=== PATIENT | male | born 1970 | race Caucasian/White ===

== ENCOUNTER 2023-12-01 11:20 | Inpatient (IN) | payer SELFPAY ==
[2023-12-01] VITALS (9 sets, daily range): BP systolic 118–154; BP diastolic 76–106; PULSE 64–104; RESP 12–19; TEMP 36.3–37.3; O2SAT 94–100; BMI 34.6; BMI 34.0
[2023-12-01] MEDS: 0.9% Normal Saline (1000mL) 1,000 ML 999 ML IV (12:00)
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
[2023-12-01 13:12] LABS: Bacteria 0 SEEN /hpf (None Seen); Mucous, Urine 0 SEEN /hpf (<or=2+); Red Blood Cells-Urine 0 SEEN /hpf (0-5); Squamous Epithelial Cells - UA 0 SEEN /hpf (0-5)
[2023-12-01 13:13] LABS: Absolute Lymphocyte Count 0.46 X10^3/uL (0.83-4.51); Absolute Neutrophil Count 5.7 X10^3/uL (2.0-7.7); Basophil# 0.04 X10^3/uL; Basophil% 0.6 % (0-1); Eosinophil# 0.02 X10^3/uL; Eosinophils% 0.3 % (0-5); Hemoglobin 13.4 g/dL (13.0-16.5); Lymphocyte # 0.46 X10^3/ul (0.83-4.51); Lymphocyte % 6.7 % (19-41); Mean Corp Hgb Conc 37.2 g/dL (32-36); Mean Corpuscular Hgb 33.4 pg (27.0-32.0); Mean Corpuscular Volume 89.8 fL (80-94); Mean Platelet Vol. 9.1 fl (6.2-12.0); Monocyte# 0.62 X10^3/uL; NRBC Flagged by Analyzer 0 % (0-5); Neutrophil # 5.68 X10^3/uL (2.7-7.7); Neutrophil % 82.5 % (47-70); POSITIVE DIFFERENTIAL YES; Platelet Count 225 K/mm3 (150-450); RBC Distribution Width CV 11.6 % (11.6-14.6); RBC Distribution Width SD 37.4 fl (35.1-43.9); Red Blood Count 4.01 M/mm3 (4.6-6.2); White Blood Count 6.9 K/mm3 (4.4-11.0)
[2023-12-01 13:21] LABS: Color, Urine Yellow (Yellow); Glucose, Dipstick Normal (Normal); Ketone-Dipstick Negative (Negative); Leukocyte Esterase-Dipstick 25 /ul (Negative); Nitrite-Dipstick Negative (Negative); Occult Blood-Urine Negative /ul (Negative); Protein-Dipstick 30 mg/dl (Negative); Specific Gravity, Urine 1.005 (1.002-1.030); Urine Bilirubin Dipstick Negative (Negative); Urine Clarity Clear (Clear); Urine Urobilinogen Normal (Normal); Urine pH 6.5 (5.0 - 8.0)
[2023-12-01 13:28] LABS: White Blood Cells 0-5 SEEN /hpf (0-5)
[2023-12-01 13:37] LABS: Amphetamine Urine VISTA NEGATIVE (<1000 ng/mL); Barbiturate Urine VISTA NEGATIVE (< 200 ng/mL); Benzodiazepine Urine VISTA NEGATIVE (< 200 ng/mL); Cocaine Urine VISTA NEGATIVE (< 300 ng/mL); Ecstacy Urine VISTA NEGATIVE (< 500 ng/mL); Methadone Urine VISTA NEGATIVE (< 300 ng/mL); PCP Urine VISTA NEGATIVE (< 25 ng/mL); THC Urine VISTA NEGATIVE (< 50 ng/mL); Vista UDS pH Range 6
[2023-12-01 14:00] LABS: Alcohol, Blood (Medical)-Serum < 3.0 mg/dL
[2023-12-01 14:11] LABS: Ammonia < 10.0 umol/L (11-32)
[2023-12-01 14:21] LABS: ALB/GLOB Ratio 0.8 RATIO (0.9-2.4); AST(SGOT) 67 U/L (15-37); Alanine Aminotransfer ALT/SGPT 43 U/L (16-61); Albumin, Serum 3.6 g/dL (3.2-5.0); Alkaline Phosphatase 71 U/L (45-117); Anion Gap 13 (5-15); BUN 18 mg/dL (7-18); BUN/Creat Ratio 15.3 RATIO (10-20); Calcium,Total 9.8 mg/dL (8.5-10.1); Chloride 71 mmol/L (98-107); Creatinine, Serum 1.18 mg/dL (0.70-1.30); EST Glomerular Filtration Rate 68 mL/min (>60); Est Glom Filt Rate - Afr Amer 82 mL/min (>60); Estimated Creatinine Clearance 92.92 ml/min; Globulin 4.5 g/dL (2.2-4.2); Glucose 142 mg/dL (74-106); Potassium 2.9 mmol/L (3.5-5.1); Protein, Total 8.1 g/dL (6.4-8.2); Sodium Level 116 mmol/L (136-145)
[2023-12-01] MEDS: Potassium Chloride Oral Tablet 20 MEQ 40 MEQ PO (14:35)
[2023-12-01] MEDS: 0.9% Normal Saline (1000mL) 1,000 ML 250 ML IV ×3 (14:36→21:09)
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
[2023-12-01] MEDS: Thiamine Hydrochloride 200 MG in 0.9% Normal Saline (50mL Bag) 50 ML IV (17:14)
[2023-12-01 17:34] LABS: Bedside Glucose 141 mg/dL (74-106)
[2023-12-01 17:35] LABS: Prothrombin Time (Protime)PT. 13.5 SECONDS (11.7-14.9)
[2023-12-01 17:40] LABS: Phosphorus 2.9 mg/dL (2.5-4.9)
[2023-12-01] MEDS: Nystatin Ointment 1 APPLIC TOPICAL ×2 (17:40→21:09)
[2023-12-01] MEDS: Glucerna Shake 120 ML LIQUID PO (17:42)
[2023-12-01 17:48] LABS: Sodium Level 118 mmol/L (136-145)
[2023-12-02 01:29] LABS: Bedside Glucose 151 mg/dL (74-106)
[2023-12-02 02:36] VITALS: BP 128/76; PULSE 86; RESP 16; TEMP 37; O2SAT 92
[2023-12-02] MEDS: 0.9% Normal Saline (1000mL) 1,000 ML 250 ML IV ×2 (02:36→05:41)
[2023-12-02 05:28] LABS: Prothrombin Time (Protime)PT. 13.5 SECONDS (11.7-14.9)
[2023-12-02 05:34] LABS: Absolute Lymphocyte Count 0.94 X10^3/uL (0.83-4.51); Basophil# 0.04 X10^3/uL; Basophil% 0.7 % (0-1); Eosinophil# 0.09 X10^3/uL; Eosinophils% 1.5 % (0-5); Hematocrit 29.6 % (40-54); Hemoglobin 10.9 g/dL (13.0-16.5); Lymphocyte # 0.94 X10^3/ul (0.83-4.51); Lymphocyte % 16.2 % (19-41); Mean Corp Hgb Conc 36.8 g/dL (32-36); Mean Corpuscular Hgb 33.7 pg (27.0-32.0); Mean Corpuscular Volume 91.6 fL (80-94); Mean Platelet Vol. 8.7 fl (6.2-12.0); Monocyte# 0.72 X10^3/uL; Monocyte% 12.4 % (0-10); NRBC Flagged by Analyzer 0 % (0-5); Neutrophil # 3.97 X10^3/uL (2.7-7.7); Neutrophil % 68.3 % (47-70); Platelet Count 160 K/mm3 (150-450); RBC Distribution Width CV 11.6 % (11.6-14.6); RBC Distribution Width SD 39.4 fl (35.1-43.9); Red Blood Count 3.23 M/mm3 (4.6-6.2); White Blood Count 5.8 K/mm3 (4.4-11.0)
[2023-12-02] MEDS: Nystatin Ointment 1 APPLIC TOPICAL ×3 (05:40→21:33)
[2023-12-02 05:54] LABS: ALB/GLOB Ratio 0.9 RATIO (0.9-2.4); AST(SGOT) 49 U/L (15-37); Alanine Aminotransfer ALT/SGPT 32 U/L (16-61); Albumin, Serum 2.9 g/dL (3.2-5.0); Alkaline Phosphatase 54 U/L (45-117); Anion Gap 7 (5-15); BUN 13 mg/dL (7-18); Bilirubin, Direct 0.44 mg/dL (0.00-0.30); Calcium,Total 8.3 mg/dL (8.5-10.1); Chloride 91 mmol/L (98-107); Creatinine, Serum 0.81 mg/dL (0.70-1.30); EST Glomerular Filtration Rate 105 mL/min (>60); Est Glom Filt Rate - Afr Amer 127 mL/min (>60); Globulin 3.4 g/dL (2.2-4.2); Glucose 127 mg/dL (74-106); Magnesium 2.2 mg/dL (1.6-2.6); Phosphorus 2.6 mg/dL (2.5-4.9); Potassium 2.9 mmol/L (3.5-5.1); Protein, Total 6.3 g/dL (6.4-8.2); Sodium Level 125 mmol/L (136-145)
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
[2023-12-02 07:51] VITALS: BP 149/96; PULSE 91; RESP 18; TEMP 37.1; O2SAT 95
[2023-12-02] MEDS: KCL 20MEQ in 0.45%NS 20 MEQ/1,000 ML IV.SOLN. 100 MEQ IV ×2 (07:55→18:09)
[2023-12-02] MEDS: Enoxaparin 40 MG/0.4 ML Syringe SC (07:57)
[2023-12-02 09:17] LABS: Anion Gap 9 (5-15); BUN 12 mg/dL (7-18); BUN/Creat Ratio 13.6 RATIO (10-20); Calcium,Total 8.4 mg/dL (8.5-10.1); Chloride 91 mmol/L (98-107); Creatinine, Serum 0.88 mg/dL (0.70-1.30); EST Glomerular Filtration Rate 95 mL/min (>60); Est Glom Filt Rate - Afr Amer 115 mL/min (>60); Estimated Creatinine Clearance 123.53 ml/min; Glucose 194 mg/dL (74-106); Magnesium 2.1 mg/dL (1.6-2.6); Phosphorus 1.8 mg/dL (2.5-4.9); Potassium 3.2 mmol/L (3.5-5.1); Sodium Level 125 mmol/L (136-145)
[2023-12-02 12:16] LABS: Bedside Glucose 189 mg/dL (74-106)
[2023-12-02 13:12] LABS: Anion Gap 8 (5-15); BUN 14 mg/dL (7-18); BUN/Creat Ratio 14.6 RATIO (10-20); Calcium,Total 8.4 mg/dL (8.5-10.1); Chloride 92 mmol/L (98-107); Creatinine, Serum 0.96 mg/dL (0.70-1.30); EST Glomerular Filtration Rate 87 mL/min (>60); Est Glom Filt Rate - Afr Amer 105 mL/min (>60); Estimated Creatinine Clearance 113.23 ml/min; Glucose 212 mg/dL (74-106); Potassium 3.4 mmol/L (3.5-5.1); Sodium Level 127 mmol/L (136-145)
[2023-12-02 14:06] VITALS: BP 121/83; PULSE 89; RESP 18; TEMP 36.7; O2SAT 98
[2023-12-02 16:39] LABS: Bedside Glucose 138 mg/dL (74-106)
[2023-12-02 18:03] LABS: Anion Gap 9 (5-15); BUN 12 mg/dL (7-18); Calcium,Total 8.1 mg/dL (8.5-10.1); Chloride 92 mmol/L (98-107); Creatinine, Serum 0.86 mg/dL (0.70-1.30); EST Glomerular Filtration Rate 98 mL/min (>60); Est Glom Filt Rate - Afr Amer 119 mL/min (>60); Glucose 174 mg/dL (74-106); Potassium 3.3 mmol/L (3.5-5.1); Sodium Level 128 mmol/L (136-145)
[2023-12-02 21:28] VITALS: BP 129/89; PULSE 85; RESP 17; TEMP 37.3; O2SAT 97
[2023-12-02 21:52] LABS: Bedside Glucose 195 mg/dL (74-106)
[2023-12-02 22:04] LABS: Anion Gap 6 (5-15); BUN 11 mg/dL (7-18); BUN/Creat Ratio 12.3 RATIO (10-20); Calcium,Total 8.1 mg/dL (8.5-10.1); Chloride 93 mmol/L (98-107); EST Glomerular Filtration Rate 94 mL/min (>60); Est Glom Filt Rate - Afr Amer 113 mL/min (>60); Estimated Creatinine Clearance 120.78 ml/min; Glucose 192 mg/dL (74-106); Potassium 3.3 mmol/L (3.5-5.1); Sodium Level 126 mmol/L (136-145)
[2023-12-02 23:27] LABS: Anion Gap 5 (5-15); BUN 11 mg/dL (7-18); BUN/Creat Ratio 12.2 RATIO (10-20); Calcium,Total 8.1 mg/dL (8.5-10.1); Chloride 94 mmol/L (98-107); EST Glomerular Filtration Rate 93 mL/min (>60); Est Glom Filt Rate - Afr Amer 113 mL/min (>60); Estimated Creatinine Clearance 120.78 ml/min; Glucose 183 mg/dL (74-106); Potassium 3.3 mmol/L (3.5-5.1); Sodium Level 128 mmol/L (136-145)
[2023-12-03] MEDS: KCL 20MEQ in 0.45%NS 20 MEQ/1,000 ML IV.SOLN. 100 MEQ IV ×3 (02:46→19:00)
[2023-12-03 02:47] VITALS: BP 141/92; PULSE 82; RESP 16; TEMP 36.7; O2SAT 100
[2023-12-03 04:54] LABS: Absolute Lymphocyte Count 0.91 X10^3/uL (0.83-4.51); Absolute Neutrophil Count 3.3 X10^3/uL (2.0-7.7); Basophil# 0.04 X10^3/uL; Basophil% 0.8 % (0-1); Lymphocyte # 0.91 X10^3/ul (0.83-4.51); Lymphocyte % 18.1 % (19-41); Mean Corp Hgb Conc 35.5 g/dL (32-36); Mean Corpuscular Hgb 33.6 pg (27.0-32.0); Mean Corpuscular Volume 94.8 fL (80-94); Mean Platelet Vol. 9.1 fl (6.2-12.0); Monocyte# 0.59 X10^3/uL; Monocyte% 11.8 % (0-10); NRBC Flagged by Analyzer 0 % (0-5); Neutrophil # 3.34 X10^3/uL (2.7-7.7); Neutrophil % 66.5 % (47-70); Platelet Count 144 K/mm3 (150-450); RBC Distribution Width SD 42.5 fl (35.1-43.9); Red Blood Count 3.27 M/mm3 (4.6-6.2)
[2023-12-03 05:31] LABS: Anion Gap 6 (5-15); BUN 9 mg/dL (7-18); BUN/Creat Ratio 11.4 RATIO (10-20); Calcium,Total 8.4 mg/dL (8.5-10.1); Chloride 95 mmol/L (98-107); Creatinine, Serum 0.79 mg/dL (0.70-1.30); EST Glomerular Filtration Rate 108 mL/min (>60); Est Glom Filt Rate - Afr Amer 131 mL/min (>60); Glucose 146 mg/dL (74-106); Potassium 3.2 mmol/L (3.5-5.1); Sodium Level 128 mmol/L (136-145)
[2023-12-03] MEDS: Nystatin Ointment 1 APPLIC TOPICAL ×3 (05:49→20:24)
[2023-12-03 06:56] LABS: Bedside Glucose 124 mg/dL (74-106)
[2023-12-03] MEDS: Potassium Chloride Oral Tablet 20 MEQ 40 MEQ PO (08:22)
[2023-12-03] MEDS: Enoxaparin 40 MG/0.4 ML Syringe SC (08:23)
[2023-12-03 08:47] VITALS: BP 184/124; PULSE 84; RESP 18; TEMP 36.9; O2SAT 100
[2023-12-03 10:16] VITALS: PULSE 84
[2023-12-03] MEDS: hydrALAZINE 20 MG/ML Vial 10 MG IV (10:16)
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
--- NOTE | 2023-12-03 10:51 | PN_ITS ---
Subjective Subjective Patient seen and examined. He had no complaints. He was eating breakfast. Review of systems otherwise negative. Blood pressure noted to be elevated today. He is not on any blood pressure medications. Objective Data Objective Data Vital Signs: Vital Signs Temp Pulse Resp BP Pulse Ox O2 Del Method 98.5 F 84 18 184/124 H 100 Room Air 12/03/23 08:47 12/03/23 10:16 12/03/23 08:47 12/03/23 08:47 12/03/23 08:47 12/03/23 08:47 Oxygen Delivery Method Room Air Weight: 250 lb 14.177 oz Body Mass Index (BMI) 34.0 Intake & Output: Intake and Output for Last 24 Hours 12/01/23 12/02/23 12/03/23 23:59 23:59 23:59 Intake Total 2610.33 / 2610.33 4887.50 / 4887.50 1261.67 / 1261.67 Output Total 600 / 600 1400 / 1400 475 / 475 Balance / 3487.50 / 3487.50 786.67 / 786.67 Lab / Micro Data 12/03/23 04:10 12/03/23 04:10 Labs: Laboratory Results - last 24 hr 12/02/23 11:59: POC Glucose 189 H 12/02/23 12:40: Sodium 127 L, Potassium 3.4 L, Chloride 92 L, Carbon Dioxide 27.0, Anion Gap 8, BUN 14, Creatinine 0.96, Estim Creat Clear Calc 113.23, Est GFR (MDRD) Af Amer 105, Est GFR (MDRD) Non-Af 87, BUN/Creatinine Ratio 14.6, G lucose 212 H, Calcium 8.4 L 12/02/23 16:21: POC Glucose 138 H 12/02/23 17:35: Sodium 128 L, Potassium 3.3 L, Chloride 92 L, Carbon Dioxide 27.0, Anion Gap 9, BUN 12, Creatinine 0.86, Estim Creat Clear Calc 126.40, Est GFR (MDRD) Af Amer 119, Est GFR (MDRD) Non-Af 98, BUN/Creatinine Ratio 14.0, G lucose 174 H, Calcium 8.1 L 12/02/23 21:05: Sodium 126 L, Potassium 3.3 L, Chloride 93 L, Carbon Dioxide 27.0, Anion Gap 6, BUN 11, Creatinine 0.90, Estim Creat Clear Calc 120.78, Est GFR (MDRD) Af Amer 113, Est GFR (MDRD) Non-Af 94, BUN/Creatinine Ratio 12.3, G lucose 192 H, Calcium 8.1 L 12/02/23 21:30: POC Glucose 195 H 12/02/23 23:01: Sodium 128 L, Potassium 3.3 L, Chloride 94 L, Carbon Dioxide 29.0, Anion Gap 5, BUN 11, Creatinine 0.90, Estim Creat Clear Calc 120.78, Est GFR (MDRD) Af Amer 113, Est GFR (MDRD) Non-Af 93, BUN/Creatinine Ratio 12.2, G lucose 183 H, Calcium 8.1 L 12/03/23 04:10: WBC 5.0, RBC 3.27 L, Hgb 11.0 L, Hct 31.0 L, MCV 94.8 H, MCH 33.6 H, MCHC 35.5, RDW Std Deviation 42.5, RDW Coeff of Julien 12.0, Plt Count 144 L, MPV 9.1, Immature Gran % (Auto) 0.800, Neut % (Auto) 66.5, Lymph % (Auto) 18.1 L, [place] % (Auto) 11.8 H, Eos % (Auto) 2.0, Baso % (Auto) 0.8, Absolute Neuts (auto) 3.3, Absolute Lymphs (auto) 0.91, Nucleated RBC % 0, Sodium 128 L, Potassium 3.2 L, Chloride 95 L, Carbon Dioxide 27.0, Anion Gap 6, BUN 9, Creatinine 0.79, Estim Creat Clear Calc 137.60, Est GFR (MDRD) Af Amer 131, Est GFR (MDRD) Non-Af 108, BUN/Creatinine Ratio 11.4, Glucose 146 H, Calcium 8.4 L 12/03/23 06:38: POC Glucose 124 H Physical Exam Const alert, oriented x3 and no apparent distress General Appearance: cooperative HEENT normocephalic, head/scalp atraumatic, moist oral mucous membranes and oropharynx normal Eyes PERRL and EOMs intact bilaterally Neck no lymphadenopathy, supple and no JVD Lymph Lymphatic: no lymphadenopathy noted and no lymphedema noted Resp normal respiratory effort, normal air movement and clear to auscultation bilaterally Cardio regular rate, regular rhythm, S1 normal heart sound, S2 normal heart sound and no murmurs GI normal to inspection, nondistended, normoactive bowel sounds, soft to palpation, non-tender and non-distended Extremity normal capillary refill, no clubbing, cyanosis or edema and no calf tenderness Skin General Skin Exam: no breakdown Neuro CN's II-XII intact bilaterally, no focal motor deficits and no sensory deficits noted Motor Exam: strength 5/5 throughout Psych thought process normal Mood & Affect: flat affect Assessment & Plan Assessment/Plan (1) Acute hyponatremia: (2) Acute hypokalemia: (3) HTN (hypertension): PLAN: Plan #Severe hyponatremia * resolving. Sodium is now 128. Likely due to beer potomania from chronic alcohol abuse * will monitor * #Hypokalemia: Patient is 3.2. Will replace and trend. #Hypertension; blood pressure was up to 184/124 today. Blood pressure has been running in the 120s to 140s systolic. Will start on low-dose p.o. amlodipine 10 mg daily. IV hydralazine prn DVT prophylaxis: lovenox Charges/Coding Visit Charges Inpatient E&M: 83291 Subs Hosp L2
[2023-12-03 12:03] LABS: Bedside Glucose 209 mg/dL (74-106)
[2023-12-03] MEDS: amLODIPine 5 MG Tablet PO (14:17)
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
[2023-12-03 14:24] VITALS: BP 123/80; PULSE 70; RESP 18; TEMP 36.6; O2SAT 100
[2023-12-03 17:36] LABS: Bedside Glucose 224 mg/dL (74-106)
[2023-12-03 20:21] VITALS: BP 144/94; PULSE 84; RESP 16; TEMP 37; O2SAT 98
[2023-12-03 22:20] LABS: Bedside Glucose 189 mg/dL (74-106)
[2023-12-04 03:08] VITALS: BP 158/98; PULSE 92; RESP 18; TEMP 36.8; O2SAT 98
[2023-12-04] MEDS: KCL 20MEQ in 0.45%NS 20 MEQ/1,000 ML IV.SOLN. 100 MEQ IV ×2 (05:07→20:52)
[2023-12-04] MEDS: Nystatin Ointment 1 APPLIC TOPICAL ×3 (05:07→20:54)
[2023-12-04 05:30] LABS: Bedside Glucose 147 mg/dL (74-106)
[2023-12-04 06:34] LABS: Anion Gap 5 (5-15); BUN 5 mg/dL (7-18); BUN/Creat Ratio 7.4 RATIO (10-20); Calcium,Total 8.1 mg/dL (8.5-10.1); Chloride 96 mmol/L (98-107); Creatinine, Serum 0.67 mg/dL (0.70-1.30); EST Glomerular Filtration Rate 130 mL/min (>60); Est Glom Filt Rate - Afr Amer 158 mL/min (>60); Estimated Creatinine Clearance 162.25 ml/min; Glucose 150 mg/dL (74-106); Potassium 3.8 mmol/L (3.5-5.1); Sodium Level 128 mmol/L (136-145)
[2023-12-04] MEDS: Enoxaparin 40 MG/0.4 ML Syringe SC (08:30)
[2023-12-04] MEDS: amLODIPine 5 MG Tablet PO (08:30)
[2023-12-04 08:55] VITALS: BP 160/105; PULSE 88; RESP 18; TEMP 36.9; O2SAT 98
--- NOTE | 2023-12-04 10:41 | PN_ITS ---
Subjective Subjective Patient Objective Data Objective Data Vital Signs: Vital Signs Temp Pulse Resp BP Pulse Ox O2 Del Method 98.5 F 88 18 160/105 H 98 Room Air 12/04/23 08:55 12/04/23 08:55 12/04/23 08:55 12/04/23 08:55 12/04/23 08:55 12/04/23 08:56 Oxygen Delivery Method Room Air Weight: 250 lb 14.177 oz Body Mass Index (BMI) 34.0 Intake & Output: Intake and Output for Last 24 Hours 12/02/23 12/03/23 12/04/23 23:59 23:59 23:59 Intake Total 4887.50 / 4887.50 4420.00 / 4820.00 1700 / 1700 Output Total 1400 / 1400 875 / 875 Balance 3487.50 / 3487.50 3545.00 / 3945.00 1700 / 1700 Lab / Micro Data 12/03/23 04:10 12/04/23 05:06 Labs: Laboratory Results - last 24 hr 12/03/23 11:46: POC Glucose 209 H 12/03/23 17:19: POC Glucose 224 H 12/03/23 20:19: POC Glucose 189 H 12/04/23 05:06: Sodium 128 L, Potassium 3.8, Chloride 96 L, Carbon Dioxide 27.0, Anion Gap 5, BUN 5 L, Creatinine 0.67 L, Estim Creat Clear Calc 162.25, Est GFR (MDRD) Af Amer 158, Est GFR (MDRD) Non-Af 130, BUN/Creatinine Ratio 7.4 L, G lucose 150 H, Calcium 8.1 L 12/04/23 05:10: POC Glucose 147 H
--- NOTE | 2023-12-04 10:44 | PN_ITS ---
Subjective Subjective Patient seen and examined. He had no complaints. He had an uneventful night. Review of systems otherwise negative. He has been hemodynamically stable. Objective Data Objective Data Vital Signs: Vital Signs Temp Pulse Resp BP Pulse Ox O2 Del Method 98.5 F 88 18 160/105 H 98 Room Air 12/04/23 08:55 12/04/23 08:55 12/04/23 08:55 12/04/23 08:55 12/04/23 08:55 12/04/23 08:56 Oxygen Delivery Method Room Air Weight: 250 lb 14.177 oz Body Mass Index (BMI) 34.0 Intake & Output: Intake and Output for Last 24 Hours 12/02/23 12/03/23 12/04/23 23:59 23:59 23:59 Intake Total 4887.50 / 4887.50 4420.00 / 4820.00 1700 / 1700 Output Total 1400 / 1400 875 / 875 Balance 3487.50 / 3487.50 3545.00 / 3945.00 1700 / 1700 Lab / Micro Data 12/03/23 04:10 12/04/23 05:06 Labs: Laboratory Results - last 24 hr 12/03/23 11:46: POC Glucose 209 H 12/03/23 17:19: POC Glucose 224 H 12/03/23 20:19: POC Glucose 189 H 12/04/23 05:06: Sodium 128 L, Potassium 3.8, Chloride 96 L, Carbon Dioxide 27.0, Anion Gap 5, BUN 5 L, Creatinine 0.67 L, Estim Creat Clear Calc 162.25, Est GFR (MDRD) Af Amer 158, Est GFR (MDRD) Non-Af 130, BUN/Creatinine Ratio 7.4 L, G lucose 150 H, Calcium 8.1 L 12/04/23 05:10: POC Glucose 147 H Physical Exam Const alert, oriented x3 and no apparent distress Constitutional Narrative: Alert oriented x 2, unsure about the time General Appearance: cooperative Orientation / Consciousness: confused HEENT normocephalic, head/scalp atraumatic, moist oral mucous membranes and oropharynx normal Eyes PERRL and EOMs intact bilaterally Neck no lymphadenopathy, supple and no JVD Lymph Lymphatic: no lymphadenopathy noted and no lymphedema noted Resp normal respiratory effort, normal air movement and clear to auscultation bilaterally Cardio regular rate, regular rhythm, S1 normal heart sound, S2 normal heart sound and no murmurs GI normal to inspection, nondistended, normoactive bowel sounds, soft to palpation, non-tender and non-distended Extremity normal capillary refill, no clubbing, cyanosis or edema and no calf tenderness General Extremity: no tenderness to palpation of joints or extremities Skin General Skin Exam: no breakdown Neuro CN's II-XII intact bilaterally, moves all extremities, no focal motor deficits and no sensory deficits noted Neuro Narrative: episodic confusion Sensorium / Orientation: awake and alert Speech: speech normal Motor Exam: strength 5/5 throughout Psych thought process normal Mood & Affect: flat affect Assessment & Plan Assessment/Plan (1) Acute hyponatremia: (2) Acute hypokalemia: (3) HTN (hypertension): PLAN: Plan #Severe hyponatremia * resolving. Sodium remains 128. * Likely due to beer potomania from chronic alcohol abuse * will monitor * #Hypokalemia: resolved. K is 3.8 #Hypertension: * BP remains elevated. * on amlodipine. will increase dose to 10mg daily. IV hydralazine prn DVT prophylaxis: lovenox Disposition: Patient has a tenuous social situation. He is apparently a hoarder and is unable to care for himself very well. Case management on board to help facilitate discharge planning. Charges/Coding Visit Charges Inpatient E&M: 10285 Subs Hosp L2
[2023-12-04 11:42] LABS: Bedside Glucose 206 mg/dL (74-106)
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
--- NOTE | 2023-12-04 15:02 | CASEMGMT ---
Social Work Tamela from Crisis came to see pt, she states pt does need placement. SW let discharge rn know, let physician know. Labs also faxed over to [facility]. FABRIZIO will continue to follow. Laura with [facility] will defer doing an application at this time. BERNARDA Gomez
--- NOTE | 2023-12-04 15:04 | CHAPLAIN ---
Type of Pastoral Visit _x__ Initial Visit ___ Follow-up Visit ___ On-call Visit ___ General Patient Visit ___ Spiritual Assessment ___ Family Conference ___ Bereavement ___ Rapid Response ___ Code Blue ___ Other (describe below) Pastoral Care Referral From _x__ Patient ___ Family ___ Nurse ___ Physician ___ Patrol Police Sergeant ___ Case Coordinator _x__ Other (describe below) Sacrament/Intervention _x__ Active listening ___ Anointing ___ Yazidi ___ Bereavement ___ Communion ___ Neisha exploration ___ ___ Life review _x__ Prayer ___ Reconciliation ___ Sacrament of Sick _x__ Supportive presence ___ Wedding ___ Other (describe below) Pastoral Comments patient's first statement is you are the first man I have seen since I've been here; pt is sitting up and staring at his lunch tray without action; offered for pt to eat now and he said he is not sure about eating; pt answers questions but is slow to respond, his hands are shaking a bit, and he looks but blankly; probing for his emotions, the patient describes his feelings as 'anxious'; pt has limited family support and they are not in the area; pt does not engage in a conversation other than answering questions; pt does agree to a prayer being spoken
[2023-12-04 17:00] VITALS: BP 159/106; PULSE 86; RESP 18; TEMP 36.8; O2SAT 98
[2023-12-04 17:26] LABS: Bedside Glucose 152 mg/dL (74-106)
[2023-12-04 20:50] VITALS: BP 156/109; PULSE 81; RESP 20; TEMP 36.8; O2SAT 99
[2023-12-04] MEDS: Menthol/Lanolin/Calamine/Znox 113 GM Tube 1 APPLIC TOPICAL (20:53)
[2023-12-04 22:30] VITALS: BP 156/109; PULSE 81
[2023-12-04] MEDS: 0.9% Saline Lock 10 ML Syringe IV (22:30)
[2023-12-04] MEDS: hydrALAZINE 20 MG/ML Vial 10 MG IV (22:30)
[2023-12-04 23:21] LABS: Bedside Glucose 132 mg/dL (74-106)
--- NOTE | 2023-12-05 02:23 | NURSING ---
[facility] called to confirm pt payor source as they are reviewing his referral. primary rn notified. encouraged to call during dayshift if further questions as facesheet states self pay
[2023-12-05 02:28] VITALS: BP 157/92; PULSE 87; RESP 18; TEMP 37.1; O2SAT 96
--- NOTE | 2023-12-05 02:32 | NURSING ---
[facility] ([facility] called to say that [facility] cannot offer immediate acceptance until pt sodium is higher. If improved on am labs fax results to the counseling center to send to them and they do have bed availability to possibly accept later today. primary rn notified
[2023-12-05] MEDS: KCL 20MEQ in 0.45%NS 20 MEQ/1,000 ML IV.SOLN. 100 MEQ IV (06:20)
[2023-12-05] MEDS: Nystatin Ointment 1 APPLIC TOPICAL (06:22)
[2023-12-05 07:42] LABS: Anion Gap 7 (5-15); BUN 5 mg/dL (7-18); BUN/Creat Ratio 8.2 RATIO (10-20); Calcium,Total 8.3 mg/dL (8.5-10.1); Chloride 97 mmol/L (98-107); Creatinine, Serum 0.61 mg/dL (0.70-1.30); EST Glomerular Filtration Rate 146 mL/min (>60); Est Glom Filt Rate - Afr Amer 177 mL/min (>60); Estimated Creatinine Clearance 178.21 ml/min; Glucose 146 mg/dL (74-106); Potassium 4.3 mmol/L (3.5-5.1); Sodium Level 129 mmol/L (136-145)
[2023-12-05 08:28] VITALS: BP 138/89; PULSE 82; RESP 16; TEMP 36.9; O2SAT 96
[2023-12-05] MEDS: amLODIPine 10 MG Tablet PO (08:41)
[2023-12-05] MEDS: Enoxaparin 40 MG/0.4 ML Syringe SC (08:41)
--- NOTE | 2023-12-05 09:02 | CASEMGMT ---
Social Work- SW called [facility] and spoke with Agustina, field crop farm worker. Agustina states that pt has acceptance at [facility] and can be transferred today. Bedside nurse and physician aware of pending transfer. ALIREZA Peterson
--- NOTE | 2023-12-05 09:58 | DCINST_ITS ---
Discharge Instructions Diet Discharge Diet: Low fat / Low cholesterol Activity Discharge Activity: Return to Normal Activity Weight Bearing Status: Weight bearing as tolerated Dressing / Incision Call your doctor if you observe: Fever of 101 or Higher, Shortness of breath, Dizziness, Swelling in the ankles, Chest pain and Increased palpitations (irregular heartbeat) Follow Up Care Test Results: Test results from this visit will be discussed in further detail at your follow- up appointment, if applicable. Discharge Plan Admission Admit Date/Time: 12/01/23 15:23 Primary Reason for Your Visit: hyponatremia, suicidal ideation Attending Provider: Sandi Stewart Primary Care Provider: Care Physician,No Primary Consulting Providers: Annette Birmingham; Magdaleno Anne Instructions Patient Instructions: Hyponatremia Ch Dc, ED Hyponatremia Discharge Orders/Prescriptions Prescriptions: New amlodipine 10 mg Tablet 10 mg PO DAILY Qty: 30 2RF Referrals / Follow Up: Care Physician,No Primary [Primary Care Provider] - [facility] Doctor,Out of [Non-Staff] - Disposition Disposition (needs filled in before D/C Order can be placed): Psychiatric Hospital or Unit
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
--- NOTE | 2023-12-05 10:07 | PHA.DC.MR.R ---
Pharmacy [place] Med Reconciliation Pharmacy Service has performed discharge medication reconciliation for this patient. Transfer to [facility]. Medications reviewed. The patient's discharge medication list was reviewed for discrepancies and discrepancies were resolved. Medications at Discharge Home Medications amlodipine 10 mg tablet 10 mg PO DAILY #30 tabs 12/05/23
--- NOTE | 2023-12-05 10:56 | CASEMGMT ---
Social Work- SW spoke with pt sister, Allison, who states that she is taking care of pt home. Pt sister states that she is having mail held at post office, has bills that she will pay, and purchased an automatic cat feeder and waterer for pt outdoor cat. Pt sister states that she is going to call staff at [facility] after he arrives to make sure there are no self-care items that pt needs. ALIREZA Peterson
== END 2023-12-05 11:08 | DRG 640 ==
LOC: ED 14:56 → MS3 15:11
PROVIDERS: Internal Medicine; Physician Assistant; Admitting Provider Internal Medicine; Emergency Provider Emergency Medicine; Visit Provider Student in an Organized Health Care Education/Training Program
DX: E87.1 Hypo-osmolality and hyponatremia (principal); G93.41 Metabolic encephalopathy; R45.851 Suicidal ideations; E11.9 Type 2 diabetes mellitus without complications; I10 Essential (primary) hypertension; F10.11 Alcohol abuse, in remission; E87.6 Hypokalemia; S80.211A Abrasion, right knee, initial encounter; S80.212A Abrasion, left knee, initial encounter; S10.91XA Abrasion of unspecified part of neck, initial encounter; E78.5 Hyperlipidemia, unspecified; F17.210 Nicotine dependence, cigarettes, uncomplicated; V89.2XXA Person injured in unspecified motor-vehicle accident, traffic, initial encounter; Y92.410 Unspecified street and highway as the place of occurrence of the external cause; F42.3 Hoarding disorder
CPT/HCPCS: 36415; 70450; 71260; 72125; 74177; 80048; 80053; 80307; 80320; 81001; 82140; 82248; 82962; 83735; 84100; 84295; 84443; 85025; 85610; 97162; 97166; 97530; 97535; 97802; 99284; J7030; A4216; G0480; J3490

== ENCOUNTER 2025-06-24 11:50 | Emergency (ER) | payer MEDICAID, SELFPAY ==
[2025-06-24 11:51] VITALS: BP 188/108; PULSE 104; RESP 16; TEMP 37.2; O2SAT 97; BMI 32.7
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
[2025-06-24 12:50] LABS: Hematocrit 48.8 % (40-54); Hemoglobin 17.2 g/dL (13.0-16.5); Immature Granulocytes Count 0.030 X10^3/uL (0.0-0.0); Mean Corp Hgb Conc 35.2 g/dL (32-36); Mean Corpuscular Volume 95.5 fL (80-94); Mean Platelet Vol. 9.6 fl (6.2-12.0); NRBC Flagged by Analyzer 0 % (0-5); Platelet Count 185 K/mm3 (150-450); RBC Distribution Width CV 11.7 % (11.6-14.6); RBC Distribution Width SD 40.9 fl (35.1-43.9); Red Blood Count 5.11 M/mm3 (4.6-6.2); White Blood Count 10.4 K/mm3 (4.4-11.0)
--- OUTSIDE RECORDS SUMMARY | 2025-06-24 12:56 | XMS RPT_ITS | CCD ---
Author Organization [facility] Care Team Providers Care Family Psychologist Name Role Phone Cruzito Kirk MD Primary Care Provider [phone] Self, Self Primary Care Provider Unavailabl CHAYITO Patel Attending Unavailable JOSE RIVERS Admitting Unavailable CONSULT, PSYCHIATRY Consulting Unavailable Care Physician, No Primary Primary Care Unava ilable Vinnie, Achintya Consulting Unavailable Vinnie Achintya Admitting Unavailable Sandi Stewart Attending Unavailable Magdaleno Anne Consulting Unavailable Care Physician, No Primary Primary Care Unava ilable Vinnie Achintya Consulting Unavailable Nghia Birminghamya Attending Unavailable Vinnie, Achintya Admitting Unavailable Pat, Sandi Theresa Attending Unavailable Magdaleno Anne Consulting Unavailable Sandi Stewart Consulting Unavailable Magdaleno Anne Attending Unavailable Cruzito Kirk MD Primary Care Provider Kush LOPEZ Referring Unavailable Kush LOPEZ Attending Unavailable CRUZITO KIRK Primary Care Unavailable CRUZITO KIRK Primary Care Unavailable Kush LOPEZ Referring Unavailable CANDIDO SHARMA Attending Unavailable CRUZITO KIRK Primary Care Unavailable Allergies Allergy Classification Reported Allergen(s) Allergy Type Date of Onset Reaction(s) Facility (5 sources) Codeine; Translations: [CODEINE] Drug Allergy 0 Rash [facility] Work Phone: (2 sources) Non-steroidal anti-inflammato ry agent; Translations: [NSAIDS (NON-STEROIDAL ANTI-INFLAMMATO RY DRUG)] Propensity to adverse reactions to drug 4 Other: See Comments [facility] Work Phone: (5 sources) Shellfish; Translations: [SHELLFISH] Food Allergy 09-21-201 0 Rash [facility] Work Phone: (5 sources) Bee Sting; Translations: [BEE STING] Allergy to substance 4 Swelling [facility] Work Phone: (1 source) Shellfish Drug allergy (disorder) 4 [facility] Repository (3 sources) Non-steroidal anti-inflammato ry agent Propensity to adverse reactions to drug 4 Other: See Comments [facility] Medications Current Medications Medication Drug Class(es) Dates Sig (Normalized) Sig (Original) amLODIPine 5 mg oral tablet (10 sources) Dihydropyridine Calcium Channel Dusty Start: 12-19-2023 End: 06-16-2024 take 1 tablet by mouth once daily amLODIPine (NORVASC) 5 mg tablet Take 5 mg by mouth once daily. 0 12/19/2023 06/16/2024 Active Start: 12-17-2023 End: 12-18-2023 take 10 mg by mouth once daily 10 mg, Oral, DAILY, Fir st dose on Sun12/17/23 at 1230, Until Discontinued folic acid 1 mg oral tablet (8 sources) Start: 12-20-2023 End: 06-17-2024 take 1 tablet by mouth once daily folic acid 1 mg tablet Take 1 mg by mouth once daily. 0 12/20/2023 06/17/2024 Active Start: 12-07-2023 End: 12-19-2023 Folic acid (FOLVITE) tablet 1 mg Start: 12-07-2023 Folic acid (FO LVITE) tablet 1 mg lisinopril 10 mg oral tablet (4 sources) Angiotensin Converting Enzyme Inhibitor Start: 05-02-2019 take 1 tablet by mouth once daily lisinopril (ZESTRIL, PRINIVIL) 10 mg tablet Take 1 tablet by mouth once daily. 30 tablet 5 05/02/2019 Active Comment on above: Take 1 tablet by sonya once daily. LORazepam 0.5 mg oral tablet (9 sources) Benzodiazepine Start: 12-18-2023 End: 12-24-2023 take 1 tablet by mouth once daily LORazepam 0.5 MG tablet Indications: Psychosis, unspecified psychosis type Take 1 tablet by mouth daily for 5 days. 5 tablet 12/19/2023 12/24/2023 Active Start: 12-14-2023 End: 12-17-2023 take 1 mg by mouth twice daily 1 mg, Oral, 2 TIMES KENDALL LY, First dose (after last modification) on Sun12/14/23 at 1700, Until Discontinued Start: 12-08-2023 End: 12-14-2023 take 1 mg by mouth three times daily 1 mg, Oral, 3 times daily, First dose on Sun12/08/23 at 1515, Until Discontinued 24 hr metFORMIN hydrochloride 500 mg extended release oral tablet (1 source) Biguanide Start: 01-04-2024 take 1 tablet by mouth once daily metFORMIN ER (GLUCOPHAGE XR) 500 mg 24 hr tablet Indications: Controlled type 2 diabetes mellitus without complication, without long-term current use of insulin (HCC) Take 1 tablet by mouth once daily. 180 tablet 3 01/04/2024 Active Multiple Vitamin (Multi-Vitamins) tablet (3 sources) Start: 12-20-2023 End: 06-17-2024 take 1 tablet by mouth once daily Multiple Vitamin (Multi-Vitamins) tablet Take 1 tablet by mouth daily. 30 tablet 5 12/20/2023 06/17/2024 Active Start: 12-20-2023 End: 06-17-2024 take 1 tablet by mouth once daily Multiple Vitamin (Multi-Vitamins) tablet Take 1 tablet by mouth daily. 30 tablet 5 12/20/2023 06/17/2024 OLANZapine 5 mg oral tablet (10 sources) Atypical Antipsychotic Start: 12-19-2023 End: 01-18-2024 take 1 tablet by mouth once daily at bedtime OLANZapine (ZYPREXA) 5 mg tablet Take 5 mg by mouth daily at bedtime. 0 12/19/2023 01/18/2024 Active Start: 12-14-2023 End: 12-19-2023 take 5 mg by mouth once daily at bedtime 5 mg, Oral, DAILY AT BEDTIME, First dose (after last modification) on Sun12/14/23 at 2100, Until Discontinued Start: 12-10-2023 End: 12-14-2023 take 2.5 mg by mouth once daily at bedtime 2.5 mg, Oral, DAILY AT BEDTIME, First dose on Sun12/10/23 at 2100, Until Discontinued sertraline 50 mg oral tablet (12 sources) Serotonin Reuptake Inhibitor Start: 12-13-2023 End: 06-17-2024 take 1 tablet by mouth once daily sertraline (ZOLOFT) 50 mg tablet Take 50 mg by mouth once daily. 0 12/20/2023 06/17/2024 Active Start: 12-11-2023 End: 12-12-2023 take 1 dose by mouth once daily 25 mg, Oral, DAILY, 1 dose, First dose (after last modification) on Sun12/12/23 at 0900 tamsulosin hydrochloride 0.4 mg oral capsule (8 sources) alpha-Adrenergic Dusty Start: 12-09-2023 End: 06-17-2024 take 0.4 mg by mouth once daily tamsulosin (FLOMAX) 0.4 mg Take 0.4 mg by mouth once daily. 0 12/20/2023 06/17/2024 Active thiamine 100 mg oral tablet (8 sources) Start: 12-11-2023 End: 06-17-2024 take 1 tablet by mouth once daily thiamine (VITAMIN B1) 100 mg tablet Take 1 tablet by mouth once daily. 0 12/20/2023 06/17/2024 Active Completed/Discontinued Medications Medication Drug Class(es) Dates Sig (Normalized) Sig (Original) acetaminophen 325 mg oral tablet (2 sources) Start: 12-07-2023 End: 12-19-2023 take 1 tablet by mouth every six hours as needed 650 mg, Oral, EVERY 6 HOURS NEEDED, Starting on Sun12/07/23 at 0412, Until Sun12/19/23 at 1543, Mild Pain, Oral temp > 100.4 F, Maximum dose of acetaminophen is 4000 mg from all sources in 24 hours. aluminum hydroxide 40 mg/ml / magnesium hydroxide 40 mg/ml / simethicone 4 mg/ml oral suspension (2 sources) Start: 12-07-2023 End: 12-19-2023 take 30 mL by mouth every six hours as needed 30 mL, Oral, EVERY 6 HOURS NEEDED, Starting on Sun12/07/23 at 0412, Until Sun12/19/23 at 1543, Indigestion, Per 5 mL is equivalent to: (Alum-Mag Hydroxide 200-225 mg and Simethicone 20 mg) and (Alum-Mag Hydroxide 200-200 mg and Simethicone 20 mg) calcium chloride 0.0014 meq/ml / potassium chloride 0.004 meq/ml / sodium chloride 0.103 meq/ml / sodium lactate 0.028 meq/ml injectable solution (4 sources) Start: 12-06-2023 End: 12-07-2023 Intravenous, at 100 mL/hr, CONTINUOUS, Starting on Sun12/06/23 at 2315, Until Sun12/07/23 at 1359 Start: 12-06-2023 End: 12-06-2023 1,000 mL, Intravenous, ONCE, 1 dose, On Sun12/06/23 at 1930, Fluid Bolus carvedilol 12.5 mg oral tablet (6 sources) alpha-Adrenergic Dusty, beta-Adrenergic Dusty Start: 12-17-2023 End: 06-16-2024 take 1 tablet by mouth every twelve hours carvedilol (COREG) 12.5 mg tablet Take 12.5 mg by mouth every 12 hours. 0 12/19/2023 12/31/2023 Discontinued (Course of therapy completed) 0.4 ml enoxaparin sodium 100 mg/ml prefilled syringe (2 sources) Low Molecular Weight Heparin Start: 12-07-2023 End: 12-19-2023 inject 40 mg by subcutaneous injection every twenty-four hours 40 mg, Subcutaneous, EVERY 24 HOURS, First dose on Sun12/07/23 at 0800, Until Discontinued, For SUBCUTANEOUS route ONLY: alternate injection sites between left and right abdominal wall, pinching location and avoiding area around navel. If unable to use abdominal sites, may use the front or side of thighs., Indications: DVT/PE prophylaxis Gadopiclenol SOLN 1-25 mL (2 sources) Start: 12-09-2023 End: 12-09-2023 1-25 mL, Intravenous, ONCE, 1 dose, On Sun12/09/23 at 1300 guaiFENesin 20 mg/ml oral solution (2 sources) Start: 12-07-2023 End: 12-19-2023 take 400 mg by mouth every six hours as needed 400 mg, Oral, EVERY 6 HOURS NEEDED, Starting on Sun12/07/23 at 0412, Until Sun12/19/23 at 1543, Cough, Congestion hydroCHLOROthiazide 12.5 mg oral capsule (2 sources) Thiazide Diuretic Start: 12-17-2023 End: 06-25-2024 take 12.5 mg by mouth once daily 12.5 mg, Oral, DAILY, First dose on 12/17/23 at 1515, Until Discontinued ibuprofen 600 mg oral tablet (2 sources) Nonsteroidal Anti-inflammatory Drug Start: 12-06-2023 End: 12-19-2023 take 1 tablet by mouth every six hours as needed 600 mg, Oral, EVERY 6 HOURS NEEDED, Starting on Marlena 12/06/23 at 1539, Until 12/19/23 at 1543, Moderate Pain, Give with food iv contrast (will be provided with radiology test) (2 sources) Start: 12-31-2023 End: 01-01-2024 iv contrast (will be provided with radiology test) CT Chest PE -Inject, intravenously, once for 1 dose.No IV access, insert saline lock prior to the beginning of sedation, infusion, injection of imaging exam. Discontinue saline lock post exam. If Pt. has a central line or IVAD, may access for administration according to line specific nursing protocol. Once exam is complete flush line and de-access according to line specific nursing protocol in the CT contrast administration guidelines link. 1 Each 0 12/31/2023 01/01/2024 Start: 12-31-2023 End: 01-01-2024 iv contrast (will be provide d with radiology test) CT Chest PE -Inject, intravenously, once for 1 dose.No IV access, insert saline lock prior to the beginning of sedation, infusion, injection of imaging exam. Discontinue saline lock post exam. If Pt. has a central line or IVAD, may access for administration according to line specific nursing protocol. Once exam is complete flush line and de-access according to line specific nursing protocol in the CT contrast administration guidelines link. 1 Each 0 12/31/2023 01/01/2024 Active labetalol hydrochloride 5 mg/ml injectable solution (4 sources) beta-Adrenergic Dusty Start: 12-17-2023 End: 12-17-2023 20 mg, Intravenous, ONCE, 1 dose, On Sun12/17/23 at 1645, Administration duration: up to 20 mg over 2 minutes. Telemetry required except for FUNDRA[employer] MANAGER patients on [address] 6 and 7. For vials: labetalol should be treated as a SINGLE USE VIAL. Discard remaining contents after one use. Start: 12-17-2023 End: 12-17-2023 10 mg, Intravenous, ONCE, 1 dose, On Sun12/17/23 at 1545, Administration duration: up to 20 mg over 2 minutes. Telemetry required except for FUNDRAISING MANAGER patients on [address] 6 and 7. For vials: labetalol should be treated as a SINGLE USE VIAL. Discard remaining contents after one use. magnesium oxide 400 mg oral tablet (4 sources) Start: 12-10-2023 End: 12-10-2023 take 1 dose by mouth once 800 mg, Oral, ONCE, 1 dose, On Sun12/10/23 at 1500 Start: 12-09-2023 End: 12-09-2023 take 1 dose by mouth once 400 mg, Oral, ONCE, 1 dose, On Sun12/09/23 at 0730 melatonin 3 mg oral tablet (2 sources) Start: 12-07-2023 End: 12-19-2023 take 6 mg by mouth once daily at bedtime as needed 6 mg, Oral, DAILY AT BEDTIME NEEDED, Starting on Sun12/07/23 at 0412, Until Sun12/19/23 at 1543, Insomnia Multi-Vitamins tablet 1 tablet (2 sources) Start: 12-07-2023 End: 12-19-2023 Multi-Vitamins tablet 1 tablet Start: 12-07-2023 Multi-Vitamins tablet 1 tablet nicotine 4 mg chewing gum (2 sources) Cholinergic Nicotinic Agonist Start: 12-06-2023 End: 12-19-2023 4 mg, Oral, ADMINISTER DIRECTED, Starting on Sun12/06/23 at 1539, Until Sun12/19/23 at 1543, Smoking cessation, May have 1 piece of gum every 1-2 hours with maximum of 24 pieces in 24 hours. Patient may self-administer. polyethylene glycol 3350 72053 mg powder for oral solution (2 sources) Osmotic Laxative Start: 12-07-2023 End: 12-19-2023 17 g, Oral, DAILY NEEDED, Starting on Sun12/07/23 at 0412, Until Sun12/19/23 at 1543, Constipation 1st Line 20 ml sodium chloride 9 mg/ml injection (4 sources) Start: 12-09-2023 End: 12-09-2023 1-100 mL, Intravenous, ONCE NEEDED, 1 dose, Starting on Sun12/09/23 at 1249, Until 12/09/23 at 1335, Flush, MR Procedure Start: 12-07-2023 End: 12-19-2023 Intravenous, at 20 mL/hr, NEEDED, Starting on Sun12/07/23 at 0412, Until Sun12/19/23 at 1543, Carrier Fluid - See Admin. Inst, 250mL 0.9NS to be used as carrier fluid for intermittent small volume or piggyback medication administration as needed. Infusion rate of the carrier fluid should be set at 20 mL/hr unless the rate as the intermittent medication is less than 20 mL/hr. For intermittent medications with a rate less than 20 mL/hr set the carrier fluid at that rate of the intermittent or piggy back medication. thiamine (B-1) 500 mg in Sodium chloride 0.9%, with overfill 65 mL (total volume) IVPB (2 sources) Start: 12-08-2023 End: 12-10-2023 500 mg, Intravenous, Adminis ter over 30 Minutes, DAILY, 3 doses, First dose on 12/08/23 at 0900, Last dose on 12/10/23 at 0900 Problems Active Problems Problem Classification Problem Date Documented Da te Episodic/Chronic Alcohol-related disorders (4 sources) Alcohol abuse; Translations: [Alcohol abuse, uncomplicated] Onset: 03-18-2014 03-24-2014 Chronic Conditions associated with dizziness or vertigo (1 source) Dizziness; Translations: [Dizziness and giddiness] 12-31-2023 Episodic Diabetes mellitus without complication (10 sources) Type 2 diabetes mellitus without complication; Translations: [Type 2 diabetes mellitus without complications] Onset: 04-13-2010 Resolved: 04-13-2016 04-26-2018 Chronic Disorders of lipid metabolism (4 sources) Hyperlipidemia; Translations: [Hyperlipidemia, unspecified] Onset: 03-25-2014 07-10-2014 Chronic Diverticulosis and diverticulitis (4 sources) Diverticular disease; Translations: [Diverticulosis of intestine, part unspecified, without perforation or abscess without bleeding] Onset: 03-18-2014 03-18-2014 Chronic Essential hypertension (6 sources) Hypertensive disorder; Translations: [Essential (primary) hypertension] Onset: 03-18-2014 03-24-2014 Chronic Fluid and electrolyte disorders (7 sources) Disorder of electrolytes; Translations: [Other disorders of electrolyte and fluid balance, not elsewhere classified] Onset: 12-05-2023 12-12-2023 Episodic Malaise and fatigue (1 source) Physical deconditioning; Translations: [Other malaise] 01-04-2024 Episodic Nutritional deficiencies (4 sources) Vitamin D deficiency; Translations: [Vitamin D deficiency, unspecified] Onset: 03-18-2014 03-24-2014 Chronic Osteoarthritis (4 sources) Osteoarthritis; Translations: [Unspecified osteoarthritis, unspecified site] Onset: 04-13-2010 10-29-2018 Chronic Other gastrointestinal disorders (1 source) Dysphagia; Translations: [Dysphagia, unspecified] 12-31-2023 Episodic Other lower respiratory disease (3 sources) Dyspnea; Translations: [Shortness of breath] 12-31-2023 Episodic Other lower respiratory disease (1 source) Shortness of breath; Translations: [SOB (shortness of breath)] Onset: 12-31-2023 Episodic Schizophrenia and other psychotic disorders (8 sources) Psychotic disorder; Translations: [Unspecified psychosis not due to a substance or known physiological condition] Onset: 12-06-2023 12-17-2023 Chronic Substance-related disorders (4 sources) Smoker; Translations: [Nicotine dependence, unspecified, uncomplicated] Onset: 04-26-2018 04-26-2018 Chronic Past or Other Problems Problem Classification Problem Date Documented Da te Episodic/Chronic Acquired foot deformities (4 sources) Talipes cavus; Translations: [Congenital pes cavus, unspecified foot] Onset: 04-13-2010 10-29-2018 Episodic Other and unspecified benign neoplasm (4 sources) Benign neoplasm of colon; Translations: [Benign neoplasm of colon, unspecified] Onset: 03-24-2010 03-18-2014 Episodic Other diseases of veins and lymphatics (4 sources) Venous stasis; Translations: [Other specified disorders of veins] Onset: 03-18-2014 03-18-2014 Episodic Other screening for suspected conditions (not mental disorders or infectious disease) (8 sources) Patient encounter status; Translations: [Encounter for screening for malignant neoplasm of prostate] Onset: 10-30-2018 10-30-2018 Episodic Unclassified (2 sources) Onset: 12-19-2023 12-19-2023 Unclassified (3 sources) Type 2 diabetes mellitus; Translations: [Type 2 diabetes mellitus with proteinuria or albuminuria] Onset: 03-24-2014 Resolved: 04-13-2016 04-13-2016 Results Test Name Value Interpretation Reference Range Facility CT CHEST W IVCON PEon 2023 CT CHEST W IVCON PE * * *Final Report* * * DATE OF EXAM: Jan 01 2024 1:45PM [facility] [place] [id number] - CT CHEST W IVCON PE / PROCEDURE REASON: SOB (shortness of breath) * * * * Physician Interpretation * * * * EXAMINATION: CHEST CT WITH CONTRAST (PULMONARY EMBOLISM PROTOCOL) CLINICAL HISTORY: Technique: Spiral CT acquisition of the chest from the thoracic inlet to the upper abdomen following IV contrast. Axial 1 and 3 mm thick slices plus coronal and sagittal reformatted images. MQ: CTCP_5 Contrast: 90 mL Omnipaque [address] Radiation dose: Integrated Dose-length product (DLP) for this visit = 372 mGy*cm CT Dose Reduction Employed: Automated exposure control(AEC) and iterative recon Comparison: No relevant prior studies available. RESULT: Limitations: None. Evaluation for thromboembolic disease: - Right heart chambers: No thromboembolic disease. - Main pulmonary arteries: No thromboembolic disease. - Lobar pulmonary arteries: No thromboembolic disease. - Segmental pulmonary arteries: No thromboembolic disease. - Subsegmental pulmonary arteries: No thromboembolic disease. - Additional pulmonary artery findings: The main pulmonary artery is normal in caliber. Lines, tubes, and devices: None. Lung parenchyma and airways: A tiny cluster of nodules is noted in the left upper lobe, most likely inflammatory, image 62. Patchy subsegmental atelectasis is noted in the lingula and both lower lobes. No consolidation is noted. Central airways are patent. Pleural space: No pleural effusion. No pleural thickening. Lower neck, lymph nodes, and mediastinum: The imaged thyroid gland is normal. No lymphadenopathy in the supraclavicular, axillary, mediastinal, or hilar regions. Heart, pericardium, and thoracic vessels: The thoracic aorta is normal in caliber. The cardiac chambers are normal in size. No coronary artery atherosclerotic calcifications are noted, although the study is not optimized for coronary assessment. No pericardial effusion or thickening. Bones and soft tissues: Few venous collaterals are noted in the left chest wall. Mild degenerative changes are noted in the thoracic spine. A sclerotic focus along the inferior endplate of T7 vertebral body is likely related to degenerative changes, sagittal image 74. Upper abdomen: No abnormality in the imaged upper abdomen. Localizer images: No additional findings. - IMPRESSION: No CT evidence of pulmonary embolism. No acute findings of the chest. Sheet Mill Supervisor: VIOLETA Transcribe Date/Time: Jan 01 2024 1:52P Dictated by : DARRIN OLIVERA MD This examination was interpreted and the report reviewed and electronically signed by: DARRIN OLIVERA MD on Jan 01 2024 2:12PM EST [id number] N Normal [facility] CTA Pulmonary arteries for p ulmonary embolus W contrast Brijesh 01-01-2024 IMPRESSION: No CT evidence of pulmonary embolism. No acute findings of the chest. Sheet Mill Supervisor: [facility] Transcribe Date/Time: Jan 01 2024 1:52P Dictated by : DARRIN OLIVERA MD This examination was interpreted and the report reviewed and electronically signed by: DARRIN OLIVERA MD on Jan 01 2024 2:12PM EST DIVISION OF RADIOLOGY * * *Final Report* * * DATE OF EXAM: Jan 01 2024 1:45PM [facility] [place] [id number] - CT CHEST W IVCON PE / PROCEDURE REASON: SOB (shortness of breath) * * * * Physician Interpretation * * * * EXAMINATION: CHEST CT WITH CONTRAST (PULMONARY EMBOLISM PROTOCOL) CLINICAL HISTORY: Technique: Spiral CT acquisition of the chest from the thoracic inlet to the upper abdomen following IV contrast. Axial 1 and 3 mm thick slices plus coronal and sagittal reformatted images. MQ: CTCP_5 Contrast: 90 mL Omnipaque [address] Radiation dose: Integrated Dose-length product (DLP) for this visit = 372 mGy*cm CT Dose Reduction Employed: Automated exposure control(AEC) and iterative recon Comparison: No relevant prior studies available. RESULT: Limitations: None. Evaluation for thromboembolic disease: - Right heart chambers: No thromboembolic disease. - Main pulmonary arteries: No thromboembolic disease. - Lobar pulmonary arteries: No thromboembolic disease. - Segmental pulmonary arteries: No thromboembolic disease. - Subsegmental pulmonary arteries: No thromboembolic disease. - Additional pulmonary artery findings: The main pulmonary artery is normal in caliber. Lines, tubes, and devices: None. Lung parenchyma and airways: A tiny cluster of nodules is noted in the left upper lobe, most likely inflammatory, image 62. Patchy subsegmental atelectasis is noted in the lingula and both lower lobes. No consolidation is noted. Central airways are patent. Pleural space: No pleural effusion. No pleural thickening. Lower neck, lymph nodes, and mediastinum: The imaged thyroid gland is normal. No lymphadenopathy in the supraclavicular, axillary, mediastinal, or hilar regions. Heart, pericardium, and thoracic vessels: The thoracic aorta is normal in caliber. The cardiac chambers are normal in size. No coronary artery atherosclerotic calcifications are noted, although the study is not optimized for coronary assessment. No pericardial effusion or thickening. Bones and soft tissues: Few venous collaterals are noted in the left chest wall. Mild degenerative changes are noted in the thoracic spine. A sclerotic focus along the inferior endplate of T7 vertebral body is likely related to degenerative changes, sagittal image 74. Upper abdomen: No abnormality in the imaged upper abdomen. Localizer images: No additional findings. - DIVISION OF RADIOLOGY Provider, [facility] - 01/01/2024 * * *Final Report* * * DATE OF EXAM: Jan 01 2024 1:45PM [facility] [place] [id number] - CT CHEST W IVCON PE / PROCEDURE REASON: SOB (shortness of breath) * * * * Physician Interpretation * * * * EXAMINATION: CHEST CT WITH CONTRAST (PULMONARY EMBOLISM PROTOCOL) CLINICAL HISTORY: Technique: Spiral CT acquisition of the chest from the thoracic inlet to the upper abdomen following IV contrast. Axial 1 and 3 mm thick slices plus coronal and sagittal reformatted images. MQ: CTCP_5 Contrast: 90 mL Omnipaque [address] Radiation dose: Integrated Dose-length product (DLP) for this visit = 372 mGy*cm CT Dose Reduction Employed: Automated exposure control(AEC) and iterative recon Comparison: No relevant prior studies available. RESULT: Limitations: None. Evaluation for thromboembolic disease: - Right heart chambers: No thromboembolic disease. - Main pulmonary arteries: No thromboembolic disease. - Lobar pulmonary arteries: No thromboembolic disease. - Segmental pulmonary arteries: No thromboembolic disease. - Subsegmental pulmonary arteries: No thromboembolic disease. - Additional pulmonary artery findings: The main pulmonary artery is normal in caliber. Lines, tubes, and devices: None. Lung parenchyma and airways: A tiny cluster of nodules is noted in the left upper lobe, most likely inflammatory, image 62. Patchy subsegmental atelectasis is noted in the lingula and both lower lobes. No consolidation is noted. Central airways are patent. Pleural space: No pleural effusion. No pleural thickening. Lower neck, lymph nodes, and mediastinum: The imaged thyroid gland is normal. No lymphadenopathy in the supraclavicular, axillary, mediastinal, or hilar regions. Heart, pericardium, and thoracic vessels: The thoracic aorta is normal in caliber. The cardiac chambers are normal in size. No coronary artery atherosclerotic calcifications are noted, although the study is not optimized for coronary assessment. No pericardial effusion or thickening. Bones and soft tissues: Few venous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 performed by Triple Quadrupole Inductively Coupled Plasma-Mass Spectrometry (ICP-MS/MS). This test was developed and its performance characteristics determined by [facility] in a manner consistent with CLIA requirements. This test has not been cleared or approved by the U.S. Food and Drug Administration. Mercury (Bld) [Mass/Vol] <1 NINF - 10 ng/mL [facility] Comment on above: ADDITIONAL INFORMATION This test was developed and its performance characteristics determined by [facility] in a manner consistent with CLIA requirements. This test has not been cleared or approved by the U.S. Food and Drug Administration. Laboratory - Specimen inform ationon 12-12-2023 Specimen source Nom (Unsp spec) Venous [facility] No Panel Informationon 12-11 Address [address] [facility] Attending physician name JAIDEN CAMILO Esteban [facility] County of residence [Location] [facility] Employer name [Identifier] NONE [facility] Ethnicity OMB.[id number] SEE COMMENTS [facility] Comment on above: RESULT: NOT OR Patient phone number [phone] [facility] Phone number Facility [phone] [facility] Comment on above: Test Performed by: [place] [address] Clerk General: Berta Matos Ph.D.; CLIA# [id number] Postal code [Location] [address] [facility] Provider [facility] Provider Postal code [address] [facility] Provider [facility] Race WHITE [facility] Referring physician address SEE COMMENTS [facility] Comment on above: RESULT: [address], [address] [facility] Survey instrumentson 024 Attending physician phone number Provider [phone] [facility] Basic Metabolic Profile (BMP )on 12-11-2023 BUN Normal 7-18 [facility] Comment on above: Result Comment: Canc elled via OM: Order cancelled - Patient discharged Performed By: #### L 501.9520, L501.5200, L500.4050, L300.3900, L501.2300, L100.0100, L501.4700 #### [facility] [address] [place], [address] BUN/CRE Normal 10-20 [facility] Comment on above: Result Comment: Canc elled via OM: Order cancelled - Patient discharged Performed By: #### L 501.9520, L501.5200, L500.4050, L300.3900, L501.2300, L100.0100, L501.4700 #### [facility] [address] [place], [address] CA,Total Normal 8.5-10.1 [facility] Comment on above: Result Comment: Canc elled via OM: Order cancelled - Patient discharged Performed By: #### L 501.9520, L501.5200, L500.4050, L300.3900, L501.2300, L100.0100, L501.4700 #### [facility] [address] [place], [address] CL Normal 98-107 [facility] Comment on above: Result Comment: Canc elled via OM: Order cancelled - Patient discharged Performed By: #### L 501.9520, L501.5200, L500.4050, L300.3900, L501.2300, L100.0100, L501.4700 #### [facility] [address] [place], [address] CO2 Normal 21.0-32.0 [facility] Comment on above: Result Comment: Canc elled via OM: Order cancelled - Patient discharged Performed By: #### L 501.9520, L501.5200, L500.4050, L300.3900, L501.2300, L100.0100, L501.4700 #### [facility] [address] [place], [address] CREAT,SERUM Normal 0.70-1.30 [facility] Comment on above: Result Comment: Canc elled via OM: Order cancelled - Patient discharged Performed By: #### L 501.9520, L501.5200, L500.4050, L300.3900, L501.2300, L100.0100, L501.4700 #### [facility] [address] [place], [address] EST GFR Normal >60 [facility] Comment on above: Result Comment: Canc elled via OM: Order cancelled - Patient discharged Performed By: #### L 501.9520, L501.5200, L500.4050, L300.3900, L501.2300, L100.0100, L501.4700 #### [facility] [address] [place], [address] EST GFR - AA Normal >60 [facility] Comment on above: Result Comment: Canc elled via OM: Order cancelled - Patient discharged Performed By: #### L 501.9520, L501.5200, L500.4050, L300.3900, L501.2300, L100.0100, L501.4700 #### [facility] [address] [place], [address] GAP Normal 5-15 [facility] Comment on above: Result Comment: Canc elled via OM: Order cancelled - Patient discharged Performed By: #### L 501.9520, L501.5200, L500.4050, L300.3900, L501.2300, L100.0100, L501.4700 #### [facility] [address] [place], [address] GLU Normal 74-106 [facility] Comment on above: Result Comment: Canc elled via OM: Order cancelled - Patient discharged Performed By: #### L 501.9520, L501.5200, L500.4050, L300.3900, L501.2300, L100.0100, L501.4700 #### [facility] [address] [place], [address] Potassium Normal 3.5-5.1 [facility] Comment on above: Result Comment: Canc elled via OM: Order cancelled - Patient discharged Performed By: #### L 501.9520, L501.5200, L500.4050, L300.3900, L501.2300, L100.0100, L501.4700 #### [facility] [address] [place], [address] Basic Metabolic Profile (BMP) Normal 136-145 [facility] Comment on above: Result Comment: Canc elled via OM: Order cancelled - Patient discharged Performed By: #### L 501.9520, L501.5200, L500.4050, L300.3900, L501.2300, L100.0100, L501.4700 #### [facility] [address] [place], [address] COMPREHENSIVE METABOLIC PANE [facility] 12-11-2023 Albumin [Mass/Vol] 3.8 g/dL Normal 3.5-5.0 [facility] Comment on above: Performed By: #### C HM7, HFP, B12B #### [facility] (DEFAULT) [address] [place] [address] ALP [Catalytic activity/Vol] 38 U/L Normal 32-126 [facility] Comment on above: Performed By: #### C HM7, HFP, B12B #### [facility] (DEFAULT) [address] [place] [address] ALT [Catalytic activity/Vol] 32 U/L Normal 10-52 [facility] Comment on above: Performed By: #### C HM7, HFP, B12B #### [facility] (DEFAULT) [address] [place] [address] Anion gap [Moles/Vol] 16 mmol/L Normal 7-17 [facility] Comment on above: Performed By: #### C HM7, HFP, B12B #### [facility] (DEFAULT) [address] [place] [address] AST [Catalytic activity/Vol] 43 U/L High 10-39 [facility] Comment on above: Performed By: #### C HM7, HFP, B12B #### [facility] (DEFAULT) [address] [place] [address]851 Bilirubin [Mass/Vol] 0.7 mg/dL Normal <1.5 [facility] Comment on above: Performed By: #### C HM7, HFP, B12B #### [facility] (DEFAULT) [address] [place] [address] Calcium [Mass/Vol] 9.5 mg/dL Normal 8.6-10.5 [facility] Comment on above: Performed By: #### C HM7, HFP, B12B #### [facility] (DEFAULT) [address] [place] [address] Chloride [Moles/Vol] 99 mmol/L Normal 98-108 [facility] Comment on above: Performed By: #### C HM7, HFP, B12B #### [facility] (DEFAULT) [address] [place] [address] CO2 [Moles/Vol] 25 mmol/L Normal 21-31 [facility] Comment on above: Performed By: #### C HM7, HFP, B12B #### [facility] (DEFAULT) [address] [place] [address]178 Creatinine [Mass/Vol] 0.64 mg/dL Low 0.70-1.30 [facility] Comment on above: Performed By: #### C HM7, HFP, B12B #### [facility] (DEFAULT) [address] [place] [address] eGFR, CKD-EPI, Male > Normal >=60 [facility] Comment on above: Result Comment: Repo rted eGFR is based on the CKD-EPI 2021 equation using creatinine, age, and sex. Performed By: #### C HM7, HFP, B12B #### [facility] (DEFAULT) [address] [place] [address] Glucose [Mass/Vol] 124 mg/dL High 70-99 [facility] Comment on above: Performed By: #### C HM7, HFP, B12B #### [facility] (DEFAULT) [address] [place] [address]69 Osmolality [Osmolality] 288 mosm/kg Normal 278-305 [facility] Comment on above: Performed By: #### C HM7, HFP, B12B #### [facility] (DEFAULT) [address] [place] [address] Potassium [Moles/Vol] 4.4 mmol/L Normal 3.5-5.0 [facility] Comment on above: Performed By: #### Audelia HM7, HFP, B12B #### [facility] (DEFAULT) [address] [place] [address]73 Protein [Mass/Vol] 7.0 g/dL Normal 6.4-8.3 [facility] Comment on above: Performed By: #### Audelia HM7, HFP, B12B #### [facility] (DEFAULT) [address] [place] [address] Sodium [Moles/Vol] 136 mmol/L Normal 135-145 [facility] Comment on above: Performed By: #### C HM7, HFP, B12B #### [facility] (DEFAULT) [address] [place] [address]79 Urea nitrogen [Mass/Vol] 13 mg/dL Normal 7-25 [facility] Comment on above: Performed By: #### C HM7, HFP, B12B #### [facility] (DEFAULT) [address] [place] [address]13 Urea nitrogen/Creatinine [Mass ratio] 20 mg/mg Normal [facility] Comment on above: Performed By: #### C HM7, HFP, B12B #### [facility] (DEFAULT) [address] [place] [address] HEAVY METALS SCREENon 2023 Arsenic Blood <1 Normal <13 [facility] Comment on above: Result Comment: ADDITIONAL INFORMATION This test was developed and its performance characteristics determined by [facility] in a manner consistent with CLIA requirements. This test has not been cleared or approved by the U.S. Food and Drug Administration. Performed By: #### C HM7, HFP, B12B #### [facility] (DEFAULT) [address] [place] [address] Cadmium, Blood 0.8 ng/mL Normal <5.0 [facility] Comment on above: Result Comment: ADDITIONAL INFORMATION This test was developed and its performance characteristics determined by [facility] in a manner consistent with CLIA requirements. This test has not been cleared or approved by the U.S. Food and Drug Administration. Performed By: #### C HM7, HFP, B12B #### [facility] (DEFAULT) [address] Normal [facility] Comment on above: Performed By: #### C HM7, HFP, B12B #### [facility] (DEFAULT) [address] [place] [address] Normal [facility] Comment on above: Performed By: #### Audelia HM7, HFP, B12B #### [facility] (DEFAULT) [address] [place] [address] EMPLOYER [employer] [facility] Normal [facility] Comment on above: Performed By: #### Audelia HM7, HFP, B12B #### [facility] (DEFAULT) [address] [place] [address] Ethnicity SEE COMMENTS [facility] Comment on above: Result Comment: RESU LT: NOT OR Performed By: #### C HM7, HFP, B12B #### [facility] (DEFAULT) [address] [place] [address] GUARDIAN FIRST NAME SELF [facility] Comment on above: Performed By: #### C HM7, HFP, B12B #### [facility] (DEFAULT) [address] [place] [address] GUARDIAN LAST NAME SELF [facility] Comment on above: Performed By: #### C HM7, HFP, B12B #### [facility] (DEFAULT) [address] [address] HEALTH CARE PROVIDER [facility] Comment on above: Performed By: #### C HM7, HFP, B12B #### [facility] (DEFAULT) [address] [place] [address] HEALTH CARE PROVIDER NAME JAIDEN CAMILO [facility] Comment on above: Performed By: #### C HM7, HFP, B12B #### [facility] (DEFAULT) [address] [address] HEALTH CARE PROVIDER PHONE [phone] [facility] Comment on above: Performed By: #### C HM7, HFP, B12B #### [facility] (DEFAULT) [address] [address] HEALTH CARE PROVIDER [facility] Comment on above: Performed By: #### C HM7, HFP, B12B #### [facility] (DEFAULT) [address] ADDRESS SEE COMMENTS [facility] Comment on above: Result Comment: RESU LT: [address] [facility] Performed By: #### C HM7, HFP, B12B #### [facility] (DEFAULT) [address] [place] [address] HEALTH CARE PROVIDER ZIP CODE [address] Normal [facility] Comment on above: Performed By: #### Audelia HM7, HFP, B12B #### [facility] (DEFAULT) [address] [address] Lead, Blood (Venous) <1.0 Normal <3.5 [facility] Comment on above: Result Comment: ADDITIONAL INFORMATION Testing performed by Triple Quadrupole Inductively Coupled Plasma-Mass Spectrometry (ICP-MS/MS). This test was developed and its performance characteristics determined by [facility] in a manner consistent with CLIA requirements. This test has not been cleared or approved by the U.S. Food and Drug Administration. Performed By: #### Audelia HM7, HFP, B12B #### [facility] (DEFAULT) [address] [address] Mercury, Blood <1 Normal <10 [facility] Comment on above: Result Comment: ADDITIONAL INFORMATION This test was developed and its performance characteristics determined by [facility] in a manner consistent with CLIA requirements. This test has not been cleared or approved by the U.S. Food and Drug Administration. Performed By: #### Audelia HM7, HFP, B12B #### [facility] (DEFAULT) [address] [place] [address] OCCUPATION NOT EMPLOYED Normal [facility] Comment on above: Performed By: #### Audelia HM7, HFP, B12B #### [facility] (DEFAULT) [address] [address] [facility] Comment on above: Performed By: #### Audelia HM7, HFP, B12B #### [facility] (DEFAULT) [address] [address] RACE WHITE [facility] Comment on above: Performed By: #### C HM7, HFP, B12B #### [facility] (DEFAULT) [address] [place] [address] SOURCE Venous [facility] Comment on above: Performed By: #### C HM7, HFP, B12B #### [facility] (DEFAULT) [address] [place] [address] Comment on above: Performed By: #### C HM7, HFP, B12B #### [facility] (DEFAULT) [address] [place] [address] [address] [address] [facility] Comment on above: Performed By: #### C HM7, HFP, B12B #### [facility] (DEFAULT) [address] [place] [address] SUBMITTING LAB PHONE [phone] [facility] Comment on above: Result Comment: Test Performed by: [facility] [address] [place] [address] Clerk General: Berta Matos Ph.D.; CLIA# [id number] Performed By: #### C HM7, HFP, B12B #### [facility] (DEFAULT) [address] [place] [address] ZIP CODE [address] [facility] Comment on above: Performed By: #### C HM7, HFP, B12B #### [facility] (DEFAULT) [address] [place] [address] Laboratory - Chemistry and C hemistry - challengeon 12-11-2023 Magnesium [Mass/Vol] 1.7 mg/dL 1.6 - 2 .6 mg/dL [facility] Albumin [Mass/Vol] 3.8 g/dL 3.5 - 5.0 g/dL [facility] ALP [Catalytic activity/Vol] 38 U/L 32 - 126 U/L [facility] ALT [Catalytic activity/Vol] 32 U/L 10 - 52 U/L [facility] Anion gap [Moles/Vol] 16 mmol/L 7 - 17 mmol/L [facility] AST [Catalytic activity/Vol] 43 U/L High 10 - 39 U/L [facility] Bilirubin [Mass/Vol] 0.7 mg/dL NINF - 1.5 mg/dL [facility] Calcium [Mass/Vol] 9.5 mg/dL 8.6 - 10. 5 mg/dL [facility] Chloride [Moles/Vol] 99 mmol/L 98 - 10 8 mmol/L [facility] CO2 [Moles/Vol] 25 mmol/L 21 - 31 mmol/L [facility] Creatinine [Mass/Vol] 0.64 mg/dL Low 0.70 - 1.30 mg/dL [facility] Glucose [Mass/Vol] 124 mg/dL High 70 - 99 mg/dL [facility] Osmolality Calc [Osmolality] 288 [facility] Potassium [Moles/Vol] 4.4 mmol/L 3.5 - 5.0 mmol/L [facility] Protein [Mass/Vol] 7.0 g/dL 6.4 - 8.3 g/dL [facility] Sodium [Moles/Vol] 136 mmol/L 135 - 145 mmol/L [facility] Urea nitrogen [Mass/Vol] 13 mg/dL 7 - 25 mg/dL [facility] Urea nitrogen/Creatinine [Mass ratio] 20 mg/mg [facility] MAGNESIUMon 12-11-2023 Magnesium [Mass/Vol] 1.7 mg/dL Normal 1.6-2.6 [facility] Comment on above: Performed By: #### C HM7, HFP, B12B #### [facility] (DEFAULT) [address] [place] [address] No Panel Informationon 12-10 Interpretation and review of laboratory results Normal [facility] eGFR, CKD-EPI, Male - PINF [facility] Comment on above: Reported eGFR is bas ed on the CKD-EPI 2020 equation using creatinine, age, and sex. Interpretation and review of laboratory results Abnormal [facility] Basic Metabolic Profile (BMP )on 12-10-2023 BUN Normal 7-18 [facility] Comment on above: Result Comment: Canc elled via OM: Order cancelled - Patient discharged Performed By: #### L 503.5510 #### [facility] [address] [place], [address] BUN/CRE Normal 10-20 [facility] Comment on above: Result Comment: Canc elled via OM: Order cancelled - Patient discharged Performed By: #### L 503.5510 #### [facility] [address] [place], [address] CA,Total Normal 8.5-10.1 [facility] Comment on above: Result Comment: Canc elled via OM: Order cancelled - Patient discharged Performed By: #### L 503.5510 #### [facility] [address] [place], [address] CL Normal 98-107 [facility] Comment on above: Result Comment: Canc elled via OM: Order cancelled - Patient discharged Performed By: #### L 503.5510 #### [facility] [address] [place], [address] CO2 Normal 21.0-32.0 [facility] Comment on above: Result Comment: Canc elled via OM: Order cancelled - Patient discharged Performed By: #### L 503.5510 #### [facility] [address] [place], [address] CREAT,SERUM Normal 0.70-1.30 [facility] Comment on above: Result Comment: Canc elled via OM: Order cancelled - Patient discharged Performed By: #### L 503.5510 #### [facility] [address] [place], [address] EST GFR Normal >60 [facility] Comment on above: Result Comment: Canc elled via OM: Order cancelled - Patient discharged Performed By: #### L 503.5510 #### [facility] [address] [place], [address] EST GFR - AA Normal >60 [facility] Comment on above: Result Comment: Canc elled via OM: Order cancelled - Patient discharged Performed By: #### L 503.5510 #### [facility] [address] [place], [address] GAP Normal 5-15 [facility] Comment on above: Result Comment: Canc elled via OM: Order cancelled - Patient discharged Performed By: #### L 503.5510 #### [facility] [address] [place], [address] GLU Normal 74-106 [facility] Comment on above: Result Comment: Canc elled via OM: Order cancelled - Patient discharged Performed By: #### L 503.5510 #### [facility] [address] [place], [address] Potassium Normal 3.5-5.1 [facility] Comment on above: Result Comment: Canc elled via OM: Order cancelled - Patient discharged Performed By: #### L 503.5510 #### [facility] [address] [place], [address] Basic Metabolic Profile (BMP) Normal 136-145 [facility] Comment on above: Result Comment: Canc elled via OM: Order cancelled - Patient discharged Performed By: #### L 503.5510 #### [facility] [address] [place], [address] IRON/IRON BINDING/TRANSFERRI Non 12-10-2023 Iron [Mass/Vol] 62 ug/dL Normal 40-174 [facility] Comment on above: Performed By: #### O SMO #### [facility] (DEFAULT) [address] [place] [address] Iron Saturation 21 % Normal 20-55 [facility] Comment on above: Performed By: #### O SMO #### [facility] (DEFAULT) [address] [place] [address] Total Iron Binding Capacity 300 mcg/dL Normal 250-425 [facility] Comment on above: Performed By: #### O SMO #### [facility] (DEFAULT) [address] [place] [address] Transferrin [Mass/Vol] 240 mg/dL Normal 200-400 [facility] Comment on above: Performed By: #### O SMO #### [facility] (DEFAULT) [address] [place] [address] Laboratory - Chemistry and C hemistry - challengeon 12-10-2023 Iron [Mass/Vol] 62 ug/dL [facility] Iron binding capacity [Mass/Vol] 300 [facility] Iron saturation [Mass fraction] 21 % 20 - 55 % [facility] Transferrin [Mass/Vol] 240 mg/dL 200 - 400 mg/dL [facility] Laboratory - Hematology and Cell countson 12-10-2023 Platelet mean volume (Bld) [Entitic vol] 9.5 fL 8.7 - 12.3 fL [facility] Platelets (Bld) [#/Vol] 197 10*3/uL 146 - 337 K/uL [facility] No Panel Informationon 12-09 Interpretation and review of laboratory results Normal [facility] Interpretation and review of laboratory results Normal [facility] PLATELET COUNTon 12-10-2023 Platelet mean volume (Bld) [Entitic vol] 9.5 fL Normal 8.7-12.3 [facility] Comment on above: Performed By: #### O SMO #### [facility] (DEFAULT) [address] [place] [address] Platelets (Bld) [#/Vol] 197 10*3/uL Normal 146-337 [facility] Comment on above: Performed By: #### O SMO #### [facility] (DEFAULT) [address] [address] Basic Metabolic Profile (BMP )on 12-09-2023 BUN Normal 7-18 [facility] Comment on above: Result Comment: Canc elled via OM: Order cancelled - Patient discharged Performed By: #### L 501.9520, L501.5200, L500.4050, L300.3900, L501.2300, L100.0100, L501.4700 #### [facility] [address] [place], [address] BUN/CRE Normal 10-20 [facility] Comment on above: Result Comment: Canc elled via OM: Order cancelled - Patient discharged Performed By: #### L 501.9520, L501.5200, L500.4050, L300.3900, L501.2300, L100.0100, L501.4700 #### [facility] [address] [place], [address] CA,Total Normal 8.5-10.1 [facility] Comment on above: Result Comment: Canc elled via OM: Order cancelled - Patient discharged Performed By: #### L 501.9520, L501.5200, L500.4050, L300.3900, L501.2300, L100.0100, L501.4700 #### [facility] [address] [place], [address] CL Normal 98-107 [facility] Comment on above: Result Comment: Canc elled via OM: Order cancelled - Patient discharged Performed By: #### L 501.9520, L501.5200, L500.4050, L300.3900, L501.2300, L100.0100, L501.4700 #### [facility] [address] [place], [address] CO2 Normal 21.0-32.0 [facility] Comment on above: Result Comment: Canc elled via OM: Order cancelled - Patient discharged Performed By: #### L 501.9520, L501.5200, L500.4050, L300.3900, L501.2300, L100.0100, L501.4700 #### [facility] [address] [place], [address] CREAT,SERUM Normal 0.70-1.30 [facility] Comment on above: Result Comment: Canc elled via OM: Order cancelled - Patient discharged Performed By: #### L 501.9520, L501.5200, L500.4050, L300.3900, L501.2300, L100.0100, L501.4700 #### [facility] [address] [place], [address] EST GFR Normal >60 [facility] Comment on above: Result Comment: Canc elled via OM: Order cancelled - Patient discharged Performed By: #### L 501.9520, L501.5200, L500.4050, L300.3900, L501.2300, L100.0100, L501.4700 #### [facility] [address] [place], [address] EST GFR - AA Normal >60 [facility] Comment on above: Result Comment: Canc elled via OM: Order cancelled - Patient discharged Performed By: #### L 501.9520, L501.5200, L500.4050, L300.3900, L501.2300, L100.0100, L501.4700 #### [facility] [address] [place], [address] GAP Normal 5-15 [facility] Comment on above: Result Comment: Canc elled via OM: Order cancelled - Patient discharged Performed By: #### L 501.9520, L501.5200, L500.4050, L300.3900, L501.2300, L100.0100, L501.4700 #### [facility] [address] [place], [address] GLU Normal 74-106 [facility] Comment on above: Result Comment: Canc elled via OM: Order cancelled - Patient discharged Performed By: #### L 501.9520, L501.5200, L500.4050, L300.3900, L501.2300, L100.0100, L501.4700 #### [facility] [address] [place], [address] Potassium Normal 3.5-5.1 [facility] Comment on above: Result Comment: Canc elled via OM: Order cancelled - Patient discharged Performed By: #### L 501.9520, L501.5200, L500.4050, L300.3900, L501.2300, L100.0100, L501.4700 #### [facility] [address] [place], [address] Basic Metabolic Profile (BMP) Normal 136-145 [facility] Comment on above: Result Comment: Canc elled via OM: Order cancelled - Patient discharged Performed By: #### L 501.9520, L501.5200, L500.4050, L300.3900, L501.2300, L100.0100, L501.4700 #### [facility] [address] [place], [address] CHEM 7 (LYTES,BUN,CREA,GLUC) on 12-09-2023 Anion gap [Moles/Vol] 13 mmol/L Normal 7-17 [facility] Comment on above: Performed By: #### C HM7, HFP, B12B #### [facility] (DEFAULT) [address] [place] [address] Chloride [Moles/Vol] 97 mmol/L Low 98-108 [facility] Comment on above: Performed By: #### C HM7, HFP, B12B #### [facility] (DEFAULT) [address] [place] [address] CO2 [Moles/Vol] 29 mmol/L Normal 21-31 [facility] Comment on above: Performed By: #### C HM7, HFP, B12B #### [facility] (DEFAULT) [address] [place] [address] Creatinine [Mass/Vol] 0.66 mg/dL Low 0.70-1.30 [facility] Comment on above: Performed By: #### Audelia HM7, HFP, B12B #### [facility] (DEFAULT) [address] [place] [address] eGFR, CKD-EPI, Male > Normal >=60 [facility] Comment on above: Result Comment: Repo rted eGFR is based on the CKD-EPI 2020 equation using creatinine, age, and sex. Performed By: #### C HM7, HFP, B12B #### [facility] (DEFAULT) [address] [place] [address] Glucose [Mass/Vol] 124 mg/dL High 70-99 [facility] Comment on above: Performed By: #### Audelia HM7, HFP, B12B #### [facility] (DEFAULT) [address] [place] [address] Osmolality [Osmolality] 285 mosm/kg Normal 278-305 [facility] Comment on above: Performed By: #### C HM7, HFP, B12B #### [facility] (DEFAULT) [address] [place] [address] Potassium [Moles/Vol] 4.4 mmol/L Normal 3.5-5.0 [facility] Comment on above: Performed By: #### C HM7, HFP, B12B #### [facility] (DEFAULT) [address] [place] [address] Sodium [Moles/Vol] 135 mmol/L Normal 135-145 [facility] Comment on above: Performed By: #### C HMEliseo, HFP, B12B #### [facility] (DEFAULT) [address] [place] [address] Urea nitrogen [Mass/Vol] 10 mg/dL Normal 7-25 [facility] Comment on above: Performed By: #### C HMEliseo, HFP, B12B #### [facility] (DEFAULT) [address] [place] [address] Urea nitrogen/Creatinine [Mass ratio] 15 mg/mg Normal [facility] Comment on above: Performed By: #### C HMEliseo, LISHA, B12B #### [facility] (DEFAULT) [address] [place] [address] Laboratory - Chemistry and C hemistry - challengeon 12-09-2023 Anion gap [Moles/Vol] 13 mmol/L 7 - 17 mmol/L [facility] Chloride [Moles/Vol] 97 mmol/L Low 98 - 10 8 mmol/L [facility] CO2 [Moles/Vol] 29 mmol/L 21 - 31 mmol/L [facility] Creatinine [Mass/Vol] 0.66 mg/dL Low 0.70 - 1.30 mg/dL [facility] Glucose [Mass/Vol] 124 mg/dL High 70 - 99 mg/dL [facility] Magnesium [Mass/Vol] 1.5 mg/dL Low 1.6 - 2 .6 mg/dL [facility] Osmolality Calc [Osmolality] 285 [facility] Potassium [Moles/Vol] 4.4 mmol/L 3.5 - 5.0 mmol/L [facility] Sodium [Moles/Vol] 135 mmol/L 135 - 145 mmol/L [facility] Urea nitrogen [Mass/Vol] 10 mg/dL 7 - 25 mg/dL [facility] Urea nitrogen/Creatinine [Mass ratio] 15 mg/mg [facility] MAGNESIUMon 12-09-2023 Magnesium [Mass/Vol] 1.5 mg/dL Low 1.6-2.6 [facility] Comment on above: Performed By: #### C HM7, HFP, B12B #### [facility] (DEFAULT) [address] [place], [place] [id number] MR Brain WO and W contrast I Von 12-09-2023 IMPRESSION: 1. No evidence of acute ischemic or hemorrhagic insult within the brain. 2. Chronic small vessel ischemic changes in the white matter, particularly pronounced in the center of the yuri. 3. Extensive severe volume loss throughout the brain, with NeuroQuant analysis as above. OLOGY EXAM: MRI BRAIN WITH AND WITHOUT CONTRAST, 12/09/2023 13:50 PM COMPARISON: No priors available for comparison. CLINICAL INDICATIONS: 53 years Male confusion do neuroquant per psych recs; RELEVANT CLINICAL HISTORY: TECHNIQUE: A series of multisequence, multiplanar images of the brain are obtained both before and after intravenous administration of gadolinium-based contrast using standard protocol. CONTRAST: Gadopiclenol SOLN 1-25 mL; Route of Administration: Intravenous; Dose: 12 mL. FINDINGS: There is no diffusion abnormality to suggest acute ischemic insult within the brain. There is a rounded focus of increased T2 signal with corresponding T2 shine through on the diffusion sequences in the center of the yuri. This appears to be from chronic small vessel ischemic change. There is no hemorrhage on the susceptibility weighted imaging. There is no mass lesion or abnormal intracranial enhancement. No mass effect or midline shift. No extracerebral collection. Sellar and parasellar structures are unremarkable. Aside from the chronic small vessel ischemic changes in the center of the yuri and the volume loss in the cerebellar hemispheres, no other abnormality in the posterior fossa. Extensive enlargement of ventricles and sulci with accounting for age. Automated volumetric analysis of the brain was performed using NeuroQuant software, with reports archived in PACS. This shows the patient to be below the 5th percentile for volume in the supratentorial brain, with notable volume loss also seen within the brainstem less pronounced changes in the cerebellar hemispheres. The calvarium is intact. Orbits are unremarkable. Mucosal thickening in the paranasal sinuses without superimposed fluid levels. RADIOLOGY Martín Lopez MD - 12/09/2023 EXAM: MRI BRAIN WITH AND WITHOUT CONTRAST, 12/09/2023 13:50 PM COMPARISON: No priors available for comparison. CLINICAL INDICATIONS: 53 years Male confusion do neuroquant per psych recs; RELEVANT CLINICAL HISTORY: TECHNIQUE: A series of multisequence, multiplanar images of the brain are obtained both before and after intravenous administration of gadolinium-based contrast using standard protocol. CONTRAST: Gadopiclenol SOLN 1-25 mL; Route of Administration: Intravenous; Dose: 12 mL. FINDINGS: There is no diffusion abnormality to suggest acute ischemic insult within the brain. There is a rounded focus of increased T2 signal with corresponding T2 shine through on the diffusion sequences in the center of the yuri. This appears to be from chronic small vessel ischemic change. There is no hemorrhage on the susceptibility weighted imaging. There is no mass lesion or abnormal intracranial enhancement. No mass effect or midline shift. No extracerebral collection. Sellar and parasellar structures are unremarkable. Aside from the chronic small vessel ischemic changes in the center of the uyri and the volume loss in the cerebellar hemispheres, no other abnormality in the posterior fossa. Extensive enlargement of ventricles and sulci with accounting for age. Automated volumetric analysis of the brain was performed using NeuroQuant software, with reports archived in PACS. This shows the patient to be below the 5th percentile for volume in the supratentorial brain, with notable volume loss also seen within the brainstem less pronounced changes in the cerebellar hemispheres. The calvarium is intact. Orbits are unremarkable. Mucosal thickening in the paranasal sinuses without superimposed fluid levels. IMPRESSION IMPRESSION: 1. No evidence of acute ischemic or hemorrhagic insult within the brain. 2. Chronic small vessel ischemic changes in the white matter, particularly pronounced in the center of the yuri. 3. Extensive severe volume loss throughout the brain, with NeuroQuant analysis as above. [facility] Radiology Study observation (narrative) [facility] MR Brain WO and W contrast I VOrdered By: Martín Lopez on 12-09-2023 [facility] Work Phone: [facility]IN [facility]-09-2023 MRI BRAIN WITH AND WITHOUT CONTRAST EXAM: MRI BRAIN WITH AND WITHOUT CONTRAST, 12/09/2023 13:50 PM COMPARISON: No priors available for comparison. CLINICAL INDICATIONS: 53 years Male confusion do neuroquant per psych recs; RELEVANT CLINICAL HISTORY: TECHNIQUE: A series of multisequence, multiplanar images of the brain are obtained both before and after intravenous administration of gadolinium-based contrast using standard protocol. CONTRAST: Gadopiclenol SOLN 1-25 mL; Route of Administration: Intravenous; Dose: 12 mL. FINDINGS: There is no diffusion abnormality to suggest acute ischemic insult within the brain. There is a rounded focus of increased T2 signal with corresponding T2 shine through on the diffusion sequences in the center of the yuri. This appears to be from chronic small vessel ischemic change. There is no hemorrhage on the susceptibility weighted imaging. There is no mass lesion or abnormal intracranial enhancement. No mass effect or midline shift. No extracerebral collection. Sellar and parasellar structures are unremarkable. Aside from the chronic small vessel ischemic changes in the center of the yuri and the volume loss in the cerebellar hemispheres, no other abnormality in the posterior fossa. Extensive enlargement of ventricles and sulci with accounting for age. Automated volumetric analysis of the brain was performed using NeuroQuant software, with reports archived in PACS. This shows the patient to be below the 5th percentile for volume in the supratentorial brain, with notable volume loss also seen within the brainstem less pronounced changes in the cerebellar hemispheres. The calvarium is intact. Orbits are unremarkable. Mucosal thickening in the paranasal sinuses without superimposed fluid levels. IMPRESSION: 1. No evidence of acute ischemic or hemorrhagic insult within the brain. 2. Chronic small vessel ischemic changes in the white matter, particularly pronounced in the center of the yuri. 3. Extensive severe volume loss throughout the brain, with NeuroQuant analysis as above. Normal [facility] No Panel Informationon 12-08 eGFR, CKD-EPI, Male - PINF [facility] Comment on above: Reported eGFR is bas ed on the CKD-EPI 2020 equation using creatinine, age, and sex. Interpretation and review of laboratory results Abnormal [facility] Basic Metabolic Profile (BMP )on 12-08-2023 BUN Normal 7-18 [facility] Comment on above: Result Comment: Canc elled via OM: Order cancelled - Patient discharged Performed By: #### L 500.2500 ####[facility] [address] [place], [address] BUN/CRE Normal 10-20 [facility] Comment on above: Result Comment: Canc elled via OM: Order cancelled - Patient discharged Performed By: #### L 500.2500 ####[facility] [address] [place], [address] CA,Total Normal 8.5-10.1 [facility] Comment on above: Result Comment: Canc elled via OM: Order cancelled - Patient discharged Performed By: #### L 500.2500 ####[facility] [address] [facility] [address] CL Normal 98-107 [facility] Comment on above: Result Comment: Canc elled via OM: Order cancelled - Patient discharged Performed By: #### L 500.2500 ####[facility] [address] [facility] [address] CO2 Normal 21.0-32.0 [facility] Comment on above: Result Comment: Canc elled via OM: Order cancelled - Patient discharged Performed By: #### L 500.2500 ####[facility] [address] [facility] [address] CREAT,SERUM Normal 0.70-1.30 [facility] Comment on above: Result Comment: Canc elled via OM: Order cancelled - Patient discharged Performed By: #### L 500.2500 ####[facility] [address] [place], [address] EST GFR Normal >60 [facility] Comment on above: Result Comment: Canc elled via OM: Order cancelled - Patient discharged Performed By: #### L 500.2500 ####[facility] [address] [place], [address] EST GFR - AA Normal >60 [facility] Comment on above: Result Comment: Canc elled via OM: Order cancelled - Patient discharged Performed By: #### L 500.2500 ####[facility] [address] [place], [address] GAP Normal 5-15 [facility] Comment on above: Result Comment: Canc elled via OM: Order cancelled - Patient discharged Performed By: #### L 500.2500 ####[facility] [address] [place], [address] GLU Normal 74-106 [facility] Comment on above: Result Comment: Canc elled via OM: Order cancelled - Patient discharged Performed By: #### L 500.2500 ####[facility] [address] [place], [address] Potassium Normal 3.5-5.1 [facility] Comment on above: Result Comment: Canc elled via OM: Order cancelled - Patient discharged Performed By: #### L 500.2500 ####[facility] [address] [place], [address] Basic Metabolic Profile (BMP) Normal 136-145 [facility] Comment on above: Result Comment: Canc elled via OM: Order cancelled - Patient discharged Performed By: #### L 500.2500 ####[facility] [address] [place], [address] CHEM 7 (LYTES,BUN,CREA,GLUC) on 12-08-2023 Anion gap [Moles/Vol] 16 mmol/L Normal 7-17 [facility] Comment on above: Performed By: #### C HM7, HFP, B12B #### [facility] (DEFAULT) [address] [address] Chloride [Moles/Vol] 96 mmol/L Low 98-108 [facility] Comment on above: Performed By: #### C HM7, HFP, B12B #### [facility] (DEFAULT) [address] [place] [address] CO2 [Moles/Vol] 25 mmol/L Normal 21-31 [facility] Comment on above: Performed By: #### C HM7, HFP, B12B #### [facility] (DEFAULT) [address] [place] [address] Creatinine [Mass/Vol] 0.76 mg/dL Normal 0.70-1.30 [facility] Comment on above: Performed By: #### C HM7, HFP, B12B #### [facility] (DEFAULT) [address] [place] [address] eGFR, CKD-EPI, Male > Normal >=60 [facility] Comment on above: Result Comment: Repo rted eGFR is based on the CKD-EPI 2020 equation using creatinine, age, and sex. Performed By: #### C HMEliseo, HFP, B12B #### [facility] (DEFAULT) [address] [place] [address] Glucose [Mass/Vol] 169 mg/dL High 70-99 [facility] Comment on above: Performed By: #### Audelia HMEliseo, HFP, B12B #### [facility] (DEFAULT) [address] [place] [address] Osmolality [Osmolality] 284 mosm/kg Normal 278-305 [facility] Comment on above: Performed By: #### C HMEliseo, HFP, B12B #### [facility] (DEFAULT) [address] [place] [address] Potassium [Moles/Vol] 4.4 mmol/L Normal 3.5-5.0 [facility] Comment on above: Performed By: #### Audelia HMEliseo, HFP, B12B #### [facility] (DEFAULT) [address] [place] [address] Sodium [Moles/Vol] 133 mmol/L Low 135-145 [facility] Comment on above: Performed By: #### Audelia HM7, HFP, B12B #### [facility] (DEFAULT) [address] [place] [address] Urea nitrogen [Mass/Vol] 11 mg/dL Normal 7-25 [facility] Comment on above: Performed By: #### C HM7, HFP, B12B #### [facility] (DEFAULT) [address] [place] [address] Urea nitrogen/Creatinine [Mass ratio] 14 mg/mg Normal [facility] Comment on above: Performed By: #### C HM7, HFP, B12B #### [facility] (DEFAULT) [address] [place] [address] Laboratory - Chemistry and C hemistry - challengeon 12-08-2023 Anion gap [Moles/Vol] 16 mmol/L 7 - 17 [facility]L [facility] Chloride [Moles/Vol] 96 mmol/L Low 98 - 10 8 mmol/L [facility] CO2 [Moles/Vol] 25 mmol/L 21 - 31 mmol/L [facility] Creatinine [Mass/Vol] 0.76 mg/dL 0.70 - 1.30 mg/dL [facility] Glucose [Mass/Vol] 169 mg/dL High 70 - 99 mg/dL [facility] Magnesium [Mass/Vol] 1.4 mg/dL Low 1.6 - 2 .6 mg/dL [facility] Osmolality Calc [Osmolality] 284 [facility] Phosphate [Mass/Vol] 3.6 mg/dL 2.2 - 4 .6 mg/dL [facility] Potassium [Moles/Vol] 4.4 mmol/L 3.5 - 5.0 mmol/L [facility] Sodium [Moles/Vol] 133 mmol/L Low 135 - 145 mmol/L [facility] Urea nitrogen [Mass/Vol] 11 mg/dL 7 - 25 mg/dL [facility] Urea nitrogen/Creatinine [Mass ratio] 14 mg/mg [facility] Laboratory - Coagulationon 0 12-08-2023 aPTT Coag (PPP) [Time] 26.9 s [facility] INR Coag (Bld) [Relative time] 1.0 {INR} 0.9 - 1.1 [facility] PT Coag (PPP) [Time] 13.1 s [facility] MAGNESIUMon 12-08-2023 Magnesium [Mass/Vol] 1.4 mg/dL Low 1.6-2.6 [facility] Comment on above: Performed By: #### C HM7, HFP, B12B #### [facility] (DEFAULT) [address] [place] [phone] No Panel Informationon 12-07 eGFR, CKD-EPI, Male - PINF [facility] Comment on above: Reported eGFR is bas ed on the CKD-EPI 2020 equation using creatinine, age, and sex. Interpretation and review of laboratory results Normal [facility] Interpretation and review of laboratory results Abnormal [facility] Interpretation and review of laboratory results Normal [facility] No Panel InformationOrdered By: Unassigned Pacs on 12-08-2023 [facility] Work Phone: PHOSPHATE, INORGANICon 12-07 Phosphorous 3.6 mg/dL Normal 2.2-4.6 [facility] Comment on above: Performed By: #### C HM7, HFP, B12B #### [facility] (DEFAULT) [address] [place] [address] PT,INR,PTTon 12-08-2023 aPTT Coag (Bld) [Time] 26.9 s Normal 24.0-34.3 [facility] Comment on above: Performed By: #### O SMO #### [facility] (DEFAULT) [address] [place] [id number] INR Coag (PPP) [Relative time] 1.0 {INR} Normal 0.9-1.1 [facility] Comment on above: Performed By: #### O SMO #### [facility] (DEFAULT) [address] [place] [address] PT Coag (PPP) [Time] 13.1 s Normal 11.9-14.2 [facility] Comment on above: Performed By: #### O SMO #### [facility] (DEFAULT) [address] [place] [address] Basic Metabolic Profile (BMP )on 12-07-2023 BUN Normal 7-18 [facility] Comment on above: Result Comment: Canc elled via OM: Order cancelled - Patient discharged Performed By: #### L 501.9520, L501.5200, L500.4050, L300.3900, L501.2300, L100.0100, L501.4700 #### [facility] [address] [place], [address] BUN/CRE Normal 10-20 [facility] Comment on above: Result Comment: Canc elled via OM: Order cancelled - Patient discharged Performed By: #### L 501.9520, L501.5200, L500.4050, L300.3900, L501.2300, L100.0100, L501.4700 #### [facility] [address] [place], [address] CA,Total Normal 8.5-10.1 [facility] Comment on above: Result Comment: Canc elled via OM: Order cancelled - Patient discharged Performed By: #### L 501.9520, L501.5200, L500.4050, L300.3900, L501.2300, L100.0100, L501.4700 #### [facility] [address] [place], [address] CL Normal 98-107 [facility] Comment on above: Result Comment: Canc elled via OM: Order cancelled - Patient discharged Performed By: #### L 501.9520, L501.5200, L500.4050, L300.3900, L501.2300, L100.0100, L501.4700 #### [facility] [address] [place], [address] CO2 Normal 21.0-32.0 [facility] Comment on above: Result Comment: Canc elled via OM: Order cancelled - Patient discharged Performed By: #### L 501.9520, L501.5200, L500.4050, L300.3900, L501.2300, L100.0100, L501.4700 #### [facility] [address] [place], [address] CREAT,SERUM Normal 0.70-1.30 [facility] Comment on above: Result Comment: Canc elled via OM: Order cancelled - Patient discharged Performed By: #### L 501.9520, L501.5200, L500.4050, L300.3900, L501.2300, L100.0100, L501.4700 #### [facility] [address] [place], [address] EST GFR Normal >60 [facility] Comment on above: Result Comment: Canc elled via OM: Order cancelled - Patient discharged Performed By: #### L 501.9520, L501.5200, L500.4050, L300.3900, L501.2300, L100.0100, L501.4700 #### [facility] [address] [place], [address] EST GFR - AA Normal >60 [facility] Comment on above: Result Comment: Canc elled via OM: Order cancelled - Patient discharged Performed By: #### L 501.9520, L501.5200, L500.4050, L300.3900, L501.2300, L100.0100, L501.4700 #### [facility] [address] [place], [address] GAP Normal 5-15 [facility] Comment on above: Result Comment: Canc elled via OM: Order cancelled - Patient discharged Performed By: #### L 501.9520, L501.5200, L500.4050, L300.3900, L501.2300, L100.0100, L501.4700 #### [facility] [address] [place], [address] GLU Normal 74-106 [facility] Comment on above: Result Comment: Canc elled via OM: Order cancelled - Patient discharged Performed By: #### L 501.9520, L501.5200, L500.4050, L300.3900, L501.2300, L100.0100, L501.4700 #### [facility] [address] [place], [address] Potassium Normal 3.5-5.1 [facility] Comment on above: Result Comment: Canc elled via OM: Order cancelled - Patient discharged Performed By: #### L 501.9520, L501.5200, L500.4050, L300.3900, L501.2300, L100.0100, L501.4700 #### [facility] [address] [place], [address] Basic Metabolic Profile (BMP) Normal 136-145 [facility] Comment on above: Result Comment: Canc elled via OM: Order cancelled - Patient discharged Performed By: #### L 501.9520, L501.5200, L500.4050, L300.3900, L501.2300, L100.0100, L501.4700 #### [facility] [address] [place], [address] CBC,PLATELETSon 12-07-2023 Hematocrit (Bld) [Volume fraction] 30.5 % Low 39.6-48.8 [facility] Comment on above: Performed By: #### C HM7, HFP, B12B #### [facility] (DEFAULT) [address] [address] Hemoglobin (Bld) [Mass/Vol] 10.7 g/dL Low 13.4-16.8 [facility] Comment on above: Performed By: #### C HM7, HFP, B12B #### [facility] (DEFAULT) [address] [place] [address] MCV (RBC) [Entitic vol] 97.4 fL High 79.0-94.5 [facility] Comment on above: Performed By: #### C HM7, HFP, B12B #### [facility] (DEFAULT) [address] [place] [address] Mean Cell Hgb 34.2 pg High 26.1-33.3 [facility] Comment on above: Performed By: #### C HM7, HFP, B12B #### [facility] (DEFAULT) [address] [place] [address] 97447 Mean Cell Hgb Conc 35.1 g/dL Normal 31.9-36.5 [facility] Comment on above: Performed By: #### C HM7, HFP, B12B #### [facility] (DEFAULT) [address] [place] [address]72 Platelet mean volume (Bld) [Entitic vol] 9.9 fL Normal 8.7-12.3 [facility] Comment on above: Performed By: #### C HM7, HFP, B12B #### [facility] (DEFAULT) [address] [place] [address]26 Platelets (Bld) [#/Vol] 160 10*3/uL Normal 146-337 [facility] Comment on above: Performed By: #### C HM7, HFP, B12B #### [facility] (DEFAULT) [address] [place] [address] 31397 RBC (Bld) [#/Vol] 3.13 10*6/uL Low 4.38-5.83 [facility] Comment on above: Performed By: #### C HM7, HFP, B12B #### [facility] (DEFAULT) [address] [place] [address]3904 RBC Distribution 13.2 % Normal 10.9-14.3 [facility] Comment on above: Performed By: #### Audelia HM7, HFP, B12B #### [facility] (DEFAULT) [address] [place] [address]95 WBC (Bld) [#/Vol] 3.92 10*3/uL Normal 3.73-10.10 [facility] Comment on above: Performed By: #### Audelia HM7, HFP, B12B #### [facility] (DEFAULT) [address] [place] [address]67 CHEM 7 (LYTES,BUN,CREA,GLUC) on 12-07-2023 Anion gap [Moles/Vol] 11 mmol/L Normal 7-17 [facility] Comment on above: Performed By: #### Audelia HM7, HFP, B12B #### [facility] (DEFAULT) [address] [place] [address] 11873 Chloride [Moles/Vol] 99 mmol/L Normal 98-108 [facility] Comment on above: Performed By: #### Audelia HM7, HFP, B12B #### [facility] (DEFAULT) [address] [place] [address]67 CO2 [Moles/Vol] 28 mmol/L Normal 21-31 [facility] Comment on above: Performed By: #### Audelia HM7, HFP, B12B #### [facility] (DEFAULT) [address] [place] [address]187 Creatinine [Mass/Vol] 0.74 mg/dL Normal 0.70-1.30 [facility] Comment on above: Performed By: #### Audelia HM7, HFP, B12B #### [facility] (DEFAULT) [address] [place] [address] 99076 eGFR, CKD-EPI, Male > Normal >=60 [facility] Comment on above: Result Comment: Repo rted eGFR is based on the CKD-EPI 2020 equation using creatinine, age, and sex. Performed By: #### Audelia HM7, HFP, B12B #### [facility] (DEFAULT) [address] [place] [address]44 Glucose [Mass/Vol] 124 mg/dL High 70-99 [facility] Comment on above: Performed By: #### Audelia HM7, HFP, B12B #### [facility] (DEFAULT) [address] [place] [address] 52595 Osmolality [Osmolality] 283 mosm/kg Normal 278-305 [facility] Comment on above: Performed By: #### Audelia HM7, HFP, B12B #### [facility] (DEFAULT) [address] [place] [address]71 Potassium [Moles/Vol] 4.4 mmol/L Normal 3.5-5.0 [facility] Comment on above: Performed By: #### Audelia HM7, HFP, B12B #### [facility] (DEFAULT) [address] [place] [address] 51114 Sodium [Moles/Vol] 134 mmol/L Low 135-145 [facility] Comment on above: Performed By: #### Audelia HM7, HFP, B12B #### [facility] (DEFAULT) [address] [place] [address] 38209 Urea nitrogen [Mass/Vol] 11 mg/dL Normal 7-25 [facility] Comment on above: Performed By: #### Audelia HM7, HFP, B12B #### [facility] (DEFAULT) [address] [place] [address] 69665 Urea nitrogen/Creatinine [Mass ratio] 15 mg/mg Normal [facility] Comment on above: Performed By: #### Audelia HM7, HFP, B12B #### [facility] (DEFAULT) [address] [place] [address] 66317 CREATININE,RANDOM URINEon Creatinine (U) [Mass/Vol] 224.68 mg/dL Normal [facility] Comment on above: Order Comment: The r eference range has not been established for random urine specimens. The test result should be integrated into the clinical context for interpretation. Performed By: #### C HM7, HFP, B12B #### [facility] (DEFAULT) [address] [place] [address] 07673 HEPATIC FUNCTION PANELon Albumin [Mass/Vol] 3.8 g/dL Normal 3.5-5.0 [facility] Comment on above: Performed By: #### C HM7, HFP, B12B #### [facility] (DEFAULT) [address] [place] [address] 47833 ALP [Catalytic activity/Vol] 43 U/L Normal 32-126 [facility] Comment on above: Performed By: #### C HM7, HFP, B12B #### [facility] (DEFAULT) [address] [place] [address] 25676 ALT [Catalytic activity/Vol] 36 U/L Normal 10-52 [facility] Comment on above: Performed By: #### C HM7, HFP, B12B #### [facility] (DEFAULT) [address] [place] [address] 81068 AST [Catalytic activity/Vol] 58 U/L High 10-39 [facility] Comment on above: Performed By: #### C HM7, HFP, B12B #### [facility] (DEFAULT) [address] [place] [address] 54645 Bilirubin [Mass/Vol] 0.8 mg/dL Normal <1.5 [facility] Comment on above: Performed By: #### C HM7, HFP, B12B #### [facility] (DEFAULT) [address] [place] [address] 37197 Bilirubin.indirect [Mass/Vol] 0.1 mg/dL Normal <0.3 [facility] Comment on above: Performed By: #### C HM7, HFP, B12B #### [facility] (DEFAULT) [address] [place] [address] 60559 Protein [Mass/Vol] 6.6 g/dL Normal 6.4-8.3 [facility] Comment on above: Performed By: #### C HM7, HFP, B12B #### [facility] (DEFAULT) [address] [address] LYTES (NA, K, CL) - URINE - RANDOMon 12-07-2023 Sodium (U) [Moles/Vol] 90 mmol/L Normal [facility] Comment on above: Order Comment: The r eference range has not been established for random urine specimens. The test result should be integrated into the clinical context for interpretation. Performed By: #### C HM7, HFP, B12B #### [facility] (DEFAULT) [address] [address] Urine Chloride 113 mmol/L Normal [facility] Comment on above: Order Comment: The r eference range has not been established for random urine specimens. The test result should be integrated into the clinical context for interpretation. Performed By: #### C HM7, HFP, B12B #### [facility] (DEFAULT) [address] [address] Urine Potassium 43.4 mmol/L Normal [facility] Comment on above: Order Comment: The r eference range has not been established for random urine specimens. The test result should be integrated into the clinical context for interpretation. Performed By: #### C HM7, HFP, B12B #### [facility] (DEFAULT) [address] [address] Laboratory - Chemistry and C hemistry - challengeon 12-07-2023 Folate [Mass/Vol] 8.02 ng/mL 5.38 - PIN F ng/mL [facility] Cobalamin (Vitamin B12) [Mass/Vol] 1080 pg/mL High 211 - 911 pg/mL [facility] Comment on above: Testing of Methylmal onic Acid and Intrinsic Factor Blocking Antibody are recommended if clinical suspicion for pernicious anemia due to B12 deficiency is high for patients with intermediate B12 levels (211 to 400 pg/mL) to rule out spurious heterophile antibodies. Albumin [Mass/Vol] 3.8 g/dL 3.5 - 5.0 g/dL [facility] ALP [Catalytic activity/Vol] 43 U/L 32 - 126 U/L [facility] ALT [Catalytic activity/Vol] 36 U/L 10 - 52 U/L [facility] Anion gap [Moles/Vol] 11 mmol/L 7 - 17 mmol/L [facility] AST [Catalytic activity/Vol] 58 U/L High 10 - 39 U/L [facility] Bilirubin [Mass/Vol] 0.8 mg/dL [facility]/dL [facility] Bilirubin.direct [Mass/Vol] 0.1 mg/dL NINF - 0.3 mg/dL [facility] Chloride [Moles/Vol] 99 mmol/L 98 - 10 8 mmol/L [facility] CO2 [Moles/Vol] 28 mmol/L 21 - 31 mmol/L [facility] Creatinine [Mass/Vol] 0.74 mg/dL 0.70 - 1.30 mg/dL [facility] Glucose [Mass/Vol] 124 mg/dL High 70 - 99 mg/dL [facility] Osmolality Calc [Osmolality] 283 [facility] Potassium [Moles/Vol] 4.4 mmol/L 3.5 - 5.0 mmol/L [facility] Protein [Mass/Vol] 6.6 g/dL 6.4 - 8.3 g/dL [facility] Sodium [Moles/Vol] 134 mmol/L Low 135 - 145 mmol/L [facility] Urea nitrogen [Mass/Vol] 11 mg/dL 7 - 25 mg/dL [facility] Urea nitrogen/Creatinine [Mass ratio] 15 mg/mg [facility] Chloride (24H U) [Moles/Vol] 113 mmol/L [facility] Potassium (24H U) [Moles/Vol] 43.4 mmol/L [facility] Sodium (24H U) [Moles/Vol] 90 mmol/L [facility] Troponin I.cardiac High sensitivity method [Mass/Vol] 9 ng/L NINF - 53 ng/L [facility] Creatinine (24H U) [Mass/Vol] 224.68 mg/dL [facility] Osmolality (U) [Osmolality] 541 mosm/kg [facility] Osmolality [Osmolality] 276 mosm/kg Low [facility] Troponin I.cardiac High sensitivity method [Mass/Vol] 11 ng/L NINF - 53 ng/L [facility] Laboratory - Chemistry and C hemistry - challengeOrdered By: Travis Hurst on 12-07-2023 pH (U) 5.5 [pH] 5.0 - 7.0 [facility] Specific gravity (U) [Rel density] 1.019 1.001 - 1.035 [facility] Urobilinogen (U) [Mass/Vol] 1.0 E.U./dL 0.2 E.U/dL, 1.0 E.U/dL [facility] Laboratory - CoagulationOrde red By: Na Guerra on 12-07-2023 aPTT Coag (PPP) [Time] 23.7 s Low OS [facility] Comment on above: Specimen integrity c yunid. INR Coag (Bld) [Relative time] 1.0 {INR} 0.9 - 1.1 [facility] PT Coag (PPP) [Time] 12.9 s [facility] Laboratory - Drug toxicology on 12-07-2023 Amphetamine+Methamphet amine Screen (U) [Mass/Vol] Not detected Cutoff: 500 ng/mL [facility] Barbiturates Ql (U) Not detected Cutoff: 200 ng/mL [facility] Benzodiazepines Ql (U) Not detected Cutof f: 200 ng/mL [facility] Buprenorphine Ql (U) Not detected Cutoff: 5 ng/mL [facility] Cannabinoids Screen Ql (U) Not detected Cutoff: 50 ng/mL [facility] Cocaine Ql (U) Not detected Cutoff: 150 ng/mL [facility] fentaNYL Ql (U) Not detected Cutoff: 1 ng/mL [facility] Methadone Ql (U) Not detected Cutoff: 300 ng/mL [facility] Opiates Ql (U) Not detected Cutoff: 300 ng/mL [facility] oxyCODONE Ql (U) Not detected Cutoff: 100 ng/mL [facility] Laboratory - Hematology and Cell countson 12-07-2023 Erythrocyte distribution width (RBC) [Ratio] 13.2 % 10.9 - 14.3 % [facility] Hematocrit (Bld) [Volume fraction] 30.5 % Low 39.6 - 48.8 % [facility] Hemoglobin (Bld) [Mass/Vol] 10.7 g/dL Low 13.4 - 16.8 g/dL [facility] MCH (RBC) [Entitic mass] 34.2 pg High 26.1 - 33.3 pg [facility] MCHC (RBC) [Mass/Vol] 35.1 g/dL 31.9 - 36.5 g/dL [facility] MCV (RBC) [Entitic vol] 97.4 fL High 79.0 - 94.5 fL [facility] Platelet mean volume (Bld) [Entitic vol] 9.9 fL 8.7 - 12.3 fL [facility] Platelets (Bld) [#/Vol] 160 10*3/uL 146 - 337 K/uL [facility] RBC (Bld) [#/Vol] 3.13 10*6/uL Low [facility] WBC (Bld) [#/Vol] 3.92 10*3/uL 3.73 - 10. 10 K/uL [facility] Laboratory - Specimen inform ationOrdered By: on 12-07-2023 Appearance (U) Clear Clear [facility] Color (U) Yellow Yellow [facility] Laboratory - UrinalysisOrder ed By: on 12-07-2023 Bacteria LM Ql (Urine sed) TRACE Abnormal ABSENT [facility] Epithelial cells.squamous LM Ql (Urine sed) 0-2/hpf 0-2/hpf, 3-5/hpf = 1+ [facility] Glucose Test strip (U) [Mass/Vol] 100 mg/dL Abnormal Negative [facility] Hyaline casts (Urine sed) [#/Area] 3 - 5 Abnormal (none) /LPF [facility] Ketones (U) [Mass/Vol] Trace Abnormal Negative [facility] Leukocyte esterase Test strip Ql (U) Negative Negative [facility] Nitrite Ql (U) Negative Negative [facility] Protein (U) [Mass/Vol] 30 mg/dL Abnormal Negative OS [facility] RBC (U) [#/Vol] Negative Negative [facility] RBC LM.HPF (Urine sed) [#/Area] 0-2 [facility] WBC LM.HPF (Urine sed) [#/Area] 0 - 5 [facility] No Panel Informationon 12-06 Interpretation and review of laboratory results Normal [facility] Interpretation and review of laboratory results Abnormal [facility] Interpretation and review of laboratory results Abnormal [facility] eGFR, CKD-EPI, Male - PINF [facility] Comment on above: Reported eGFR is bas ed on the CKD-EPI 2020 equation using creatinine, age, and sex. Interpretation and review of laboratory results Abnormal [facility] The reference range has not been established for random urine specimens. The test result should be integrated into the clinical context for interpretation. [facility] Delta hs-Troponin I ng/L NINF - 1 5 ng/L [facility] Interpretation and review of laboratory results Normal [facility] Interpretation and review of laboratory results Normal [facility] For medical purposes only. Positive results are unconfirmed unless otherwise noted. [facility] The reference range has not been established for random urine specimens. The test result should be integrated into the clinical context for interpretation. [facility] Interpretation and review of laboratory results Normal [facility] Interpretation and review of laboratory results Abnormal [facility] Interpretation and review of laboratory results Normal [facility] No Panel InformationOrdered By: Travis Hurst on 12-07-2023 Interpretation and review of laboratory results Abnormal [facility] No Panel InformationOrdered By: Na Guerra on 12-07-2023 Interpretation and review of laboratory results Abnormal [facility] OSMOLALITYon 12-07-2023 Osmolality, Serum 276 mOsm/kg Low 278-305 [facility] Comment on above: Performed By: #### O SMO #### [facility] (DEFAULT) [address] [place] [address] OSMOLALITY, URINEon 12-07-19 Osmolality, Urine 541 mOsm/kg Normal 300-900 [facility] Comment on above: Performed By: #### C HM7, HFP, B12B #### [facility] (DEFAULT) [address] [place] [phone] PT,INR,PTTon 12-07-2023 aPTT Coag (Bld) [Time] 23.7 s Low 24.0-34.3 [facility] Comment on above: Result Comment: Spec imen integrity checked. Performed By: #### C HM7, HFP, B12B #### [facility] (DEFAULT) [address] [place] [address] 22423 INR Coag (PPP) [Relative time] 1.0 {INR} Normal 0.9-1.1 [facility] Comment on above: Performed By: #### C HM7, HFP, B12B #### [facility] (DEFAULT) [address] [place] [phone] PT Coag (PPP) [Time] 12.9 s Normal 11.9-14.2 [facility] Comment on above: Performed By: #### C HM7, HFP, B12B #### [facility] (DEFAULT) [address] [address] T. pallidum Ab Ql (S)Ordered By: Leah Nina on 12-07-2023 Interpretation and review of laboratory results Normal [facility] T. pallidum IgG Ql (S) Non-Reactive Non Reactiv e [facility] TROPONIN 1 HOURon 12-07-2023 1 Hour hs-Troponin 9 ng/L Normal <53 [facility] Comment on above: Order Comment: Acute Coronary Syndrome (ACS): Initial Evaluation and Management: [email or web address] [email or web address] Performed By: #### 1 [id number] #### [facility] (DEFAULT) [address] [address] Delta hs-Troponin I < Normal <=15 [facility] Comment on above: Order Comment: Acute Coronary Syndrome (ACS): Initial Evaluation and Management: [email or web address] [email or web address] Performed By: #### 1 [id number] #### [facility] (DEFAULT) [address] [address] TROPONIN I INITIALon 024 hs-Troponin I 11 ng/L Normal <53 [facility] Comment on above: Order Comment: Acute Coronary Syndrome (ACS): Initial Evaluation and Management:[email or web address] [email or web address] Performed By: #### C HM7, HFP, B12B #### [facility] (DEFAULT) [address] [address] URINALYSIS REFLEX TO CULTURE PERFORMABLEon 12-07-2023 Appearance (U) Clear Normal Clear [facility] Comment on above: Order Comment: For i ndwelling catheters, specimen collection is acceptable on catheter day 1 and 2 only. ? Performed By: #### U [id number] #### [facility] (DEFAULT) [address] [place] [address] Bacteria TRACE Abnormal ABSENT [facility] Comment on above: Order Comment: For i ndwelling catheters, specimen collection is acceptable on catheter day 1 and 2 only. ? Performed By: #### U [id number] #### [facility] (DEFAULT) [address] [place] [address]155 Blood Urine Negative Normal Negative [facility] Comment on above: Order Comment: For i ndwelling catheters, specimen collection is acceptable on catheter day 1 and 2 only. ? Performed By: #### U [id number] #### [facility] (DEFAULT) [address] [place] [address]102 Color (U) Yellow Normal Yellow [facility] Comment on above: Order Comment: For i ndwelling catheters, specimen collection is acceptable on catheter day 1 and 2 only. ? Performed By: #### U [id number] #### [facility] (DEFAULT) [address] [place] [address]109 Glucose Ql (U) 100 mg/dL Abnormal Negative [facility] Comment on above: Order Comment: For i ndwelling catheters, specimen collection is acceptable on catheter day 1 and 2 only. ? Performed By: #### U [id number] #### [facility] (DEFAULT) [address] [place] [address] 20053 Hyaline casts LM Ql (Urine sed) 3 - 5 Abnormal (none) [facility] Comment on above: Order Comment: For i ndwelling catheters, specimen collection is acceptable on catheter day 1 and 2 only. ? Performed By: #### U [id number] #### [facility] (DEFAULT) [address] [place] [address] 14995 Ketones Ql (U) Trace Abnormal Negative [facility] Comment on above: Order Comment: For i ndwelling catheters, specimen collection is acceptable on catheter day 1 and 2 only. ? Performed By: #### U [id number] #### [facility] (DEFAULT) [address] [place] [address] Leukocyte esterase Test strip Ql (U) Negative Normal Negative [facility] Comment on above: Order Comment: For i ndwelling catheters, specimen collection is acceptable on catheter day 1 and 2 only. ? Performed By: #### U [id number] #### [facility] (DEFAULT) [address] [place] [address] 65472 Nitrites Urine Negative Normal Negative [facility] Comment on above: Order Comment: For i ndwelling catheters, specimen collection is acceptable on catheter day 1 and 2 only. ? Performed By: #### U [id number] #### [facility] (DEFAULT) [address] [address] pH (U) 5.5 [pH] Normal 5.0-7.0 [facility] Comment on above: Order Comment: For i ndwelling catheters, specimen collection is acceptable on catheter day 1 and 2 only. ? Performed By: #### U [id number] #### [facility] (DEFAULT) [address] [place] [address] 88627 Protein Urine 30 mg/dL Abnormal Negative [facility] Comment on above: Order Comment: For i ndwelling catheters, specimen collection is acceptable on catheter day 1 and 2 only. ? Performed By: #### U [id number] #### [facility] (DEFAULT) [address] [place] [address] 20796 RBC Urine 0-2 Normal 0-2 [facility] Comment on above: Order Comment: For i ndwelling catheters, specimen collection is acceptable on catheter day 1 and 2 only. ? Performed By: #### U [id number] #### [facility] (DEFAULT) [address] [place] [address] Specific Fertile Urine 1.019 Normal 1.001-1.035 O [facility] Comment on above: Order Comment: For i ndwelling catheters, specimen collection is acceptable on catheter day 1 and 2 only. ? Performed By: #### U [id number] #### [facility] (DEFAULT) [address] [address] Squamous/Epithelial Cells 0-2/hpf Normal 0-2/hpf, 3-5/hpf = 1+ [facility] Comment on above: Order Comment: For i ndwelling catheters, specimen collection is acceptable on catheter day 1 and 2 only. ? Performed By: #### U [id number] #### [facility] (DEFAULT) [address] [address] Urobilinogen Urine 1.0 E.U./dL Normal 0.2 E.U/d L, 1.0 E.U/dL [facility] Comment on above: Order Comment: For i ndwelling catheters, specimen collection is acceptable on catheter day 1 and 2 only. ? Performed By: #### U [id number] #### [facility] (DEFAULT) [address] [address] WBC Urine 0 - 5 Normal 0 - 5 [facility] Comment on above: Order Comment: For i ndwelling catheters, specimen collection is acceptable on catheter day 1 and 2 only. ? Performed By: #### U [id number] #### [facility] (DEFAULT) [address] [address] URINE DRUG SCREEN 12-06 Amphetamine/Methamphet amine Not detected Normal Cutoff: 500 ng/mL [facility] Comment on above: Order Comment: For m edical purposes only. Positive results are unconfirmed unless otherwise noted. Performed By: #### C HM7, HFP, B12B #### [facility] (DEFAULT) [address] [address] Barbiturates Not detected Normal Cutoff: 200 ng/mL [facility] Comment on above: Order Comment: For m edical purposes only. Positive results are unconfirmed unless otherwise noted. Performed By: #### C HM7, HFP, B12B #### [facility] (DEFAULT) [address] [address] Benzodiazepines Not detected Normal Cutoff: 200 ng/mL [facility] Comment on above: Order Comment: For m edical purposes only. Positive results are unconfirmed unless otherwise noted. Performed By: #### C HM7, HFP, B12B #### [facility] (DEFAULT) [address] [place] [address] Buprenorphine Not detected Normal Cutoff: 5 ng/mL [facility] Comment on above: Order Comment: For m edical purposes only. Positive results are unconfirmed unless otherwise noted. Performed By: #### C HM7, HFP, B12B #### [facility] (DEFAULT) [address] [place] [address] Cannabinoids Screen Ql (U) Not detected Normal Cutoff: 50 ng/mL [facility] Comment on above: Order Comment: For edical purposes only. Positive results are unconfirmed unless otherwise noted. Performed By: #### C HM7, HFP, B12B #### [facility] (DEFAULT) [address] [address] Cocaine Not detected Normal Cutoff: 150 ng/mL [facility] Comment on above: Order Comment: For edical purposes only. Positive results are unconfirmed unless otherwise noted. Performed By: #### C HM7, HFP, B12B #### [facility] (DEFAULT) [address] [place] [address] Fentanyl Not detected Normal Cutoff: 1 ng/mL [facility] Comment on above: Order Comment: For m edical purposes only. Positive results are unconfirmed unless otherwise noted. Performed By: #### C HM7, HFP, B12B #### [facility] (DEFAULT) [address] [place] [address] Methadone Not detected Normal Cutoff: 300 ng/mL [facility] Comment on above: Order Comment: For edical purposes only. Positive results are unconfirmed unless otherwise noted. Performed By: #### C HM7, HFP, B12B #### [facility] (DEFAULT) [address] [place] [address] Opiates Not detected Normal Cutoff: 300 ng/mL [facility] Comment on above: Order Comment: For m edical purposes only. Positive results are unconfirmed unless otherwise noted. Performed By: #### C HM7, HFP, B12B #### [facility] (DEFAULT) [address] [address] Oxycodone Not detected Normal Cutoff: 100 ng/mL [facility] Comment on above: Order Comment: For m edical purposes only. Positive results are unconfirmed unless otherwise noted. Performed By: #### C HM7, HFP, B12B #### [facility] (DEFAULT) [address] [address] VITAMIN B12on 12-07-2023 Cobalamin (Vitamin B12) [Mass/Vol] 1080 pg/mL High 211-911 [facility] Comment on above: Result Comment: Test ing of Methylmalonic Acid and Intrinsic Factor Blocking Antibody are recommended if clinical suspicion for pernicious anemia due to B12 deficiency is high for patients with intermediate B12 levels (211 to 400 pg/mL) to rule out spurious heterophile antibodies. Performed By: #### C HM7, HFP, B12B #### [facility] (DEFAULT) [address] [address] ALCOHOL (ETHANOL),BLOODon Alcohol, Serum <10 Normal <10 [facility] Comment on above: Performed By: #### O SMO #### [facility] (DEFAULT) [address] [address] Basic Metabolic Profile (BMP )on 12-06-2023 BUN Normal 7-18 [facility] Comment on above: Result Comment: Canc elled via OM: Order cancelled - Patient discharged Performed By: #### L 501.9520, L501.5200, L500.4050, L300.3900, L501.2300, L100.0100, L501.4700 #### [facility] [address] [place], [address] BUN/CRE Normal 10-20 [facility] Comment on above: Result Comment: Canc elled via OM: Order cancelled - Patient discharged Performed By: #### L 501.9520, L501.5200, L500.4050, L300.3900, L501.2300, L100.0100, L501.4700 #### [facility] [address] [place], [address] CA,Total Normal 8.5-10.1 [facility] Comment on above: Result Comment: Canc elled via OM: Order cancelled - Patient discharged Performed By: #### L 501.9520, L501.5200, L500.4050, L300.3900, L501.2300, L100.0100, L501.4700 #### [facility] [address] [place], [address] CL Normal 98-107 [facility] Comment on above: Result Comment: Canc elled via OM: Order cancelled - Patient discharged Performed By: #### L 501.9520, L501.5200, L500.4050, L300.3900, L501.2300, L100.0100, L501.4700 #### [facility] [address] [place], [address] CO2 Normal 21.0-32.0 [facility] Comment on above: Result Comment: Canc elled via OM: Order cancelled - Patient discharged Performed By: #### L 501.9520, L501.5200, L500.4050, L300.3900, L501.2300, L100.0100, L501.4700 #### [facility] [address] [place], [address] CREAT,SERUM Normal 0.70-1.30 [facility] Comment on above: Result Comment: Canc elled via OM: Order cancelled - Patient discharged Performed By: #### L 501.9520, L501.5200, L500.4050, L300.3900, L501.2300, L100.0100, L501.4700 #### [facility] [address] [place], [address] EST GFR Normal >60 [facility] Comment on above: Result Comment: Canc elled via OM: Order cancelled - Patient discharged Performed By: #### L 501.9520, L501.5200, L500.4050, L300.3900, L501.2300, L100.0100, L501.4700 #### [facility] [address] [place], [address] EST GFR - AA Normal >60 [facility] Comment on above: Result Comment: Canc elled via OM: Order cancelled - Patient discharged Performed By: #### L 501.9520, L501.5200, L500.4050, L300.3900, L501.2300, L100.0100, L501.4700 #### [facility] [address] [place], [address] GAP Normal 5-15 [facility] Comment on above: Result Comment: Canc elled via OM: Order cancelled - Patient discharged Performed By: #### L 501.9520, L501.5200, L500.4050, L300.3900, L501.2300, L100.0100, L501.4700 #### [facility] [address] [place], [address] GLU Normal 74-106 [facility] Comment on above: Result Comment: Canc elled via OM: Order cancelled - Patient discharged Performed By: #### L 501.9520, L501.5200, L500.4050, L300.3900, L501.2300, L100.0100, L501.4700 #### [facility] [address] [place], [address] Potassium Normal 3.5-5.1 [facility] Comment on above: Result Comment: Canc elled via OM: Order cancelled - Patient discharged Performed By: #### L 501.9520, L501.5200, L500.4050, L300.3900, L501.2300, L100.0100, L501.4700 #### [facility] [address] [place], [address] Basic Metabolic Profile (BMP) Normal 136-145 [facility] Comment on above: Result Comment: Canc elled via OM: Order cancelled - Patient discharged Performed By: #### L 501.9520, L501.5200, L500.4050, L300.3900, L501.2300, L100.0100, L501.4700 #### [facility] [address] [place], [place], [address] CALCIUMon 12-06-2023 Calcium [Mass/Vol] 9.4 mg/dL Normal 8.6-10.5 [facility] Comment on above: Performed By: #### C HM7, HFP, B12B #### [facility] (DEFAULT) [address] [place] [address] CBC AND ELECTRONIC DIFFon Basophils (Bld) [#/Vol] 0.04 10*3/uL Normal 0.00-0.09 [facility] Comment on above: Performed By: #### C HM7, HFP, B12B #### [facility] (DEFAULT) [address] [place] [address] Basophils/100 WBC (Bld) 0.9 % Normal [facility] Comment on above: Performed By: #### C HM7, HFP, B12B #### [facility] (DEFAULT) [address] [address] DIFF STATUS Electronic Differential Normal [facility] Comment on above: Performed By: #### C HM7, HFP, B12B #### [facility] (DEFAULT) [address] [place] [address] Eosinophils (Bld) [#/Vol] 0.11 10*3/uL Normal 0.00-0.48 [facility] Comment on above: Performed By: #### C HM7, HFP, B12B #### [facility] (DEFAULT) [address] [place] [address] Eosinophils/100 WBC (Bld) 2.5 % Normal [facility] Comment on above: Performed By: #### C HM7, HFP, B12B #### [facility] (DEFAULT) [address] [place] [address] Hematocrit (Bld) [Volume fraction] 33.2 % Low 39.6-48.8 [facility] Comment on above: Performed By: #### C HM7, HFP, B12B #### [facility] (DEFAULT) [address] [place] [address] Hemoglobin (Bld) [Mass/Vol] 11.6 g/dL Low 13.4-16.8 [facility] Comment on above: Performed By: #### C HM7, HFP, B12B #### [facility] (DEFAULT) [address] [place] [address] Immature Grans % 0.5 % Normal [facility] Comment on above: Performed By: #### C HM7, HFP, B12B #### [facility] (DEFAULT) [address] [place] [address] Immature Grans Absolute < Normal <=0.07 [facility] Comment on above: Performed By: #### C HM7, HFP, B12B #### [facility] (DEFAULT) [address] [place] [address] Lymphocytes (Bld) [#/Vol] 0.97 10*3/uL Normal 0.83-3.57 [facility] Comment on above: Performed By: #### C HM7, HFP, B12B #### [facility] (DEFAULT) [address] [place] [address] Lymphocytes/100 WBC (Bld) 22.1 % Normal [facility] Comment on above: Performed By: #### C HM7, HFP, B12B #### [facility] (DEFAULT) [address] [place] [address] MCV (RBC) [Entitic vol] 97.1 fL High 79.0-94.5 [facility] Comment on above: Performed By: #### C HM7, HFP, B12B #### [facility] (DEFAULT) [address] [place] [address]758 Mean Cell Hgb 33.9 pg High 26.1-33.3 [facility] Comment on above: Performed By: #### C HM7, HFP, B12B #### [facility] (DEFAULT) [address] [place] [address]145 Mean Cell Hgb Conc 34.9 g/dL Normal 31.9-36.5 [facility] Comment on above: Performed By: #### C HM7, HFP, B12B #### [facility] (DEFAULT) [address] [place] [address] Monocytes (Bld) [#/Vol] 0.53 10*3/uL Normal 0.24-0.93 [facility] Comment on above: Performed By: #### C HM7, HFP, B12B #### [facility] (DEFAULT) [address] [address] Monocytes/100 WBC (Bld) 12.1 % Normal [facility] Comment on above: Performed By: #### C HM7, HFP, B12B #### [facility] (DEFAULT) [address] [place] [address] Nucleated RBC 0.0 /100 WBC Normal <=0.2 [facility] Comment on above: Performed By: #### C HM7, HFP, B12B #### [facility] (DEFAULT) [address] [place] [address] Platelet mean volume (Bld) [Entitic vol] 9.2 fL Normal 8.7-12.3 [facility] Comment on above: Performed By: #### C HM7, HFP, B12B #### [facility] (DEFAULT) [address] [place] [address] Platelets (Bld) [#/Vol] 153 10*3/uL Normal 146-337 [facility] Comment on above: Performed By: #### C HM7, HFP, B12B #### [facility] (DEFAULT) [address] [place] [address] RBC (Bld) [#/Vol] 3.42 10*6/uL Low 4.38-5.83 [facility] Comment on above: Performed By: #### C HM7, HFP, B12B #### [facility] (DEFAULT) [address] [place] [address] RBC Distribution 13.2 % Normal 10.9-14.3 [facility] Comment on above: Performed By: #### C HM7, HFP, B12B #### [facility] (DEFAULT) [address] [place] [address] Segs + Bands Auto 61.9 % Normal [facility] Comment on above: Performed By: #### C HM7, HFP, B12B #### [facility] (DEFAULT) [address] [place] [address] Segs + Bands,Absolute Auto 2.71 K/uL Normal 1.57-6.19 [facility] Comment on above: Performed By: #### C HM7, HFP, B12B #### [facility] (DEFAULT) [address] [place] [address] WBC (Bld) [#/Vol] 4.38 10*3/uL Normal 3.73-10.10 [facility] Comment on above: Performed By: #### C HM7, HFP, B12B #### [facility] (DEFAULT) [address] [place] [address] [facility] 7 - EDon 06-13-2024 Anion gap [Moles/Vol] 10 mmol/L Normal 7-17 [facility] Comment on above: Performed By: #### C HM7, HFP, B12B #### [facility] (DEFAULT) [address] [place] [address]593 Chloride [Moles/Vol] 97 mmol/L Low 98-108 [facility] Comment on above: Performed By: #### C HM7, HFP, B12B #### [facility] (DEFAULT) [address] [place] [address]59 CO2 [Moles/Vol] 27 mmol/L Normal 21-31 [facility] Comment on above: Performed By: #### C HM7, HFP, B12B #### [facility] (DEFAULT) [address] [place] [address] Creatinine [Mass/Vol] 0.86 mg/dL Normal 0.70-1.30 [facility] Comment on above: Performed By: #### Audelia HM7, HFP, B12B #### [facility] (DEFAULT) [address] [place] [address] eGFR, CKD-EPI, Male > Normal >=60 [facility] Comment on above: Result Comment: Repo rted eGFR is based on the CKD-EPI 1 equation using creatinine, age, and sex. Performed By: #### C HM7, HFP, B12B #### [facility] (DEFAULT) [address] [place] [address] Glucose [Mass/Vol] 124 mg/dL High 70-99 [facility] Comment on above: Performed By: #### C HM7, HFP, B12B #### [facility] (DEFAULT) [address] [place] [address] Osmolality [Osmolality] 275 mosm/kg Low 278-305 [facility] Comment on above: Performed By: #### C HM7, HFP, B12B #### [facility] (DEFAULT) [address] [place] [address] Potassium [Moles/Vol] 4.4 mmol/L Normal 3.5-5.0 [facility] Comment on above: Performed By: #### C HM7, HFP, B12B #### [facility] (DEFAULT) [address] [place] [address]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 L501.2300, L100.0100, L501.4700 #### [facility] [address] [place], [address] GAP 6 Normal 5-15 [facility] Comment on above: Performed By: #### L 501.9520, L501.5200, L500.4050, L300.3900, L501.2300, L100.0100, L501.4700 #### [facility] [address] [place], [address] GFR/1.73 sq M.predicted among non-blacks MDRD (S/P/Bld) [Vol rate/Area] 108 mL/min/{1.73_m2} Normal >60 [facility] Comment on above: Result Comment: Non- GFR Calc Performed By: #### L 501.9520, L501.5200, L500.4050, L300.3900, L501.2300, L100.0100, L501.4700 #### [facility] [address] [place], [address] Glucose [Mass/Vol] 146 mg/dL High 74-106 [facility] Comment on above: Result Comment: Fast ing Glucose result greater than or equal to 126 mg/dL suggests DIABETES MELLITUS per A.D.A. criteria. Performed By: #### L 501.9520, L501.5200, L500.4050, L300.3900, L501.2300, L100.0100, L501.4700 #### [facility] [address] [place], [address] Potassium [Moles/Vol] 3.2 mmol/L Low 3.5-5.1 [facility] Comment on above: Performed By: #### L 501.9520, L501.5200, L500.4050, L300.3900, L501.2300, L100.0100, L501.4700 #### [facility] [address] [place], [address] Sodium [Moles/Vol] 128 mmol/L Low 136-145 [facility] Comment on above: Performed By: #### L 501.9520, L501.5200, L500.4050, L300.3900, L501.2300, L100.0100, L501.4700 #### [facility] [address] [place], [address] Urea nitrogen [Mass/Vol] 9 mg/dL Normal 7-18 [facility] Comment on above: Performed By: #### L 501.9520, L501.5200, L500.4050, L300.3900, L501.2300, L100.0100, L501.4700 #### [facility] [address] [place], [address] Bedside Glucoseon 12-03-2023 FINGERSTICK GLU 189 mg/dL High 74-106 [facility] Comment on above: Result Comment: JASMINE GEMENT OF PATIENT CARE PER NURSING PROTOCOL Performed By: #### L 503.5510 #### [facility] [address] [place], [address] FINGERSTICK GLU 224 mg/dL High 74-106 [facility] Comment on above: Result Comment: JASMINE GEMENT OF PATIENT CARE PER NURSING PROTOCOL Performed By: #### L 503.5510 #### [facility] [address] [place], [address] FINGERSTICK GLU 209 mg/dL High 74-106 [facility] Comment on above: Result Comment: JASMINE GEMENT OF PATIENT CARE PER NURSING PROTOCOL Performed By: #### L 501.9520, L501.5200, L500.4050, L300.3900, L501.2300, L100.0100, L501.4700 #### [facility] [address] [place], [address] FINGERSTICK GLU 124 mg/dL High 74-106 [facility] Comment on above: Result Comment: JASMINE ELAM OF PATIENT CARE PER NURSING PROTOCOL Performed By: #### L 503.5510 #### [facility] [address] [place], [address] CBC W/Diff, Automatedon 06-1 0-4 Absolute Lymph 0.91 X10 3/uL Normal 0.83-4.51 [facility] Comment on above: Performed By: #### L 503.5510 #### [facility] [address] [place], [address] Absolute Neut 3.3 X10 3/uL Normal 2.0-7.7 [facility] Comment on above: Performed By: #### L 503.5510 #### [facility] [address] [place], [address] Basophils/100 WBC (Bld) 0.8 % Normal 0-1 [facility] Comment on above: Performed By: #### L 503.5510 #### [facility] [address] [place], [address] Eosinophils/100 WBC (Bld) 2.0 % Normal 0-5 [facility] Comment on above: Performed By: #### L 503.5510 #### [facility] [address] [place], [address] Erythrocyte distribution width (RBC) [Ratio] 12.0 % Normal 11.6-14.6 [facility] Comment on above: Performed By: #### L 503.5510 #### [facility] [address] [place], [address] Hematocrit (Bld) [Volume fraction] 31.0 % Low 40-54 [facility] Comment on above: Performed By: #### L 503.5510 #### [facility] [address] [place], [address] Hemoglobin (Bld) [Mass/Vol] 11.0 g/dL Low 13.0-16.5 [facility] Comment on above: Performed By: #### L 503.5510 #### [facility] [address] [place], [address] IG% 0.800 Normal 0.0-0.9 [facility] Comment on above: Result Comment: IG% - Immature Granulocytes (promyelocytes, myelocytes and metamyelocytes) > 1% indicates that a LEFT SHIFT is Present. Performed By: #### L 503.5510 #### [facility] [address] [place], [address] Lymphocytes/100 WBC (Bld) 18.1 % Low 19-41 [facility] Comment on above: Performed By: #### L 503.5510 #### [facility] [address] [place], [address] MCH (RBC) [Entitic mass] 33.6 pg High 27.0-32.0 [facility] Comment on above: Performed By: #### L 503.5510 #### [facility] [address] [place], [address] MCHC (RBC) [Mass/Vol] 35.5 g/dL Normal 32-36 [facility] Comment on above: Performed By: #### L 503.5510 #### [facility] [address] [place], [address] MCV (RBC) [Entitic vol] 94.8 fL High 80-94 [facility] Comment on above: Performed By: #### L 503.5510 #### [facility] [address] [place], [address] Monocytes/100 WBC (Bld) 11.8 % High 0-10 [facility] Comment on above: Performed By: #### L 503.5510 #### [facility] [address] [place], [address] Neutrophils/100 WBC (Bld) 66.5 % Normal 47-70 [facility] Comment on above: Performed By: #### L 503.5510 #### [facility] [address] [place], [address] Nucleated RBC (Bld) [#/Vol] 0 10*3/uL Normal 0-5 [facility] Comment on above: Performed By: #### L 503.5510 #### [facility] [address] [place], [address] Platelet mean volume (Bld) [Entitic vol] 9.1 fL Normal 6.2-12.0 [facility] Comment on above: Performed By: #### L 503.5510 #### [facility] [address] [place], [address] Platelets (Bld) [#/Vol] 144 10*3/uL Low 150-450 [facility] Comment on above: Performed By: #### L 503.5510 #### [facility] [address] [place], [address] RBC (Bld) [#/Vol] 3.27 10*6/uL Low 4.6-6.2 [facility] Comment on above: Performed By: #### L 503.5510 #### [facility] [address] [place], [address] RDW SD 42.5 fl Normal 35.1-43.9 [facility] Comment on above: Performed By: #### L 503.5510 #### [facility] [address] [place], [address] WBC (Bld) [#/Vol] 5.0 10*3/uL Normal 4.4-11.0 [facility] Comment on above: Performed By: #### L 503.5510 #### [facility] [address] [place], [address] Basic Metabolic Profile (BMP )on 12-02-2023 BUN/CRE 12.2 RATIO Normal 10-20 [facility] Comment on above: Performed By: #### L 501.9520, L501.5200, L500.4050, L300.3900, L501.2300, L100.0100, L501.4700 #### [facility] [address] [place], [address] CA,Total 8.1 mg/dL Low 8.5-10.1 [facility] Comment on above: Performed By: #### L 501.9520, L501.5200, L500.4050, L300.3900, L501.2300, L100.0100, L501.4700 #### [facility] [address] [place], [address] Chloride [Moles/Vol] 94 mmol/L Low 98-107 [facility] Comment on above: Performed By: #### L 501.9520, L501.5200, L500.4050, L300.3900, L501.2300, L100.0100, L501.4700 #### [facility] [address] [place], [address] CO2 [Moles/Vol] 29.0 mmol/L Normal 21.0-32.0 [facility] Comment on above: Performed By: #### L 501.9520, L501.5200, L500.4050, L300.3900, L501.2300, L100.0100, L501.4700 #### [facility] [address] [place], [address] Creatinine [Mass/Vol] 0.90 mg/dL Normal 0.70-1.30 [facility] Comment on above: Result Comment: The validity of the calculated GFR GFRAA in patients over 70 years has not been determined. Clinical correlation is essential. Performed By: #### L 501.9520, L501.5200, L500.4050, L300.3900, L501.2300, L100.0100, L501.4700 #### [facility] [address] [place], [address] ECRCL 120.78 ml/min Normal [facility] Comment on above: Performed By: #### L 501.9520, L501.5200, L500.4050, L300.3900, L501.2300, L100.0100, L501.4700 #### [facility] [address] [place], [place], [id number] (316) EST GFR - AA 113 mL/min Normal >60 [facility] Comment on above: Result Comment: Afri can [place] GFR Calc Performed By: #### L 501.9520, L501.5200, L500.4050, L300.3900, L501.2300, L100.0100, L501.4700 #### [facility] [address] [place], [place], [address] GAP 5 Normal 5-15 [facility] Comment on above: Performed By: #### L 501.9520, L501.5200, L500.4050, L300.3900, L501.2300, L100.0100, L501.4700 #### [facility] [address] [place], [place], [address] GFR/1.73 sq M.predicted among non-blacks MDRD (S/P/Bld) [Vol rate/Area] 93 mL/min/{1.73_m2} Normal >60 [facility] Comment on above: Result Comment: Non- GFR Calc Performed By: #### L 501.9520, L501.5200, L500.4050, L300.3900, L501.2300, L100.0100, L501.4700 #### [facility] [address] [place], [address] Glucose [Mass/Vol] 183 mg/dL High 74-106 [facility] Comment on above: Result Comment: Fast ing Glucose result greater than or equal to 126 mg/dL suggests DIABETES MELLITUS per A.D.A. criteria. Performed By: #### L 501.9520, L501.5200, L500.4050, L300.3900, L501.2300, L100.0100, L501.4700 #### [facility] [address] [place], [address] Potassium [Moles/Vol] 3.3 mmol/L Low 3.5-5.1 [facility] Comment on above: Performed By: #### L 501.9520, L501.5200, L500.4050, L300.3900, L501.2300, L100.0100, L501.4700 #### [facility] [address] [place], [address] Sodium [Moles/Vol] 128 mmol/L Low 136-145 [facility] Comment on above: Performed By: #### L 501.9520, L501.5200, L500.4050, L300.3900, L501.2300, L100.0100, L501.4700 #### [facility] [address] [place], [address] Urea nitrogen [Mass/Vol] 11 mg/dL Normal 7-18 [facility] Comment on above: Performed By: #### L 501.9520, L501.5200, L500.4050, L300.3900, L501.2300, L100.0100, L501.4700 #### [facility] [address] [place], [address] BUN/CRE 12.3 RATIO Normal 10-20 [facility] Comment on above: Performed By: #### L 500.2500 ####[facility] [address] [place], [address] CA,Total 8.1 mg/dL Low 8.5-10.1 [facility] Comment on above: Performed By: #### L 500.2500 ####[facility] [address] [place], [address] Chloride [Moles/Vol] 93 mmol/L Low 98-107 [facility] Comment on above: Performed By: #### L 500.2500 ####[facility] [address] [place], [address] CO2 [Moles/Vol] 27.0 mmol/L Normal 21.0-32.0 [facility] Comment on above: Performed By: #### L 500.2500 ####[facility] [address] [place], [address] Creatinine [Mass/Vol] 0.90 mg/dL Normal 0.70-1.30 [facility] Comment on above: Result Comment: The validity of the calculated GFR GFRAA in patients over 70 years has not been determined. Clinical correlation is essential. Performed By: #### L 500.2500 ####[facility] [address] [place], [address] ECRCL 120.78 ml/min Normal [facility] Comment on above: Performed By: #### L 500.2500 ####[facility] [address] [place], [address] EST GFR - AA 113 mL/min Normal >60 [facility] Comment on above: Result Comment: Afri can [place] GFR Calc Performed By: #### L 500.2500 ####[facility] [address] [place], [address] GAP 6 Normal 5-15 [facility] Comment on above: Performed By: #### L 500.2500 ####[facility] [address] [place], [address] GFR/1.73 sq M.predicted among non-blacks MDRD (S/P/Bld) [Vol rate/Area] 94 mL/min/{1.73_m2} Normal >60 [facility] Comment on above: Result Comment: Non- GFR Calc Performed By: #### L 500.2500 ####[facility] [address] [place], [address] Glucose [Mass/Vol] 192 mg/dL High 74-106 [facility] Comment on above: Result Comment: Fast ing Glucose result greater than or equal to 126 mg/dL suggests DIABETES MELLITUS per A.D.A. criteria. Performed By: #### L 500.2500 ####[facility] [address] [place], [address] Potassium [Moles/Vol] 3.3 mmol/L Low 3.5-5.1 [facility] Comment on above: Performed By: #### L 500.2500 ####[facility] [address] [place], [address] Sodium [Moles/Vol] 126 mmol/L Low 136-145 [facility] Comment on above: Performed By: #### L 500.2500 ####[facility] [address] [place], [address] Urea nitrogen [Mass/Vol] 11 mg/dL Normal 7-18 [facility] Comment on above: Performed By: #### L 500.2500 ####[facility] [address] [place], [address] BUN/CRE 14.0 RATIO Normal 10-20 [facility] Comment on above: Performed By: #### L 503.5510 #### [facility] [address] [place], [address] CA,Total 8.1 mg/dL Low 8.5-10.1 [facility] Comment on above: Performed By: #### L 503.5510 #### [facility] [address] [place], [address] Chloride [Moles/Vol] 92 mmol/L Low 98-107 [facility] Comment on above: Performed By: #### L 503.5510 #### [facility] [address] [place], [address] CO2 [Moles/Vol] 27.0 mmol/L Normal 21.0-32.0 [facility] Comment on above: Performed By: #### L 503.5510 #### [facility] [address] [place], [address] Creatinine [Mass/Vol] 0.86 mg/dL Normal 0.70-1.30 [facility] Comment on above: Result Comment: The validity of the calculated GFR GFRAA in patients over 70 years has not been determined. Clinical correlation is essential. Performed By: #### L 503.5510 #### [facility] [address] [place], [address] ECRCL 126.40 ml/min Normal [facility] Comment on above: Performed By: #### L 503.5510 #### [facility] [address] [place], [address] EST GFR - AA 119 mL/min Normal >60 [facility] Comment on above: Result Comment: Afri can [place] GFR Calc Performed By: #### L 503.5510 #### [facility] [address] [place], [address] GAP 9 Normal 5-15 [facility] Comment on above: Performed By: #### L 503.5510 #### [facility] [address] [place], [address] GFR/1.73 sq M.predicted among non-blacks MDRD (S/P/Bld) [Vol rate/Area] 98 mL/min/{1.73_m2} Normal >60 [facility] Comment on above: Result Comment: Non- GFR Calc Performed By: #### L 503.5510 #### [facility] [address] [place], [address] Glucose [Mass/Vol] 174 mg/dL High 74-106 [facility] Comment on above: Result Comment: Fast ing Glucose result greater than or equal to 126 mg/dL suggests DIABETES MELLITUS per A.D.A. criteria. Performed By: #### L 503.5510 #### [facility] [address] [place], [address] Potassium [Moles/Vol] 3.3 mmol/L Low 3.5-5.1 [facility] Comment on above: Performed By: #### L 503.5510 #### [facility] [address] [place], [address] Sodium [Moles/Vol] 128 mmol/L Low 136-145 [facility] Comment on above: Performed By: #### L 503.5510 #### [facility] [address] [place], [address] Urea nitrogen [Mass/Vol] 12 mg/dL Normal 7-18 [facility] Comment on above: Performed By: #### L 503.5510 #### [facility] [address] [place], [address] BUN/CRE 14.6 RATIO Normal 10-20 [facility] Comment on above: Order Comment: EVERY 4 HRS PER Performed By: #### L 500.2500 ####[facility] [address] [place], [address] CA,Total 8.4 mg/dL Low 8.5-10.1 [facility] Comment on above: Order Comment: EVERY 4 HRS PER Performed By: #### L 500.2500 ####[facility] [address] [place], [address] Chloride [Moles/Vol] 92 mmol/L Low 98-107 [facility] Comment on above: Order Comment: EVERY 4 HRS PER Performed By: #### L 500.2500 ####[facility] [address] [place], [address] CO2 [Moles/Vol] 27.0 mmol/L Normal 21.0-32.0 [facility] Comment on above: Order Comment: EVERY 4 HRS PER Performed By: #### L 500.2500 ####[facility] [address] [place], [address] Creatinine [Mass/Vol] 0.96 mg/dL Normal 0.70-1.30 [facility] Comment on above: Order Comment: EVERY 4 HRS PER Result Comment: The validity of the calculated GFR GFRAA in patients over 70 years has not been determined. Clinical correlation is essential. Performed By: #### L 500.2500 ####[facility] [address] [place], [address] ECRCL 113.23 ml/min Normal [facility] Comment on above: Order Comment: EVERY 4 HRS PER Performed By: #### L 500.2500 ####[facility] [address] [place], [address] EST GFR - AA 105 mL/min Normal >60 [facility] Comment on above: Order Comment: EVERY 4 HRS PER Result Comment: Afri can [place] GFR Calc Performed By: #### L 500.2500 ####[facility] [address] [place], [address] GAP 8 Normal 5-15 [facility] Comment on above: Order Comment: EVERY 4 HRS PER Performed By: #### L 500.2500 ####[facility] [address] [place], [address] GFR/1.73 sq M.predicted among non-blacks MDRD (S/P/Bld) [Vol rate/Area] 87 mL/min/{1.73_m2} Normal >60 [facility] Comment on above: Order Comment: EVERY 4 HRS PER Result Comment: Non- GFR Calc Performed By: #### L 500.2500 ####[facility] [address] [place], [address] Glucose [Mass/Vol] 212 mg/dL High 74-106 [facility] Comment on above: Order Comment: EVERY 4 HRS PER Result Comment: Gluc ose result greater than or equal to 200 mg/dL suggests DIABETES MELLITUS per A.D.A. criteria. Performed By: #### L 500.2500 ####[facility] [address] [place], [address] Potassium [Moles/Vol] 3.4 mmol/L Low 3.5-5.1 [facility] Comment on above: Order Comment: EVERY 4 HRS PER Performed By: #### L 500.2500 ####[facility] [address] [place], [address] Sodium [Moles/Vol] 127 mmol/L Low 136-145 [facility] Comment on above: Order Comment: EVERY 4 HRS PER Performed By: #### L 500.2500 ####[facility] [address] [place], [address] Urea nitrogen [Mass/Vol] 14 mg/dL Normal 7-18 [facility] Comment on above: Order Comment: EVERY 4 HRS PER Performed By: #### L 500.2500 ####[facility] [address] [place], [address] BUN/CRE 13.6 RATIO Normal 10-20 [facility] Comment on above: Order Comment: EVERY 4HRS PER Performed By: #### L 501.9520, L501.5200, L500.4050, L300.3900, L501.2300, L100.0100, L501.4700 #### [facility] [address] [place], [address] CA,Total 8.4 mg/dL Low 8.5-10.1 [facility] Comment on above: Order Comment: EVERY 4HRS PER Performed By: #### L 501.9520, L501.5200, L500.4050, L300.3900, L501.2300, L100.0100, L501.4700 #### [facility] [address] [place], [address] Chloride [Moles/Vol] 91 mmol/L Low 98-107 [facility] Comment on above: Order Comment: EVERY 4HRS PER Performed By: #### L 501.9520, L501.5200, L500.4050, L300.3900, L501.2300, L100.0100, L501.4700 #### [facility] [address] [place], [address] CO2 [Moles/Vol] 25.0 mmol/L Normal 21.0-32.0 [facility] Comment on above: Order Comment: EVERY 4HRS PER Performed By: #### L 501.9520, L501.5200, L500.4050, L300.3900, L501.2300, L100.0100, L501.4700 #### [facility] [address] [place], [address] Creatinine [Mass/Vol] 0.88 mg/dL Normal 0.70-1.30 [facility] Comment on above: Order Comment: EVERY 4HRS PER Result Comment: The validity of the calculated GFR GFRAA in patients over 70 years has not been determined. Clinical correlation is essential. Performed By: #### L 501.9520, L501.5200, L500.4050, L300.3900, L501.2300, L100.0100, L501.4700 #### [facility] [address] [place], [address] ECRCL 123.53 ml/min Normal [facility] Comment on above: Order Comment: EVERY 4HRS PER Performed By: #### L 501.9520, L501.5200, L500.4050, L300.3900, L501.2300, L100.0100, L501.4700 #### [facility] [address] [place], [address] EST GFR - AA 115 mL/min Normal >60 [facility] Comment on above: Order Comment: EVERY 4HRS PER Result Comment: Afri can [place] GFR Calc Performed By: #### L 501.9520, L501.5200, L500.4050, L300.3900, L501.2300, L100.0100, L501.4700 #### [facility] [address] [place], [address] GAP 9 Normal 5-15 [facility] Comment on above: Order Comment: EVERY 4HRS PER Performed By: #### L 501.9520, L501.5200, L500.4050, L300.3900, L501.2300, L100.0100, L501.4700 #### [facility] [address] [place], [address] GFR/1.73 sq M.predicted among non-blacks MDRD (S/P/Bld) [Vol rate/Area] 95 mL/min/{1.73_m2} Normal >60 [facility] Comment on above: Order Comment: EVERY 4HRS PER Result Comment: Non- GFR Calc Performed By: #### L 501.9520, L501.5200, L500.4050, L300.3900, L501.2300, L100.0100, L501.4700 #### [facility] [address] [place], [address] Glucose [Mass/Vol] 194 mg/dL High 74-106 [facility] Comment on above: Order Comment: EVERY 4HRS PER Result Comment: Fast ing Glucose result greater than or equal to 126 mg/dL suggests DIABETES MELLITUS per A.D.A. criteria. Performed By: #### L 501.9520, L501.5200, L500.4050, L300.3900, L501.2300, L100.0100, L501.4700 #### [facility] [address] [place], [address] Potassium [Moles/Vol] 3.2 mmol/L Low 3.5-5.1 [facility] Comment on above: Order Comment: EVERY 4HRS PER Performed By: #### L 501.9520, L501.5200, L500.4050, L300.3900, L501.2300, L100.0100, L501.4700 #### [facility] [address] [place], [address] Sodium [Moles/Vol] 125 mmol/L Low 136-145 [facility] Comment on above: Order Comment: EVERY 4HRS PER Performed By: #### L 501.9520, L501.5200, L500.4050, L300.3900, L501.2300, L100.0100, L501.4700 #### [facility] [address] [place], [address] Urea nitrogen [Mass/Vol] 12 mg/dL Normal 7-18 [facility] Comment on above: Order Comment: EVERY 4HRS PER Performed By: #### L 501.9520, L501.5200, L500.4050, L300.3900, L501.2300, L100.0100, L501.4700 #### [facility] [address] [place], [address] Bedside Glucoseon 12-02-2023 FINGERSTICK GLU 195 mg/dL High [address] [facility] Comment on above: Result Comment: JASMINE GEMENT OF PATIENT CARE PER NURSING PROTOCOL Performed By: #### L 503.5510 #### [facility] [address] [place], [address] FINGERSTICK GLU 138 mg/dL High [address] [place] [address] Comment on above: Result Comment: JASMINE GEMENT OF PATIENT CARE PER NURSING PROTOCOL Performed By: #### L 501.9520, L501.5200, L500.4050, L300.3900, L501.2300, L100.0100, L501.4700 #### [facility] [address] [place], [address] FINGERSTICK GLU 189 mg/dL High 74-106 [facility] Comment on above: Result Comment: JASMINE GEMENT OF PATIENT CARE PER NURSING PROTOCOL Performed By: #### L 501.9520, L501.5200, L500.4050, L300.3900, L501.2300, L100.0100, L501.4700 #### [facility] [address] [place], [address] FINGERSTICK GLU 151 mg/dL High 74-106 [facility] Comment on above: Result Comment: JASMINE GEMENT OF PATIENT CARE PER NURSING PROTOCOL Performed By: #### L 501.9520, L501.5200, L500.4050, L300.3900, L501.2300, L100.0100, L501.4700 #### [facility] [address] [place], [address] Bilirubin, Directon 12-02-19 24 Bilirubin.direct [Mass/Vol] 0.44 mg/dL High 0.00-0.30 [facility] Comment on above: Performed By: #### L 501.9520, L501.5200, L500.4050, L300.3900, L501.2300, L100.0100, L501.4700 #### [facility] [address] [place], [address] CBC W/Diff, Automatedon 06-0 9-2023 Absolute Lymph 0.94 X10 3/uL Normal 0.83-4.51 [facility] Comment on above: Performed By: #### L 501.9520, L501.5200, L500.4050, L300.3900, L501.2300, L100.0100, L501.4700 #### [facility] [address] [place], [address] Absolute Neut 4.0 X10 3/uL Normal 2.0-7.7 [facility] Comment on above: Performed By: #### L 501.9520, L501.5200, L500.4050, L300.3900, L501.2300, L100.0100, L501.4700 #### [facility] [address] [place], [address] Basophils/100 WBC (Bld) 0.7 % Normal 0-1 [facility] Comment on above: Performed By: #### L 501.9520, L501.5200, L500.4050, L300.3900, L501.2300, L100.0100, L501.4700 #### [facility] [address] [place], [address] Eosinophils/100 WBC (Bld) 1.5 % Normal 0-5 [facility] Comment on above: Performed By: #### L 501.9520, L501.5200, L500.4050, L300.3900, L501.2300, L100.0100, L501.4700 #### [facility] [address] [place], [address] Erythrocyte distribution width (RBC) [Ratio] 11.6 % Normal 11.6-14.6 [facility] Comment on above: Performed By: #### L 501.9520, L501.5200, L500.4050, L300.3900, L501.2300, L100.0100, L501.4700 #### [facility] [address] [place], [address] Hematocrit (Bld) [Volume fraction] 29.6 % Low 40-54 [facility] Comment on above: Performed By: #### L 501.9520, L501.5200, L500.4050, L300.3900, L501.2300, L100.0100, L501.4700 #### [facility] [address] [place], [address] Hemoglobin (Bld) [Mass/Vol] 10.9 g/dL Low 13.0-16.5 [facility] Comment on above: Performed By: #### L 501.9520, L501.5200, L500.4050, L300.3900, L501.2300, L100.0100, L501.4700 #### [facility] [address] [place], [address] IG% 0.900 Normal 0.0-0.9 [facility] Comment on above: Result Comment: IG% - Immature Granulocytes (promyelocytes, myelocytes and metamyelocytes) > 1% indicates that a LEFT SHIFT is Present. Performed By: #### L 501.9520, L501.5200, L500.4050, L300.3900, L501.2300, L100.0100, L501.4700 #### [facility] [address] [place], [address] Lymphocytes/100 WBC (Bld) 16.2 % Low 19-41 [facility] Comment on above: Performed By: #### L 501.9520, L501.5200, L500.4050, L300.3900, L501.2300, L100.0100, L501.4700 #### [facility] [address] [place], [address] MCH (RBC) [Entitic mass] 33.7 pg High 27.0-32.0 [facility] Comment on above: Performed By: #### L 501.9520, L501.5200, L500.4050, L300.3900, L501.2300, L100.0100, L501.4700 #### [facility] [address] [place], [address] MCHC (RBC) [Mass/Vol] 36.8 g/dL High 32-36 [facility] Comment on above: Performed By: #### L 501.9520, L501.5200, L500.4050, L300.3900, L501.2300, L100.0100, L501.4700 #### [facility] [address] [place], [address] MCV (RBC) [Entitic vol] 91.6 fL Normal 80-94 [facility] Comment on above: Performed By: #### L 501.9520, L501.5200, L500.4050, L300.3900, L501.2300, L100.0100, L501.4700 #### [facility] [address] [place], [address] Monocytes/100 WBC (Bld) 12.4 % High 0-10 [facility] Comment on above: Performed By: #### L 501.9520, L501.5200, L500.4050, L300.3900, L501.2300, L100.0100, L501.4700 #### [facility] [address] [place], [address] Neutrophils/100 WBC (Bld) 68.3 % Normal 47-70 [facility] Comment on above: Performed By: #### L 501.9520, L501.5200, L500.4050, L300.3900, L501.2300, L100.0100, L501.4700 #### [facility] [address] [place], [address] Nucleated RBC (Bld) [#/Vol] 0 10*3/uL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 4.Continue MVI with minerals, folic acid, and thiamine per team's discretion. 5.Nutrition to follow. Thanks Sabiha Gallardo, Doctor Of Naprapathy Floorman For up to date coverage please see QGenda schedule for Ancillary/Clinical Dietitian [facility] Pt known to nutrition services- initial nutrition Screen completed: 12/07/23 in ED, last assessment was completed on 12/11/23. HD# 12 Team notes reviewed Met with patient this afternoon while he was eating lunch. He stated his appetite has been great and he has been enjoying the meals. No nausea or vomiting noted. Seems to have made progress with inxreasing PO intake. Current Diet Order: Regular 16 Charted meals between 75-100% over the last week (12/10-12/17) with average intake of 100%. ~11 variety ensure max and ensure high protein Assessments Edema: None noted GI: obese abdomen bowel sounds x4, small amount of soft/brown stool; Last Bowel Movement: 12/18/23 Skin: bruised, ecchymotic; Pilo Score: 18 Wound Skin Tear 12/07/23 2300 Anterior;Right Knee (11) Wound Skin Tear 12/07/23 2300 Anterior;Left Knee (11) Enteral Access: none noted Labs: 12/11/23 Reviewed, including Creatinine 0.64 (L), AST 43 (H), Glucose 124 (H). 12/09/23: Magnesium 1.5 (L), Glucose 124 (H) Meds Reviewed including coreg, Lovenox, folic acid, lorazepam, MVI, Zyprexa, Zoloft, Flomax, thiamine PRNs reviewed including alum/mag hydrox, robitussin, melatonin*, nicotine gum, miralax (*if given on or after 12/14/23) Monitored Food-Drug Interactions: None Continuous Infusions: None Fluid Management (24hrs ending 658):Net -65mL, UOP 1425 mL, emesis 0, stool 3x (Since Adm Net +2708.1 mL) Anthropometrics Height: 182.9 cm (6') IBW: 81 kg, 178 lb %IBW: 150% BMI: 36.24 kg/m2 12/08/23 Weight: 121.2 kg (267 lb 3.2 oz) Estimated Nutrition Needs Weight Used: ideal Energy Requirements (kcal/day): 8532-6593 Kcal/k-30 Protein Requirements (g/day): 80-110 Protein (g/kg): 1-1.4 Fluid Requirements (mL): 2400 mL or as directed by team Fluid mL/k Nutrition Focused Physical Exam Nutrition Focused Physical Exam Completed?: deferred Reason For Deferral: Patient eating Malnutrition Statement: Malnutrition criteria met: Does the patient meet criteria for malnutrition: No (Patient eating 100%, and no recent weight loss. No wasting or fluid accumilation noted on visual exam.) *Based on [employer] and [employer] Indicators to Diagnose Malnutrition (AAIM) criteria (2012) Associated attestation - Ayla Patton RD - 12/18/2023 3:03 PM EDT Addendum: I have independently reviewed and edited this student's documentation. I agree with the assessment and plan. Ayla Patton, MS, RD, LD Pager: [phone] For up to date coverage please see [facility] schedule for Ancillary/Clinical Dietitian [facility] Acute Occupational Therapy Treatment Prior Gross Functional Mobility: independent Current AM-PAC score(s): CURRENT AM-PAC Activity Raw Score: 20 Based on the above AM-PAC score(s), and OT clinical judgment, discharge destination recommendation is: Home with OP OT, 15/01 supervision from [facility] Barriers to discharge home: Cognitive impairments that impact safety (see note below), Lack of supervision necessary to mitigate fall risk, Patient needs assistance with ADLs, Patient needs assistance with IADLs (see note below), Patient needs assistance with medication management, Patient needs assistance with functional mobility Mobility equipment available at home: none used ADL equipment available at home: none Equipment recommendations for discharge: 2 wheeled walker, shower chair Current therapy frequency recommendation(s) in acute: 5 times a week Precautions and Weightbearing Status: OT Existing Precautions/Restrictions: fall No critical lines at this time Patient Safety Communication Prior to Visit: Nursing Subjective: Pt had recently finished working with PT and is sitting up in the recliner chair. Pain: General Pain Documentation (Adult, OB, Peds) Presence of Pain: reports pain/discomfort Pain Location: back Objective/Observation: Vitals/Vitals Responses to Treatment: no adverse reaction towards session O2 Device: room air Cognition Overall Cognitive Status: Impaired Arousal/Alertness: Appropriate responses to stimuli Orientation Level: Oriented X4 Following Commands: Follows one step commands without difficulty Safety Judgment: Decreased awareness of need for safety, Decreased awareness of need for assistance Awareness of Errors: Assistance required to correct errors made Deficits: Decreased awareness of deficits Attention Span: Appears intact Memory: Appears intact Problem Solving: Assistance required to generate solutions ADL Assessment/Intervention: ADLs: ADL Assessment: Bathing Deficit Eating Assistance: Grooming Assistance: Contact guard assist Grooming Location: standing at sink Grooming Deficit: Increased time to complete, Activity tolerance, Generalized weakness, Balance, Brushing hair Grooming Skilled Rationale (Verbal/Tactile/Visual/Demonstrati on): Facilitate postural control, Facilitate positioning, Technique of activity, Cues for increased safety Bathing Assistance: Contact guard assist Bathing Location: standing at sink Bathing Deficit: Activity tolerance, Increased time to complete, Generalized weakness, Balance Bathing Skilled Rationale (Verbal/Tactile/Visual/Demonstrati on): Facilitate positioning, Facilitate postural control, Technique of activity, Cues for increased safety UE Dressing Assistance: LE Dressing Assistance: Toilet Assistance: Extremity Assessments: See OT Evaluation flowsheet for Extremity Measurement updates. Balance: Sitting Balance Static Sitting-Level of Assistance: Independent Dynamic Sitting-Level of Assistance: Independent Standing Balance Static Standing-Level of Assistance: Supervision Dynamic Standing-Level of Assistance: Stand-by assist Standing-Balance Support: Gait belt, 2 wheeled walker Skilled Rationale: Positioning, Hand placement, Verbal cues, Technique of activity, Cues for increased safety Standing Balance Skilled Intervention/Details: Pt stood at the sink for approximately 8 minutes without UE for stabilization. Pt fatigued and required a seated rest break prior to completion of functional mobility back to the chair. Skin and Edema: Mobility Assessment/Intervention: Transfer Assessment/Intervention: Sit to Stand Transfer [place] Level: Sit->Stand: supervision Assistive Device: Sit->Stand: gait belt, 2 wheeled walker Skilled Rationale: Positioning, Hand placement, Verbal cues, Technique of activity, Cues for increased safety Stand to Sit Transfer [place] Level: Stand->Sit: supervision Assistive Device: Stand->Sit: gait belt, 2 wheeled walker Skilled Rationale: Positioning, Hand placement, Verbal cues, Technique of activity, Cues for increased safety Functional Mobility: Functional Mobility [place] Level: Functional Mobility/Gait: stand-by assist Assistive Device: Functional Mobility/Gait: 2 wheeled walker, gait belt Functional Mobility Distance: Distance needed to access restroom Functional Mobility Deficits: Activity tolerance, Balance, Generalized weakness, Slowed gait speed Functional Mobility Skilled Rationale: Breathing strategies, Facilitate positioning, Facilitate postural control Outcome Score(s): CURRENT [facility] Daily Activity Inpatient Short Form Putting on/Taking Off Lower Body Clothin - A Little Assistance Bathin - A Little Assistance Toiletin - A Little Assistance Putting on/Taking Off Upper Body Clothin - No Assistance Groomin - A Little Assistance Eatin - No Assistance CURRENT [facility] Activity Raw Score: 20 CURRENT [facility] Activity Functional Limitation/Modifier: 38.32% Currently Impaired in Daily Activity - CJ Interventions: Assessment & Plan: Pt is progressing towards OT goals evident by ability to complete standing ADL's for 8 minutes with contact guard assist. Pt has barriers to independence including balance, strength , activity tolerance, functional mobility/transfers, and safety awareness. Pt would benefit from occupational therapy to increase safety and independence with ADL's. Patient Instruction/Education this session: Learners: Patient Education provided: Safety, Role of this discipline, Positioning, Plan of care Teaching method: Verbal Education/Instruction Learner response: Applies knowledge Learning considerations: No barriers/ready to learn Plan for next session: standing ADL's, safety awareness Acute OT Goals Plan of Care by Rowan Walker OT at 12/18/2023 11:19 AM Version 1 of 1 Problem: OT - ADLs Goal: Bathing - Patient will perform full body bathing routine with modified independence for improved ability to complete self-care activities Outcome: Progressing Problem: OT - Balance Goal: Balance - Standing - Patient will perform 10 minutes of functional task in standing with modified independence and good balance to promote safety and improved balance required for self-care activities. Outcome: Progressing Problem: OT - Endurance Goal: Endurance Functional Mobility - Patient will complete distance needed for common household mobility with modified independence for improved tolerance to safely complete I/ADL's Outcome: Progressing Problem: OT - Cognition Goal: Safety - Patient will demonstrate good safety awareness during ADL routine with min or less cues for accuracy. Outcome: Progressing Problem: OT - Cognition Goal: Cognition Simple ADL - Patient will demonstrate improved cognition, completing simple ADL task for 10 minutes with no greater than min cues required to maintain attention. Outcome: Met OT treatment consisted of the following to work and progress towards the above goal(s): OT Evaluation and Treatment Time Self Care/Home Management (ADLs) Time Entry: 17 Treating Therapist: Rowan Walker OT Additional Details: OT Co-Eval/Treatment Information Co-evaluation/co-treatment performed?: No simultaneous skilled care performed PPE used during patient interaction: gloves Patient location at end of session: chair Alarms on at end of session: none Needs in reach. Time In: 1102 Time Out: 1119 Total Visit Time: 17 minutes Total Treatment Time (skilled, billable minutes): 17 minutes Upon discontinuation of Acute Care Occupational Therapy Services or patient discharge from the hospital this note represents the current Occupational Therapy Discharge Summary. Acute Physical Therapy Treatment Prior Gross Functional Mobility: independent Current AM-PAC score(s): CURRENT AM-PAC Mobility Raw Score: 19 Based on the above AM-PAC score(s) and PT clinical judgment, patient is a good candidate for discharge to Home with Outpatient Rehab Services (with / assist from sister) Barriers to discharge home: Patient needs assistance with functional mobility Mobility equipment available at home: none used ADL equipment available at home: none Equipment needed for discharge: shower chair, 2 wheeled walker Current therapy frequency recommendation in acute: Therapy Frequency: 5 times a week Activity Recommendations for outside of rehab session: 12/17: x1 assist, hallway ambulator TID with walker Precautions and Weightbearing Status: Existing Precautions/Restrictions: fall Patient Safety Communication Prior to Visit: Nursing Subjective: Pt agreeable to therapy reporting 15 to 20% mobility PLOF and 100% confidence going home with sister despite reported fear on stairs yesterday stating 8/10 difficulty reporting 5/10 difficulty with taught technique today Pain: General Pain Documentation (Adult, OB, Peds) Presence of Pain: reports pain/discomfort Pain Location: back DVPRS (Defense and Veterans Pain Rating Scale) DVPRS: Rest: 0- no pain DVPRS: Activity: 3- mild pain (2nd bout of gait, denies 3rd bout) Objective/Observation: Vitals/Vitals Responses to Treatment: no adverse response appreciated/ reported aside from fatigue and mild pian 1 of 3 gait bouts Cognition Overall Cognitive Status: Impaired Arousal/Alertness: Appropriate responses to stimuli Following Commands: Follows one step commands without difficulty Safety Judgment: Decreased awareness of need for assistance, Decreased awareness of need for safety Extremity Assessments: See PT Evaluation flowsheet for Extremity Measurement updates. Skin and Edema: Balance: Sitting Balance Static Sitting-Level of Assistance: Independent Dynamic Sitting-Level of Assistance: Independent Standing Balance Static Standing-Level of Assistance: Supervision Dynamic Standing-Level of Assistance: Stand-by assist (progressing to supervision with increased cue follow) Standing-Balance Support: Gait belt, 2 wheeled walker Skilled Rationale: Facilitate anterior shift, Full extension to upright positioning/posture Standing Balance Skilled Intervention/Details: education for 2WW height with adjustment for new walker reporting increased comfort with increased proximity with increased cue follow Mobility Assessment/Intervention: Supine to Sit Mobility [place] Level: Supine->Sit: stand-by assist Bed Features/Set-up: Supine->Sit: Flat, Use of bed rail Skilled Intervention/Details: Supine->Sit: rolled R attempting not to use bedrail but with increased difficulty required use but able to perform without physical assist; cues to breathe Transfer Assessment/Intervention: Sit to Stand Transfer [place] Level: Sit->Stand: supervision Assistive Device: Sit->Stand: gait belt, 2 wheeled walker, armed chair Skilled Intervention/Details: Sit->Stand: EOB x2, recliner x2; cues for hand placement/ safety Stand to Sit Transfer [place] Level: Stand->Sit: supervision Assistive Device: Stand->Sit: gait belt, 2 wheeled walker, armed chair Skilled Intervention/Details: Stand->Sit: cues for hand placement/ safety Gait/Functional Mobility Assessment/Intervention: Gait Assessment [place] Level: Gait: stand-by assist (progressed to supevision with maintenance of walker on floor and increased proximity) Assistive Device: Gait: gait belt, 2 wheeled walker Ambulation Distance (Feet): 117 (+112+ 20) Skilled Intervention/Details - Gait: Cues for upright and walker proximity with increased demo and reported absent pain last trial (endorses need to sit prior to return to room with loss of endurance) Stairs Assessment/Intervention: Stairs Assessment [place] Level: Stair Negotiation: contact guard assist Assistive Device: Stair Negotiation: gait belt, left rail (ascending) Number of stairs: 3 Skilled Intervention/Details - Stairs: cues for foot clearance and advised avoiding reciprocal ascent but demo'ing despite cues with no physical assist needs. Reports sister physically able to assist him Outcome Score(s): CURRENT [facility] Basic Mobility Inpatient Short Form Turning over in bed: 4 - No Assistance Moving from lying on back to sittin - A Little Assistance Moving to and from bed to chair: 3 - A Little Assistance Sitting/standing from chair: 3 - A Little Assistance Walk in hospital room: 3 - A Little Assistance Climbing 3-5 steps with a railin - A Little Assistance CURRENT [facility] Mobility Raw Score: 19 CURRENT [facility] Mobility Functional Limitation: 41.77% Impaired in Basic Mobility Interventions: Intervention 1 Intervention Name: Seated BLE TE HEP Sets/Reps/Duration: x10 Details: marches, long arc quads, hip abduction bilat and unilateral, ankle pumps also demos hip arcs, figure 4 and ankle rolls not on worksheet (isometric foot press on worksheet but doesn't follow demo) Assessment & Plan: Pt progressing toward goals with increased independence during bed mobility, transfers and gait but reporting significantly far from mobility baseline with decreased endurance and increased difficulty with mobility. Pt benefiting from education for increased safety during mobility and to progress toward PLOF currently dependent on AD Patient Instruction/Education this session: Learners: Patient Education provided: Activity outside of therapy, Bed mobility, Functional transfers, Gait training safety, Handout provided and reviewed, Home exercise program, Discharge recommendations Teaching method: Verbal Education/Instruction, Teach back, Handout provided/reviewed Learner response: Returns demonstration, Needs review Learning considerations: Cognition Plan for next session: gait endurance, stairs, balance training Acute PT Goals Plan of Care by Pema Whittaker PT at 12/18/2023 9:51 AM Version 1 of 1 Problem: PT - General Goals Goal: Pt will perform bed mobility within precautions at independence in order to improve functional mobility and safety. Outcome: Progressing Goal: Pt will perform transfers within precautions with independence with without an assistive device in order to improve functional mobility and safety. Outcome: Progressing Goal: Pt will ambulate 100 feet within precautions with least restrictive device at independence to improve ability to navigate home environment. Outcome: Progressing PT treatment consisted of the following to progress towards the above goal(s): PT Evaluation and Treatment Time Therapeutic Exercise Time Entry: 10 Therapeutic Activity Time Entry: 10 Gait Training Time Entry: 20 Treating Therapist: Pema Whittaker PT Additional Details: PT Co-Eval/Treatment Information Co-evaluation/co-treatment performed?: No simultaneous skilled care performed PPE used during patient interaction: gloves Patient location at end of session: chair Alarms on at end of session: none, none altered Needs in reach. Time In: 09 Time Out: 1031 Total Visit Time: 40 minutes Total Treatment Time (skilled, billable minutes): 40 minutes Upon discontinuation of Acute Care Physical Therapy Services or patient discharge from the hospital this note represents the current Physical Therapy Discharge Summary. [facility] Medicine Progress Note Patient: Fish Cheung, : 1970, Impression / Plan Fish Cheung is a 53 y.o. male with no known past medical history, who was transferred from [facility], where he was admitted d/t SI from intentional ingestion of rat poison & psychosis, but was transferred to [facility] due to abnormal labs, and failure to thrive. Catatonia: - psychiatry following and has improved with ativan. Will continue Ativan TID for catatonia. S/p thiamine 500mg IV x3 days then oral tid x 5 days - collateral information obtained from sister. Pt has been poorly caring for himself for few months (approx 4 months, though very little contact with anyone in this time). Patient agreeable to have sister, Salud Ma, as his decision maker if necessary. - Syphilis, B12, folate, UA, UDS, normal/negative. - MRI Brain without acute abnormalities. Chronic small vessel disease and severe volume loss. - Neurology consulted per psychiatry recommendations to evaluate for other issues such as Wernicke's encephalopathy or seizures. Low suspicion for seizure and did not recommend EEG, MRI w/ atrophy 2/2 chronic EtoH; signed off SI, Psychosis with auditory hallucinations: initially at [facility] for this. Psychiatry consulted. - await decision on need to return to inpatient psychiatric facility - if attempting to leave, will place on medical hold - medically stable for discharge to inpatient psychiatric facility if this is felt necessary by the psychiatry team. Appreciate their recs, decreased ativan from TID to BID dosing on 12/13, and then to daily dosing on 12/16. S/p Acute hypoxic respiratory insufficiency O2 dropped to 50s while sleeping. Suspect this is d/t sedation from ativan, atelectasis as seen on CXR - Incentive spirometry, as pt able - now on room air. Hyponatremia, resolved Reported Failure to Thrive Pt not eating originally, but unknown for how long, or any other information. Now improved. - Nutrition consulted: ONS TID, regular diet, continue with vitamins Transaminitis: AST 63 initially, likely d/t alcohol use. Improved to 43 HTN: Pt reportedly on norvasc at [facility], Restart amlodipine, add hydrochlorothiazide Elevated Lipase: No current abdominal pain, so low concern for acute pancreatitis. Acute urinary retention, resolved Suspect d/t lack of moving. - passed voiding trial 12/10 - continue flomax Alcohol use disorder with withdrawal Last drink unknown time, but CIWA 14 on 12/05 - ~6 days since last drink, lower concern for EtOH withdrawal at this time and will discontinue CIWA protocol w/ PRNs - MVI, Folate, Thiamine Reported Chest pain Difficult to know accuracy of reported symptoms. No chest pain currently. Troponin negative. EKG without changes. - Consider stress test outpatient if pain recurs Anemia of chronic disease: iron levels wnl. Complexity. Obesity Body mass index is 36.24 kg/m . - Follow with PCP for dietary and lifestyle modifications. Alcohol Use With Withdrawal - Continue CIWA protocol, current CIWA score: 0 Any conditions listed below are present on admission unless otherwise specified. . DVT prophylaxis with lovenox Anticipated Disposition: TBD Code status is Full Code Interval History / Subjective Calm, no new complaints Objective Temp: [97.7 F (36.5 C)-98.3 F (36.8 C)] 98.2 F (36.8 C) Pulse (Heart Rate): [80-98] 81 Resp Rate: [18] 18 BP: (148-190)/(82-109) 190/109 O2 Sat (%): [93 %-96 %] 94 % Physical Exam Gen: A, A, NAD ENT: MMM Resp: CTA bilat, normal effort Cardio: RRR, normal S1, S2, No SANTOS GI: S/NT/ND, NABS Psych: Ox3, appropriate affect and cognition Data Review Acute Occupational Therapy Treatment Prior Gross Functional Mobility: independent Current AM-PAC score(s): CURRENT AM-PAC Activity Raw Score: 19 Based on the above AM-PAC score(s), and OT clinical judgment, discharge destination recommendation is: [facility] (If unable then pt would benefit from 15/01 supervision for assist with showering, functional mobility, and all IADL's) Barriers to discharge home: Cognitive impairments that impact safety (see note below), Lack of supervision necessary to mitigate fall risk, Patient needs assistance with ADLs, Patient needs assistance with IADLs (see note below), Patient needs assistance with medication management, Patient needs assistance with functional mobility Mobility equipment available at home: none used ADL equipment available at home: none Equipment recommendations for discharge: 2 wheeled walker, shower chair Current therapy frequency recommendation(s) in acute: 5 times a week Precautions and Weightbearing Status: OT Existing Precautions/Restrictions: fall No critical lines at this time Patient Safety Communication Prior to Visit: Nursing Subjective: Pt reporting that he was working with PT earlier and unsure how well he will do with OT. Pain: General Pain Documentation (Adult, OB, Peds) Presence of Pain: denies pain/discomfort Presence of Pain Score (Auto-calculated): 0 Objective/Observation: Vitals/Vitals Responses to Treatment: no adverse reaction towards session O2 Device: room air Cognition Overall Cognitive Status: Impaired Arousal/Alertness: Appropriate responses to stimuli Orientation Level: Oriented X4 Following Commands: Follows one step commands with increased time, Follows one step commands with repetition Safety Judgment: Decreased awareness of need for safety, Decreased awareness of need for assistance Awareness of Errors: Assistance required to correct errors made Deficits: Decreased awareness of deficits Attention Span: Attends with cues to redirect Memory: Decreased short term memory, Decreased recall of recent events Problem Solving: Assistance required to generate solutions ADL Assessment/Intervention: ADLs: ADL Assessment: LE Dressing Deficit, Bathing Deficit, UE Dressing Deficit, Grooming Deficit Eating Assistance: Grooming Assistance: Minimal Grooming Location: standing at sink Grooming Deficit: Increased time to complete, Activity tolerance, Generalized weakness, Balance, Shaving Grooming Skilled Rationale (Verbal/Tactile/Visual/Demonstrati on): Facilitate positioning, Facilitate postural control, Technique of activity, Cues for increased safety Bathing Assistance: Minimal Bathing Location: seated in chair, standing at chair Bathing Deficit: Increased time to complete, Activity tolerance, Generalized weakness, Balance, Wash/Dry Buttocks, Wash/Dry Back, Sequencing Bathing Skilled Rationale (Verbal/Tactile/Visual/Demonstrati on): Facilitate positioning, Facilitate postural control, Cues for increased safety, Technique of activity UE Dressing Assistance: Stand by UE Dressing Location: seated in chair UE Dressing Deficit: Increased time to complete, Activity tolerance, Generalized weakness, Balance, Thread RUE, Thread LUE UE Dressing Skilled Rationale (Verbal/Tactile/Visual/Demonstrati on): Facilitate positioning, Facilitate postural control, Technique of activity, Cues for increased safety LE Dressing Assistance: Contact guard assist LE Dressing Location: seated in chair, standing LE Dressing Deficit: Increased time to complete, Activity tolerance, Generalized weakness, Balance, Don/doff R sock, Don/doff L sock, Thread RLE into underwear, Thread LLE into underwear, Pull up over hips LE Dressing Skilled Rationale (Verbal/Tactile/Visual/Demonstrati on): Facilitate positioning, Facilitate postural control, Technique of activity, Cues for increased safety Toilet Assistance: Extremity Assessments: See OT Evaluation flowsheet for Extremity Measurement updates. Balance: Sitting Balance Static Sitting-Level of Assistance: Standby Dynamic Sitting-Level of Assistance: Contact guard Standing Balance Static Standing-Level of Assistance: Contact guard Dynamic Standing-Level of Assistance: Minimum assistance Standing-Balance Support: Gait belt, 2 wheeled walker Skilled Rationale: Positioning, Hand placement, Verbal cues, Technique of activity, Cues for increased safety Standing Balance Skilled Intervention/Details: Pt required min A for standing balance when utilizing bilateral UE for functional tasks while at the sink. Skin and Edema: Mobility Assessment/Intervention: Supine to Sit Mobility [place] Level: Supine->Sit: stand-by assist Bed Features/Set-up: Supine->Sit: Head of bed elevated, Use of bed rail Sit to Supine Mobility [place] Level: Sit->Supine: stand-by assist Bed Features/Set-up: Sit->Supine: Head of bed elevated, Use of bed rail Transfer Assessment/Intervention: Sit to Stand Transfer [place] Level: Sit->Stand: contact guard assist Assistive Device: Sit->Stand: gait belt, 2 wheeled walker Skilled Rationale: Positioning, Hand placement, Verbal cues, Technique of activity, Cues for increased safety Stand to Sit Transfer [place] Level: Stand->Sit: contact guard assist Assistive Device: Stand->Sit: gait belt, 2 wheeled walker Skilled Rationale: Positioning, Hand placement, Verbal cues, Technique of activity, Cues for increased safety Functional Mobility: Functional Mobility [place] Level: Functional Mobility/Gait: minimum assist (75% patient effort) Assistive Device: Functional Mobility/Gait: 2 wheeled walker, gait belt Functional Mobility Distance: Distance needed to access restroom Functional Mobility Deficits: Activity tolerance, Balance, Generalized weakness, Slowed gait speed Functional Mobility Skilled Rationale: Breathing strategies, Facilitate positioning, Facilitate postural control, Technique of activity Skilled Intervention/Details - Functional Mobility/Gait: one big loss of balance that required mod A to correct Outcome Score(s): CURRENT [facility] Daily Activity Inpatient Short Form Putting on/Taking Off Lower Body Clothin - A Little Assistance Bathin - A Little Assistance Toiletin - A Little Assistance Putting on/Taking Off Upper Body Clothin - A Little Assistance Groomin - A Little Assistance Eatin - No Assistance CURRENT [facility] Activity Raw Score: 19 CURRENT [facility] Activity Functional Limitation/Modifier: 42.80% Currently Impaired in Daily Activity - CK Interventions: Assessment & Plan: Pt is progressing towards OT goals evident by ability to complete bathing tasks with min A. Pt has barriers to independence including balance, strength , activity tolerance, functional mobility/transfers, cognition, and safety awareness. Pt would benefit from occupational therapy to increase safety and independence with ADL's. Patient Instruction/Education this session: Learners: Patient Education provided: Role of this discipline, Safety, Positioning, Plan of care Teaching method: Verbal Education/Instruction Learner response: Needs review Learning considerations: Cognition Plan for next session: standing ADL's Acute OT Goals Plan of Care by Rowan Walker OT at 12/17/2023 10:55 AM Version 1 of 1 Problem: OT - ADLs Goal: Toileting - Patient will complete toileting task with modified independence and adaptive equipment as needed for improved ability to safely complete self-care activities. Outcome: Progressing Goal: Bathing - Patient will perform full body bathing routine with modified independence for improved ability to complete self-care activities Outcome: Progressing Problem: OT - Balance Goal: Balance - Standing - Patient will perform 10 minutes of functional task in standing with modified independence and good balance to promote safety and improved balance required for self-care activities. Outcome: Progressing Problem: OT - Endurance Goal: Endurance Functional Mobility - Patient will complete distance needed for common household mobility with modified independence for improved tolerance to safely complete I/ADL's Outcome: Progressing Problem: OT - Cognition Goal: Cognition Simple ADL - Patient will demonstrate improved cognition, completing simple ADL task for 10 minutes with no greater than min cues required to maintain attention. Outcome: Progressing Goal: Safety - Patient will demonstrate good safety awareness during ADL routine with min or less cues for accuracy. Outcome: Progressing OT treatment consisted of the following to work and progress towards the above goal(s): OT Evaluation and Treatment Time Self Care/Home Management (ADLs) Time Entry: 24 Treating Therapist: Rowan Walker OT Additional Details: OT Co-Eval/Treatment Information Co-evaluation/co-treatment performed?: No simultaneous skilled care performed PPE used during patient interaction: gloves Patient location at end of session: bed with head of bed elevated Alarms on at end of session: bed alarm Needs in reach. Time In: 1031 Time Out: 1055 Total Visit Time: 24 minutes Total Treatment Time (skilled, billable minutes): 24 minutes Upon discontinuation of Acute Care Occupational Therapy Services or patient discharge from the hospital this note represents the current Occupational Therapy Discharge Summary. Acute Physical Therapy Treatment Prior Gross Functional Mobility: independent Current AM-PAC score(s): CURRENT AM-PAC Mobility Raw Score: 20 Based on the above AM-PAC score(s) and PT clinical judgment, patient is a good candidate for discharge to [facility] (if pt returns home recommend 15/01 supervision/assist for all mobility and HHPT vs OP PT.) Barriers to discharge home: Patient needs assistance with functional mobility, Cognitive impairments that impact safety (see note below) Mobility equipment available at home: none used ADL equipment available at home: none Equipment needed for discharge: shower chair, 2 wheeled walker Current therapy frequency recommendation in acute: Therapy Frequency: 5 times a week Activity Recommendations for outside of rehab session: hallway ambulation - 1 person assist with WW and gait belt Precautions and Weightbearing Status: Existing Precautions/Restrictions: fall No critical lines at this time Patient Safety Communication Prior to Visit: Nursing Subjective: Pt agreeable to therapy session I need to use the restroom and I want to try some stairs Pain: General Pain Documentation (Adult, OB, Peds) Presence of Pain: denies pain/discomfort Presence of Pain Score (Auto-calculated): 0 DVPRS (Defense and Veterans Pain Rating Scale) DVPRS: Rest: 0- no pain DVPRS: Activity: 0- no pain Objective/Observation: Vitals/Vitals Responses to Treatment: VSS O2 Device: room air Cognition Overall Cognitive Status: Impaired Arousal/Alertness: Appropriate responses to stimuli Orientation Level: Oriented X4 Following Commands: Follows one step commands without difficulty Safety Judgment: Decreased awareness of need for assistance, Decreased awareness of need for safety Deficits: Decreased awareness of deficits Extremity Assessments: See PT Evaluation flowsheet for Extremity Measurement updates. Skin and Edema: Balance: Sitting Balance Static Sitting-Level of Assistance: Standby Dynamic Sitting-Level of Assistance: Contact guard Sitting Balance Skilled Intervention/Details: no LOB at EOB or on toilet Standing Balance Static Standing-Level of Assistance: Contact guard Dynamic Standing-Level of Assistance: Contact guard (CGA-min A) Standing-Balance Support: Gait belt, 2 wheeled walker Skilled Rationale: Positioning, Sequencing, Hand placement, Full extension to upright positioning/posture, Technique of activity, Cues for increased safety Standing Balance Skilled Intervention/Details: CGA for safety with hallway mobility and min A with stair trial Mobility Assessment/Intervention: Rolling/Turning Mobility [place] Level: Rolling/Turning: modified independence Bed Features/Set-up: Rolling/Turning: Head of bed elevated, Use of bed rail Scooting Bridging Mobility [place] Level: Scooting/Bridging: stand-by assist Bed Features/Set-up: Scooting/Bridging: Flat, Use of bed rail Skilled Intervention/Details: Scooting/Bridging: max cues to complete - completed with increased effort Supine to Sit Mobility [place] Level: Supine->Sit: stand-by assist Bed Features/Set-up: Supine->Sit: Head of bed elevated, Use of bed rail Skilled Rationale: Positioning, Sequencing, Hand placement, Technique of activity, Initiation and execution of task, Cues for increased safety Sit to Supine Mobility [place] Level: Sit->Supine: stand-by assist Bed Features/Set-up: Sit->Supine: Head of bed elevated, Use of bed rail Skilled Rationale: Positioning, Sequencing, Hand placement, Verbal cues, Technique of activity, Initiation and execution of task Transfer Assessment/Intervention: Sit to Stand Transfer [place] Level: Sit->Stand: contact guard assist Assistive Device: Sit->Stand: gait belt, 2 wheeled walker Skilled Rationale: Hand placement, Verbal cues, Full extension to upright positioning/posture, Finding/maintaining midline positioning, Cues for increased safety, Initiation and execution of task Skilled Intervention/Details: Sit->Stand: EOB x 1, toilet x 1 Stand to Sit Transfer [place] Level: Stand->Sit: contact guard assist Assistive Device: Stand->Sit: gait belt, 2 wheeled walker Skilled Rationale: Hand placement, Controlled descent for sitting, Cues for increased safety Skilled Intervention/Details: Stand->Sit: toilet x 1, EOB x 1 Bed-Chair Transfer [place] Level: Bed<->Chair: (declined the chair) Gait/Functional Mobility Assessment/Intervention: Gait Assessment [place] Level: Gait: contact guard assist Assistive Device: Gait: gait belt, 2 wheeled walker Ambulation Distance (Feet): 120 (60+60 (stairs and seated rest break )) Gait Deviations Identified: decreased oh, decreased gait speed, decreased heel strike, shuffling, flexed posture Gait Skilled Rationale: verbal, upright posture, proximity of assistive device, safety to avoid obstacles Skilled Intervention/Details - Gait: cues for upright posture and porximity to walker, LE fatigue after 3 stair trial requiring a seated rest break before walking back to his room Wheelchair Assessment Patient currently uses wheelchair?: No Stairs Assessment/Intervention: Stairs Assessment [place] Level: Stair Negotiation: minimum assist (75% patient effort) Assistive Device: Stair Negotiation: gait belt, left rail (ascending) Number of stairs: 3 Stairs Skilled Rationale: verbal, nonreciprocal pattern, general safety Skilled Intervention/Details - Stairs: increased fatigue requiring min A for negotiation. Difficulty with hip flexion to clear toes when ascending, resulting in foot catching on the step with min A to correct Outcome Score(s): CURRENT [facility] Basic Mobility Inpatient Short Form Turning over in bed: 4 - No Assistance Moving from lying on back to sittin - No Assistance Moving to and from bed to chair: 3 - A Little Assistance Sitting/standing from chair: 3 - A Little Assistance Walk in hospital room: 3 - A Little Assistance Climbing 3-5 steps with a railin - A Little Assistance CURRENT [facility] Mobility Raw Score: 20 CURRENT [facility] Mobility Functional Limitation: 35.83% Impaired in Basic Mobility Interventions: Assessment & Plan: Pt progressing towards established goals with increased tolerance to activity. Increased gait distance as well as stair negotiation x 3 steps with min A. Pt cont to function below baseline and will cont to benefit from skilled PT this admission as well as at discharge to maximize functional return Patient Instruction/Education this session: Learners: Patient Education provided: Bed mobility, Activity outside of therapy, Balance training, Fall precautions, Home safety precautions, Plan of care, Safety, Role of this discipline, Stair training safety Teaching method: Verbal Education/Instruction Learner response: Needs review Learning considerations: Cognition Plan for next session: gait, stairs Acute PT Goals Plan of Care by Ana Araujo PT at 12/17/2023 9:20 AM Version 1 of 1 Problem: PT - General Goals Goal: Pt will perform bed mobility within precautions at independence in order to improve functional mobility and safety. Outcome: Ongoing Goal: Pt will perform transfers within precautions with independence with without an assistive device in order to improve functional mobility and safety. Outcome: Ongoing Goal: Pt will ambulate 100 feet within precautions with least restrictive device at independence to improve ability to navigate home environment. Outcome: Ongoing PT treatment consisted of the following to progress towards the above goal(s): PT Evaluation and Treatment Time Therapeutic Activity Time Entry: 10 Gait Training Time Entry: 15 Treating Therapist: Ana Araujo PT I AM A FLOAT. PLEASE PAGE YOUR FLOORS PT REGARDING THIS PATIENT. Additional Details: PT Co-Eval/Treatment Information Co-evaluation/co-treatment performed?: No simultaneous skilled care performed PPE used during patient interaction: gloves Patient location at end of session: bed with head of bed elevated, RN aware Alarms on at end of session: bed alarm, RN aware Needs in reach. Time In: 0855 Time Out: 919 Total Visit Time: 25 minutes Total Treatment Time (skilled, billable minutes): 25 minutes Upon discontinuation of Acute Care Physical Therapy Services or patient discharge from the hospital this note represents the current Physical Therapy Discharge Summary. FABRIZIO contacted pt's sister (Salud) by phone to discuss discharge plan for pt. Salud confirmed she had spoken with pt about him coming to stay with her temporarily after discharge. Salud reported pt was in agreement. She reported she told him one of the stipulation would be pt attending AA meetings. Salud reported she needs at least 1-2 days notice prior to discharge so she can arrange to have off the day pt is discharged in order to come pick him up. SW advised to will contact the MD and call Salud back with any updates on discharge. Addendum @ 11:45am - FABRIZIO met with pt at bedside to discuss plan to go to sister's home at discharge. Pt confirmed agreement with this plan. SW provided pt with additional information on the structure of 12 step programs including AA as well as possible benefits (ie community; support from people with similar lived experiences, etc). Pt agreed that trying AA would be a good idea for him. Addendum @ 12:53pm - FABRIZIO updated MD. MD in agreement with plan; stated she was still waiting on final plan/recs from psych before deciding on when discharge can occur. FABRIZIO reiterated pt's sister needs at least 1-2 days notice. FABRIZIO contacted pt's sister back and provided an update on SW's conversation with pt and MD. FABRIZIO advised pt's sister if she receives any more information on discharge, she would call her back otherwise the floor/cover CM/SW will follow up this week. SW will complete handoff for the floor/cover CM/SW for continuity of care. Yeimi Hilario, INTERNAL REVENUE AGENT, FORMING ROLL OPERATOR-S Medical Social Work Please note that I am a float SW and may not be covering the same unit each day. Please reach out to the floor/unit SW for additional needs/concerns. Contact info for weekend CM and SW staff (8:00am - 4:30pm): [facility]: CCM: [phone] / 3Rd Grade Reading Teacher: [phone] Aguayo: CCM: [phone] / 3Rd Grade Reading Teacher: [phone] Torito: CCM : [phone] / 3Rd Grade Reading Teacher: [phone] Jaren/MICU/PCU Alexis: [facility]: [phone] / 3Rd Grade Reading Teacher: [phone] [facility] Medicine Progress Note Patient: Fish Cheung, : 1970, Impression / Plan Fish Cheung is a 53 y.o. male with no known past medical history, who was [facility], where he was admitted d/t SI from intentional ingestion of rat poison & psychosis, but was transferred to [facility] due to abnormal labs, and failure to thrive. Catatonia: - psychiatry following and has improved with ativan. Will continue Ativan TID for catatonia. S/p thiamine 500mg IV x3 days then oral tid x 5 days - collateral information obtained from sister. Pt has been poorly caring for himself for few months (approx 4 months, though very little contact with anyone in this time). Patient agreeable to have sister, Salud Ma, as his decision maker if necessary. - Syphilis, B12, folate, UA, UDS, normal/negative. - MRI Brain without acute abnormalities. Chronic small vessel disease and severe volume loss. - Neurology consulted per psychiatry recommendations to evaluate for other issues such as Wernicke's encephalopathy or seizures. Low suspicion for seizure and did not recommend EEG, MRI w/ atrophy 2/2 chronic EtoH; signed off SI, Psychosis with auditory hallucinations: initially at [facility] for this. Psychiatry consulted. - await decision on need to return to inpatient psychiatric facility - if attempting to leave, will place on medical hold - medically stable for discharge to inpatient psychiatric facility if this is felt necessary by the psychiatry team. Appreciate their recs, decreased ativan from TID to BID dosing on 12/13, per psych, they are trying to see if we can take him of ativan, the gaol would be to taper off. S/p Acute hypoxic respiratory insufficiency O2 dropped to 50s while sleeping. Suspect this is d/t sedation from ativan, atelectasis as seen on CXR - Incentive spirometry, as pt able - now on room air. Hyponatremia, resolved Reported Failure to Thrive Pt not eating originally, but unknown for how long, or any other information. Now improved. - Nutrition consulted: ONS TID, regular diet, continue with vitamins Transaminitis: AST 63 initially, likely d/t alcohol use. Improved to 43 HTN: Pt reportedly on norvasc at [facility], but current BP often low-normal. - stopped amlodipine. Can reconsider on followup Elevated Lipase: No current abdominal pain, so low concern for acute pancreatitis. Acute urinary retention, resolved Suspect d/t lack of moving. - passed voiding trial 12/10 - continue flomax Alcohol use disorder with withdrawal Last drink unknown time, but CIWA 14 on 12/05 - ~6 days since last drink, lower concern for EtOH withdrawal at this time and will discontinue CIWA protocol w/ PRNs - MVI, Folate, Thiamine Reported Chest pain Difficult to know accuracy of reported symptoms. No chest pain currently. Troponin negative. EKG without changes. - Consider stress test outpatient if pain recurs Anemia of chronic disease: iron levels wnl. Complexity. Obesity Body mass index is 36.24 kg/m . - Follow with PCP for dietary and lifestyle modifications. Alcohol Use With Withdrawal - Continue CIWA protocol, current CIWA score: 0 Any conditions listed below are present on admission unless otherwise specified. . DVT prophylaxis with lovenox Anticipated Disposition: TBD Code status is Full Code Interval History / Subjective No new complaints , agreeable with going to his sister on discharge Objective Temp: [97.9 F (36.6 C)-98.4 F (36.9 C)] 98.3 F (36.8 C) Pulse (Heart Rate): [82-98] 83 Resp Rate: [18-22] 18 BP: (147-194)/(78-98) 158/98 O2 Sat (%): [92 %-98 %] 92 % Physical Exam Gen: A, A, NAD ENT: MMM Resp: CTA bilat, normal effort Cardio: RRR, normal S1, S2, No SANTOS GI: S/NT/ND, NABS Psych: Ox3, appropriate affect and cognition Data Review WBC/Hgb/Hct/Plts: --/--/--/270 (12/15 340) Placement Plan Expected Discharge Date: 12/17/2023 Referred Level of Care: SNF Barriers: moderate suicide risk, accepting facility, payer source ( Medicaid), HENS/LOC, transport Current Referrals and Status 1. [facility] - Viewed 2. [facility] - Sent 3. [facility] - Sent 4. [facility] - Sent 5. [facility] - Sent 6. [facility] - Sent 7. [facility] - Sent 8. [facility] - Sent 9. [facility] - Sent 10. [facility] - Sent 11. [facility] - Sent 12. [facility] - Sent 13. [facility] - Sent 14. [facility] - Unavailable (Behavioral/mental health concerns) 15. [facility] - Unavailable (unable to accommodate requested clinical needs) 16. [facility] - Unavailable (no beds) SW reviewed SNF referrals, no accepting facilities at this time and many that have not responded at all to referral. Re-faxed referral to multiple facilities and also faxed referral to 7 additional facilities. Patient continues to be Moderate Suicide Risk at this time, most recent PT/OT AMPACs 18. SW to continue to monitor for the necessity/appropriateness of SNF placement. Per RN note, patient's sister advised that she has a space for patient to stay at her house and she does not feel patient requires SNF. FABRIZIO LVM for Salud Ma ([phone]) requesting call back to discuss potential of patient discharging home with her. ADDENDUM 2:30 pm FABRIZIO spoke with patient's sister Salud, who states she has spoken with patient about potentially discharging to her house ([place]). Salud reports that she works from home and has an extra room that she can set-up for patient. Salud with some inquiries regarding patient's insurance status and therapy needs, all questions answered. Salud would be able to assist with scheduling outpatient therapy potentially with [facility], [facility], or depending on who is able to work with patient's PE Medicaid and/or under mary jane assistance. Salud requests that therapy call her with updates regarding patient's care needs next time they work with him. Salud requests 1-2 days notice prior to discharge in order to make arrangements with patient's bedroom and to take time away from work. SW spoke with patient, patient undecided but willing to consider discharging to his sister's home temporarily. Patient ultimately would like to return to his own home and would like to visit his home in the interim to see the state of things. Patient with some inquiries regarding SNF, including whether or not he would have a shared bathroom and shared room. Social work answered all questions, advised that patient does not have an accepting facility at this time. SW to continue to follow as appropriate. Update provided to medical team. CATINA Nina, CAROL-S Lead 3Rd Grade Reading Teacher [facility] Medicine Progress Note Patient: Fish Cheung, : 1970, Impression / Plan Fish Cheung is a 53 y.o. male with no known past medical history, who was transferred from [facility], where he was admitted d/t SI from intentional ingestion of rat poison & psychosis, but was transferred to [facility] due to abnormal labs, and failure to thrive. Catatonia: - psychiatry following and has improved with ativan. Will continue Ativan TID for catatonia. S/p thiamine 500mg IV x3 days then oral tid x 5 days - collateral information obtained from sister. Pt has been poorly caring for himself for few months (approx 4 months, though very little contact with anyone in this time). Patient agreeable to have sister, Salud Ma, as his decision maker if necessary. - Syphilis, B12, folate, UA, UDS, normal/negative. - MRI Brain without acute abnormalities. Chronic small vessel disease and severe volume loss. - Neurology consulted per psychiatry recommendations to evaluate for other issues such as Wernicke's encephalopathy or seizures. Low suspicion for seizure and did not recommend EEG, MRI w/ atrophy 2/2 chronic EtoH; signed off SI, Psychosis with auditory hallucinations: initially at [facility] for this. Psychiatry consulted. - await decision on need to return to inpatient psychiatric facility - if attempting to leave, will place on medical hold - medically stable for discharge to inpatient psychiatric facility if this is felt necessary by the psychiatry team. Appreciate their recs, decreased ativan from TID to BID dosing on 12/13, per psych, they are trying to see if we can take him of ativan S/p Acute hypoxic respiratory insufficiency O2 dropped to 50s while sleeping. Suspect this is d/t sedation from ativan, atelectasis as seen on CXR - Incentive spirometry, as pt able - now on room air. Hyponatremia, resolved Reported Failure to Thrive Pt not eating originally, but unknown for how long, or any other information. Now improved. - Nutrition consulted: ONS TID, regular diet, continue with vitamins Transaminitis: AST 63 initially, likely d/t alcohol use. Improved to 43 HTN: Pt reportedly on norvasc at [facility], but current BP often low-normal. - stopped amlodipine. Can reconsider on followup Elevated Lipase: No current abdominal pain, so low concern for acute pancreatitis. Acute urinary retention, resolved Suspect d/t lack of moving. - passed voiding trial 12/10 - continue flomax Alcohol use disorder with withdrawal Last drink unknown time, but CIWA 14 on 12/05 - ~6 days since last drink, lower concern for EtOH withdrawal at this time and will discontinue CIWA protocol w/ PRNs - MVI, Folate, Thiamine Reported Chest pain Difficult to know accuracy of reported symptoms. No chest pain currently. Troponin negative. EKG without changes. - Consider stress test outpatient if pain recurs Anemia of chronic disease: iron levels wnl. Complexity. Obesity Body mass index is 36.24 kg/m . - Follow with PCP for dietary and lifestyle modifications. Alcohol Use With Withdrawal - Continue CIWA protocol, current CIWA score: 0 Any conditions listed below are present on admission unless otherwise specified. . DVT prophylaxis with lovenox Anticipated Disposition: TBD Code status is Full Code Interval History / Subjective Doing well, slept ok, no new complaints Objective Temp: [97.9 F (36.6 C)-99.1 F (37.3 C)] 97.9 F (36.6 C) Pulse (Heart Rate): [80-91] 82 Resp Rate: [18] 18 BP: (137-169)/(71-99) 150/90 O2 Sat (%): [92 %-97 %] 93 % Physical Exam Gen: A, A, NAD ENT: MMM Resp: CTA bilat, normal effort Cardio: RRR, normal S1, S2, No SANTOS GI: S/NT/ND, NABS Psych: Ox3, appropriate affect and cognition Data Review Reason for Consult: Discharge Planning Consulted By: Medical Team Level(s) of Care Discussed: SNF Patient and/or City Planning Teacher's Preferred Geographic Area for Discharge: [place], [place] Patient and/or City Planning Teacher's Preference for Providers to Include? 1.N/A Patient and/or City Planning Teacher's Preference for Providers to Exclude? 1.N/A Patient and/or City Planning Teacher's Discussion: SW discussed referral process with the patient and/or traveling sales representative. Patient and/or traveling sales representative is agreeable to have placement referral initiated. SW sent SNF referrals per Medical teams request. SW to ask weekend SW to get choice of facility. Pernell DOMINIQUE, ALIREZA, NEIDA [employer] Grade Reading Teacher- 11 [facility] Medicine Progress Note Patient: Fish Cheung, : 1970, Impression / Plan Fish Cheung is a 53 y.o. male with no known past medical history, who was transferred from [facility], where he was admitted d/t SI from intentional ingestion of rat poison & psychosis, but was transferred to [facility] due to abnormal labs, and failure to thrive. Catatonia: - psychiatry following and has improved with ativan. Will continue Ativan TID for catatonia. S/p thiamine 500mg IV x3 days then oral tid x 5 days - collateral information obtained from sister. Pt has been poorly caring for himself for few months (approx 4 months, though very little contact with anyone in this time). Patient agreeable to have sister, Salud Ma, as his decision maker if necessary. - Syphilis, B12, folate, UA, UDS, normal/negative. - MRI Brain without acute abnormalities. Chronic small vessel disease and severe volume loss. - Neurology consulted per psychiatry recommendations to evaluate for other issues such as Wernicke's encephalopathy or seizures. Low suspicion for seizure and did not recommend EEG, MRI w/ atrophy 2/2 chronic EtoH; signed off SI, Psychosis with auditory hallucinations: initially at [facility] for this. Psychiatry consulted. - await decision on need to return to inpatient psychiatric facility - if attempting to leave, will place on medical hold - medically stable for discharge to inpatient psychiatric facility if this is felt necessary by the psychiatry team. Appreciate their recs,decreasing ativan from TID to BID dosing S/p Acute hypoxic respiratory insufficiency O2 dropped to 50s while sleeping. Suspect this is d/t sedation from ativan, atelectasis as seen on CXR - Incentive spirometry, as pt able - now on room air. Hyponatremia, resolved Reported Failure to Thrive Pt not eating originally, but unknown for how long, or any other information. Now improved. - Nutrition consulted: ONS TID, regular diet, continue with vitamins Transaminitis: AST 63 initially, likely d/t alcohol use. Improved to 43 HTN: Pt reportedly on norvasc at [facility], but current BP often low-normal. - stopped amlodipine. Can reconsider on followup Elevated Lipase: No current abdominal pain, so low concern for acute pancreatitis. Acute urinary retention, resolved Suspect d/t lack of moving. - passed voiding trial 12/10 - continue flomax Alcohol use disorder with withdrawal Last drink unknown time, but CIWA 14 on 12/05 - ~6 days since last drink, lower concern for EtOH withdrawal at this time and will discontinue CIWA protocol w/ PRNs - MVI, Folate, Thiamine Reported Chest pain Difficult to know accuracy of reported symptoms. No chest pain currently. Troponin negative. EKG without changes. - Consider stress test outpatient if pain recurs Anemia of chronic disease: iron levels wnl. Complexity. Obesity Body mass index is 36.24 kg/m . - Follow with PCP for dietary and lifestyle modifications. Alcohol Use With Withdrawal - Continue CIWA protocol, current CIWA score: 0 Any conditions listed below are present on admission unless otherwise specified. . DVT prophylaxis with lovenox Anticipated Disposition: TBD Code status is Full Code Interval History / Subjective No new complaints today Objective Temp: [97.8 F (36.6 C)-99.5 F (37.5 C)] 98.7 F (37.1 C) Pulse (Heart Rate): [76-102] 96 Resp Rate: [16-18] 18 BP: (93-165)/(59-94) 93/59 O2 Sat (%): [90 %-96 %] 95 % Physical Exam Gen: A, A, NAD ENT: MMM Resp: CTA bilat, normal effort Cardio: RRR, normal S1, S2, No SANTOS GI: S/NT/ND, NABS Psych: Ox3, appropriate affect and cognition Data Review 12/14/23 1139 Safety Goals Warning Signs/Triggers (thoughts, images, mood and/or behaviors) that you experience when you start to think about suicide or feel extremely depressed Family, starts to question things Internal Coping Strategies-things I can do to take my mind off my problems without contacting another person Praying, yoga, passive karate People (family/friends) and social settings that provide distraction (Pt unable to identify support person) Professional organizations whom I can ask for help name/phone 1 Name Crisis hotline Phone 988 People whom I can ask for help (Pt claims family is a trigger. Unable to identify support.) Making the environment safe secure ALL medicines (including over the counter);take medications as directed (Pt stated most of his guns are locked in a safe he cannot get it. Pt is not agreeable with allowing anyone to take guns from home.) Safety Plan Completed Yes SW met with patient at bedside to complete safety plan. Patient was active when creating plan, but was unable to identify any personal or professional support. Patient reported having guns in the home that are locked in a safe, patient is not agreeable to allow any family or professional from taking guns from his home. SW discussed mental health resources with patient, patient agreeable with accepting resources. SW also answered questions regarding SNF and outpatient therapy. Patient is currently medicaid pending. ALIREZA Loyd Easement Worker Acute Physical Therapy Treatment Prior Gross Functional Mobility: independent Current AM-PAC score(s): CURRENT AM-PAC Mobility Raw Score: 18 Based on the above AM-PAC score(s) and PT clinical judgment, patient is a good candidate for discharge to [facility] Barriers to discharge home: Patient needs assistance with functional mobility Mobility equipment available at home: none used ADL equipment available at home: none Equipment needed for discharge: 2 wheeled walker Current therapy frequency recommendation in acute: Therapy Frequency: 5 times a week Precautions and Weightbearing Status: Existing Precautions/Restrictions: fall Patient Safety Communication Prior to Visit: Nursing Subjective: Pt agreeable for therapy. Pt reports being out of bed this date. Pt sitting in chair. Pain: General Pain Documentation (Adult, OB, Peds) Presence of Pain: denies pain/discomfort Presence of Pain Score (Auto-calculated): 0 Objective/Observation: Vitals/Vitals Responses to Treatment: vss. Pt reports fatigue and weakness limiting activity. O2 Device: room air Cognition Overall Cognitive Status: Impaired Arousal/Alertness: Appropriate responses to stimuli Orientation Level: Oriented X4 Extremity Assessments: See PT Evaluation flowsheet for Extremity Measurement updates. Skin and Edema: Balance: Sitting Balance Static Sitting-Level of Assistance: Contact guard Dynamic Sitting-Level of Assistance: Contact guard Skilled Rationale: Positioning, Sequencing, Hand placement, Verbal cues, Technique of activity, Cues for increased safety, Energy conservation Standing Balance Static Standing-Level of Assistance: Contact guard Dynamic Standing-Level of Assistance: Contact guard Standing-Balance Support: Gait belt, 2 wheeled walker Skilled Rationale: Positioning, Sequencing, Hand placement, Technique of activity, Cues for increased safety, Energy conservation, Verbal cues Standing Balance Skilled Intervention/Details: x4 trials, 20 mins, sitting rest to complete Mobility Assessment/Intervention: Supine to Sit Mobility [place] Level: Supine->Sit: contact guard assist Bed Features/Set-up: Supine->Sit: Head of bed elevated, Use of bed rail Skilled Rationale: Positioning, Sequencing, Hand placement, Verbal cues, Demonstration, Technique of activity, Cues for increased safety Skilled Intervention/Details: Supine->Sit: to/from supine Transfer Assessment/Intervention: Sit to Stand Transfer [place] Level: Sit->Stand: contact guard assist Assistive Device: Sit->Stand: gait belt, 2 wheeled walker Skilled Rationale: Positioning, Sequencing, Hand placement, Technique of activity, Cues for increased safety, Energy conservation, Verbal cues Skilled Intervention/Details: Sit->Stand: to/from varied surfaces x6 trials Gait/Functional Mobility Assessment/Intervention: Gait Assessment Assistive Device: Gait: gait belt, 2 wheeled walker Ambulation Distance (Feet): 100 Gait Deviations Identified: decreased oh, decreased gait speed Gait Skilled Rationale: demonstration, upright posture, safety to avoid obstacles, hand placement on assistive device Stairs Assessment/Intervention: Outcome Score(s): CURRENT [facility] Basic Mobility Inpatient Short Form Turning over in bed: 4 - No Assistance Moving from lying on back to sittin - A Little Assistance Moving to and from bed to chair: 3 - A Little Assistance Sitting/standing from chair: 3 - A Little Assistance Walk in hospital room: 3 - A Little Assistance Climbing 3-5 steps with a railin - A Lot of Assistance CURRENT [facility] Mobility Raw Score: 18 CURRENT [facility] Mobility Functional Limitation: 46.58% Impaired in Basic Mobility Interventions: Assessment & Plan: Today's PT treatment session focused on: Strength, Balance, Transfers, Gait/Locomotion, Aerobic capacity/endurance. Pt demonstrates progression towards goals and PT POC adjusted to allow for progression. At this time, patient's deficits that contribute to impaired functional mobility include: Increased fall risk, Decreased functional mobility. Pt would benefit from continued skilled PT to address noted deficits,improve safe functional mobility and return to prior level of function. Learners: Patient Education provided: Compensatory strategies, Fall precautions, Role of this discipline Teaching method: Verbal Education/Instruction Learner response: Needs review Learning considerations: Cognition Plan for next session: progress activity tolerance and progress functional gait/balance Home Setting Residence: House Lives With: alone First floor setup: bedroom, tub shower Mobility Equipment Available: none used ADL Equipment Available: none Home Environment Details: Pt is a questionable historian Previous Level of Function Gross Functional Mobility: independent Assistive Device: none used Prior level ADL Overview: Independent with all ADLs Bed Mobility: independent Transfers: independent Ambulation: independent with home Prior Level of Function Details: Pt reports family does not live near Acute PT Goals Plan of Care by Marilu Faria PT at 12/14/2023 10:00 AM Version 1 of 1 Problem: PT - General Goals Goal: Pt will perform bed mobility within precautions at independence in order to improve functional mobility and safety. Outcome: Progressing Goal: Pt will perform transfers within precautions with independence with without an assistive device in order to improve functional mobility and safety. Outcome: Progressing Goal: Pt will ambulate 100 feet within precautions with least restrictive device at independence to improve ability to navigate home environment. Outcome: Progressing PT treatment consisted of the following to progress towards the above goal(s): PT Evaluation and Treatment Time Therapeutic Activity Time Entry: 10 Gait Training Time Entry: 15 Treating Therapist: Marilu Faria PT Additional Details: PPE used during patient interaction: gloves Patient location at end of session: chair Alarms on at end of session: RN aware Needs in reach. Time In: 1000 Time Out: 1025 Total Visit Time: 25 minutes Total Treatment Time (skilled, billable minutes): 24 minutes Upon discontinuation of Acute Care Physical Therapy Services or patient discharge from the hospital this note represents the current Physical Therapy Discharge Summary. [facility] Medicine Progress Note Patient: Fish Cheung, : 1970, Impression / Plan Fish Cheung is a 53 y.o. male with no known past medical history, who was transferred from [facility], where he was admitted d/t SI from intentional ingestion of rat poison & psychosis, but was transferred to [facility] due to abnormal labs, and failure to thrive. Catatonia: - psychiatry following and has improved with ativan. Will continue Ativan TID for catatonia. S/p thiamine 500mg IV x3 days then oral tid x 5 days - collateral information obtained from sister. Pt has been poorly caring for himself for few months (approx 4 months, though very little contact with anyone in this time). Patient agreeable to have sister, Salud Ma, as his decision maker if necessary. - Syphilis, B12, folate, UA, UDS, normal/negative. - MRI Brain without acute abnormalities. Chronic small vessel disease and severe volume loss. - Neurology consulted per psychiatry recommendations to evaluate for other issues such as Wernicke's encephalopathy or seizures. Low suspicion for seizure and did not recommend EEG, MRI w/ atrophy 2/2 chronic EtoH; signed off SI, Psychosis with auditory hallucinations: initially at [facility] for this. Psychiatry consulted. - await decision on need to return to inpatient psychiatric facility - if attempting to leave, will place on medical hold - medically stable for discharge to inpatient psychiatric facility if this is felt necessary by the psychiatry team. Appreciate their recs S/p Acute hypoxic respiratory insufficiency O2 dropped to 50s while sleeping. Suspect this is d/t sedation from ativan, atelectasis as seen on CXR - Incentive spirometry, as pt able - now on room air. Hyponatremia, resolved Reported Failure to Thrive Pt not eating originally, but unknown for how long, or any other information. Now improved. - Nutrition consulted: ONS TID, regular diet, continue with vitamins Transaminitis: AST 63 initially, likely d/t alcohol use. Improved to 43 HTN: Pt reportedly on norvasc at [facility], but current BP often low-normal. - stopped amlodipine. Can reconsider on followup Elevated Lipase: No current abdominal pain, so low concern for acute pancreatitis. Acute urinary retention, resolved Suspect d/t lack of moving. - passed voiding trial 12/10 - continue flomax Alcohol use disorder with withdrawal Last drink unknown time, but CIWA 14 on 12/05 - ~6 days since last drink, lower concern for EtOH withdrawal at this time and will discontinue CIWA protocol w/ PRNs - MVI, Folate, Thiamine Reported Chest pain Difficult to know accuracy of reported symptoms. No chest pain currently. Troponin negative. EKG without changes. - Consider stress test outpatient if pain recurs Anemia of chronic disease: iron levels wnl. Complexity. Obesity Body mass index is 36.24 kg/m . - Follow with PCP for dietary and lifestyle modifications. Alcohol Use With Withdrawal - Continue CIWA protocol, current CIWA score: 0 Any conditions listed below are present on admission unless otherwise specified. . DVT prophylaxis with lovenox Anticipated Disposition: TBD Code status is Full Code Interval History / Subjective Was crying because he is worried he does not have medcaid Objective Temp: [97.5 F (36.4 C)-98.4 F (36.9 C)] 97.5 F (36.4 C) Pulse (Heart Rate): [82-97] 91 Resp Rate: [16-18] 18 BP: (119-181)/(57-114) 119/69 O2 Sat (%): [90 %-95 %] 93 % Physical Exam Gen: A, A, NAD ENT: MMM Resp: CTA bilat, normal effort Cardio: RRR, normal S1, S2, No SANTOS GI: S/NT/ND, NABS Psych: Ox3, appropriate affect and cognition Data Review WBC/Hgb/Hct/Plts: --/--/--/217 (12/13 223) Acute Occupational Therapy Evaluation Prior Gross Functional Mobility: independent Current AM-PAC score(s): CURRENT AM-PAC Activity Raw Score: 19 Based on the above AM-PAC score(s) and OT clinical judgment, discharge destination recommendation is: [facility] Barriers to discharge home: Cognitive impairments that impact safety (see note below), Lack of supervision necessary to mitigate fall risk, Patient needs assistance with ADLs, Patient needs assistance with IADLs (see note below), Patient needs assistance with medication management, Patient needs assistance with functional mobility Mobility equipment available at home: none used ADL equipment available at home: none Equipment recommendations for discharge: to be determined Current therapy frequency recommendation(s) in acute: 5 times a week Precautions and Weightbearing Status: OT Existing Precautions/Restrictions: fall No critical lines at this time Patient Safety Communication Prior to Visit: Nursing Subjective: Pt agreeable to session, says they have had him work with a walker but does not intend to use one at home. Pain: General Pain Documentation (Adult, OB, Peds) Presence of Pain: denies pain/discomfort Presence of Pain Score (Auto-calculated): 0 Home Setting Residence: House Lives With: alone First floor setup: bedroom, tub shower Mobility Equipment Available: none used ADL Equipment Available: none Home Environment Details: Pt is a questionable historian Previous Level of Function Gross Functional Mobility: independent Assistive Device: none used Prior level ADL Overview: Independent with all ADLs Bed Mobility: independent Transfers: independent Ambulation: independent with home Prior Level of Function Details: Pt reports family does not live near Objective/Observation: Vitals/Vitals Responses to Treatment: no adverse reaction to session O2 Device: room air Vision Screen Currently wearing corrective lenses: No Visual Impairments Observed?: No Speech Speech: no gross deficits noted Hearing Hearing: no gross deficits noted Cognition Overall Cognitive Status: Impaired Arousal/Alertness: Appropriate responses to stimuli Orientation Level: Oriented to person, Oriented to place, Oriented to time Following Commands: Follows one step commands without difficulty, Follows multistep commands with increased time, Follows multistep commands with repetition Safety Judgment: Decreased awareness of need for assistance, Decreased awareness of need for safety Awareness of Errors: Assistance required to identify errors made, Assistance required to correct errors made Deficits: Decreased awareness of deficits Attention Span: Appears intact (higher level attention deficits) Memory: Decreased short term memory Problem Solving: Assistance required to identify errors made, Assistance required to generate solutions, Assistance required to implement solutions Cognition Comments: Score 14 on MOCA, see details in outcomes below. ADLs: ADL Assessment: LE Dressing Deficit, Grooming Deficit, Eating Deficit ADL Anticipated Performance (ADLs not directly observed this session): Bathing, UE Dressing, Toileting Eating Assistance: Independent Grooming Assistance: Set up supervision Grooming Location: edge of bed Bathing Assistance: Minimal UE Dressing Assistance: Set up supervision LE Dressing Assistance: Contact guard assist LE Dressing Location: edge of bed, standing LE Dressing Deficit: Activity tolerance, Generalized weakness, Balance, Follows safety/precautions, Problem solving, Increased time to complete LE Dressing Skilled Rationale (Verbal/Tactile/Visual/Demonstrati on): Cues for increased safety, Facilitate positioning, Technique of activity LE Dressing Intervention/Details: Dons socks and underwear. Toilet Assistance: Contact guard assist Extremity Assessments: RUE Assessment RUE Assessment: Within Functional Limits LUE Assessment LUE Assessment: Within Functional Limits Balance: Sitting Balance Static Sitting-Level of Assistance: Independent Dynamic Sitting-Level of Assistance: Independent Standing Balance Static Standing-Level of Assistance: Contact guard Dynamic Standing-Level of Assistance: Contact guard, Minimum assistance Standing-Balance Support: Gait belt Neuro: Sensation Overall Sensation: Intact Mobility Assessment: Supine to Sit Mobility [place] Level: Supine->Sit: supervision Bed Features/Set-up: Supine->Sit: Head of bed elevated, Use of bed rail Transfer Assessment: Sit to Stand Transfer [place] Level: Sit->Stand: contact guard assist Assistive Device: Sit->Stand: gait belt Skilled Intervention/Details: Sit->Stand: From EOB. Stand to Sit Transfer [place] Level: Stand->Sit: contact guard assist Assistive Device: Stand->Sit: gait belt, armed chair Functional Mobility: Functional Mobility [place] Level: Functional Mobility/Gait: minimum assist (75% patient effort) Assistive Device: Functional Mobility/Gait: gait belt, hand held assist Ambulation Distance (Feet): 40 Functional Mobility Deficits: Balance, Follow safety/precautions, Generalized weakness, Way finding Functional Mobility Skilled Rationale: Cues for increased safety, Facilitate postural control, Facilitate positioning, Hand placement, Technique of activity, Verbal cues Skilled Intervention/Details - Functional Mobility/Gait: Intermittent use of hallway rails and reaching for furniture Outcome Score(s): MOCA Pt participated in the [place] Cognitive Assessment (MOCA), which is a standardized assessment used to measure a variety of cognitive skills including visuospatial/executive, naming, memory, attention, language, abstraction, delayed recall, and orientation. The results of this test are used as a reference tool to determine a pt's current cognitive level of functioning. Pt scored 14/30 points indicating there is moderate (10-17) cognitive impairment (Normal > 26/30). Score details as follows: MOCA Visuospatial/Executive: 1 Namin Attention - Digit Span: 1 Attention - Vigilance Letters: 1 Attention - Serial 7's: 0 Language - Sentence Repitition: 0 Language - Verbal Fluency: 0 Abstraction: 1 Delayed Recall: 2 Orientation: 4 MOCA Total Score: 13 Level of education: less than or equal to 12th grade education MOCA Adjusted Education Score: 14 Memory Index Score (MIS; sub-score): 8/15 (delayed recall spontaneously x1, with category cue x1, with multiple choice x3) CURRENT [facility] Daily Activity Inpatient Short Form Putting on/Taking Off Lower Body Clothin - A Little Assistance Bathin - A Little Assistance Toiletin - A Little Assistance Putting on/Taking Off Upper Body Clothin - A Little Assistance Groomin - A Little Assistance Eatin - No Assistance CURRENT [facility] Activity Raw Score: 19 CURRENT [facility] Activity Functional Limitation/Modifier: 42.80% Currently Impaired in Daily Activity - CK Assessment & Plan: Patient was admitted for abnormal labs, failure to thrive, psychosis and seen for therapy evaluation related to cognition and functional deficits limiting safety/independence with occupational performance. Exam findings include impairments in: cognitive impairments, attention, balance, endurance, strength, transfers. These impairments contribute to occupational performance limitations including bathing, dressing, grooming, toileting, functional mobility, ADL transfers, community integration, home management tasks. Patient will benefit from skilled occupational therapy to address these impairments, occupational performance limitations, and participation restrictions. Patient's rehab potential is: good. Planned Therapy Interventions (OT Eval): ADL retraining, IADL retraining, balance training, cognitive training, functional activity tolerance, strengthening, transfer training Patient Instruction/Education this session: Learners: Patient Education provided: Activity outside of therapy, Plan of care, Role of this discipline, Safety, Gait training safety Teaching method: Verbal Education/Instruction Learner response: Needs review Learning considerations: Cognition, Psychosocial Plan for next session: OOB ADLs, dynamic balance, functional cognition Acute OT Goals Plan of Care by Kaye Rabago OT at 12/13/2023 10:24 AM Version 1 of 1 Problem: OT - ADLs Goal: Toileting - Patient will complete toileting task with modified independence and adaptive equipment as needed for improved ability to safely complete self-care activities. Outcome: Ongoing Goal: Bathing - Patient will perform full body bathing routine with modified independence for improved ability to complete self-care activities Outcome: Ongoing Problem: OT - Balance Goal: Balance - Standing - Patient will perform 10 minutes of functional task in standing with modified independence and good balance to promote safety and improved balance required for self-care activities. Outcome: Ongoing Problem: OT - Endurance Goal: Endurance Functional Mobility - Patient will complete distance needed for common household mobility with modified independence for improved tolerance to safely complete I/ADL's Outcome: Ongoing Problem: OT - Cognition Goal: Cognition Simple ADL - Patient will demonstrate improved cognition, completing simple ADL task for 10 minutes with no greater than min cues required to maintain attention. Outcome: Ongoing Goal: Cognition Home Maintenance - Patient will complete simulated home maintenance task: medication management with moderate assistance and 100% accuracy. Outcome: Ongoing Goal: Safety - Patient will demonstrate good safety awareness during ADL routine with min or less cues for accuracy. Outcome: Ongoing OT treatment consisted of the following to work and progress towards the above goal(s): OT Evaluation and Treatment Time OT Evaluation (Moderate) Time Entry: 14 Evaluating Therapist: Kaye Rabago OT Additional Details: OT Co-Eval/Treatment Information Co-evaluation/co-treatment performed?: No simultaneous skilled care performed OT Evaluation Complexity Occupational Profile and Client History: Moderate - expanded history Assessment of Occupational Performance: Moderate (3-5 performance deficits) Clinical Decision/Performance Deficits: Moderate (detailed assessments w/several treatment options) Time In: 0950 Time Out: 1024 Total Visit Time: 34 minutes Total Treatment Time (skilled, billable minutes): 34 minutes PPE used during patient interaction: gloves Patient location at end of session: chair Alarms on at end of session: chair alarm Needs in reach. Upon discontinuation of Acute Care Occupational Therapy Services or patient discharge from the hospital this note represents the current Occupational Therapy Discharge Summary. Acute Care Speech Therapy Screen Note ? FOREIGN STUDENT ADVISER speech/language/cognitive consult received and chart review completed this date. Pt is admitted from [facility] (where he was admitted d/t SI from intentional ingestion of rat poison and psychosis), transferred to [facility] for abnormal labs and failure to thrive, current concern for catatonia. Head imaging is non-acute (please see MRI and CT imaging for further details.) Per chart review pt has catatonia, and psychosis with auditory hallucinations which may be related to psychiatric factors versus true change in cognitive-linguistic function. Given acute diagnoses do not warrant concern for neurologic change in cognitive function, suspect cognition will improve as psychiatric factors resolve. Therefore, skilled FOREIGN STUDENT ADVISER evaluation and services are not warranted at this time. FOREIGN STUDENT ADVISER will complete consult. If there is concern for underlying chronic cognitive-linguistic deficits may consider outpatient consult to neurocognitive clinic in order for assessment to be completed once metabolic factors have cleared. Time in: 753 Time out: 753 Speech-Language Pathologist Pooja Chinchilla MA, [facility])[3]-FOREIGN STUDENT ADVISER License: [id number] [facility] Medicine Progress Note Patient: Fish Cheung, : 1970, Impression / Plan Fish Cheung is a 53 y.o. male with no known past medical history, who was transferred from [facility], where he was admitted d/t SI from intentional ingestion of rat poison & psychosis, but was transferred to [facility] due to abnormal labs, and failure to thrive. Catatonia: - psychiatry following and has improved with ativan. Will continue Ativan TID for catatonia. S/p thiamine 500mg IV x3 days then oral tid x 5 days - collateral information obtained from sister. Pt has been poorly caring for himself for few months (approx 4 months, though very little contact with anyone in this time). Patient agreeable to have sister, Salud Ma, as his decision maker if necessary. - Syphilis, B12, folate, UA, UDS, normal/negative. - MRI Brain without acute abnormalities. Chronic small vessel disease and severe volume loss. - Neurology consulted per psychiatry recommendations to evaluate for other issues such as Wernicke's encephalopathy or seizures. Low suspicion for seizure and did not recommend EEG, MRI w/ atrophy 2/2 chronic EtoH; signed off SI, Psychosis with auditory hallucinations: initially at [facility] for this. Psychiatry consulted. - await decision on need to return to inpatient psychiatric facility - if attempting to leave, will place on medical hold - medically stable for discharge to inpatient psychiatric facility if this is felt necessary by the psychiatry team. S/p Acute hypoxic respiratory insufficiency O2 dropped to 50s while sleeping. Suspect this is d/t sedation from ativan, atelectasis as seen on CXR - Incentive spirometry, as pt able - now on room air. Hyponatremia, resolved Reported Failure to Thrive Pt not eating originally, but unknown for how long, or any other information. Now improved. - Nutrition consulted: ONS TID, regular diet, continue with vitamins Transaminitis: AST 63 initially, likely d/t alcohol use. Improved to 43 HTN: Pt reportedly on norvasc at [facility], but current BP often low-normal. - stopped amlodipine. Can reconsider on followup Elevated Lipase: No current abdominal pain, so low concern for acute pancreatitis. Acute urinary retention, resolved Suspect d/t lack of moving. - passed voiding trial 12/10 - continue flomax Alcohol use disorder with withdrawal Last drink unknown time, but CIWA 14 on 12/05 - ~6 days since last drink, lower concern for EtOH withdrawal at this time and will discontinue CIWA protocol w/ PRNs - MVI, Folate, Thiamine Reported Chest pain Difficult to know accuracy of reported symptoms. No chest pain currently. Troponin negative. EKG without changes. - Consider stress test outpatient if pain recurs Anemia of chronic disease: iron levels wnl. DVT prophylaxis with Lovenox Anticipated Disposition: Anticipate likely inpatient psych. Spoke to sister who gave collateral data. Code status is Full Code Interval History / Subjective Seen at bed no acute complaints, urinating well, had BM this morning. Objective Temp: [97.8 F (36.6 C)-99.1 F (37.3 C)] 98.3 F (36.8 C) Pulse (Heart Rate): [80-93] 81 Resp Rate: [16] 16 BP: (84-168)/(53-97) 120/62 O2 Sat (%): [91 %-95 %] 93 % Physical Exam Gen: NAD, lying in bed ENT: MMM Resp: CTA bilat, normal effort Cardio: RRR, normal S1, S2, No SANTOS GI: S/NT/ND, NABS Data Review [facility] Medicine Progress Note Patient: Fish Cheung, : 1970, Impression / Plan Fish Cheung is a 53 y.o. male with no known past medical history, who was transferred from [facility], where he was admitted d/t SI from intentional ingestion of rat poison & psychosis, but was transferred to [facility] due to abnormal labs, and failure to thrive. Catatonia: - psychiatry following and has improved with ativan. Will continue Ativan TID for catatonia. S/p thiamine 500mg IV x3 days then oral tid x 5 days - collateral information obtained from sister. Pt has been poorly caring for himself for few months (approx 4 months, though very little contact with anyone in this time). Patient agreeable to have sister, Salud Ma, as his decision maker if necessary. - Syphilis, B12, folate, UA, UDS, normal/negative. - MRI Brain without acute abnormalities. Chronic small vessel disease and severe volume loss. - Neurology consulted per psychiatry recommendations to evaluate for other issues such as Wernicke's encephalopathy or seizures. SI, Psychosis with auditory hallucinations: initially at [facility] for this. Psychiatry consulted. - await decision on need to return to inpatient psychiatric facility - if attempting to leave, will place on medical hold - medically stable for discharge to inpatient psychiatric facility if this is felt necessary by the psychiatry team. S/p Acute hypoxic respiratory insufficiency O2 dropped to 50s while sleeping. Suspect this is d/t sedation from ativan, atelectasis as seen on CXR - Incentive spirometry, as pt able - now on room air. Hyponatremia, resolved Reported Failure to Thrive Pt not eating originally, but unknown for how long, or any other information. Now improved. - Nutrition consulted: ONS TID, regular diet, continue with vitamins Transaminitis: AST 63 initially, likely d/t alcohol use. Improved to 43 HTN: Pt reportedly on norvasc at [facility], but current BP often low-normal. - stopped amlodipine. Can reconsider on followup Elevated Lipase: No current abdominal pain, so low concern for acute pancreatitis. Acute urinary retention Suspect d/t lack of moving. Added flomax and try to do voiding trial today. If fails, will have bansal catheter replaced and referral to voiding clinic. Alcohol use disorder with withdrawal Last drink unknown time, but CIWA 14 on 12/05 - Continue CIWA protocol w/ prn ativan - MVI, Folate, Thiamine Reported Chest pain Difficult to know accuracy of reported symptoms. No chest pain currently. Troponin negative. EKG without changes. - Consider stress test outpatient if pain recurs Anemia of chronic disease: iron levels wnl. DVT prophylaxis with Lovenox Anticipated Disposition: Anticipate likely inpatient psych. Spoke to sister who gave collateral data. Code status is Full Code Interval History / Subjective No new issues. Patient denies shortness of breath, chest pain, headache, abdominal pain or nausea. Reports BM this morning. Denies any questions. Objective Temp: [98 F (36.7 C)-98.7 F (37.1 C)] 98.6 F (37 C) Pulse (Heart Rate): [73-93] 93 Resp Rate: [16] 16 BP: (84-170)/(52-87) 84/53 O2 Sat (%): [91 %-97 %] 91 % Physical Exam Gen: NAD, lying in bed ENT: MMM Resp: CTA bilat, normal effort Cardio: RRR, normal S1, S2, No SANTOS GI: S/NT/ND, NABS Data Review Na/K+/Phos/Mg/Ca: 136/4.4/--/--/9.5 (12/10 0252) Bun/Creat/Cl/CO2/Glucose: 13/0.64/99/25/124 (12/11 251) Acute Physical Therapy Treatment Prior Gross Functional Mobility: Current AM-PAC score(s): CURRENT AM-PAC Mobility Raw Score: 17 Based on the above AM-PAC score(s) and PT clinical judgment, patient is a good candidate for discharge to [facility] Barriers to discharge home: Patient needs assistance with functional mobility Mobility equipment available at home: ADL equipment available at home: Equipment needed for discharge: 2 wheeled walker Current therapy frequency recommendation in acute: Therapy Frequency: 5 times a week Precautions and Weightbearing Status: Existing Precautions/Restrictions: fall Patient Safety Communication Prior to Visit: Nursing Subjective: Pt agreeable for therapy. Pt supine upon entry. Pain: General Pain Documentation (Adult, OB, Peds) Presence of Pain: denies pain/discomfort Presence of Pain Score (Auto-calculated): 0 Objective/Observation: Vitals/Vitals Responses to Treatment: vss. Pt reports fatigue and weakness limiting activity. O2 Device: room air Cognition Overall Cognitive Status: Impaired Arousal/Alertness: Appropriate responses to stimuli Orientation Level: Oriented to place, Oriented to person Extremity Assessments: See PT Evaluation flowsheet for Extremity Measurement updates. Skin and Edema: Balance: Sitting Balance Static Sitting-Level of Assistance: Contact guard Dynamic Sitting-Level of Assistance: Contact guard Skilled Rationale: Positioning, Sequencing, Hand placement, Verbal cues, Technique of activity, Cues for increased safety, Energy conservation Standing Balance Static Standing-Level of Assistance: Contact guard Dynamic Standing-Level of Assistance: Contact guard Standing-Balance Support: 2 wheeled walker, Gait belt Skilled Rationale: Positioning, Sequencing, Hand placement, Technique of activity, Cues for increased safety, Energy conservation, Verbal cues Mobility Assessment/Intervention: Supine to Sit Mobility [place] Level: Supine->Sit: contact guard assist Bed Features/Set-up: Supine->Sit: Head of bed elevated, Use of bed rail Skilled Rationale: Positioning, Sequencing, Hand placement, Verbal cues, Demonstration, Technique of activity, Cues for increased safety Skilled Intervention/Details: Supine->Sit: to/from supine Transfer Assessment/Intervention: Sit to Stand Transfer [place] Level: Sit->Stand: contact guard assist Assistive Device: Sit->Stand: gait belt, 2 wheeled walker Skilled Rationale: Positioning, Sequencing, Hand placement, Technique of activity, Cues for increased safety, Energy conservation, Verbal cues Skilled Intervention/Details: Sit->Stand: to/from surfaces, x6 trials Gait/Functional Mobility Assessment/Intervention: Gait Assessment [place] Level: Gait: contact guard assist Assistive Device: Gait: gait belt, 2 wheeled walker Ambulation Distance (Feet): 30 Gait Deviations Identified: decreased oh, decreased gait speed, ataxic, shuffling, wide base of support Gait Skilled Rationale: demonstration, upright posture, safety to avoid obstacles, hand placement on assistive device, verbal, tactile, keeping hands on assistive device, proximity of assistive device Skilled Intervention/Details - Gait: x2 trials, limited by fatigue Stairs Assessment/Intervention: Outcome Score(s): CURRENT [facility] Basic Mobility Inpatient Short Form Turning over in bed: 4 - No Assistance Moving from lying on back to sittin - A Little Assistance Moving to and from bed to chair: 3 - A Little Assistance Sitting/standing from chair: 3 - A Little Assistance Walk in hospital room: 3 - A Little Assistance Climbing 3-5 steps with a railin - Total Assistance CURRENT [facility] Mobility Raw Score: 17 CURRENT [facility] Mobility Functional Limitation: 50.57% Impaired in Basic Mobility Interventions: Assessment & Plan: Today's PT treatment session focused on: Strength, Balance, Transfers, Gait/Locomotion, Aerobic capacity/endurance. Pt demonstrates progression towards goals and PT POC adjusted to allow for progression. At this time, patient's deficits that contribute to impaired functional mobility include: Increased fall risk, Decreased functional mobility. Pt would benefit from continued skilled PT to address noted deficits,improve safe functional mobility and return to prior level of function. Learners: Patient Education provided: Compensatory strategies, Fall precautions, Role of this discipline Teaching method: Verbal Education/Instruction Learner response: Needs review Learning considerations: Cognition Plan for next session: progress activity tolerance and progress functional gait/balance Home Setting Residence: House Lives With: alone First floor setup: bedroom, tub shower Home Environment Details: Pt is a questionable historian Previous Level of Function Bed Mobility: independent Transfers: independent Ambulation: independent with home Prior Level of Function Details: Pt reports family does not live near Acute PT Goals Plan of Care by Marilu Faria PT at 12/11/2023 11:00 AM Version 1 of 1 Problem: PT - General Goals Goal: Pt will perform bed mobility within precautions at independence in order to improve functional mobility and safety. Outcome: Progressing Goal: Pt will perform transfers within precautions with independence with without an assistive device in order to improve functional mobility and safety. Outcome: Progressing Goal: Pt will ambulate 100 feet within precautions with least restrictive device at independence to improve ability to navigate home environment. Outcome: Progressing PT treatment consisted of the following to progress towards the above goal(s): PT Evaluation and Treatment Time Therapeutic Activity Time Entry: 10 Gait Training Time Entry: 14 Treating Therapist: Marilu Faria PT Additional Details: PPE used during patient interaction: gloves Patient location at end of session: bed with head of bed elevated Alarms on at end of session: RN aware, chair alarm Needs in reach. Time In: 1101 Time Out: 1125 Total Visit Time: 24 minutes Total Treatment Time (skilled, billable minutes): 24 minutes Upon discontinuation of Acute Care Physical Therapy Services or patient discharge from the hospital this note represents the current Physical Therapy Discharge Summary. NUTRITION CONSULT Reason for Consult: Assessment Nutrition Recommendation and Plan of Care 1.Continue current diet order, regular; and encourage patient meal selections. 2. Will provide vanilla and chocolate Ensure Plus (350 kcal, 13-16g PRO each) TID with all meals 3.Continue MVI with minerals, folic acid, and thiamine per team's discretion. 4.Monitor weight and adherence to PO intake. 5.RD to follow. Thanks Ayla Patton, MS, RD, LD Pager: [phone] For up to date coverage please see QGenda schedule for Ancillary/Clinical Dietitian [facility] Reason for Admission/History of Present Illness: Per team notes Fish Cheung is a 53 y.o. male with no known past medical history, who was transferred from [facility], where he was admitted d/t SI from intentional ingestion of rat poison & psychosis, but was transferred to [facility] due to abnormal labs, and failure to thrive. Nutrition History: Chart reviewed: Was seen by RD in emergency department on 12/07/2023. Nutrition labs will be obtained, and nutrition support to be indicated if PO inadequate. B12 elevated. Nutrition Risk Screening (MST) Have you recently lost weight without trying?: 2- Unsure Have you been eating poorly because of decreased appetite?: 0- No Malnutrition Screening Tool Score: 2 Met with patient this morning for initial assessment and was sleeping upon arrival. He consented to assessment and agreed to answer questions. Stated his appetite has been good and is eating three meals per day; this is unusual compared to his typical intake at home. Stated he normally would eat one meal per day and has followed the keto diet for years. Has not noticed recent changes in his weight; reported usual body weight is 235 lbs. Stated he was under 200 lbs in 1999. While on keto he normally eats meat, cheese, and green vegetables. Takes a probiotic supplement at home. Currently enjoying the Ensure High protein but would like to try vanilla. Food Allergies: Shellfish Current Diet Order: Regular 7 meals charted between 25-100% over the last week with average intake of 89%. 9 Ensure Plus/High Protein Diet Supplement ORAL NUTRITION SUPPLEMENTS Ensure Plus - Any Flavor; 3 Times Daily with Meals Assessments Edema: WDL GI: WDL ex soft, brown stool; Last Bowel Movement: 12/10/23 (smear) Skin: flaky, ecchymotic, scars, scabs; Pilo Score: 18 Wound Skin Tear 12/07/23 2300 Anterior;Right Knee (4) Wound Skin Tear 12/07/23 2300 Anterior;Left Knee (4) Enteral Access:None noted Labs: 12/11/23 Reviewed, including Creatinine 0.64 (L), AST 43 (H), Glucose 124 (H). 12/09/23: Magnesium 1.5 (L), Glucose 124 (H) Meds Reviewed including: Lovenox, folic acid, lorazepam, MVI, zoloft, thiamine, flomax PRNs reviewed including robistussin, lorazepam*, melatonin, miralax, nicotine gum (*if given on or after 12/08/2023) Monitored Food-Drug Interactions: None Continuous Infusions:None Fluid Management (24hrs ending 658):Net +1138 mL, UOP 575 mL, emesis 0, stool 1x (Since Adm Net +230.1 mL) Anthropometrics Height: 182.9 cm (6') IBW: 81 kg, 178 lb 12/08/23Admission/Adult (Dosing) Weight: 121.2 kg (267 lb 3.2 oz) %IBW: 150% BMI: 36.24 kg/m2 Weight history: Care everywhere: 84.8 kg (187 lb) [facility] 05/02/2019 Wt Readings from Last 10 Encounters: 12/08/23 121.2 kg (267 lb 3.2 oz) 12/07/23 117.1 kg (258 lb 1.6 oz) Estimated Nutrition Needs Weight Used: ideal Energy Requirements (kcal/day): 2649-5520 Kcal/k-30 Protein Requirements (g/day): 80-110 Protein (g/kg): 1-1.4 Fluid Requirements (mL): 2400 mL or as directed by team Fluid mL/k Malnutrition Statement: Malnutrition criteria met: Does the patient meet criteria for malnutrition: Unable to assess (Patient was lethargic at end of encounter.) *Based on [employer] and [employer] Indicators to Diagnose Malnutrition (AAIM) criteria (2012) Associated attestation - Ayla Patton RD - 12/11/2023 11:05 AM EDT Addendum: I have independently reviewed and edited this student's documentation. I agree with the assessment and plan. Ayla Patton MS, RD, LD Pager: [phone] For up to date coverage please see QGenda schedule for Ancillary/Clinical Dietitian [facility] Medicine Progress Note Patient: Fish Cheung, : 1970, Impression / Plan Fish Cheung is a 53 y.o. male with no known past medical history, who was transferred from [facility], where he was admitted d/t SI from intentional ingestion of rat poison & psychosis, but was transferred to [facility] due to abnormal labs, and failure to thrive. Catatonia: - psychiatry following and has improved with ativan. Will continue Ativan TID for catatonia and thiamine 500mg IV x3 days - collateral information obtained from sister. Pt has been poorly caring for himself for few months (approx 4 months, though very little contact with anyone in this time). Patient agreeable to have sister, Salud Ma, as his decision maker if necessary. - Syphilis, B12, folate, UA, UDS, normal/negative. - MRI Brain without acute abnormalities. Chronic small vessel disease and severe volume loss. SI, Psychosis with auditory hallucinations: initially at [facility] for this. Psychiatry consulted. - await decision on need to return to inpatient psychiatric facility - if attempting to leave, will place on medical hold Acute hypoxic respiratory insufficiency O2 dropped to 50s while sleeping, but then once woken up, spontaneously resolved to upper 80s, but then required 3LNC to get into 90s. Suspect this is d/t sedation from ativan, atelectasis as seen on CXR - Incentive spirometry, as pt able - Wean O2 as tolerated to keep sats>90% Hyponatremia, resolved Reported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 awareness of need for assistance, Decreased awareness of need for safety Extremity Assessments: See PT Evaluation flowsheet for Extremity Measurement updates. Skin and Edema: Balance: Sitting Balance Static Sitting-Level of Assistance: Independent Dynamic Sitting-Level of Assistance: Independent Standing Balance Static Standing-Level of Assistance: Supervision Dynamic Standing-Level of Assistance: Stand-by assist (progressing to supervision with increased cue follow) Standing-Balance Support: Gait belt, 2 wheeled walker Skilled Rationale: Facilitate anterior shift, Full extension to upright positioning/posture Standing Balance Skilled Intervention/Details: education for 2WW height with adjustment for new walker reporting increased comfort with increased proximity with increased cue follow Mobility Assessment/Intervention: Supine to Sit Mobility [place] Level: Supine->Sit: stand-by assist Bed Features/Set-up: Supine->Sit: Flat, Use of bed rail Skilled Intervention/Details: Supine->Sit: rolled R attempting not to use bedrail but with increased difficulty required use but able to perform without physical assist; cues to breathe Transfer Assessment/Intervention: Sit to Stand Transfer [place] Level: Sit->Stand: supervision Assistive Device: Sit->Stand: gait belt, 2 wheeled walker, armed chair Skilled Intervention/Details: Sit->Stand: EOB x2, recliner x2; cues for hand placement/ safety Stand to Sit Transfer [place] Level: Stand->Sit: supervision Assistive Device: Stand->Sit: gait belt, 2 wheeled walker, armed chair Skilled Intervention/Details: Stand->Sit: cues for hand placement/ safety Gait/Functional Mobility Assessment/Intervention: Gait Assessment [place] Level: Gait: stand-by assist (progressed to supevision with maintenance of walker on floor and increased proximity) Assistive Device: Gait: gait belt, 2 wheeled walker Ambulation Distance (Feet): 117 (+112+ 20) Skilled Intervention/Details - Gait: Cues for upright and walker proximity with increased demo and reported absent pain last trial (endorses need to sit prior to return to room with loss of endurance) Stairs Assessment/Intervention: Stairs Assessment [place] Level: Stair Negotiation: contact guard assist Assistive Device: Stair Negotiation: gait belt, left rail (ascending) Number of stairs: 3 Skilled Intervention/Details - Stairs: cues for foot clearance and advised avoiding reciprocal ascent but demo'ing despite cues with no physical assist needs. Reports sister physically able to assist him Outcome Score(s): CURRENT [facility] Basic Mobility Inpatient Short Form Turning over in bed: 4 - No Assistance Moving from lying on back to sittin - A Little Assistance Moving to and from bed to chair: 3 - A Little Assistance Sitting/standing from chair: 3 - A Little Assistance Walk in hospital room: 3 - A Little Assistance Climbing 3-5 steps with a railin - A Little Assistance CURRENT [facility] Mobility Raw Score: 19 CURRENT [facility] Mobility Functional Limitation: 41.77% Impaired in Basic Mobility Interventions: Intervention 1 Intervention Name: Seated BLE TE HEP Sets/Reps/Duration: x10 Details: marches, long arc quads, hip abduction bilat and unilateral, ankle pumps also demos hip arcs, figure 4 and ankle rolls not on worksheet (isometric foot press on worksheet but doesn't follow demo) Assessment & Plan: Pt progressing toward goals with increased independence during bed mobility, transfers and gait but reporting significantly far from mobility baseline with decreased endurance and increased difficulty with mobility. Pt benefiting from education for increased safety during mobility and to progress toward PLOF currently dependent on AD Patient Instruction/Education this session: Learners: Patient Education provided: Activity outside of therapy, Bed mobility, Functional transfers, Gait training safety, Handout provided and reviewed, Home exercise program, Discharge recommendations Teaching method: Verbal Education/Instruction, Teach back, Handout provided/reviewed Learner response: Returns demonstration, Needs review Learning considerations: Cognition Plan for next session: gait endurance, stairs, balance training Acute PT Goals Plan of Care by Pema Whittaker PT at 12/18/2023 9:51 AM Version 1 of 1 Problem: PT - General Goals Goal: Pt will perform bed mobility within precautions at independence in order to improve functional mobility and safety. Outcome: Progressing Goal: Pt will perform transfers within precautions with independence with without an assistive device in order to improve functional mobility and safety. Outcome: Progressing Goal: Pt will ambulate 100 feet within precautions with least restrictive device at independence to improve ability to navigate home environment. Outcome: Progressing PT treatment consisted of the following to progress towards the above goal(s): PT Evaluation and Treatment Time Therapeutic Exercise Time Entry: 10 Therapeutic Activity Time Entry: 10 Gait Training Time Entry: 20 Treating Therapist: Pema Whittaker PT Additional Details: PT Co-Eval/Treatment Information Co-evaluation/co-treatment performed?: No simultaneous skilled care performed PPE used during patient interaction: gloves Patient location at end of session: chair Alarms on at end of session: none, none altered Needs in reach. Time In: 09 Time Out: 1031 Total Visit Time: 40 minutes Total Treatment Time (skilled, billable minutes): 40 minutes Upon discontinuation of Acute Care Physical Therapy Services or patient discharge from the hospital this note represents the current Physical Therapy Discharge Summary. [facility] Medicine Progress Note Patient: Fish Cheung, : 1970, Impression / Plan Fish Cheung is a 53 y.o. male with no known past medical history, who was transferred from [facility], where he was admitted d/t SI from intentional ingestion of rat poison & psychosis, but was transferred to [facility] due to abnormal labs, and failure to thrive. Catatonia: - psychiatry following and has improved with ativan. Will continue Ativan TID for catatonia. S/p thiamine 500mg IV x3 days then oral tid x 5 days - collateral information obtained from sister. Pt has been poorly caring for himself for few months (approx 4 months, though very little contact with anyone in this time). Patient agreeable to have sister, Salud Ma, as his decision maker if necessary. - Syphilis, B12, folate, UA, UDS, normal/negative. - MRI Brain without acute abnormalities. Chronic small vessel disease and severe volume loss. - Neurology consulted per psychiatry recommendations to evaluate for other issues such as Wernicke's encephalopathy or seizures. Low suspicion for seizure and did not recommend EEG, MRI w/ atrophy 2/2 chronic EtoH; signed off SI, Psychosis with auditory hallucinations: initially at [facility] for this. Psychiatry consulted. - await decision on need to return to inpatient psychiatric facility - if attempting to leave, will place on medical hold - medically stable for discharge to inpatient psychiatric facility if this is felt necessary by the psychiatry team. Appreciate their recs, decreased ativan from TID to BID dosing on 12/13, and then to daily dosing on 12/16. S/p Acute hypoxic respiratory insufficiency O2 dropped to 50s while sleeping. Suspect this is d/t sedation from ativan, atelectasis as seen on CXR - Incentive spirometry, as pt able - now on room air. Hyponatremia, resolved Reported Failure to Thrive Pt not eating originally, but unknown for how long, or any other information. Now improved. - Nutrition consulted: ONS TID, regular diet, continue with vitamins Transaminitis: AST 63 initially, likely d/t alcohol use. Improved to 43 HTN: Pt reportedly on norvasc at [facility], Restart amlodipine, add hydrochlorothiazide Elevated Lipase: No current abdominal pain, so low concern for acute pancreatitis. Acute urinary retention, resolved Suspect d/t lack of moving. - passed voiding trial 12/10 - continue flomax Alcohol use disorder with withdrawal Last drink unknown time, but CIWA 14 on 12/05 - ~6 days since last drink, lower concern for EtOH withdrawal at this time and will discontinue CIWA protocol w/ PRNs - MVI, Folate, Thiamine Reported Chest pain Difficult to know accuracy of reported symptoms. No chest pain currently. Troponin negative. EKG without changes. - Consider stress test outpatient if pain recurs Anemia of chronic disease: iron levels wnl. Complexity. Obesity Body mass index is 36.24 kg/m . - Follow with PCP for dietary and lifestyle modifications. Alcohol Use With Withdrawal - Continue CIWA protocol, current CIWA score: 0 Any conditions listed below are present on admission unless otherwise specified. . DVT prophylaxis with lovenox Anticipated Disposition: TBD Code status is Full Code Interval History / Subjective Calm, no new complaints Objective Temp: [97.7 F (36.5 C)-98.3 F (36.8 C)] 98.2 F (36.8 C) Pulse (Heart Rate): [80-98] 81 Resp Rate: [18] 18 BP: (148-190)/(82-109) 190/109 O2 Sat (%): [93 %-96 %] 94 % Physical Exam Gen: A, A, NAD ENT: MMM Resp: CTA bilat, normal effort Cardio: RRR, normal S1, S2, No SANTOS GI: S/NT/ND, NABS Psych: Ox3, appropriate affect and cognition Data Review Acute Occupational Therapy Treatment Prior Gross Functional Mobility: independent Current AM-PAC score(s): CURRENT AM-PAC Activity Raw Score: 19 Based on the above AM-PAC score(s), and OT clinical judgment, discharge destination recommendation is: [facility] (If unable then pt would benefit from 15/01 supervision for assist with showering, functional mobility, and all IADL's) Barriers to discharge home: Cognitive impairments that impact safety (see note below), Lack of supervision necessary to mitigate fall risk, Patient needs assistance with ADLs, Patient needs assistance with IADLs (see note below), Patient needs assistance with medication management, Patient needs assistance with functional mobility Mobility equipment available at home: none used ADL equipment available at home: none Equipment recommendations for discharge: 2 wheeled walker, shower chair Current therapy frequency recommendation(s) in acute: 5 times a week Precautions and Weightbearing Status: OT Existing Precautions/Restrictions: fall No critical lines at this time Patient Safety Communication Prior to Visit: Nursing Subjective: Pt reporting that he was working with PT earlier and unsure how well he will do with OT. Pain: General Pain Documentation (Adult, OB, Peds) Presence of Pain: denies pain/discomfort Presence of Pain Score (Auto-calculated): 0 Objective/Observation: Vitals/Vitals Responses to Treatment: no adverse reaction towards session O2 Device: room air Cognition Overall Cognitive Status: Impaired Arousal/Alertness: Appropriate responses to stimuli Orientation Level: Oriented X4 Following Commands: Follows one step commands with increased time, Follows one step commands with repetition Safety Judgment: Decreased awareness of need for safety, Decreased awareness of need for assistance Awareness of Errors: Assistance required to correct errors made Deficits: Decreased awareness of deficits Attention Span: Attends with cues to redirect Memory: Decreased short term memory, Decreased recall of recent events Problem Solving: Assistance required to generate solutions ADL Assessment/Intervention: ADLs: ADL Assessment: LE Dressing Deficit, Bathing Deficit, UE Dressing Deficit, Grooming Deficit Eating Assistance: Grooming Assistance: Minimal Grooming Location: standing at sink Grooming Deficit: Increased time to complete, Activity tolerance, Generalized weakness, Balance, Shaving Grooming Skilled Rationale (Verbal/Tactile/Visual/Demonstrati on): Facilitate positioning, Facilitate postural control, Technique of activity, Cues for increased safety Bathing Assistance: Minimal Bathing Location: seated in chair, standing at chair Bathing Deficit: Increased time to complete, Activity tolerance, Generalized weakness, Balance, Wash/Dry Buttocks, Wash/Dry Back, Sequencing Bathing Skilled Rationale (Verbal/Tactile/Visual/Demonstrati on): Facilitate positioning, Facilitate postural control, Cues for increased safety, Technique of activity UE Dressing Assistance: Stand by UE Dressing Location: seated in chair UE Dressing Deficit: Increased time to complete, Activity tolerance, Generalized weakness, Balance, Thread RUE, Thread LUE UE Dressing Skilled Rationale (Verbal/Tactile/Visual/Demonstrati on): Facilitate positioning, Facilitate postural control, Technique of activity, Cues for increased safety LE Dressing Assistance: Contact guard assist LE Dressing Location: seated in chair, standing LE Dressing Deficit: Increased time to complete, Activity tolerance, Generalized weakness, Balance, Don/doff R sock, Don/doff L sock, Thread RLE into underwear, Thread LLE into underwear, Pull up over hips LE Dressing Skilled Rationale (Verbal/Tactile/Visual/Demonstrati on): Facilitate positioning, Facilitate postural control, Technique of activity, Cues for increased safety Toilet Assistance: Extremity Assessments: See OT Evaluation flowsheet for Extremity Measurement updates. Balance: Sitting Balance Static Sitting-Level of Assistance: Standby Dynamic Sitting-Level of Assistance: Contact guard Standing Balance Static Standing-Level of Assistance: Contact guard Dynamic Standing-Level of Assistance: Minimum assistance Standing-Balance Support: Gait belt, 2 wheeled walker Skilled Rationale: Positioning, Hand placement, Verbal cues, Technique of activity, Cues for increased safety Standing Balance Skilled Intervention/Details: Pt required min A for standing balance when utilizing bilateral UE for functional tasks while at the sink. Skin and Edema: Mobility Assessment/Intervention: Supine to Sit Mobility [place] Level: Supine->Sit: stand-by assist Bed Features/Set-up: Supine->Sit: Head of bed elevated, Use of bed rail Sit to Supine Mobility [place] Level: Sit->Supine: stand-by assist Bed Features/Set-up: Sit->Supine: Head of bed elevated, Use of bed rail Transfer Assessment/Intervention: Sit to Stand Transfer [place] Level: Sit->Stand: contact guard assist Assistive Device: Sit->Stand: gait belt, 2 wheeled walker Skilled Rationale: Positioning, Hand placement, Verbal cues, Technique of activity, Cues for increased safety Stand to Sit Transfer [place] Level: Stand->Sit: contact guard assist Assistive Device: Stand->Sit: gait belt, 2 wheeled walker Skilled Rationale: Positioning, Hand placement, Verbal cues, Technique of activity, Cues for increased safety Functional Mobility: Functional Mobility [place] Level: Functional Mobility/Gait: minimum assist (75% patient effort) Assistive Device: Functional Mobility/Gait: 2 wheeled walker, gait belt Functional Mobility Distance: Distance needed to access restroom Functional Mobility Deficits: Activity tolerance, Balance, Generalized weakness, Slowed gait speed Functional Mobility Skilled Rationale: Breathing strategies, Facilitate positioning, Facilitate postural control, Technique of activity Skilled Intervention/Details - Functional Mobility/Gait: one big loss of balance that required mod A to correct Outcome Score(s): CURRENT [facility] Daily Activity Inpatient Short Form Putting on/Taking Off Lower Body Clothin - A Little Assistance Bathin - A Little Assistance Toiletin - A Little Assistance Putting on/Taking Off Upper Body Clothin - A Little Assistance Groomin - A Little Assistance Eatin - No Assistance CURRENT [facility] Activity Raw Score: 19 CURRENT [facility] Activity Functional Limitation/Modifier: 42.80% Currently Impaired in Daily Activity - CK Interventions: Assessment & Plan: Pt is progressing towards OT goals evident by ability to complete bathing tasks with min A. Pt has barriers to independence including balance, strength , activity tolerance, functional mobility/transfers, cognition, and safety awareness. Pt would benefit from occupational therapy to increase safety and independence with ADL's. Patient Instruction/Education this session: Learners: Patient Education provided: Role of this discipline, Safety, Positioning, Plan of care Teaching method: Verbal Education/Instruction Learner response: Needs review Learning considerations: Cognition Plan for next session: standing ADL's Acute OT Goals Plan of Care by Rowan Walker OT at 12/17/2023 10:55 AM Version 1 of 1 Problem: OT - ADLs Goal: Toileting - Patient will complete toileting task with modified independence and adaptive equipment as needed for improved ability to safely complete self-care activities. Outcome: Progressing Goal: Bathing - Patient will perform full body bathing routine with modified independence for improved ability to complete self-care activities Outcome: Progressing Problem: OT - Balance Goal: Balance - Standing - Patient will perform 10 minutes of functional task in standing with modified independence and good balance to promote safety and improved balance required for self-care activities. Outcome: Progressing Problem: OT - Endurance Goal: Endurance Functional Mobility - Patient will complete distance needed for common household mobility with modified independence for improved tolerance to safely complete I/ADL's Outcome: Progressing Problem: OT - Cognition Goal: Cognition Simple ADL - Patient will demonstrate improved cognition, completing simple ADL task for 10 minutes with no greater than min cues required to maintain attention. Outcome: Progressing Goal: Safety - Patient will demonstrate good safety awareness during ADL routine with min or less cues for accuracy. Outcome: Progressing OT treatment consisted of the following to work and progress towards the above goal(s): OT Evaluation and Treatment Time Self Care/Home Management (ADLs) Time Entry: 24 Treating Therapist: Rowan Walker OT Additional Details: OT Co-Eval/Treatment Information Co-evaluation/co-treatment performed?: No simultaneous skilled care performed PPE used during patient interaction: gloves Patient location at end of session: bed with head of bed elevated Alarms on at end of session: bed alarm Needs in reach. Time In: 1031 Time Out: 1055 Total Visit Time: 24 minutes Total Treatment Time (skilled, billable minutes): 24 minutes Upon discontinuation of Acute Care Occupational Therapy Services or patient discharge from the hospital this note represents the current Occupational Therapy Discharge Summary. Acute Physical Therapy Treatment Prior Gross Functional Mobility: independent Current AM-PAC score(s): CURRENT AM-PAC Mobility Raw Score: 20 Based on the above AM-PAC score(s) and PT clinical judgment, patient is a good candidate for discharge to [facility] (if pt returns home recommend 15/01 supervision/assist for all mobility and HHPT vs OP PT.) Barriers to discharge home: Patient needs assistance with functional mobility, Cognitive impairments that impact safety (see note below) Mobility equipment available at home: none used ADL equipment available at home: none Equipment needed for discharge: shower chair, 2 wheeled walker Current therapy frequency recommendation in acute: Therapy Frequency: 5 times a week Activity Recommendations for outside of rehab session: hallway ambulation - 1 person assist with WW and gait belt Precautions and Weightbearing Status: Existing Precautions/Restrictions: fall No critical lines at this time Patient Safety Communication Prior to Visit: Nursing Subjective: Pt agreeable to therapy session I need to use the restroom and I want to try some stairs Pain: General Pain Documentation (Adult, OB, Peds) Presence of Pain: denies pain/discomfort Presence of Pain Score (Auto-calculated): 0 DVPRS (Defense and Veterans Pain Rating Scale) DVPRS: Rest: 0- no pain DVPRS: Activity: 0- no pain Objective/Observation: Vitals/Vitals Responses to Treatment: VSS O2 Device: room air Cognition Overall Cognitive Status: Impaired Arousal/Alertness: Appropriate responses to stimuli Orientation Level: Oriented X4 Following Commands: Follows one step commands without difficulty Safety Judgment: Decreased awareness of need for assistance, Decreased awareness of need for safety Deficits: Decreased awareness of deficits Extremity Assessments: See PT Evaluation flowsheet for Extremity Measurement updates. Skin and Edema: Balance: Sitting Balance Static Sitting-Level of Assistance: Standby Dynamic Sitting-Level of Assistance: Contact guard Sitting Balance Skilled Intervention/Details: no LOB at EOB or on toilet Standing Balance Static Standing-Level of Assistance: Contact guard Dynamic Standing-Level of Assistance: Contact guard (CGA-min A) Standing-Balance Support: Gait belt, 2 wheeled walker Skilled Rationale: Positioning, Sequencing, Hand placement, Full extension to upright positioning/posture, Technique of activity, Cues for increased safety Standing Balance Skilled Intervention/Details: CGA for safety with hallway mobility and min A with stair trial Mobility Assessment/Intervention: Rolling/Turning Mobility [place] Level: Rolling/Turning: modified independence Bed Features/Set-up: Rolling/Turning: Head of bed elevated, Use of bed rail Scooting Bridging Mobility [place] Level: Scooting/Bridging: stand-by assist Bed Features/Set-up: Scooting/Bridging: Flat, Use of bed rail Skilled Intervention/Details: Scooting/Bridging: max cues to complete - completed with increased effort Supine to Sit Mobility [place] Level: Supine->Sit: stand-by assist Bed Features/Set-up: Supine->Sit: Head of bed elevated, Use of bed rail Skilled Rationale: Positioning, Sequencing, Hand placement, Technique of activity, Initiation and execution of task, Cues for increased safety Sit to Supine Mobility [place] Level: Sit->Supine: stand-by assist Bed Features/Set-up: Sit->Supine: Head of bed elevated, Use of bed rail Skilled Rationale: Positioning, Sequencing, Hand placement, Verbal cues, Technique of activity, Initiation and execution of task Transfer Assessment/Intervention: Sit to Stand Transfer [place] Level: Sit->Stand: contact guard assist Assistive Device: Sit->Stand: gait belt, 2 wheeled walker Skilled Rationale: Hand placement, Verbal cues, Full extension to upright positioning/posture, Finding/maintaining midline positioning, Cues for increased safety, Initiation and execution of task Skilled Intervention/Details: Sit->Stand: EOB x 1, toilet x 1 Stand to Sit Transfer [place] Level: Stand->Sit: contact guard assist Assistive Device: Stand->Sit: gait belt, 2 wheeled walker Skilled Rationale: Hand placement, Controlled descent for sitting, Cues for increased safety Skilled Intervention/Details: Stand->Sit: toilet x 1, EOB x 1 Bed-Chair Transfer [place] Level: Bed<->Chair: (declined the chair) Gait/Functional Mobility Assessment/Intervention: Gait Assessment [place] Level: Gait: contact guard assist Assistive Device: Gait: gait belt, 2 wheeled walker Ambulation Distance (Feet): 120 (60+60 (stairs and seated rest break )) Gait Deviations Identified: decreased oh, decreased gait speed, decreased heel strike, shuffling, flexed posture Gait Skilled Rationale: verbal, upright posture, proximity of assistive device, safety to avoid obstacles Skilled Intervention/Details - Gait: cues for upright posture and porximity to walker, LE fatigue after 3 stair trial requiring a seated rest break before walking back to his room Wheelchair Assessment Patient currently uses wheelchair?: No Stairs Assessment/Intervention: Stairs Assessment [place] Level: Stair Negotiation: minimum assist (75% patient effort) Assistive Device: Stair Negotiation: gait belt, left rail (ascending) Number of stairs: 3 Stairs Skilled Rationale: verbal, nonreciprocal pattern, general safety Skilled Intervention/Details - Stairs: increased fatigue requiring min A for negotiation. Difficulty with hip flexion to clear toes when ascending, resulting in foot catching on the step with min A to correct Outcome Score(s): CURRENT AM-PAC Basic Mobility Inpatient Short Form Turning over in bed: 4 - No Assistance Moving from lying on back to sittin - No Assistance Moving to and from bed to chair: 3 - A Little Assistance Sitting/standing from chair: 3 - A Little Assistance Walk in hospital room: 3 - A Little Assistance Climbing 3-5 steps with a railin - A Little Assistance CURRENT -[facility] Mobility Raw Score: 20 CURRENT -[facility] Mobility Functional Limitation: 35.83% Impaired in Basic Mobility Interventions: Assessment & Plan: Pt progressing towards established goals with increased tolerance to activity. Increased gait distance as well as stair negotiation x 3 steps with min A. Pt cont to function below baseline and will cont to benefit from skilled PT this admission as well as at discharge to maximize functional return Patient Instruction/Education this session: Learners: Patient Education provided: Bed mobility, Activity outside of therapy, Balance training, Fall precautions, Home safety precautions, Plan of care, Safety, Role of this discipline, Stair training safety Teaching method: Verbal Education/Instruction Learner response: Needs review Learning considerations: Cognition Plan for next session: gait, stairs Acute PT Goals Plan of Care by Ana Araujo PT at 12/17/2023 9:20 AM Version 1 of 1 Problem: PT - General Goals Goal: Pt will perform bed mobility within precautions at independence in order to improve functional mobility and safety. Outcome: Ongoing Goal: Pt will perform transfers within precautions with independence with without an assistive device in order to improve functional mobility and safety. Outcome: Ongoing Goal: Pt will ambulate 100 feet within precautions with least restrictive device at independence to improve ability to navigate home environment. Outcome: Ongoing PT treatment consisted of the following to progress towards the above goal(s): PT Evaluation and Treatment Time Therapeutic Activity Time Entry: 10 Gait Training Time Entry: 15 Treating Therapist: Ana Araujo PT I AM A FLOAT. PLEASE PAGE YOUR FLOORS PT REGARDING THIS PATIENT. Additional Details: PT Co-Eval/Treatment Information Co-evaluation/co-treatment performed?: No simultaneous skilled care performed PPE used during patient interaction: gloves Patient location at end of session: bed with head of bed elevated, RN aware Alarms on at end of session: bed alarm, RN aware Needs in reach. Time In: 854 Time Out: 919 Total Visit Time: 25 minutes Total Treatment Time (skilled, billable minutes): 25 minutes Upon discontinuation of Acute Care Physical Therapy Services or patient discharge from the hospital this note represents the current Physical Therapy Discharge Summary. SW contacted pt's sister (Salud) by phone to discuss discharge plan for pt. Salud confirmed she had spoken with pt about him coming to stay with her temporarily after discharge. Salud reported pt was in agreement. She reported she told him one of the stipulation would be pt attending AA meetings. Salud reported she needs at least 1-2 days notice prior to discharge so she can arrange to have off the day pt is discharged in order to come pick him up. SW advised to will contact the MD and call Salud back with any updates on discharge. Addendum @ 11:45am - FABRIZIO met with pt at bedside to discuss plan to go to sister's home at discharge. Pt confirmed agreement with this plan. SW provided pt with additional information on the structure of 12 step programs including AA as well as possible benefits (ie community; support from people with similar lived experiences, etc). Pt agreed that trying AA would be a good idea for him. Addendum @ 12:53pm - FABRIZIO updated MD. MD in agreement with plan; stated she was still waiting on final plan/recs from psych before deciding on when discharge can occur. SW reiterated pt's sister needs at least 1-2 days notice. FABRIZIO contacted pt's sister back and provided an update on SW's conversation with pt and MD. SW advised pt's sister if she receives any more information on discharge, she would call her back otherwise the floor/cover CM/SW will follow up this week. SW will complete handoff for the floor/cover CM/SW for continuity of care. Yeimi Hilario, INTERNAL REVENUE AGENT, FORMING ROLL OPERATOR-S Medical Social Work Please note that I am a float SW and may not be covering the same unit each day. Please reach out to the floor/unit SW for additional needs/concerns. Contact info for weekend CM and SW staff (8:00am - 4:30pm): [facility]: CCM: [phone] / 3Rd Grade Reading Teacher: [phone] Olivier: CCM: [phone] / 3Rd Grade Reading Teacher: [phone] Torito: CCM : [phone] / 3Rd Grade Reading Teacher: [phone] Jaren/MICU/PCU Alexis: CCM: [phone] / 3Rd Grade Reading Teacher: [phone] [facility] Medicine Progress Note Patient: Fish Cheung, : 1970, Impression / Plan Fish Cheung is a 53 y.o. male with no known past medical history, who was [facility], where he was admitted d/t SI from intentional ingestion of rat poison & psychosis, but was transferred to [facility] due to abnormal labs, and failure to thrive. Catatonia: - psychiatry following and has improved with ativan. Will continue Ativan TID for catatonia. S/p thiamine 500mg IV x3 days then oral tid x 5 days - collateral information obtained from sister. Pt has been poorly caring for himself for few months (approx 4 months, though very little contact with anyone in this time). Patient agreeable to have sister, Salud Ma, as his decision maker if necessary. - Syphilis, B12, folate, UA, UDS, normal/negative. - MRI Brain without acute abnormalities. Chronic small vessel disease and severe volume loss. - Neurology consulted per psychiatry recommendations to evaluate for other issues such as Wernicke's encephalopathy or seizures. Low suspicion for seizure and did not recommend EEG, MRI w/ atrophy 2/2 chronic EtoH; signed off SI, Psychosis with auditory hallucinations: initially at [facility] for this. Psychiatry consulted. - await decision on need to return to inpatient psychiatric facility - if attempting to leave, will place on medical hold - medically stable for discharge to inpatient psychiatric facility if this is felt necessary by the psychiatry team. Appreciate their recs, decreased ativan from TID to BID dosing on 12/13, per psych, they are trying to see if we can take him of ativan, the gaol would be to taper off. S/p Acute hypoxic respiratory insufficiency O2 dropped to 50s while sleeping. Suspect this is d/t sedation from ativan, atelectasis as seen on CXR - Incentive spirometry, as pt able - now on room air. Hyponatremia, resolved Reported Failure to Thrive Pt not eating originally, but unknown for how long, or any other information. Now improved. - Nutrition consulted: ONS TID, regular diet, continue with vitamins Transaminitis: AST 63 initially, likely d/t alcohol use. Improved to 43 HTN: Pt reportedly on norvasc at [facility], but current BP often low-normal. - stopped amlodipine. Can reconsider on followup Elevated Lipase: No current abdominal pain, so low concern for acute pancreatitis. Acute urinary retention, resolved Suspect d/t lack of moving. - passed voiding trial 12/10 - continue flomax Alcohol use disorder with withdrawal Last drink unknown time, but CIWA 14 on 12/05 - ~6 days since last drink, lower concern for EtOH withdrawal at this time and will discontinue CIWA protocol w/ PRNs - MVI, Folate, Thiamine Reported Chest pain Difficult to know accuracy of reported symptoms. No chest pain currently. Troponin negative. EKG without changes. - Consider stress test outpatient if pain recurs Anemia of chronic disease: iron levels wnl. Complexity. Obesity Body mass index is 36.24 kg/m . - Follow with PCP for dietary and lifestyle modifications. Alcohol Use With Withdrawal - Continue CIWA protocol, current CIWA score: 0 Any conditions listed below are present on admission unless otherwise specified. . DVT prophylaxis with lovenox Anticipated Disposition: TBD Code status is Full Code Interval History / Subjective No new complaints , agreeable with going to his sister on discharge Objective Temp: [97.9 F (36.6 C)-98.4 F (36.9 C)] 98.3 F (36.8 C) Pulse (Heart Rate): [82-98] 83 Resp Rate: [18-22] 18 BP: (147-194)/(78-98) 158/98 O2 Sat (%): [92 %-98 %] 92 % Physical Exam Gen: A, A, NAD ENT: MMM Resp: CTA bilat, normal effort Cardio: RRR, normal S1, S2, No SANTOS GI: S/NT/ND, NABS Psych: Ox3, appropriate affect and cognition Data Review WBC/Hgb/Hct/Plts: --/--/--/270 (12/15 340) Placement Plan Expected Discharge Date: 12/17/2023 Referred Level of Care: SNF Barriers: moderate suicide risk, accepting facility, payer source ( Medicaid), HENS/LOC, transport Current Referrals and Status 1. [facility] - Viewed 2. [facility] - Sent 3. [facility] - Sent 4. [facility] - Sent 5. [facility] - Sent 6. [facility] - Sent 7. [facility] - Sent 8. [facility] - Sent 9. [facility] - Sent 10. [facility] - Sent 11. [facility] - Sent 12. [facility] - Sent 13. [facility] - Sent 14. [facility] - Unavailable (Behavioral/mental health concerns) 15. [facility] - Unavailable (unable to accommodate requested clinical needs) 16. [facility] - Unavailable (no beds) SW reviewed SNF referrals, no accepting facilities at this time and many that have not responded at all to referral. Re-faxed referral to multiple facilities and also faxed referral to 7 additional facilities. Patient continues to be Moderate Suicide Risk at this time, most recent PT/OT AMPACs 18. SW to continue to monitor for the necessity/appropriateness of SNF placement. Per RN note, patient's sister advised that she has a space for patient to stay at her house and she does not feel patient requires SNF. FABRIZIO LVM for Salud Ma ([phone]) requesting call back to discuss potential of patient discharging home with her. ADDENDUM 2:30 pm FABRIZIO spoke with patient's sister Salud, who states she has spoken with patient about potentially discharging to her house ([place]). Salud reports that she works from home and has an extra room that she can set-up for patient. Salud with some inquiries regarding patient's insurance status and therapy needs, all questions answered. Salud would be able to assist with scheduling outpatient therapy potentially with [facility], [facility], or depending on who is able to work with patient's PE Medicaid and/or under mary jane assistance. Salud requests that therapy call her with updates regarding patient's care needs next time they work with him. Salud requests 1-2 days notice prior to discharge in order to make arrangements with patient's bedroom and to take time away from work. SW spoke with patient, patient undecided but willing to consider discharging to his sister's home temporarily. Patient ultimately would like to return to his own home and would like to visit his home in the interim to see the state of things. Patient with some inquiries regarding SNF, including whether or not he would have a shared bathroom and shared room. Social work answered all questions, advised that patient does not have an accepting facility at this time. SW to continue to follow as appropriate. Update provided to medical team. CATINA Nina, CAROL-S Lead 3Rd Grade Reading Teacher [facility] Medicine Progress Note Patient: Fish Cheung, : 1970, Impression / Plan Fish Cheung is a 53 y.o. male with no known past medical history, who was transferred from [facility], where he was admitted d/t SI from intentional ingestion of rat poison & psychosis, but was transferred to [facility] due to abnormal labs, and failure to thrive. Catatonia: - psychiatry following and has improved with ativan. Will continue Ativan TID for catatonia. S/p thiamine 500mg IV x3 days then oral tid x 5 days - collateral information obtained from sister. Pt has been poorly caring for himself for few months (approx 4 months, though very little contact with anyone in this time). Patient agreeable to have sister, Salud Ma, as his decision maker if necessary. - Syphilis, B12, folate, UA, UDS, normal/negative. - MRI Brain without acute abnormalities. Chronic small vessel disease and severe volume loss. - Neurology consulted per psychiatry recommendations to evaluate for other issues such as Wernicke's encephalopathy or seizures. Low suspicion for seizure and did not recommend EEG, MRI w/ atrophy 2/2 chronic EtoH; signed off SI, Psychosis with auditory hallucinations: initially at [facility] for this. Psychiatry consulted. - await decision on need to return to inpatient psychiatric facility - if attempting to leave, will place on medical hold - medically stable for discharge to inpatient psychiatric facility if this is felt necessary by the psychiatry team. Appreciate their recs, decreased ativan from TID to BID dosing on 12/13, per psych, they are trying to see if we can take him of ativan S/p Acute hypoxic respiratory insufficiency O2 dropped to 50s while sleeping. Suspect this is d/t sedation from ativan, atelectasis as seen on CXR - Incentive spirometry, as pt able - now on room air. Hyponatremia, resolved Reported Failure to Thrive Pt not eating originally, but unknown for how long, or any other information. Now improved. - Nutrition consulted: ONS TID, regular diet, continue with vitamins Transaminitis: AST 63 initially, likely d/t alcohol use. Improved to 43 HTN: Pt reportedly on norvasc at [facility], but current BP often low-normal. - stopped amlodipine. Can reconsider on followup Elevated Lipase: No current abdominal pain, so low concern for acute pancreatitis. Acute urinary retention, resolved Suspect d/t lack of moving. - passed voiding trial 12/10 - continue flomax Alcohol use disorder with withdrawal Last drink unknown time, but CIWA 14 on 12/05 - ~6 days since last drink, lower concern for EtOH withdrawal at this time and will discontinue CIWA protocol w/ PRNs - MVI, Folate, Thiamine Reported Chest pain Difficult to know accuracy of reported symptoms. No chest pain currently. Troponin negative. EKG without changes. - Consider stress test outpatient if pain recurs Anemia of chronic disease: iron levels wnl. Complexity. Obesity Body mass index is 36.24 kg/m . - Follow with PCP for dietary and lifestyle modifications. Alcohol Use With Withdrawal - Continue CIWA protocol, current CIWA score: 0 Any conditions listed below are present on admission unless otherwise specified. . DVT prophylaxis with lovenox Anticipated Disposition: TBD Code status is Full Code Interval History / Subjective Doing well, slept ok, no new complaints Objective Temp: [97.9 F (36.6 C)-99.1 F (37.3 C)] 97.9 F (36.6 C) Pulse (Heart Rate): [80-91] 82 Resp Rate: [18] 18 BP: (137-169)/(71-99) 150/90 O2 Sat (%): [92 %-97 %] 93 % Physical Exam Gen: A, A, NAD ENT: MMM Resp: CTA bilat, normal effort Cardio: RRR, normal S1, S2, No SANTOS GI: S/NT/ND, NABS Psych: Ox3, appropriate affect and cognition Data Review Reason for Consult: Discharge Planning Consulted By: Medical Team Level(s) of Care Discussed: SNF Patient and/or City Planning Teacher's Preferred Geographic Area for Discharge: [place], [place] Patient and/or City Planning Teacher's Preference for Providers to Include? 1.N/A Patient and/or City Planning Teacher's Preference for Providers to Exclude? 1.N/A Patient and/or City Planning Teacher's Discussion: SW discussed referral process with the patient and/or traveling sales representative. Patient and/or traveling sales representative is agreeable to have placement referral initiated. SW sent SNF referrals per Medical teams request. SW to ask weekend SW to get choice of facility. ALIREZA Escalona, NEIDA 3Rd Grade Reading Teacher- 11 [facility] Medicine Progress Note Patient: Fish Cheung, : 1970, Impression / Plan Fish Cheung is a 53 y.o. male with no known past medical history, who was transferred from [facility], where he was admitted d/t SI from intentional ingestion of rat poison & psychosis, but was transferred to [facility] due to abnormal labs, and failure to thrive. Catatonia: - psychiatry following and has improved with ativan. Will continue Ativan TID for catatonia. S/p thiamine 500mg IV x3 days then oral tid x 5 days - collateral information obtained from sister. Pt has been poorly caring for himself for few months (approx 4 months, though very little contact with anyone in this time). Patient agreeable to have sister, Salud Ma, as his decision maker if necessary. - Syphilis, B12, folate, UA, UDS, normal/negative. - MRI Brain without acute abnormalities. Chronic small vessel disease and severe volume loss. - Neurology consulted per psychiatry recommendations to evaluate for other issues such as Wernicke's encephalopathy or seizures. Low suspicion for seizure and did not recommend EEG, MRI w/ atrophy 2/2 chronic EtoH; signed off SI, Psychosis with auditory hallucinations: initially at [facility] for this. Psychiatry consulted. - await decision on need to return to inpatient psychiatric facility - if attempting to leave, will place on medical hold - medically stable for discharge to inpatient psychiatric facility if this is felt necessary by the psychiatry team. Appreciate their recs,decreasing ativan from TID to BID dosing S/p Acute hypoxic respiratory insufficiency O2 dropped to 50s while sleeping. Suspect this is d/t sedation from ativan, atelectasis as seen on CXR - Incentive spirometry, as pt able - now on room air. Hyponatremia, resolved Reported Failure to Thrive Pt not eating originally, but unknown for how long, or any other information. Now improved. - Nutrition consulted: ONS TID, regular diet, continue with vitamins Transaminitis: AST 63 initially, likely d/t alcohol use. Improved to 43 HTN: Pt reportedly on norvasc at [facility], but current BP often low-normal. - stopped amlodipine. Can reconsider on followup Elevated Lipase: No current abdominal pain, so low concern for acute pancreatitis. Acute urinary retention, resolved Suspect d/t lack of moving. - passed voiding trial 12/10 - continue flomax Alcohol use disorder with withdrawal Last drink unknown time, but CIWA 14 on 12/05 - ~6 days since last drink, lower concern for EtOH withdrawal at this time and will discontinue CIWA protocol w/ PRNs - MVI, Folate, Thiamine Reported Chest pain Difficult to know accuracy of reported symptoms. No chest pain currently. Troponin negative. EKG without changes. - Consider stress test outpatient if pain recurs Anemia of chronic disease: iron levels wnl. Complexity. Obesity Body mass index is 36.24 kg/m . - Follow with PCP for dietary and lifestyle modifications. Alcohol Use With Withdrawal - Continue CIWA protocol, current CIWA score: 0 Any conditions listed below are present on admission unless otherwise specified. . DVT prophylaxis with lovenox Anticipated Disposition: TBD Code status is Full Code Interval History / Subjective No new complaints today Objective Temp: [97.8 F (36.6 C)-99.5 F (37.5 C)] 98.7 F (37.1 C) Pulse (Heart Rate): [76-102] 96 Resp Rate: [16-18] 18 BP: (93-165)/(59-94) 93/59 O2 Sat (%): [90 %-96 %] 95 % Physical Exam Gen: A, A, NAD ENT: MMM Resp: CTA bilat, normal effort Cardio: RRR, normal S1, S2, No SANTOS GI: S/NT/ND, NABS Psych: Ox3, appropriate affect and cognition Data Review 12/14/23 1139 Safety Goals Warning Signs/Triggers (thoughts, images, mood and/or behaviors) that you experience when you start to think about suicide or feel extremely depressed Family, starts to question things Internal Coping Strategies-things I can do to take my mind off my problems without contacting another person Praying, yoga, passive karate People (family/friends) and social settings that provide distraction (Pt unable to identify support person) Professional organizations whom I can ask for help name/phone 1 Name Crisis hotline Phone 988 People whom I can ask for help (Pt claims family is a trigger. Unable to identify support.) Making the environment safe secure ALL medicines (including over the counter);take medications as directed (Pt stated most of his guns are locked in a safe he cannot get it. Pt is not agreeable with allowing anyone to take guns from home.) Safety Plan Completed Yes SW met with patient at bedside to complete safety plan. Patient was active when creating plan, but was unable to identify any personal or professional support. Patient reported having guns in the home that are locked in a safe, patient is not agreeable to allow any family or professional from taking guns from his home. SW discussed mental health resources with patient, patient agreeable with accepting resources. SW also answered questions regarding SNF and outpatient therapy. Patient is currently medicaid pending. Joann DOMINIQUE, FLAME GOUGER Easement Worker Acute Physical Therapy Treatment Prior Gross Functional Mobility: independent Current AM-PAC score(s): CURRENT AM-PAC Mobility Raw Score: 18 Based on the above AM-PAC score(s) and PT clinical judgment, patient is a good candidate for discharge to [facility] Barriers to discharge home: Patient needs assistance with functional mobility Mobility equipment available at home: none used ADL equipment available at home: none Equipment needed for discharge: 2 wheeled walker Current therapy frequency recommendation in acute: Therapy Frequency: 5 times a week Precautions and Weightbearing Status: Existing Precautions/Restrictions: fall Patient Safety Communication Prior to Visit: Nursing Subjective: Pt agreeable for therapy. Pt reports being out of bed this date. Pt sitting in chair. Pain: General Pain Documentation (Adult, OB, Peds) Presence of Pain: denies pain/discomfort Presence of Pain Score (Auto-calculated): 0 Objective/Observation: Vitals/Vitals Responses to Treatment: vss. Pt reports fatigue and weakness limiting activity. O2 Device: room air Cognition Overall Cognitive Status: Impaired Arousal/Alertness: Appropriate responses to stimuli Orientation Level: Oriented X4 Extremity Assessments: See PT Evaluation flowsheet for Extremity Measurement updates. Skin and Edema: Balance: Sitting Balance Static Sitting-Level of Assistance: Contact guard Dynamic Sitting-Level of Assistance: Contact guard Skilled Rationale: Positioning, Sequencing, Hand placement, Verbal cues, Technique of activity, Cues for increased safety, Energy conservation Standing Balance Static Standing-Level of Assistance: Contact guard Dynamic Standing-Level of Assistance: Contact guard Standing-Balance Support: Gait belt, 2 wheeled walker Skilled Rationale: Positioning, Sequencing, Hand placement, Technique of activity, Cues for increased safety, Energy conservation, Verbal cues Standing Balance Skilled Intervention/Details: x4 trials, 20 mins, sitting rest to complete Mobility Assessment/Intervention: Supine to Sit Mobility [place] Level: Supine->Sit: contact guard assist Bed Features/Set-up: Supine->Sit: Head of bed elevated, Use of bed rail Skilled Rationale: Positioning, Sequencing, Hand placement, Verbal cues, Demonstration, Technique of activity, Cues for increased safety Skilled Intervention/Details: Supine->Sit: to/from supine Transfer Assessment/Intervention: Sit to Stand Transfer [place] Level: Sit->Stand: contact guard assist Assistive Device: Sit->Stand: gait belt, 2 wheeled walker Skilled Rationale: Positioning, Sequencing, Hand placement, Technique of activity, Cues for increased safety, Energy conservation, Verbal cues Skilled Intervention/Details: Sit->Stand: to/from varied surfaces x6 trials Gait/Functional Mobility Assessment/Intervention: Gait Assessment Assistive Device: Gait: gait belt, 2 wheeled walker Ambulation Distance (Feet): 100 Gait Deviations Identified: decreased oh, decreased gait speed Gait Skilled Rationale: demonstration, upright posture, safety to avoid obstacles, hand placement on assistive device Stairs Assessment/Intervention: Outcome Score(s): CURRENT [facility] Basic Mobility Inpatient Short Form Turning over in bed: 4 - No Assistance Moving from lying on back to sittin - A Little Assistance Moving to and from bed to chair: 3 - A Little Assistance Sitting/standing from chair: 3 - A Little Assistance Walk in hospital room: 3 - A Little Assistance Climbing 3-5 steps with a railin - A Lot of Assistance CURRENT [facility] Mobility Raw Score: 18 CURRENT [facility] Mobility Functional Limitation: 46.58% Impaired in Basic Mobility Interventions: Assessment & Plan: Today's PT treatment session focused on: Strength, Balance, Transfers, Gait/Locomotion, Aerobic capacity/endurance. Pt demonstrates progression towards goals and PT POC adjusted to allow for progression. At this time, patient's deficits that contribute to impaired functional mobility include: Increased fall risk, Decreased functional mobility. Pt would benefit from continued skilled PT to address noted deficits,improve safe functional mobility and return to prior level of function. Learners: Patient Education provided: Compensatory strategies, Fall precautions, Role of this discipline Teaching method: Verbal Education/Instruction Learner response: Needs review Learning considerations: Cognition Plan for next session: progress activity tolerance and progress functional gait/balance Home Setting Residence: House Lives With: alone First floor setup: bedroom, tub shower Mobility Equipment Available: none used ADL Equipment Available: none Home Environment Details: Pt is a questionable historian Previous Level of Function Gross Functional Mobility: independent Assistive Device: none used Prior level ADL Overview: Independent with all ADLs Bed Mobility: independent Transfers: independent Ambulation: independent with home Prior Level of Function Details: Pt reports family does not live near Acute PT Goals Plan of Care by Marilu Faria PT at 12/14/2023 10:00 AM Version 1 of 1 Problem: PT - General Goals Goal: Pt will perform bed mobility within precautions at independence in order to improve functional mobility and safety. Outcome: Progressing Goal: Pt will perform transfers within precautions with independence with without an assistive device in order to improve functional mobility and safety. Outcome: Progressing Goal: Pt will ambulate 100 feet within precautions with least restrictive device at independence to improve ability to navigate home environment. Outcome: Progressing PT treatment consisted of the following to progress towards the above goal(s): PT Evaluation and Treatment Time Therapeutic Activity Time Entry: 10 Gait Training Time Entry: 15 Treating Therapist: Marilu Faria PT Additional Details: PPE used during patient interaction: gloves Patient location at end of session: chair Alarms on at end of session: RN aware Needs in reach. Time In: 1000 Time Out: 1025 Total Visit Time: 25 minutes Total Treatment Time (skilled, billable minutes): 24 minutes Upon discontinuation of Acute Care Physical Therapy Services or patient discharge from the hospital this note represents the current Physical Therapy Discharge Summary. [facility] Medicine Progress Note Patient: Fish Cheung, : 1970, Impression / Plan Fish Cheung is a 53 y.o. male with no known past medical history, who was transferred from [facility], where he was admitted d/t SI from intentional ingestion of rat poison & psychosis, but was transferred to [facility] due to abnormal labs, and failure to thrive. Catatonia: - psychiatry following and has improved with ativan. Will continue Ativan TID for catatonia. S/p thiamine 500mg IV x3 days then oral tid x 5 days - collateral information obtained from sister. Pt has been poorly caring for himself for few months (approx 4 months, though very little contact with anyone in this time). Patient agreeable to have sister, Salud Ma, as his decision maker if necessary. - Syphilis, B12, folate, UA, UDS, normal/negative. - MRI Brain without acute abnormalities. Chronic small vessel disease and severe volume loss. - Neurology consulted per psychiatry recommendations to evaluate for other issues such as Wernicke's encephalopathy or seizures. Low suspicion for seizure and did not recommend EEG, MRI w/ atrophy 2/2 chronic EtoH; signed off SI, Psychosis with auditory hallucinations: initially at [facility] for this. Psychiatry consulted. - await decision on need to return to inpatient psychiatric facility - if attempting to leave, will place on medical hold - medically stable for discharge to inpatient psychiatric facility if this is felt necessary by the psychiatry team. Appreciate their recs S/p Acute hypoxic respiratory insufficiency O2 dropped to 50s while sleeping. Suspect this is d/t sedation from ativan, atelectasis as seen on CXR - Incentive spirometry, as pt able - now on room air. Hyponatremia, resolved Reported Failure to Thrive Pt not eating originally, but unknown for how long, or any other information. Now improved. - Nutrition consulted: ONS TID, regular diet, continue with vitamins Transaminitis: AST 63 initially, likely d/t alcohol use. Improved to 43 HTN: Pt reportedly on norvasc at [facility], but current BP often low-normal. - stopped amlodipine. Can reconsider on followup Elevated Lipase: No current abdominal pain, so low concern for acute pancreatitis. Acute urinary retention, resolved Suspect d/t lack of moving. - passed voiding trial 12/10 - continue flomax Alcohol use disorder with withdrawal Last drink unknown time, but CIWA 14 on 12/05 - ~6 days since last drink, lower concern for EtOH withdrawal at this time and will discontinue CIWA protocol w/ PRNs - MVI, Folate, Thiamine Reported Chest pain Difficult to know accuracy of reported symptoms. No chest pain currently. Troponin negative. EKG without changes. - Consider stress test outpatient if pain recurs Anemia of chronic disease: iron levels wnl. Complexity. Obesity Body mass index is 36.24 kg/m . - Follow with PCP for dietary and lifestyle modifications. Alcohol Use With Withdrawal - Continue CIWA protocol, current CIWA score: 0 Any conditions listed below are present on admission unless otherwise specified. . DVT prophylaxis with lovenox Anticipated Disposition: TBD Code status is Full Code Interval History / Subjective Was crying because he is worried he does not have medcaid Objective Temp: [97.5 F (36.4 C)-98.4 F (36.9 C)] 97.5 F (36.4 C) Pulse (Heart Rate): [82-97] 91 Resp Rate: [16-18] 18 BP: (119-181)/(57-114) 119/69 O2 Sat (%): [90 %-95 %] 93 % Physical Exam Gen: A, A, NAD ENT: MMM Resp: CTA bilat, normal effort Cardio: RRR, normal S1, S2, No SANTOS GI: S/NT/ND, NABS Psych: Ox3, appropriate affect and cognition Data Review WBC/Hgb/Hct/Plts: --/--/--/217 (12/13 223) Acute Occupational Therapy Evaluation Prior Gross Functional Mobility: independent Current AM-PAC score(s): CURRENT AM-PAC Activity Raw Score: 19 Based on the above AM-PAC score(s) and OT clinical judgment, discharge destination recommendation is: [facility] Barriers to discharge home: Cognitive impairments that impact safety (see note below), Lack of supervision necessary to mitigate fall risk, Patient needs assistance with ADLs, Patient needs assistance with IADLs (see note below), Patient needs assistance with medication management, Patient needs assistance with functional mobility Mobility equipment available at home: none used ADL equipment available at home: none Equipment recommendations for discharge: to be determined Current therapy frequency recommendation(s) in acute: 5 times a week Precautions and Weightbearing Status: OT Existing Precautions/Restrictions: fall No critical lines at this time Patient Safety Communication Prior to Visit: Nursing Subjective: Pt agreeable to session, says they have had him work with a walker but does not intend to use one at home. Pain: General Pain Documentation (Adult, OB, Peds) Presence of Pain: denies pain/discomfort Presence of Pain Score (Auto-calculated): 0 Home Setting Residence: House Lives With: alone First floor setup: bedroom, tub shower Mobility Equipment Available: none used ADL Equipment Available: none Home Environment Details: Pt is a questionable historian Previous Level of Function Gross Functional Mobility: independent Assistive Device: none used Prior level ADL Overview: Independent with all ADLs Bed Mobility: independent Transfers: independent Ambulation: independent with home Prior Level of Function Details: Pt reports family does not live near Objective/Observation: Vitals/Vitals Responses to Treatment: no adverse reaction to session O2 Device: room air Vision Screen Currently wearing corrective lenses: No Visual Impairments Observed?: No Speech Speech: no gross deficits noted Hearing Hearing: no gross deficits noted Cognition Overall Cognitive Status: Impaired Arousal/Alertness: Appropriate responses to stimuli Orientation Level: Oriented to person, Oriented to place, Oriented to time Following Commands: Follows one step commands without difficulty, Follows multistep commands with increased time, Follows multistep commands with repetition Safety Judgment: Decreased awareness of need for assistance, Decreased awareness of need for safety Awareness of Errors: Assistance required to identify errors made, Assistance required to correct errors made Deficits: Decreased awareness of deficits Attention Span: Appears intact (higher level attention deficits) Memory: Decreased short term memory Problem Solving: Assistance required to identify errors made, Assistance required to generate solutions, Assistance required to implement solutions Cognition Comments: Score 14 on MOCA, see details in outcomes below. ADLs: ADL Assessment: LE Dressing Deficit, Grooming Deficit, Eating Deficit ADL Anticipated Performance (ADLs not directly observed this session): Bathing, UE Dressing, Toileting Eating Assistance: Independent Grooming Assistance: Set up supervision Grooming Location: edge of bed Bathing Assistance: Minimal UE Dressing Assistance: Set up supervision LE Dressing Assistance: Contact guard assist LE Dressing Location: edge of bed, standing LE Dressing Deficit: Activity tolerance, Generalized weakness, Balance, Follows safety/precautions, Problem solving, Increased time to complete LE Dressing Skilled Rationale (Verbal/Tactile/Visual/Demonstrati on): Cues for increased safety, Facilitate positioning, Technique of activity LE Dressing Intervention/Details: Dons socks and underwear. Toilet Assistance: Contact guard assist Extremity Assessments: RUE Assessment RUE Assessment: Within Functional Limits LUE Assessment LUE Assessment: Within Functional Limits Balance: Sitting Balance Static Sitting-Level of Assistance: Independent Dynamic Sitting-Level of Assistance: Independent Standing Balance Static Standing-Level of Assistance: Contact guard Dynamic Standing-Level of Assistance: Contact guard, Minimum assistance Standing-Balance Support: Gait belt Neuro: Sensation Overall Sensation: Intact Mobility Assessment: Supine to Sit Mobility [place] Level: Supine->Sit: supervision Bed Features/Set-up: Supine->Sit: Head of bed elevated, Use of bed rail Transfer Assessment: Sit to Stand Transfer [place] Level: Sit->Stand: contact guard assist Assistive Device: Sit->Stand: gait belt Skilled Intervention/Details: Sit->Stand: From EOB. Stand to Sit Transfer [place] Level: Stand->Sit: contact guard assist Assistive Device: Stand->Sit: gait belt, armed chair Functional Mobility: Functional Mobility [place] Level: Functional Mobility/Gait: minimum assist (75% patient effort) Assistive Device: Functional Mobility/Gait: gait belt, hand held assist Ambulation Distance (Feet): 40 Functional Mobility Deficits: Balance, Follow safety/precautions, Generalized weakness, Way finding Functional Mobility Skilled Rationale: Cues for increased safety, Facilitate postural control, Facilitate positioning, Hand placement, Technique of activity, Verbal cues Skilled Intervention/Details - Functional Mobility/Gait: Intermittent use of hallway rails and reaching for furniture Outcome Score(s): MOCA Pt participated in the [place] Cognitive Assessment (MOCA), which is a standardized assessment used to measure a variety of cognitive skills including visuospatial/executive, naming, memory, attention, language, abstraction, delayed recall, and orientation. The results of this test are used as a reference tool to determine a pt's current cognitive level of functioning. Pt scored 14/30 points indicating there is moderate (10-17) cognitive impairment (Normal > 26/30). Score details as follows: MOCA Visuospatial/Executive: 1 Namin Attention - Digit Span: 1 Attention - Vigilance Letters: 1 Attention - Serial 7's: 0 Language - Sentence Repitition: 0 Language - Verbal Fluency: 0 Abstraction: 1 Delayed Recall: 2 Orientation: 4 MOCA Total Score: 13 Level of education: less than or equal to 12th grade education MOCA Adjusted Education Score: 14 Memory Index Score (MIS; sub-score): 8/15 (delayed recall spontaneously x1, with category cue x1, with multiple choice x3) CURRENT [facility] Daily Activity Inpatient Short Form Putting on/Taking Off Lower Body Clothin - A Little Assistance Bathin - A Little Assistance Toiletin - A Little Assistance Putting on/Taking Off Upper Body Clothin - A Little Assistance Groomin - A Little Assistance Eatin - No Assistance CURRENT [facility] Activity Raw Score: 19 CURRENT [facility] Activity Functional Limitation/Modifier: 42.80% Currently Impaired in Daily Activity - CK Assessment & Plan: Patient was admitted for abnormal labs, failure to thrive, psychosis and seen for therapy evaluation related to cognition and functional deficits limiting safety/independence with occupational performance. Exam findings include impairments in: cognitive impairments, attention, balance, endurance, strength, transfers. These impairments contribute to occupational performance limitations including bathing, dressing, grooming, toileting, functional mobility, ADL transfers, community integration, home management tasks. Patient will benefit from skilled occupational therapy to address these impairments, occupational performance limitations, and participation restrictions. Patient's rehab potential is: good. Planned Therapy Interventions (OT Eval): ADL retraining, IADL retraining, balance training, cognitive training, functional activity tolerance, strengthening, transfer training Patient Instruction/Education this session: Learners: Patient Education provided: Activity outside of therapy, Plan of care, Role of this discipline, Safety, Gait training safety Teaching method: Verbal Education/Instruction Learner response: Needs review Learning considerations: Cognition, Psychosocial Plan for next session: OOB ADLs, dynamic balance, functional cognition Acute OT Goals Plan of Care by Kaye Rabago OT at 12/13/2023 10:24 AM Version 1 of 1 Problem: OT - ADLs Goal: Toileting - Patient will complete toileting task with modified independence and adaptive equipment as needed for improved ability to safely complete self-care activities. Outcome: Ongoing Goal: Bathing - Patient will perform full body bathing routine with modified independence for improved ability to complete self-care activities Outcome: Ongoing Problem: OT - Balance Goal: Balance - Standing - Patient will perform 10 minutes of functional task in standing with modified independence and good balance to promote safety and improved balance required for self-care activities. Outcome: Ongoing Problem: OT - Endurance Goal: Endurance Functional Mobility - Patient will complete distance needed for common household mobility with modified independence for improved tolerance to safely complete I/ADL's Outcome: Ongoing Problem: OT - Cognition Goal: Cognition Simple ADL - Patient will demonstrate improved cognition, completing simple ADL task for 10 minutes with no greater than min cues required to maintain attention. Outcome: Ongoing Goal: Cognition Home Maintenance - Patient will complete simulated home maintenance task: medication management with moderate assistance and 100% accuracy. Outcome: Ongoing Goal: Safety - Patient will demonstrate good safety awareness during ADL routine with min or less cues for accuracy. Outcome: Ongoing OT treatment consisted of the following to work and progress towards the above goal(s): OT Evaluation and Treatment Time OT Evaluation (Moderate) Time Entry: 14 Evaluating Therapist: Kaye Rabago OT Additional Details: OT Co-Eval/Treatment Information Co-evaluation/co-treatment performed?: No simultaneous skilled care performed OT Evaluation Complexity Occupational Profile and Client History: Moderate - expanded history Assessment of Occupational Performance: Moderate (3-5 performance deficits) Clinical Decision/Performance Deficits: Moderate (detailed assessments w/several treatment options) Time In: 0950 Time Out: 1024 Total Visit Time: 34 minutes Total Treatment Time (skilled, billable minutes): 34 minutes PPE used during patient interaction: gloves Patient location at end of session: chair Alarms on at end of session: chair alarm Needs in reach. Upon discontinuation of Acute Care Occupational Therapy Services or patient discharge from the hospital this note represents the current Occupational Therapy Discharge Summary. Acute Care Speech Therapy Screen Note ? FOREIGN STUDENT ADVISER speech/language/cognitive consult received and chart review completed this date. Pt is admitted from [facility] (where he was admitted d/t SI from intentional ingestion of rat poison and psychosis), transferred to [facility] for abnormal labs and failure to thrive, current concern for catatonia. Head imaging is non-acute (please see MRI and CT imaging for further details.) Per chart review pt has catatonia, and psychosis with auditory hallucinations which may be related to psychiatric factors versus true change in cognitive-linguistic function. Given acute diagnoses do not warrant concern for neurologic change in cognitive function, suspect cognition will improve as psychiatric factors resolve. Therefore, skilled FOREIGN STUDENT ADVISER evaluation and services are not warranted at this time. FOREIGN STUDENT ADVISER will complete consult. If there is concern for underlying chronic cognitive-linguistic deficits may consider outpatient consult to neurocognitive clinic in order for assessment to be completed once metabolic factors have cleared. Time in: 753 Time out: 753 Speech-Language Pathologist Pooja Chinchilla MA, [facility]3]-FOREIGN STUDENT ADVISER License: [id number] [facility] Medicine Progress Note Patient: Fish Cheung, : 1970, Impression / Plan Fish Cheung is a 53 y.o. male with no known past medical history, who was transferred from [facility], where he was admitted d/t SI from intentional ingestion of rat poison & psychosis, but was transferred to [facility] due to abnormal labs, and failure to thrive. Catatonia: - psychiatry following and has improved with ativan. Will continue Ativan TID for catatonia. S/p thiamine 500mg IV x3 days then oral tid x 5 days - collateral information obtained from sister. Pt has been poorly caring for himself for few months (approx 4 months, though very little contact with anyone in this time). Patient agreeable to have sister, Salud Ma, as his decision maker if necessary. - Syphilis, B12, folate, UA, UDS, normal/negative. - MRI Brain without acute abnormalities. Chronic small vessel disease and severe volume loss. - Neurology consulted per psychiatry recommendations to evaluate for other issues such as Wernicke's encephalopathy or seizures. Low suspicion for seizure and did not recommend EEG, MRI w/ atrophy 2/2 chronic EtoH; signed off SI, Psychosis with auditory hallucinations: initially at [facility] for this. Psychiatry consulted. - await decision on need to return to inpatient psychiatric facility - if attempting to leave, will place on medical hold - medically stable for discharge to inpatient psychiatric facility if this is felt necessary by the psychiatry team. S/p Acute hypoxic respiratory insufficiency O2 dropped to 50s while sleeping. Suspect this is d/t sedation from ativan, atelectasis as seen on CXR - Incentive spirometry, as pt able - now on room air. Hyponatremia, resolved Reported Failure to Thrive Pt not eating originally, but unknown for how long, or any other information. Now improved. - Nutrition consulted: ONS TID, regular diet, continue with vitamins Transaminitis: AST 63 initially, likely d/t alcohol use. Improved to 43 HTN: Pt reportedly on norvasc at [facility], but current BP often low-normal. - stopped amlodipine. Can reconsider on followup Elevated Lipase: No current abdominal pain, so low concern for acute pancreatitis. Acute urinary retention, resolved Suspect d/t lack of moving. - passed voiding trial 12/10 - continue flomax Alcohol use disorder with withdrawal Last drink unknown time, but CIWA 14 on 12/05 - ~6 days since last drink, lower concern for EtOH withdrawal at this time and will discontinue CIWA protocol w/ PRNs - MVI, Folate, Thiamine Reported Chest pain Difficult to know accuracy of reported symptoms. No chest pain currently. Troponin negative. EKG without changes. - Consider stress test outpatient if pain recurs Anemia of chronic disease: iron levels wnl. DVT prophylaxis with Lovenox Anticipated Disposition: Anticipate likely inpatient psych. Spoke to sister who gave collateral data. Code status is Full Code Interval History / Subjective Seen at bed no acute complaints, urinating well, had BM this morning. Objective Temp: [97.8 F (36.6 C)-99.1 F (37.3 C)] 98.3 F (36.8 C) Pulse (Heart Rate): [80-93] 81 Resp Rate: [16] 16 BP: (84-168)/(53-97) 120/62 O2 Sat (%): [91 %-95 %] 93 % Physical Exam Gen: NAD, lying in bed ENT: MMM Resp: CTA bilat, normal effort Cardio: RRR, normal S1, S2, No SANTOS GI: S/NT/ND, NABS Data Review [facility] Medicine Progress Note Patient: Fish Cheung, : 1970, Impression / Plan Fish Cheung is a 53 y.o. male with no known past medical history, who was transferred from [facility], where he was admitted d/t SI from intentional ingestion of rat poison & psychosis, but was transferred to [facility] due to abnormal labs, and failure to thrive. Catatonia: - psychiatry following and has improved with ativan. Will continue Ativan TID for catatonia. S/p thiamine 500mg IV x3 days then oral tid x 5 days - collateral information obtained from sister. Pt has been poorly caring for himself for few months (approx 4 months, though very little contact with anyone in this time). Patient agreeable to have sister, Salud Ma, as his decision maker if necessary. - Syphilis, B12, folate, UA, UDS, normal/negative. - MRI Brain without acute abnormalities. Chronic small vessel disease and severe volume loss. - Neurology consulted per psychiatry recommendations to evaluate for other issues such as Wernicke's encephalopathy or seizures. SI, Psychosis with auditory hallucinations: initially at [facility] for this. Psychiatry consulted. - await decision on need to return to inpatient psychiatric facility - if attempting to leave, will place on medical hold - medically stable for discharge to inpatient psychiatric facility if this is felt necessary by the psychiatry team. S/p Acute hypoxic respiratory insufficiency O2 dropped to 50s while sleeping. Suspect this is d/t sedation from ativan, atelectasis as seen on CXR - Incentive spirometry, as pt able - now on room air. Hyponatremia, resolved Reported Failure to Thrive Pt not eating originally, but unknown for how long, or any other information. Now improved. - Nutrition consulted: ONS TID, regular diet, continue with vitamins Transaminitis: AST 63 initially, likely d/t alcohol use. Improved to 43 HTN: Pt reportedly on norvasc at [facility], but current BP often low-normal. - stopped amlodipine. Can reconsider on followup Elevated Lipase: No current abdominal pain, so low concern for acute pancreatitis. Acute urinary retention Suspect d/t lack of moving. Added flomax and try to do voiding trial today. If fails, will have bansal catheter replaced and referral to voiding clinic. Alcohol use disorder with withdrawal Last drink unknown time, but CIWA 14 on 12/05 - Continue CIWA protocol w/ prn ativan - MVI, Folate, Thiamine Reported Chest pain Difficult to know accuracy of reported symptoms. No chest pain currently. Troponin negative. EKG without changes. - Consider stress test outpatient if pain recurs Anemia of chronic disease: iron levels wnl. DVT prophylaxis with Lovenox Anticipated Disposition: Anticipate likely inpatient psych. Spoke to sister who gave collateral data. Code status is Full Code Interval History / Subjective No new issues. Patient denies shortness of breath, chest pain, headache, abdominal pain or nausea. Reports BM this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 Outcome: Progressing Goal: Bathing - Patient will perform full body bathing routine with modified independence for improved ability to complete self-care activities Outcome: Progressing Problem: OT - Balance Goal: Balance - Standing - Patient will perform 10 minutes of functional task in standing with modified independence and good balance to promote safety and improved balance required for self-care activities. Outcome: Progressing Problem: OT - Endurance Goal: Endurance Functional Mobility - Patient will complete distance needed for common household mobility with modified independence for improved tolerance to safely complete I/ADL's Outcome: Progressing Problem: OT - Cognition Goal: Cognition Simple ADL - Patient will demonstrate improved cognition, completing simple ADL task for 10 minutes with no greater than min cues required to maintain attention. Outcome: Progressing Goal: Safety - Patient will demonstrate good safety awareness during ADL routine with min or less cues for accuracy. Outcome: Progressing 12/17/23 0954 Patient Choice for Post-Acute Providers Resumption of care? No Establishing care? Yes Level of care for choice DME (2 Wheeled Walker) Preferred geographic region Discussed and honored ([facility] Medical [facility]/[employer]) Source of list Aidin List was provided to Patient Method of delivery In Person Is the provider part of a joint venture or have a financial relationship with discharging hospital? Yes Was the patient notified of financial relationship? Yes 1430: 2 wheeled walker delivered to patient at bedside by [employer]. 1440: CM received message from medical team to link patient to [facility] with [facility] close to his sister's residence. CM called [facility] to schedule an appointment, but they need patient and family to make that initial appointment. CM provided information to schedule the appointment in patient's AVS. Osman MOSHER (Ed) RN Clinical Sharples Machine Operator Problem: PT - General Goals Goal: Pt will perform bed mobility within precautions at independence in order to improve functional mobility and safety. Outcome: Ongoing Goal: Pt will perform transfers within precautions with independence with without an assistive device in order to improve functional mobility and safety. Outcome: Ongoing Goal: Pt will ambulate 100 feet within precautions with least restrictive device at independence to improve ability to navigate home environment. Outcome: Ongoing Problem: Adult Inpatient Plan of Care Goal: Plan of Care Review Outcome: Progressing Goal: Patient-Specific Goal (Individualized) Outcome: Progressing Goal: Absence of Hospital-Acquired Illness or Injury Outcome: Progressing Goal: Optimal Comfort and Wellbeing Outcome: Progressing Goal: Readiness for Transition of Care Outcome: Progressing Problem: Adult Inpatient Plan of Care Goal: Plan of Care Review Outcome: Progressing Goal: Patient-Specific Goal (Individualized) Outcome: Progressing Goal: Absence of Hospital-Acquired Illness or Injury Outcome: Progressing Goal: Optimal Comfort and Wellbeing Outcome: Progressing Spoke with patient's sister over the phone. She is requesting a call from case management as she is confused to why he is discharge planning is a residential facility. She states if it is because he is unable to live by himself, she has space at her house for him Problem: PT - General Goals Goal: Pt will perform bed mobility within precautions at independence in order to improve functional mobility and safety. Outcome: Progressing Goal: Pt will perform transfers within precautions with independence with without an assistive device in order to improve functional mobility and safety. Outcome: Progressing Goal: Pt will ambulate 100 feet within precautions with least restrictive device at independence to improve ability to navigate home environment. Outcome: Progressing Problem: OT - ADLs Goal: Toileting - Patient will complete toileting task with modified independence and adaptive equipment as needed for improved ability to safely complete self-care activities. Outcome: Ongoing Goal: Bathing - Patient will perform full body bathing routine with modified independence for improved ability to complete self-care activities Outcome: Ongoing Problem: OT - Balance Goal: Balance - Standing - Patient will perform 10 minutes of functional task in standing with modified independence and good balance to promote safety and improved balance required for self-care activities. Outcome: Ongoing Problem: OT - Endurance Goal: Endurance Functional Mobility - Patient will complete distance needed for common household mobility with modified independence for improved tolerance to safely complete I/ADL's Outcome: Ongoing Problem: OT - Cognition Goal: Cognition Simple ADL - Patient will demonstrate improved cognition, completing simple ADL task for 10 minutes with no greater than min cues required to maintain attention. Outcome: Ongoing Goal: Cognition Home Maintenance - Patient will complete simulated home maintenance task: medication management with moderate assistance and 100% accuracy. Outcome: Ongoing Goal: Safety - Patient will demonstrate good safety awareness during ADL routine with min or less cues for accuracy. Outcome: Ongoing Problem: Adult Inpatient Plan of Care Goal: Plan of Care Review Outcome: Progressing Goal: Patient-Specific Goal (Individualized) Outcome: Progressing Goal: Absence of Hospital-Acquired Illness or Injury Outcome: Progressing Goal: Optimal Comfort and Wellbeing Outcome: Progressing Moved patient to 1111b BEHAVIORAL EMERGENCY RESPONSE TEAM (CANDI) RN NOTE 12/11/2023 Fish Cheung : 1970 Called by bedside RN requesting a deck of playing cards and a word search for patient. This RN and CANDI RN Irena came to unit where patient was observed sleeping at this time. Did not disturb. Items left at bedside. CANDI is available [phone] Yeimi Ely RN- CANDI Pager: [phone] CANDI Phone: [phone] Images from the original note were not included. WOC/ET Nursing Consult/Evaluation Note Evaluated Fish Cheung for wounds located on bilateral legs Description of wound: Bilateral knees: Patient initially sitting on EOB, though agreeable to assessment and independently lifted legs into bed for assessment. Bilateral knees with open wounds, pink and moist, left leg with larger wound. Scattered dry abrasions. Small amount of serosanguineous drainage noted, no odor. Wound and surrounding skin cleansed with sterile saline. Covered with small hydrofera blue border dressing. Recommend changing twice weekly and PRN. Concern for possible psoriasis plaques to bilateral legs near ankles; no listed history. Patient does report itching. Recommend considering dermatology consult while inpatient for assessment and treatment recommendations. Please re-consult for further concerns. Recommendation: 1) Bilateral knees: Mondays, , and PRN, cleanse with sterile saline. Cover with small hydrofera blue border dressing. Optimize nutrition to improve skin and wound outcomes. Increase protein intake as tolerated. Consider supplemental zinc, vitamin C (or multivitamin) to promote wound healing. Bed Surface: Standard mattress Discharge Recommendations: Patient may continue care as described above at discharge. See image(s) below: Pilo Skin Assessment: Pilo Risk Assessment Sensory Perception: 3-->slightly limited Moisture: 3-->occasionally moist Activity: 3-->walks occasionally Mobility: 3-->slightly limited Nutrition: 3-->adequate Friction and Shear: 3-->no apparent problem Pilo Score: 18 Pilo Score: Pilo Score: 18 Body mass index is 36.24 kg/m . Total time spent in assessment and treatment of patient: 30 minutes LABS: Albumin Date Value Ref Range Status 12/11/2023 3.8 3.5 - 5.0 g/dL Final No results found for: PREALBUMIN Wound Documentation: 12/11/23 1605 Wound Skin Tear 12/07/232299 Anterior;Right Knee Date First Assessed/Time First Assessed: 12/07/232299 Primary Wound Type: Skin Tear Present on Original Admission: Yes Wound Location Orientation: Anterior;Right Location: Knee Wound Image Dressing Status Changed/New Assessment Granulating;Moist;[place] Lora-Wound Assessment Intact Wound Length (cm) 1 cm Wound Width (cm) 1 cm Wound Surface Area (cm^2) 1 cm^2 Drainage Amount Small Drainage Characteristics/Odor Serosanguinous;No Odor Treatment Applied saline, irrigated/cleansed with $$ Dressing Applied hydrofera blue Date Dressing Changed 12/11/23 Wound Skin Tear 12/07/232299 Anterior;Left Knee Date First Assessed/Time First Assessed: 12/07/232299 Primary Wound Type: Skin Tear Present on Original Admission: Yes Wound Location Orientation: Anterior;Left Location: Knee Wound Image Dressing Status Changed/New Assessment Granulating;Moist;[place] Lora-Wound Assessment Intact Wound Length (cm) 3 cm Wound Width (cm) 4 cm Wound Surface Area (cm^2) 12 cm^2 Drainage Amount Small Drainage Characteristics/Odor Serosanguinous $$ Dressing Applied hydrofiber Date Dressing Changed 12/11/23 Plan Problem chronic wound;leg ulcer Current Plan Hydrofiber Visit Type Consult with RN;Consult with Provider Supportive Measures optimize nutrition WOCT Visit Frequency PRN Last Date Seen 12/11/23 No past medical history on file. No past surgical history on file. RN notified of assessment and plan. Please page #[phone] or reconsult with any further needs. Shirin Clark RN Problem: Oral Intake Inadequate Goal: Improved Oral Intake Outcome: Progressing Nutrition Recommendation and Plan of Care 1.Continue current diet order, regular; and encourage patient meal selections. 2. Will provide vanilla and chocolate Ensure Plus (350 kcal, 13-16g PRO each) TID with all meals 3.Continue MVI with minerals, folic acid, and thiamine per team's discretion. 4.Monitor weight and adherence to PO intake. 5.RD to follow. Problem: PT - General Goals Goal: Pt will perform bed mobility within precautions at independence in order to improve functional mobility and safety. Outcome: Progressing Goal: Pt will perform transfers within precautions with independence with without an assistive device in order to improve functional mobility and safety. Outcome: Progressing Goal: Pt will ambulate 100 feet within precautions with least restrictive device at independence to improve ability to navigate home environment. Outcome: Progressing Problem: PT - General Goals Goal: Pt will perform bed mobility within precautions at independence in order to improve functional mobility and safety. Outcome: Ongoing Goal: Pt will perform transfers within precautions with independence with without an assistive device in order to improve functional mobility and safety. Outcome: Ongoing Goal: Pt will ambulate 100 feet within precautions with least restrictive device at independence to improve ability to navigate home environment. Outcome: Ongoing Problem: Adult Inpatient Plan of Care Goal: Plan of Care Review Outcome: Progressing Goal: Patient-Specific Goal (Individualized) Outcome: Progressing Goal: Absence of Hospital-Acquired Illness or Injury Outcome: Progressing Goal: Optimal Comfort and Wellbeing Outcome: Progressing Goal: Readiness for Transition of Care Outcome: Progressing Bansal pulled. Catheter intact. Due to void Sister Salud given an update. 0705- notified that sitter order needs renewed 0726-- MD notified that pt is currently on continuous pulse ox but no orde; if she'd like that continued, will need an order. Also can you place a PT/OT consult? 1030- Asked MD to let this RN know when she rounds to discuss pysch recs- MD not able to round anytime soon. This RN inquired about psych's rec for pt to be mod SI. If MD agreeable- please place mod si order (dc high si) and dc sitter if appropriate. Thanks 1100- notified that sitter can't be stopped until orders are changed from High SI to Mod SI. 1300- Spoke with MD regarding suicide precaution orders. Restated if pt is to be mod SI, please order and dc high si orders. If remaining High SI, reorder sitter 1339- Spoke with MD on floor. MD to discontinue high SI orders. Pt now mod SI On admission to [facility], from ED a dual RN initial assessment of skin condition was performed by Briseida Serrano RN and Leah Win RN. Skin Assessment: Skin not within defined limits. - Wound(s) identified: Yes Unsure of patients ambulation status. Skin bruised and has scabs, skin tears and scars. Pilo Score: 17 LDA Added:Yes Briseida Serrano RN Patient was placed on 1-2L NC overnight due to desaturation while sleeping. Even while on oxygen he dropped to an oxygen saturation of 55%, his saturation returns to normal very quickly as soon as he is awakened. Overnight UTILITY SYSTEM OPERATOR made aware. I witnessed him pause his breathing, irregular breathing and snoring while asleep. Faxed request for records to [facility] [phone] from his recent admission. documented in this encounter [facility] 12-19-2023 Miscellaneous Notes Patient is discharging from [facility].Patient received AVS and this RN provided education. All questions answered at this time. Waiting on meds to bed. PIV removed. Patient's ride is on their way. Problem: Adult Inpatient Plan of Care Goal: Plan of Care Review Outcome: Completed Goal: Patient-Specific Goal (Individualized) Outcome: Completed Goal: Absence of Hospital-Acquired Illness or Injury Outcome: Completed Goal: Optimal Comfort and Wellbeing Outcome: Completed Goal: Readiness for Transition of Care Outcome: Completed Problem: Swallowing Impairment Goal: Optimal Eating/Swallowing without Aspiration Outcome: Completed Problem: PT - General Goals Goal: Pt will perform bed mobility within precautions at independence in order to improve functional mobility and safety. Outcome: Completed Goal: Pt will perform transfers within precautions with independence with without an assistive device in order to improve functional mobility and safety. Outcome: Completed Goal: Pt will ambulate 100 feet within precautions with least restrictive device at independence to improve ability to navigate home environment. Outcome: Completed Problem: Oral Intake Inadequate Goal: Improved Oral Intake Outcome: Completed Problem: OT - ADLs Goal: Toileting - Patient will complete toileting task with modified independence and adaptive equipment as needed for improved ability to safely complete self-care activities. Outcome: Completed Goal: Bathing - Patient will perform full body bathing routine with modified independence for improved ability to complete self-care activities Outcome: Completed Problem: OT - Balance Goal: Balance - Standing - Patient will perform 10 minutes of functional task in standing with modified independence and good balance to promote safety and improved balance required for self-care activities. Outcome: Completed Problem: OT - Endurance Goal: Endurance Functional Mobility - Patient will complete distance needed for common household mobility with modified independence for improved tolerance to safely complete I/ADL's Outcome: Completed Problem: OT - Cognition Goal: Cognition Home Maintenance - Patient will complete simulated home maintenance task: medication management with moderate assistance and 100% accuracy. Outcome: Completed Goal: Safety - Patient will demonstrate good safety awareness during ADL routine with min or less cues for accuracy. Outcome: Completed Problem: Adult Inpatient Plan of Care Goal: Plan of Care Review Outcome: Progressing Goal: Patient-Specific Goal (Individualized) Outcome: Progressing Goal: Absence of Hospital-Acquired Illness or Injury Outcome: Progressing Goal: Optimal Comfort and Wellbeing Outcome: Progressing Goal: Readiness for Transition of Care Outcome: Progressing Problem: Oral Intake Inadequate Goal: Improved Oral Intake Outcome: Progressing Nutrition Plan of Care 1.Continue current diet order, regular; and encourage patient meal selections. 2.Continue to monitor PO intake. 3.Will provide vanilla and chocolate Ensure Plus (350 kcal, 13-16g PRO each) TID with all meals. 4.Continue MVI with minerals, folic acid, and thiamine per team's discretion. 5.Nutrition to follow. Problem: OT - ADLs Goal: Bathing - Patient will perform full body bathing routine with modified independence for improved ability to complete self-care activities Outcome: Progressing Problem: OT - Balance Goal: Balance - Standing - Patient will perform 10 minutes of functional task in standing with modified independence and good balance to promote safety and improved balance required for self-care activities. Outcome: Progressing Problem: OT - Endurance Goal: Endurance Functional Mobility - Patient will complete distance needed for common household mobility with modified independence for improved tolerance to safely complete I/ADL's Outcome: Progressing Problem: OT - Cognition Goal: Safety - Patient will demonstrate good safety awareness during ADL routine with min or less cues for accuracy. Outcome: Progressing Problem: OT - Cognition Goal: Cognition Simple ADL - Patient will demonstrate improved cognition, completing simple ADL task for 10 minutes with no greater than min cues required to maintain attention. Outcome: Met Problem: PT - General Goals Goal: Pt will perform bed mobility within precautions at independence in order to improve functional mobility and safety. Outcome: Progressing Goal: Pt will perform transfers within precautions with independence with without an assistive device in order to improve functional mobility and safety. Outcome: Progressing Goal: Pt will ambulate 100 feet within precautions with least restrictive device at independence to improve ability to navigate home environment. Outcome: Progressing Patient blood pressure 190/[address] Chayito Valles notified. IV labetalol order. 1557: Patient blood pressure 193/108 MAP 144, HR 89 after IV labetalol given Dr. Chayito Valles notified. Problem: OT - ADLs Goal: Toileting - Patient will complete toileting task with modified independence and adaptive equipment as needed for improved ability to safely complete self-care activities. Outcome: Progressing Goal: Bathing - Patient will perform full body bathing routine with modified independence for improved ability to complete self-care activities Outcome: Progressing Problem: OT - Balance Goal: Balance - Standing - Patient will perform 10 minutes of functional task in standing with modified independence and good balance to promote safety and improved balance required for self-care activities. Outcome: Progressing Problem: OT - Endurance Goal: Endurance Functional Mobility - Patient will complete distance needed for common household mobility with modified independence for improved tolerance to safely complete I/ADL's Outcome: Progressing Problem: OT - Cognition Goal: Cognition Simple ADL - Patient will demonstrate improved cognition, completing simple ADL task for 10 minutes with no greater than min cues required to maintain attention. Outcome: Progressing Goal: Safety - Patient will demonstrate good safety awareness during ADL routine with min or less cues for accuracy. Outcome: Progressing 12/17/23 0954 Patient Choice for Post-Acute Providers Resumption of care? No Establishing care? Yes Level of care for choice DME (2 Wheeled Walker) Preferred geographic region Discussed and honored ([facility] Medical [facility]/[employer]) Source of list Aidin List was provided to Patient Method of delivery In Person Is the provider part of a joint venture or have a financial relationship with discharging hospital? Yes Was the patient notified of financial relationship? Yes 1430: 2 wheeled walker delivered to patient at bedside by [employer]. 1440: CM received message from medical team to link patient to [facility] with [facility] [email or web address] close to his sister's residence. CM called [facility] to schedule an appointment, but they need patient and family to make that initial appointment. CM provided information to schedule the appointment in patient's AVS. Osman MOSHER (Ed) RN Clinical Sharples Machine Operator Problem: PT - General Goals Goal: Pt will perform bed mobility within precautions at independence in order to improve functional mobility and safety. Outcome: Ongoing Goal: Pt will perform transfers within precautions with independence with without an assistive device in order to improve functional mobility and safety. Outcome: Ongoing Goal: Pt will ambulate 100 feet within precautions with least restrictive device at independence to improve ability to navigate home environment. Outcome: Ongoing Problem: Adult Inpatient Plan of Care Goal: Plan of Care Review Outcome: Progressing Goal: Patient-Specific Goal (Individualized) Outcome: Progressing Goal: Absence of Hospital-Acquired Illness or Injury Outcome: Progressing Goal: Optimal Comfort and Wellbeing Outcome: Progressing Goal: Readiness for Transition of Care Outcome: Progressing Problem: Adult Inpatient Plan of Care Goal: Plan of Care Review Outcome: Progressing Goal: Patient-Specific Goal (Individualized) Outcome: Progressing Goal: Absence of Hospital-Acquired Illness or Injury Outcome: Progressing Goal: Optimal Comfort and Wellbeing Outcome: Progressing Spoke with patient's sister over the phone. She is requesting a call from case management as she is confused to why he is discharge planning is a residential facility. She states if it is because he is unable to live by himself, she has space at her house for him Problem: PT - General Goals Goal: Pt will perform bed mobility within precautions at independence in order to improve functional mobility and safety. Outcome: Progressing Goal: Pt will perform transfers within precautions with independence with without an assistive device in order to improve functional mobility and safety. Outcome: Progressing Goal: Pt will ambulate 100 feet within precautions with least restrictive device at independence to improve ability to navigate home environment. Outcome: Progressing Problem: OT - ADLs Goal: Toileting - Patient will complete toileting task with modified independence and adaptive equipment as needed for improved ability to safely complete self-care activities. Outcome: Ongoing Goal: Bathing - Patient will perform full body bathing routine with modified independence for improved ability to complete self-care activities Outcome: Ongoing Problem: OT - Balance Goal: Balance - Standing - Patient will perform 10 minutes of functional task in standing with modified independence and good balance to promote safety and improved balance required for self-care activities. Outcome: Ongoing Problem: OT - Endurance Goal: Endurance Functional Mobility - Patient will complete distance needed for common household mobility with modified independence for improved tolerance to safely complete I/ADL's Outcome: Ongoing Problem: OT - Cognition Goal: Cognition Simple ADL - Patient will demonstrate improved cognition, completing simple ADL task for 10 minutes with no greater than min cues required to maintain attention. Outcome: Ongoing Goal: Cognition Home Maintenance - Patient will complete simulated home maintenance task: medication management with moderate assistance and 100% accuracy. Outcome: Ongoing Goal: Safety - Patient will demonstrate good safety awareness during ADL routine with min or less cues for accuracy. Outcome: Ongoing Problem: Adult Inpatient Plan of Care Goal: Plan of Care Review Outcome: Progressing Goal: Patient-Specific Goal (Individualized) Outcome: Progressing Goal: Absence of Hospital-Acquired Illness or Injury Outcome: Progressing Goal: Optimal Comfort and Wellbeing Outcome: Progressing Moved patient to 1111b BEHAVIORAL EMERGENCY RESPONSE TEAM (CANDI) RN NOTE 12/11/2023 Fish Cheung : 1970 Called by bedside RN requesting a deck of playing cards and a word search for patient. This RN and CANDI RN Irena came to unit where patient was observed sleeping at this time. Did not disturb. Items left at bedside. CANDI is available [id number] Yeimi Ely RN-[facility] Pager: [phone] CANDI Phone: [phone] Images from the original note were not included. WOC/ET Nursing Consult/Evaluation Note Evaluated Fish Cheung for wounds located on bilateral legs Description of wound: Bilateral knees: Patient initially sitting on EOB, though agreeable to assessment and independently lifted legs into bed for assessment. Bilateral knees with open wounds, pink and moist, left leg with larger wound. Scattered dry abrasions. Small amount of serosanguineous drainage noted, no odor. Wound and surrounding skin cleansed with sterile saline. Covered with small hydrofera blue border dressing. Recommend changing twice weekly and PRN. Concern for possible psoriasis plaques to bilateral legs near ankles; no listed history. Patient does report itching. Recommend considering dermatology consult while inpatient for assessment and treatment recommendations. Please re-consult for further concerns. Recommendation: 1) Bilateral knees: Mondays, , and PRN, cleanse with sterile saline. Cover with small hydrofera blue border dressing. Optimize nutrition to improve skin and wound outcomes. Increase protein intake as tolerated. Consider supplemental zinc, vitamin C (or multivitamin) to promote wound healing. Bed Surface: Standard mattress Discharge Recommendations: Patient may continue care as described above at discharge. See image(s) below: Pilo Skin Assessment: Pilo Risk Assessment Sensory Perception: 3-->slightly limited Moisture: 3-->occasionally moist Activity: 3-->walks occasionally Mobility: 3-->slightly limited Nutrition: 3-->adequate Friction and Shear: 3-->no apparent problem Pilo Score: 18 Pilo Score: Pilo Score: 18 Body mass index is 36.24 kg/m . Total time spent in assessment and treatment of patient: 30 minutes LABS: Albumin Date Value Ref Range Status 12/11/2023 3.8 3.5 - 5.0 g/dL Final No results found for: PREALBUMIN Wound Documentation: 12/11/23 1605 Wound Skin Tear 12/07/232299 Anterior;Right Knee Date First Assessed/Time First Assessed: 12/07/232299 Primary Wound Type: Skin Tear Present on Original Admission: Yes Wound Location Orientation: Anterior;Right Location: Knee Wound Image Dressing Status Changed/New Assessment Granulating;Moist;[place]-Wound Assessment Intact Wound Length (cm) 1 cm Wound Width (cm) 1 cm Wound Surface Area (cm^2) 1 cm^2 Drainage Amount Small Drainage Characteristics/Odor Serosanguinous;No Odor Treatment Applied saline, irrigated/cleansed with $$ Dressing Applied hydrofera blue Date Dressing Changed 12/11/23 Wound Skin Tear 12/07/232299 Anterior;Left Knee Date First Assessed/Time First Assessed: 12/07/232299 Primary Wound Type: Skin Tear Present on Original Admission: Yes Wound Location Orientation: Anterior;Left Location: Knee Wound Image Dressing Status Changed/New Assessment Granulating;Moist;[place]-Wound Assessment Intact Wound Length (cm) 3 cm Wound Width (cm) 4 cm Wound Surface Area (cm^2) 12 cm^2 Drainage Amount Small Drainage Characteristics/Odor Serosanguinous $$ Dressing Applied hydrofiber Date Dressing Changed 12/11/23 Plan Problem chronic wound;leg ulcer Current Plan Hydrofiber Visit Type Consult with RN;Consult with Provider Supportive Measures optimize nutrition WOCT Visit Frequency PRN Last Date Seen 12/11/23 No past medical history on file. No past surgical history on file. RN notified of assessment and plan. Please page #[phone] or reconsult with any further needs. Shirin Clark RN Problem: Oral Intake Inadequate Goal: Improved Oral Intake Outcome: Progressing Nutrition Recommendation and Plan of Care 1.Continue current diet order, regular; and encourage patient meal selections. 2. Will provide vanilla and chocolate Ensure Plus (350 kcal, 13-16g PRO each) TID with all meals 3.Continue MVI with minerals, folic acid, and thiamine per team's discretion. 4.Monitor weight and adherence to PO intake. 5.RD to follow. Problem: PT - General Goals Goal: Pt will perform bed mobility within precautions at independence in order to improve functional mobility and safety. Outcome: Progressing Goal: Pt will perform transfers within precautions with independence with without an assistive device in order to improve functional mobility and safety. Outcome: Progressing Goal: Pt will ambulate 100 feet within precautions with least restrictive device at independence to improve ability to navigate home environment. Outcome: Progressing Problem: PT - General Goals Goal: Pt will perform bed mobility within precautions at independence in order to improve functional mobility and safety. Outcome: Ongoing Goal: Pt will perform transfers within precautions with independence with without an assistive device in order to improve functional mobility and safety. Outcome: Ongoing Goal: Pt will ambulate 100 feet within precautions with least restrictive device at independence to improve ability to navigate home environment. Outcome: Ongoing Problem: Adult Inpatient Plan of Care Goal: Plan of Care Review Outcome: Progressing Goal: Patient-Specific Goal (Individualized) Outcome: Progressing Goal: Absence of Hospital-Acquired Illness or Injury Outcome: Progressing Goal: Optimal Comfort and Wellbeing Outcome: Progressing Goal: Readiness for Transition of Care Outcome: Progressing Bansal pulled. Catheter intact. Due to void Sister Salud given an update. 0705- MD notified that sitter order needs renewed 0726-- MD notified that pt is currently on continuous pulse ox but no orde; if she'd like that continued, will need an order. Also can you place a PT/OT consult? 1030- Asked MD to let this RN know when she rounds to discuss pysch recs- MD not able to round anytime soon. This RN inquired about psych's rec for pt to be mod SI. If MD agreeable- please place mod si order (dc high si) and dc sitter if appropriate. Thanks 1100- Md notified that sitter can't be stopped until orders are changed from High SI to Mod SI. 1300- Spoke with MD regarding suicide precaution orders. Restated if pt is to be mod SI, please order and dc high si orders. If remaining High SI, reorder sitter 1339- Spoke with MD on floor. MD to discontinue high SI orders. Pt now mod SI On admission to [facility], from ED a dual RN initial assessment of skin condition was performed by Briseida Serrano RN and Leah Win RN. Skin Assessment: Skin not within defined limits. - Wound(s) identified: Yes Unsure of patients ambulation status. Skin bruised and has scabs, skin tears and scars. Pilo Score: 17 LDA Added:Yes Briseida Serrano RN Patient was placed on 1-2L NC overnight due to desaturation while sleeping. Even while on oxygen he dropped to an oxygen saturation of 55%, his saturation returns to normal very quickly as soon as he is awakened. Overnight UTILITY SYSTEM OPERATOR made aware. I witnessed him pause his breathing, irregular breathing and snoring while asleep. Faxed request for records to [facility] [phone] from his recent admission. documented in this encounter [facility] 12-19-2023 Plan of care note Problem: Adult Inpatient Plan of Care Goal: Plan of Care Review Outcome: Completed Goal: Patient-Specific Goal (Individualized) Outcome: Completed Goal: Absence of Hospital-Acquired Illness or Injury Outcome: Completed Goal: Optimal Comfort and Wellbeing Outcome: Completed Goal: Readiness for Transition of Care Outcome: Completed Problem: Swallowing Impairment Goal: Optimal Eating/Swallowing without Aspiration Outcome: Completed Problem: PT - General Goals Goal: Pt will perform bed mobility within precautions at independence in order to improve functional mobility and safety. Outcome: Completed Goal: Pt will perform transfers within precautions with independence with without an assistive device in order to improve functional mobility and safety. Outcome: Completed Goal: Pt will ambulate 100 feet within precautions with least restrictive device at independence to improve ability to navigate home environment. Outcome: Completed Problem: Oral Intake Inadequate Goal: Improved Oral Intake Outcome: Completed Problem: OT - ADLs Goal: Toileting - Patient will complete toileting task with modified independence and adaptive equipment as needed for improved ability to safely complete self-care activities. Outcome: Completed Goal: Bathing - Patient will perform full body bathing routine with modified independence for improved ability to complete self-care activities Outcome: Completed Problem: OT - Balance Goal: Balance - Standing - Patient will perform 10 minutes of functional task in standing with modified independence and good balance to promote safety and improved balance required for self-care activities. Outcome: Completed Problem: OT - Endurance Goal: Endurance Functional Mobility - Patient will complete distance needed for common household mobility with modified independence for improved tolerance to safely complete I/ADL's Outcome: Completed Problem: OT - Cognition Goal: Cognition Home Maintenance - Patient will complete simulated home maintenance task: medication management with moderate assistance and 100% accuracy. Outcome: Completed Goal: Safety - Patient will demonstrate good safety awareness during ADL routine with min or less cues for accuracy. Outcome: Completed [facility] 12-19-2023 Plan of care note Problem: Adult Inpatient Plan of Care Goal: Plan of Care Review Outcome: Progressing Goal: Patient-Specific Goal (Individualized) Outcome: Progressing Goal: Absence of Hospital-Acquired Illness or Injury Outcome: Progressing Goal: Optimal Comfort and Wellbeing Outcome: Progressing Goal: Readiness for Transition of Care Outcome: Progressing [facility] 12-18-2023 Plan of care note Problem: Oral Intake Inadequate Goal: Improved Oral Intake Outcome: Progressing Nutrition Plan of Care 1.Continue current diet order, regular; and encourage patient meal selections. 2.Continue to monitor PO intake. 3.Will provide vanilla and chocolate Ensure Plus (350 kcal, 13-16g PRO each) TID with all meals. 4.Continue MVI with minerals, folic acid, and thiamine per team's discretion. 5.Nutrition to follow. [facility] 12-18-2023 Consult note Formatting of th is note might be different from the original. PSYCHIATRY CONSULT FOLLOW-UP NOTE 12/18/2023 Fish Cheung : 1970 SUBJECTIVE Patient chart reviewed. Patient ahderent to all medications. No PRNs for agitation or anxiety given. BP increased to 178/106 On approach, pt was able to engage well and was linear and goal-oriented. Patient noted that his goal after discharge was to regain his strength and attend social activities. Patient indicated his understanding that [facility] is located in his AVS. He noted that he will also be seeking alcohol use treatment. He indicated that he has noticed an improvement in his mentation, though he still feels like a toddler. He is hopeful that he will continue to improve. Reviewed psychiatric medications that he will be taking after discharge. Discussed discharge planning with patient's sister, Salud Ma, yesterday. She indicated her understanding that [employer] information will be located in his AVS. She indicated that she will be encouraging him to leave the house and attend AA meetings. Indicated her understanding that he will remain on Ativan 0.5 mg and Zyprexa 5 mg after discharge. Also encouraged taking multivitamin, folate, and thiamine. She denied any further questions at this time. Fish Cheung's review of systems today is positive for problems with tremor. All other systems were reviewed and are negative. OBJECTIVE Appearance: disheveled Attention: improved concentration Orientation: Grossly oriented Interview Behavior: cooperative Attire: In hospital gown Grooming: fair Eye Contact: fair Mood: good Affect: blunted Motor Activity: Bilateral hand tremors. Otherwise, no tremors, muscle weakness, muscle rigidity/stiffness/abnormal tone, clonus, abnormal involuntary muscle movements or seizure activity were noted. Speech: slowed Thought Process/Associations: grossly organized Suicidal Ideation: denied by patient Homicidal Ideation:denied by patient Delusions: none Hallucination: none Memory: impaired recent and fair remote Insight/Judgment: limited Impulse Control: limited Fund of Knowledge: Appropriate for age Language/Vocabulary: fluent [place] Cognition: impaired, but improving Lu-Woo Catatonia Scale: Excitement (extreme hyperactivity which appears non-purposeful): 0 Immobility/Stupor (extreme hypoactivity, immobile, minimally responsive to stimuli): 0 Mutism (verbally unresponsive or minimally responsive): 0 Staring (little or no visual scanning of environment, decreased blinking): 0 Posturing/Catalepsy (spontaneous maintenance of posture): 0 Grimacing (maintenance of odd facial expressions): 0 Echopraxia/Echolalia (mimicking of examiner's movements/speech): 0 Stereotypy (repetitive, abnormally frequent, [id number]-[id number] movements - abnormality not inherent in act but in frequency): 0 Mannerism (odd, circumstantial caricature of normal actions): 0 Verbigeration (repetition of phrases or sentences): 0 Rigidity (maintenance of rigid position despite efforts to be moved): 0 Negativism (resistance to instructions or attempts to move/examine patient, may do opposite of what is requested): 0 Waxy flexibility (during repositioning of patient, patient offers initial resistance before allowing himself to be repositioned): 0 Withdrawal (refusal to eat, drink, and/or make eye contact): 0 Impulsivity (patient suddenly engages in inappropriate behavior without provocation): 0 Automatic obedience (exaggerated cooperation with examiner's request or spontaneous continuation of movement requested): 0 [place] (arm raising in response to light pressure of finger, despite instruction to contrary): 0 [place] (resistance to passive movement which is proportional to strength of stimulus, appears automatic rather than willful): 0 Ambitendency (patient appears motorically stuck in indecisive, hesitant position): 0 Grasp reflex: 0 Perseveration (repeatedly returns to same topic or persists with movement): 0 Combativeness (usually in an undirected manner, with no, or only a facile explanation afterwards): 0 Autonomic abnormality (temperature, BP, pulse, respiratory rate, diaphoresis): 1 TOTAL: 1 Vital Signs: Blood pressure 128/79, pulse 85, temperature 97.9 F (36.6 C), temperature source Oral, resp. rate 20, height 1.829 m (6'), weight 121.2 kg (267 lb 3.2 oz), SpO2 93%. Scheduled Medications: [START ON 12/19/2023] amLODIPine (NORVASC) tablet 5 mg, 5 mg, Daily carveDILOL (COREG) tablet 12.5 mg, 12.5 mg, Q12H Enoxaparin Sodium (LOVENOX) injection 40 mg, 40 mg, Q24H Folic acid (FOLVITE) tablet 1 mg, 1 mg, Daily Or Folic acid (FOLVITE) tablet 1 mg, 1 mg, Daily Or Folic acid injection 1 mg, 1 mg, Daily LORazepam (ATIVAN) tablet 0.5 mg, 0.5 mg, Daily Multi-Vitamins tablet 1 tablet, 1 tablet, Daily Or Multi-Vitamins tablet 1 tablet, 1 tablet, Daily OLANZapine (zyPREXA) tablet 5 mg, 5 mg, QHS Sertraline (ZOLOFT) tablet 50 mg, 50 mg, Daily Tamsulosin HCl (FLOMAX) capsule 0.4 mg, 0.4 mg, Daily Thiamine tablet 100 mg, 100 mg, Daily PRN Medications: Acetaminophen, 650 mg, Q6H PRN alum/mag hydrox.-simethicone, 30 mL, Q6H PRN guaiFENesin, 400 mg, Q6H PRN Ibuprofen, 600 mg, Q6H PRN Melatonin, 6 mg, QHS PRN Nicotine, 4 mg, As directed PRN Polyethylene glycol, 17 g, Daily PRN Sodium chloride 0.9%, 250 mL, PRN Labs/Diagostic Studies: No results found for this or any previous visit (from the past 24 hour(s)). NAT Cheung is a 53 y.o. male with past medical history of depression, hypertension, and alcohol use disorder who was transferred from [facility] to [facility] for abnormal labs and failure to thrive. Patient was admitted to [facility] for intentional ingestion of rat poison and psychosis. Psychiatry was consulted due to psychosis with SI/HI. During assessment, patient had bizarre presentation with confabulation and loose associations. He showed several symptoms concerning for catatonia. Patient was unable to provide a linear timeline of events leading to his admission to [facility]. He also was unable to provide his past psychiatric or medical history. Further investigation in patient's medical and psychiatric history would be needed to help make decisions. Additionally, Board of Developmental Disorders should be contacted to see if patient has been linked or has history of intellectual disability. On physical exam on 12/07, the patient catatonia him has seemingly improved. The patient is moving spontaneously and is no longer in a fixed position. He no longer is staring without blinking. He blinks spontaneously. Mild rigidity and waxy flexibility is noted in upper extremities and mild bilateral hand tremors noted. On exam 12/09 and 12/12, patient continues to have improvement in symptoms including rigidity in his arms. Waxy flexibility was not appreciated on exam, though patient continues to have mild bilateral hand tremors. Collateral contact provided additional information regarding patient cognition, noting that patient's cognition has declined since June 2023. She noted that patient may have started drinking alcohol again after being sober for years. Additionally, patient had been having more falls and needing assistance going to the bathroom, when he usually doesn't require any assistance to handle his ADL's. On evaluation on 12/17, Mr. Cheung's catatonia and encephalopathy are improving significantly. He would benefit from continued sobriety and post-hospital substance use disorder treatment. Diagnoses: Catatonia Acute metabolic encephalopathy - suspect Wernicke's encephalopathy Physical deconditioning Alcohol Use Disorder, severe, dependence Mood disorder Suicidal Ideation, resolving Cocaine Use Disorder RECOMMENDATIONS Safety: SAFE-T Suicide Risk Assessment 1) Fish Cheung has risk factors for suicide including mood disorder (current or past) and impulsivity. Actively modifiable risk factors include mood disorder (current or past) and impulsivity. 2) He does not have known protective factors at this time, though patient is noted to be a poor historian 3) He is currently expressing Ideation (frequency, intensity, duration--In last 48 hours, past month, and worst ever): of ending his life by withholding food . 4) After considering the intensity and nature of suicidal thoughts and behaviors from this clinical interview, including his pertinent static and dynamic/modifiable suicide risk factors, as well as the impact of current protective factors, based on clinical judgment it appears that Fish Cheung is currently at moderate risk for suicide. Based upon this assessment, would proceed with the following to mitigate suicide risk: Moderate risk: Agree with video sitter due to risk of accidental injury in setting of delirium. Order Emotional Support Precautions (IP MODERATE SUICIDE RISK - EMOTIONAL SUPPORT PRECAUTIONS) Continue to assess the patient for changes in suicidal thoughts, plans, behavior, and intent during daily rounding or with any significant change in circumstances. Please notify the psychiatry consult team if further safety concerns arise. Suicide risk can be further mitigated by medication management. Additional treatment planning steps to reduce suicide risk including medication changes, inpatient psychiatric admission, engaging in safety planning, and lethal means reduction (medication access, firearms). Assist the patient with the development of a safety plan for discharge Medications: Recommend continuing Ativan 0.5 mg daily. Continue Thiamine 500 mg IV TID for three day for alcohol use disorder with concern for confabulation. Continue Zyprexa 5 mg at bedtime for delirium prophylaxis and mood stabilization. Recommend continuing Zyprexa 50 mg daily for depression and suicidal ideation. Medication Recommendations for Discharge: Ativan 0.5 mg daily for 5 days Zyprexa 5 mg at bedtime for 30 days Thiamine 100 mg daily Multivitamin Folic Acid 1 mg daily Non-pharmacological: Continue to encourage sobriety and follow-up with substance use disorder treatment. Consultations/Referrals/Follow-Up: Referral for Social Work to assist with collateral contact regarding psychiatric/neurological history, safety assessment, legal next-of-kin. Appreciate Neurology Consultation and recommendations. Appreciate results of OT assessment. Appreciate assistance from social work regarding patient's questions about insurance coverage and payments. Recommend referral information to [facility] associated with [facility]. Patient currently not a candidate for [facility] through [facility] as patient will be moving near [place]. Thank you for the opportunity to participate in the care of this patient. The psychiatry consult team is available for questions and concerns M-F 8-5, please page [phone]. Outside of these hours, the craft demonstrator residential carpenter is available for urgent concerns at the same number, [phone]. This case was seen and staffed with attending psychiatrist Dr. Chavira Signed, Stephanie Tucker DO [facility] Primary Special Educator PGY-2 ATTENDING ATTESTATION I independently saw and examined Fish Cheung on 12/18/2023. I discussed the findings and therapeutic plan with Dr. Stephanie Tucker DO. I agree with the history, examination, and medical decision making as documented with the following additions: Fish Cheung's mental status continues to improve. No sign of worsening catatonia. I counseled Mr. Cheung on the importance of sobriety and adherence to outpatient mental health and substance use disorder treatment. Reviewed plan to follow-up with [facility] at [facility] for additional medication management. Continue Ativan for 5 days after discharge and then stop. Continue Zyprexa until follow-up with [facility] at [facility]. Pernell Chavira MD Process Analyst Consultation-Liaison Psychiatry [facility] Work Phone: 12-18-2023 Consult note Formatting of th is note might be different from the original. PSYCHIATRY CONSULT FOLLOW-UP NOTE 12/18/2023 Fish Cheung : 1970 SUBJECTIVE Patient chart reviewed. Patient ahderent to all medications. No PRNs for agitation or anxiety given. BP increased to 178/106 On approach, pt was able to engage well and was linear and goal-oriented. Patient noted that his goal after discharge was to regain his strength and attend social activities. Patient indicated his understanding that [employer] is located in his AVS. He noted that he will also be seeking alcohol use treatment. He indicated that he has noticed an improvement in his mentation, though he still feels like a toddler. He is hopeful that he will continue to improve. Reviewed psychiatric medications that he will be taking after discharge. Discussed discharge planning with patient's sister, Salud Ma, yesterday. She indicated her understanding that [employer] information will be located in his AVS. She indicated that she will be encouraging him to leave the house and attend AA meetings. Indicated her understanding that he will remain on Ativan 0.5 mg and Zyprexa 5 mg after discharge. Also encouraged taking multivitamin, folate, and thiamine. She denied any further questions at this time. Fish Cheung's review of systems today is positive for problems with tremor. All other systems were reviewed and are negative. OBJECTIVE Appearance: disheveled Attention: improved concentration Orientation: Grossly oriented Interview Behavior: cooperative Attire: In hospital gown Grooming: fair Eye Contact: fair Mood: good Affect: blunted Motor Activity: Bilateral hand tremors. Otherwise, no tremors, muscle weakness, muscle rigidity/stiffness/abnormal tone, clonus, abnormal involuntary muscle movements or seizure activity were noted. Speech: slowed Thought Process/Associations: grossly organized Suicidal Ideation: denied by patient Homicidal Ideation:denied by patient Delusions: none Hallucination: none Memory: impaired recent and fair remote Insight/Judgment: limited Impulse Control: limited Fund of Knowledge: Appropriate for age Language/Vocabulary: fluent Zambian Cognition: impaired, but improving Lu-Woo Catatonia Scale: Excitement (extreme hyperactivity which appears non-purposeful): 0 Immobility/Stupor (extreme hypoactivity, immobile, minimally responsive to stimuli): 0 Mutism (verbally unresponsive or minimally responsive): 0 Staring (little or no visual scanning of environment, decreased blinking): 0 Posturing/Catalepsy (spontaneous maintenance of posture): 0 Grimacing (maintenance of odd facial expressions): 0 Echopraxia/Echolalia (mimicking of examiner's movements/speech): 0 Stereotypy (repetitive, abnormally frequent, [id number]-[id number] movements - abnormality not inherent in act but in frequency): 0 Mannerism (odd, circumstantial caricature of normal actions): 0 Verbigeration (repetition of phrases or sentences): 0 Rigidity (maintenance of rigid position despite efforts to be moved): 0 Negativism (resistance to instructions or attempts to move/examine patient, may do opposite of what is requested): 0 Waxy flexibility (during repositioning of patient, patient offers initial resistance before allowing himself to be repositioned): 0 Withdrawal (refusal to eat, drink, and/or make eye contact): 0 Impulsivity (patient suddenly engages in inappropriate behavior without provocation): 0 Automatic obedience (exaggerated cooperation with examiner's request or spontaneous continuation of movement requested): 0 Mitgehen (arm raising in response to light pressure of finger, despite instruction to contrary): 0 Gegenhalten (resistance to passive movement which is proportional to strength of stimulus, appears automatic rather than willful): 0 Ambitendency (patient appears motorically stuck in indecisive, hesitant position): 0 Grasp reflex: 0 Perseveration (repeatedly returns to same topic or persists with movement): 0 Combativeness (usually in an undirected manner, with no, or only a facile explanation afterwards): 0 Autonomic abnormality (temperature, BP, pulse, respiratory rate, diaphoresis): 1 TOTAL: 1 Vital Signs: Blood pressure 128/79, pulse 85, temperature 97.9 F (36.6 C), temperature source Oral, resp. rate 20, height 1.829 m (6'), weight 121.2 kg (267 lb 3.2 oz), SpO2 93%. Scheduled Medications: [START ON 12/19/2023] amLODIPine (NORVASC) tablet 5 mg, 5 mg, Daily carveDILOL (COREG) tablet 12.5 mg, 12.5 mg, Q12H Enoxaparin Sodium (LOVENOX) injection 40 mg, 40 mg, Q24H Folic acid (FOLVITE) tablet 1 mg, 1 mg, Daily Or Folic acid (FOLVITE) tablet 1 mg, 1 mg, Daily Or Folic acid injection 1 mg, 1 mg, Daily LORazepam (ATIVAN) tablet 0.5 mg, 0.5 mg, Daily Multi-Vitamins tablet 1 tablet, 1 tablet, Daily Or Multi-Vitamins tablet 1 tablet, 1 tablet, Daily OLANZapine (zyPREXA) tablet 5 mg, 5 mg, QHS Sertraline (ZOLOFT) tablet 50 mg, 50 mg, Daily Tamsulosin HCl (FLOMAX) capsule 0.4 mg, 0.4 mg, Daily Thiamine tablet 100 mg, 100 mg, Daily PRN Medications: Acetaminophen, 650 mg, Q6H PRN alum/mag hydrox.-simethicone, 30 mL, Q6H PRN guaiFENesin, 400 mg, Q6H PRN Ibuprofen, 600 mg, Q6H PRN Melatonin, 6 mg, QHS PRN Nicotine, 4 mg, As directed PRN Polyethylene glycol, 17 g, Daily PRN Sodium chloride 0.9%, 250 mL, PRN Labs/Diagostic Studies: No results found for this or any previous visit (from the past 24 hour(s)). NAT Cheung is a 53 y.o. male with past medical history of depression, hypertension, and alcohol use disorder who was transferred from [facility] to [facility] for abnormal labs and failure to thrive. Patient was admitted to [facility] for intentional ingestion of rat poison and psychosis. Psychiatry was consulted due to psychosis with SI/HI. During assessment, patient had bizarre presentation with confabulation and loose associations. He showed several symptoms concerning for catatonia. Patient was unable to provide a linear timeline of events leading to his admission to [facility]. He also was unable to provide his past psychiatric or medical history. Further investigation in patient's medical and psychiatric history would be needed to help make decisions. Additionally, Board of Developmental Disorders should be contacted to see if patient has been linked or has history of intellectual disability. On physical exam on 12/07, the patient catatonia him has seemingly improved. The patient is moving spontaneously and is no longer in a fixed position. He no longer is staring without blinking. He blinks spontaneously. Mild rigidity and waxy flexibility is noted in upper extremities and mild bilateral hand tremors noted. On exam 12/09 and 12/12, patient continues to have improvement in symptoms including rigidity in his arms. Waxy flexibility was not appreciated on exam, though patient continues to have mild bilateral hand tremors. Collateral contact provided additional information regarding patient cognition, noting that patient's cognition has declined since June 2023. She noted that patient may have started drinking alcohol again after being sober for years. Additionally, patient had been having more falls and needing assistance going to the bathroom, when he usually doesn't require any assistance to handle his ADL's. On evaluation on 12/17, Mr. Cheung's catatonia and encephalopathy are improving significantly. He would benefit from continued sobriety and post-hospital substance use disorder treatment. Diagnoses: Catatonia Acute metabolic encephalopathy - suspect Wernicke's encephalopathy Physical deconditioning Alcohol Use Disorder, severe, dependence Mood disorder Suicidal Ideation, resolving Cocaine Use Disorder RECOMMENDATIONS Safety: SAFE-T Suicide Risk Assessment 1) Fish Cheung has risk factors for suicide including mood disorder (current or past) and impulsivity. Actively modifiable risk factors include mood disorder (current or past) and impulsivity. 2) He does not have known protective factors at this time, though patient is noted to be a poor historian 3) He is currently expressing Ideation (frequency, intensity, duration--In last 48 hours, past month, and worst ever): of ending his life by withholding food . 4) After considering the intensity and nature of suicidal thoughts and behaviors from this clinical interview, including his pertinent static and dynamic/modifiable suicide risk factors, as well as the impact of current protective factors, based on clinical judgment it appears that Fish Cheung is currently at moderate risk for suicide. Based upon this assessment, would proceed with the following to mitigate suicide risk: Moderate risk: Agree with video sitter due to risk of accidental injury in setting of delirium. Order Emotional Support Precautions (IP MODERATE SUICIDE RISK - EMOTIONAL SUPPORT PRECAUTIONS) Continue to assess the patient for changes in suicidal thoughts, plans, behavior, and intent during daily rounding or with any significant change in circumstances. Please notify the psychiatry consult team if further safety concerns arise. Suicide risk can be further mitigated by medication management. Additional treatment planning steps to reduce suicide risk including medication changes, inpatient psychiatric admission, engaging in safety planning, and lethal means reduction (medication access, firearms). Assist the patient with the development of a safety plan for discharge Medications: Recommend continuing Ativan 0.5 mg daily. Continue Thiamine 500 mg IV TID for three day for alcohol use disorder with concern for confabulation. Continue Zyprexa 5 mg at bedtime for delirium prophylaxis and mood stabilization. Recommend continuing Zyprexa 50 mg daily for depression and suicidal ideation. Medication Recommendations for Discharge: Ativan 0.5 mg daily for 5 days Zyprexa 5 mg at bedtime for 30 days Thiamine 100 mg daily Multivitamin Folic Acid 1 mg daily Non-pharmacological: Continue to encourage sobriety and follow-up with substance use disorder treatment. Consultations/Referrals/Follow-Up: Referral for Social Work to assist with collateral contact regarding psychiatric/neurological history, safety assessment, legal next-of-kin. Appreciate Neurology Consultation and recommendations. Appreciate results of OT assessment. Appreciate assistance from social work regarding patient's questions about insurance coverage and payments. Recommend referral information to [facility] associated with [facility]. Patient currently not a candidate for [facility] through [facility] as patient will be moving near [place]. Thank you for the opportunity to participate in the care of this patient. The psychiatry consult team is available for questions and concerns M-F 8-5, please page [phone]. Outside of these hours, the craft demonstrator residential carpenter is available for urgent concerns at the same number, [phone]. This case was seen and staffed with attending psychiatrist Stephanie Oviedo DO [facility] Primary Special Educator PGY-2 ATTENDING ATTESTATION I independently saw and examined Fish Cheung on 12/18/2023. I discussed the findings and therapeutic plan with Dr. Stephanie Tucker DO. I agree with the history, examination, and medical decision making as documented with the following additions: Fish Cheung's mental status continues to improve. No sign of worsening catatonia. I counseled Mr. Cheung on the importance of sobriety and adherence to outpatient mental health and substance use disorder treatment. Reviewed plan to follow-up with [facility] at [facility] for additional medication management. Continue Ativan for 5 days after discharge and then stop. Continue Zyprexa until follow-up with [facility] at [facility]. Pernell Chavira MD Process Analyst Consultation-Liaison Psychiatry PSYCHIATRY CONSULT FOLLOW-UP NOTE 12/17/2023 Fish Cheung : 1970 SUBJECTIVE Patient chart reviewed. Patient ahderent to all medications. No PRNs for agitation or anxiety given. BP increased to 178/106 On approach, pt was able to engage well and was linear and goal-oriented. He was able to identify his location, date, and situation. Patient had some difficulty listing the months backwards, but was able to list the days of the week backward. He was able to recall 3/4 items, and then recalled the last item with a hint. Patient noted improvement in stiffness, though felt that he was overall still stiff. Discussed substance use treatment, and patient indicated that he would be seeing options when he goes to his sister's home near [place]. Discussed naltrexone as medication, but currently declining due to cost and wanting to avoid polypharmacy. Otherwise denies SI, HI, AVH. Fish Cheung's review of systems today is positive for problems with depression, tremor. All other systems were reviewed and are negative. OBJECTIVE Appearance: disheveled Attention: distractable Orientation: Grossly oriented Interview Behavior: cooperative Attire: In hospital gown Grooming: suboptimal Eye Contact: suboptimal Mood: okay Affect: flat Motor Activity: Bilateral hand tremors. Otherwise, no tremors, muscle weakness, muscle rigidity/stiffness/abnormal tone, clonus, abnormal involuntary muscle movements or seizure activity were noted. Speech: slowed Thought Process/Associations: grossly organized Suicidal Ideation: denied by patient Homicidal Ideation:denied by patient Delusions: none Hallucination: none Memory: poor recent and poor remote Insight/Judgment: limited Impulse Control: limited Fund of Knowledge: impaired Language/Vocabulary: fluent [place]ambian Cognition: impaired Lu-Woo Catatonia Scale: Excitement (extreme hyperactivity which appears non-purposeful): 0 Immobility/Stupor (extreme hypoactivity, immobile, minimally responsive to stimuli): 0 Mutism (verbally unresponsive or minimally responsive): 0 Staring (little or no visual scanning of environment, decreased blinking): 0 Posturing/Catalepsy (spontaneous maintenance of posture): 0 Grimacing (maintenance of odd facial expressions): 0 Echopraxia/Echolalia (mimicking of examiner's movements/speech): 0 Stereotypy (repetitive, abnormally frequent, koq-tmoc-gfgimghr movements - abnormality not inherent in act but in frequency): 0 Mannerism (odd, circumstantial caricature of normal actions): 0 Verbigeration (repetition of phrases or sentences): 0 Rigidity (maintenance of rigid position despite efforts to be moved): 0 Negativism (resistance to instructions or attempts to move/examine patient, may do opposite of what is requested): 0 Waxy flexibility (during repositioning of patient, patient offers initial resistance before allowing himself to be repositioned): 0 Withdrawal (refusal to eat, drink, and/or make eye contact): 0 Impulsivity (patient suddenly engages in inappropriate behavior without provocation): 0 Automatic obedience (exaggerated cooperation with examiner's request or spontaneous continuation of movement requested): 0 Mitgehen (arm raising in response to light pressure of finger, despite instruction to contrary): 0 Gegenhalten (resistance to passive movement which is proportional to strength of stimulus, appears automatic rather than willful): 0 Ambitendency (patient appears motorically stuck in indecisive, hesitant position): 0 Grasp reflex: 0 Perseveration (repeatedly returns to same topic or persists with movement): 0 Combativeness (usually in an undirected manner, with no, or only a facile explanation afterwards): 0 Autonomic abnormality (temperature, BP, pulse, respiratory rate, diaphoresis): 1 TOTAL: 1 Vital Signs: Blood pressure (!) (P) 178/106, pulse 81, temperature 98.2 F (36.8 C), temperature source Oral, resp. rate 18, height 1.829 m (6'), weight 121.2 kg (267 lb 3.2 oz), SpO2 94%. Scheduled Medications: amLODIPine (NORVASC) tablet 10 mg, 10 mg, Daily Enoxaparin Sodium (LOVENOX) injection 40 mg, 40 mg, Q24H Folic acid (FOLVITE) tablet 1 mg, 1 mg, Daily Or Folic acid (FOLVITE) tablet 1 mg, 1 mg, Daily Or Folic acid injection 1 mg, 1 mg, Daily hydroCHLOROthiazide (MICROZIDE) capsule 12.5 mg, 12.5 mg, Daily [START ON 12/18/2023] LORazepam (ATIVAN) tablet 1 mg, 1 mg, Daily Multi-Vitamins tablet 1 tablet, 1 tablet, Daily Or Multi-Vitamins tablet 1 tablet, 1 tablet, Daily OLANZapine (zyPREXA) tablet 5 mg, 5 mg, QHS Sertraline (ZOLOFT) tablet 50 mg, 50 mg, Daily Tamsulosin HCl (FLOMAX) capsule 0.4 mg, 0.4 mg, Daily Thiamine tablet 100 mg, 100 mg, Daily PRN Medications: Acetaminophen, 650 mg, Q6H PRN alum/mag hydrox.-simethicone, 30 mL, Q6H PRN guaiFENesin, 400 mg, Q6H PRN Ibuprofen, 600 mg, Q6H PRN Melatonin, 6 mg, QHS PRN Nicotine, 4 mg, As directed PRN Polyethylene glycol, 17 g, Daily PRN Sodium chloride 0.9%, 250 mL, PRN Labs/Diagostic Studies: No results found for this or any previous visit (from the past 24 hour(s)). IMPRESSION Fish Cheung is a 53 y.o. male with past medical history of depression, hypertension, and alcohol use disorder who was transferred from [facility] to [facility] for abnormal labs and failure to thrive. Patient was admitted to [facility] for intentional ingestion of rat poison and psychosis. Psychiatry was consulted due to psychosis with SI/HI. During assessment, patient had bizarre presentation with confabulation and loose associations. He showed several symptoms concerning for catatonia. Patient was unable to provide a linear timeline of events leading to his admission to [facility]. He also was unable to provide his past psychiatric or medical history. Further investigation in patient's medical and psychiatric history would be needed to help make decisions. Additionally, Board of Developmental Disorders should be contacted to see if patient has been linked or has history of intellectual disability. On physical exam on 12/07, the patient catatonia him has seemingly improved. The patient is moving spontaneously and is no longer in a fixed position. He no longer is staring without blinking. He blinks spontaneously. Mild rigidity and waxy flexibility is noted in upper extremities and mild bilateral hand tremors noted. On exam 12/09 and 12/12, patient continues to have improvement in symptoms including rigidity in his arms. Waxy flexibility was not appreciated on exam, though patient continues to have mild bilateral hand tremors. Collateral contact provided additional information regarding patient cognition, noting that patient's cognition has declined since June 2023. She noted that patient may have started drinking alcohol again after being sober for years. Additionally, patient had been having more falls and needing assistance going to the bathroom, when he usually doesn't require any assistance to handle his ADL's. On evaluation on 12/16, Mr. Cheung's catatonia and encephalopathy are improving significantly. He would benefit from continued sobriety and post-hospital substance use disorder treatment. Diagnoses: Catatonia Acute metabolic encephalopathy - suspect Wernicke's encephalopathy Physical deconditioning Alcohol Use Disorder, severe, dependence Mood disorder Suicidal Ideation, resolving Cocaine Use Disorder RECOMMENDATIONS Safety: SAFE-T Suicide Risk Assessment 1) Fish Cheung has risk factors for suicide including mood disorder (current or past) and impulsivity. Actively modifiable risk factors include mood disorder (current or past) and impulsivity. 2) He does not have known protective factors at this time, though patient is noted to be a poor historian 3) He is currently expressing Ideation (frequency, intensity, duration--In last 48 hours, past month, and worst ever): of ending his life by withholding food . 4) After considering the intensity and nature of suicidal thoughts and behaviors from this clinical interview, including his pertinent static and dynamic/modifiable suicide risk factors, as well as the impact of current protective factors, based on clinical judgment it appears that Fish Cheung is currently at moderate risk for suicide. Based upon this assessment, would proceed with the following to mitigate suicide risk: Moderate risk: Agree with video sitter due to risk of accidental injury in setting of delirium. Order Emotional Support Precautions (IP MODERATE SUICIDE RISK - EMOTIONAL SUPPORT PRECAUTIONS) Continue to assess the patient for changes in suicidal thoughts, plans, behavior, and intent during daily rounding or with any significant change in circumstances. Please notify the psychiatry consult team if further safety concerns arise. Suicide risk can be further mitigated by medication management. Additional treatment planning steps to reduce suicide risk including medication changes, inpatient psychiatric admission, engaging in safety planning, and lethal means reduction (medication access, firearms). Assist the patient with the development of a safety plan for discharge Medications: Recommend decreasing Ativan to 1 mg daily with goal of decreasing Ativan to 0.5 mg daily. Will recommend discharging patient with Ativan 0.5 mg daily. Continue Thiamine 500 mg IV TID for three day for alcohol use disorder with concern for confabulation. Continue Zyprexa 5 mg at bedtime for delirium prophylaxis and mood stabilization. Recommend continuing Zyprexa 50 mg daily for depression and suicidal ideation. Non-pharmacological: Continue to encourage sobriety and follow-up with substance use disorder treatment. Consultations/Referrals/Follow-Up: Referral for Social Work to assist with collateral contact regarding psychiatric/neurological history, safety assessment, legal next-of-kin. Appreciate Neurology Consultation and recommendations. Appreciate results of OT assessment. Appreciate assistance from social work regarding patient's questions about insurance coverage and payments. Recommend referral information to IC associated with [facility]. Patient currently not a candidate for IC through [facility] as patient will be moving near [place]. Thank you for the opportunity to participate in the care of this patient. The psychiatry consult team is available for questions and concerns M-F 8-5, please page [phone]. Outside of these hours, the craft demonstrator residential carpenter is available for urgent concerns at the same number, [phone]. This case was seen and staffed with attending psychiatrist Dr. Chavira Signed, Stephanie Tucker DO [facility] Primary Special Educator PGY-2 Associated attestation - Pernell Chavira MD - 12/17/2023 8:02 PM EDT ATTENDING ATTESTATION I saw and examined Fish Cheung on 12/17/[address] Stephanie Tucker DO. I discussed the findings and therapeutic plan with Dr. Tucker. I agree with the history, examination, and medical decision making as documented with the following additions: Fish Cheung was alert, oriented, but still exhibiting some mild deficits in attention on evaluation today. He was insightful regarding his recent cognitive impairments. He described being in a dream-like state prior to admission in setting of extended substance use and malnourishment. He engaged in motivational interviewing and voiced understanding that his alcohol use contributed to his acute cognitive impairment and debility. He stated that he wants to try to stay sober from alcohol but is concerned about social isolation. He was agreeable with recommendation to pursue outpatient substance use disorder treatment and psychiatry follow-up. He declined MAT like naltrexone due to concern about cost of medications. He also expressed interest in smoking cessation, and we reviewed benefits of nicotine replacement therapy. Mr. Cheung's altered mental status and catatonia were likely due to acute encephalopathy from substance use, malnutrition (suspect Wernicke's encephalopathy). There may also be an element of chronic neurocognitive impairment due to chronic alcohol use disorder and microvascular disease. Fortunately, his mentation is improving, and he is accepting of recommendation for substance use disorder treatment. He does not require inpatient psychiatric hospitalization. We recommend gradually weaning his Ativan and linkage to post-hospital substance use disorder treatment and psychiatric follow-up for further management. He reported that he plans to stay with his sister in [facility]. Decrease Ativan as noted by Dr. Tucker. Monitor for rebound of catatonic symptoms. I personally reviewed data including but not limited to the following: Imaging - MRI Brain from 12/09/2023 showed chronic microvascular disease and severe volume loss but no acute intracranial abnormalities. . I independently reviewed the images. Labs - Chemistries normal on 12/10. LFTs reviewed. Total time I spent was 35 minutes, with greater than 50% of total time spent at the bedside counseling the patient, discussing plan of care and treatment options, as well as in the coordination of care. Pernell Chavira MD Process Analyst Consultation-Liaison Psychiatry PSYCHIATRY CONSULT FOLLOW-UP NOTE 12/16/2023 Fish Cheung : 1970 SUBJECTIVE Patient chart reviewed. Patient ahderent to all medications. No PRNs for agitation or anxiety given. Platelets WNL, BP 158/98 On approach, pt was calmly talking with nursing and requesting a walk. He was in good spirits and cooperative with assessment. Noted good mood and was able to drink ensure for breakfast. Denies SI, HI, AVH. Fish Cheung's review of systems today is positive for problems with depression, tremor. All other systems were reviewed and are negative. OBJECTIVE Appearance: disheveled Attention: distractable Orientation: Grossly oriented Interview Behavior: cooperative Attire: In hospital gown Grooming: suboptimal Eye Contact: suboptimal Mood: okay Affect: flat Motor Activity: Bilateral hand tremors. Otherwise, no tremors, muscle weakness, muscle rigidity/stiffness/abnormal tone, clonus, abnormal involuntary muscle movements or seizure activity were noted. Speech: slowed Thought Process/Associations: grossly organized Suicidal Ideation: denied by patient Homicidal Ideation:denied by patient Delusions: none Hallucination: none Memory: poor recent and poor remote Insight/Judgment: limited Impulse Control: limited Fund of Knowledge: impaired Language/Vocabulary: fluent Zambian Cognition: impaired Lu-Woo Catatonia Scale: Excitement (extreme hyperactivity which appears non-purposeful): 0 Immobility/Stupor (extreme hypoactivity, immobile, minimally responsive to stimuli): 0 Mutism (verbally unresponsive or minimally responsive): 0 Staring (little or no visual scanning of environment, decreased blinking): 0 Posturing/Catalepsy (spontaneous maintenance of posture): 0 Grimacing (maintenance of odd facial expressions): 0 Echopraxia/Echolalia (mimicking of examiner's movements/speech): 0 Stereotypy (repetitive, abnormally frequent, [id number] movements - abnormality not inherent in act but in frequency): 0 Mannerism (odd, circumstantial caricature of normal actions): 0 Verbigeration (repetition of phrases or sentences): 0 Rigidity (maintenance of rigid position despite efforts to be moved): 0 Negativism (resistance to instructions or attempts to move/examine patient, may do opposite of what is requested): 0 Waxy flexibility (during repositioning of patient, patient offers initial resistance before allowing himself to be repositioned): 0 Withdrawal (refusal to eat, drink, and/or make eye contact): 0 Impulsivity (patient suddenly engages in inappropriate behavior without provocation): 0 Automatic obedience (exaggerated cooperation with examiner's request or spontaneous continuation of movement requested): 0 Mitgehen (arm raising in response to light pressure of finger, despite instruction to contrary): 0 Gegenhalten (resistance to passive movement which is proportional to strength of stimulus, appears automatic rather than willful): 0 Ambitendency (patient appears motorically stuck in indecisive, hesitant position): 0 Grasp reflex: 0 Perseveration (repeatedly returns to same topic or persists with movement): 0 Combativeness (usually in an undirected manner, with no, or only a facile explanation afterwards): 0 Autonomic abnormality (temperature, BP, pulse, respiratory rate, diaphoresis): 1 TOTAL: 1 Vital Signs: Blood pressure (!) 158/98, pulse 83, temperature 98.3 F (36.8 C), temperature source Oral, resp. rate 18, height 1.829 m (6'), weight 121.2 kg (267 lb 3.2 oz), SpO2 92%. Scheduled Medications: Enoxaparin Sodium (LOVENOX) injection 40 mg, 40 mg, Q24H Folic acid (FOLVITE) tablet 1 mg, 1 mg, Daily Or Folic acid (FOLVITE) tablet 1 mg, 1 mg, Daily Or Folic acid injection 1 mg, 1 mg, Daily LORazepam (ATIVAN) tablet 1 mg, 1 mg, BID Multi-Vitamins tablet 1 tablet, 1 tablet, Daily Or Multi-Vitamins tablet 1 tablet, 1 tablet, Daily OLANZapine (zyPREXA) tablet 5 mg, 5 mg, QHS Sertraline (ZOLOFT) tablet 50 mg, 50 mg, Daily Tamsulosin HCl (FLOMAX) capsule 0.4 mg, 0.4 mg, Daily Thiamine tablet 100 mg, 100 mg, Daily PRN Medications: Acetaminophen, 650 mg, Q6H PRN alum/mag hydrox.-simethicone, 30 mL, Q6H PRN guaiFENesin, 400 mg, Q6H PRN Ibuprofen, 600 mg, Q6H PRN Melatonin, 6 mg, QHS PRN Nicotine, 4 mg, As directed PRN Polyethylene glycol, 17 g, Daily PRN Sodium chloride 0.9%, 250 mL, PRN Labs/Diagostic Studies: Recent Results (from the past 24 hour(s)) PLATELET COUNT Collection Time: 12/16/23 3:41 AM Result Value Ref Range Platelet Count 270 146 - 337 K/uL Mean Platelet Volume 9.9 8.7 - 12.3 fL NAT Cheung is a 53 y.o. male with past medical history of depression, hypertension, and alcohol use disorder who was transferred from [facility] to [facility] for abnormal labs and failure to thrive. Patient was admitted to [facility] for intentional ingestion of rat poison and psychosis. Psychiatry was consulted due to psychosis with SI/HI. During assessment, patient had bizarre presentation with confabulation and loose associations. He showed several symptoms concerning for catatonia. Patient was unable to provide a linear timeline of events leading to his admission to [facility]. He also was unable to provide his past psychiatric or medical history. Further investigation in patient's medical and psychiatric history would be needed to help make decisions. Additionally, Board of Developmental Disorders should be contacted to see if patient has been linked or has history of intellectual disability. On physical exam on 12/07, the patient catatonia him has seemingly improved. The patient is moving spontaneously and is no longer in a fixed position. He no longer is staring without blinking. He blinks spontaneously. Mild rigidity and waxy flexibility is noted in upper extremities and mild bilateral hand tremors noted. On exam 12/09 and 12/12, patient continues to have improvement in symptoms including rigidity in his arms. Waxy flexibility was not appreciated on exam, though patient continues to have mild bilateral hand tremors. Collateral contact provided additional information regarding patient cognition, noting that patient's cognition has declined since June 2023. She noted that patient may have started drinking alcohol again after being sober for years. Additionally, patient had been having more falls and needing assistance going to the bathroom, when he usually doesn't require any assistance to handle his ADL's. Diagnoses: Catatonia Intellectual Disability Neurocognitive deficits Psychological factors affecting medical condition Physical deconditioning Alcohol Use Disorder, severe, dependence Mood disorder Suicidal Ideation, resolving Cocaine Use Disorder RECOMMENDATIONS Safety: SAFE-T Suicide Risk Assessment 1) Fish Cheung has risk factors for suicide including mood disorder (current or past) and impulsivity. Actively modifiable risk factors include mood disorder (current or past) and impulsivity. 2) He does not have known protective factors at this time, though patient is noted to be a poor historian 3) He is currently expressing Ideation (frequency, intensity, duration--In last 48 hours, past month, and worst ever): of ending his life by withholding food . 4) After considering the intensity and nature of suicidal thoughts and behaviors from this clinical interview, including his pertinent static and dynamic/modifiable suicide risk factors, as well as the impact of current protective factors, based on clinical judgment it appears that Fish Cheung is currently at moderate risk for suicide. Based upon this assessment, would proceed with the following to mitigate suicide risk: Moderate risk: Sitter for Sitter Indication: suicide risk, wandering / elopement risk, and unintentional self-harming behaviors is indicated. Order Emotional Support Precautions (IP MODERATE SUICIDE RISK - EMOTIONAL SUPPORT PRECAUTIONS) Continue to assess the patient for changes in suicidal thoughts, plans, behavior, and intent during daily rounding or with any significant change in circumstances. Please notify the psychiatry consult team if further safety concerns arise. Suicide risk can be further mitigated by medication management. Additional treatment planning steps to reduce suicide risk including medication changes, inpatient psychiatric admission, engaging in safety planning, and lethal means reduction (medication access, firearms). Assist the patient with the development of a safety plan for discharge Diagnostic Workup: Neuroleptic monitoring includes EKG for QTc monitoring, hold antipsychotics if QTc > 500 ms or baseline increases by > 25%. Avoid additional QTc prolonging medications as possible, and maintain K > 4 and Mg > 2. Please monitor for EPS. Agree with multivitamin and folate for alcohol use disorder Appreciate results of MRI Brain with Neuroquant for assessment of cognitive impairment Appreciate negative Heavy Metals Lab testing Agree with discontinuation of CIWA, considering improvement in patient's symptoms. Medications: Continue Ativan 1 mg BID from Ativan 1 mg TID with goal of discontinuing, if patient doesn't reoccurrence of catatonia. Continue Thiamine 500 mg IV TID for three day for alcohol use disorder with concern for confabulation. Continue Zyprexa to 5 mg at bedtime for delirium prophylaxis and mood stabilization. Recommend continuing Zyprexa 50 mg daily for depression and suicidal ideation. Non-pharmacological: Patient is at high-risk for delirium: - The best treatment for delirium is to treat the underlying medical problems. - Ensure proper hydration/nutrition - Repeated reorientation - Promotion of good sleep hygiene - Keep blinds open during daylight hours. - Early mobilization - Removal of unnecessary attachments (bansal catheter, peripheral IV's, NG tubes or other sources of infection) - Regarding pharmacology, avoid anticholinergic drugs and benzodiazepines to the extent possible. Opiates can cause and worsen delirium, but untreated pain can as well. Low dose antipsychotics can help. Please bear in mind that antipsychotics can lower seizure threshold and prolong QTc. - We recommend identifying a surrogate decision maker who can assist when needed Capacity was evaluated on 12/12 by Stephanie Tucker DO, and is as below: At this time, Fish Cheung has been given adequate information regarding the nature and purpose of the recommended plan of care (initiation of psychotropic medications), as well as the risks, benefits, and alternatives to psychotropic medications, including no treatment. Based on the current assessment, (compared to 12/07/23) Mr. Cheung has better ability to: understand the proposed plan of care, 2. appreciate his situation, 3. And weigh the information and use reason to make a decision in line with his values. HOWEVER, he continues to have some difficulty understanding all aspects of his care. Would continue to engage him in planning, however, would encourage including patient's sister in conversations. Catatonia, psychosis, and cognitive impairment appears to be impairing Fish's capacity to provide full informed consent, though this has been improving. At this time, would invoke a surrogate decision maker based on the legally defined hierarchy. Social work and or legal services can assist in identifying a surrogate decision maker. A patient's ability to provide informed consent (capacity to make medical decisions) is both temporal and situational. Evaluation of capacity should occur in the context of a specific health care decision. Capacity can liner roll changer time. Some patients lack capacity for specific periods of time, such as when critically ill, but not permanently. Those with limited capacity may be able to make some treatment decisions (less risky decisions) but not others. Any licensed physician--not just a psychiatrist--can make a determination of incapacity but we remain happy to assist by providing a second opinion on Fish Cheung's capacity to make this medical decision. Medical capacity for informed consent differs from legal competency. Legal competency is determined by a physical chemist after an application is submitted to the court for guardianship. Capacity and competency overlap but are distinct concepts. Consultations/Referrals/Follow-Up: Referral for Social Work to assist with collateral contact regarding psychiatric/neurological history, safety assessment, legal next-of-kin. Appreciate Neurology Consultation and recommendations. Appreciate results of OT assessment. Please consider referral to social work as patient has questions regarding insurance coverage and payments. Additionally, patient is requesting more information regarding SNF, which he is currently open to. Patient has improved mental status, which may him better able to engage in conversations with social work. Please do not discharge patient, before first reaching out to psychiatry. Patient likely will need psychiatric hospitalization. Thank you for the opportunity to participate in the care of this patient. The psychiatry consult team is available for questions and concerns M-F 8-5, please page [phone]. Outside of these hours, the craft demonstrator residential carpenter is available for urgent concerns at the same number, [phone]. This case was seen and staffed with attending psychiatrist Dr. Saul. Signed, Werner Peña MD Psychiatry, PGY-4 ATTENDING ATTESTATION I saw and examined the patient on 12/16/[address] Peña. I discussed the findings and therapeutic plan with the resident/fellow physician and I agree with the history, examination, and medical decision making as documented. Available electronic and outside paper records pertinent to today's encounter were personally reviewed, as well as available clinical data related to today's encounter, including but not limited to laboratory studies, radiology images and reports, and EKGs. Romeo Saul D.O. Department of Psychiatry and Behavioral Health Process Analystyarn bleaching machine operator PSYCHIATRY CONSULT FOLLOW-UP NOTE 12/13/2023 Fish Cheung : 1970 SUBJECTIVE Patient chart reviewed. VSS. Patient ahderent to all medications. No PRNs for agitation or anxiety given. Heavy Metals Screen negative. On approach, patient is observed sitting comfortably in chair besides bed. During conversation, patient had episodes of tearfulness when discussing traumatic events and passing of his best friend. He noted that he continues to have a sad mood, but he denied suicidal ideation, intent, or plan. Patient stated that he doesn't have intent to poison himself or to starve himself. Patient noted that he does have a gun in his house that he keeps in a safe. He noted that he is okay with his sister removing the gun and safe from his home. He indicated that he may consider selling the gun. Discussed patient's MRI Brain with him, and he noted his understanding regarding the results. Encouraged continued alcohol cessation to prevent further volume loss of the brain. He noted that he would be agreeable with medication changes to target his mood. Patient noted that he feels less confused than he was previously, and that his thoughts were less erratic. He indicated that he hadn't used any alcohol in awhile, and he denied any alcohol use immediately before psychiatric admission. Patient stated that he would never drink and drive because his best friend as a result of a motor vehicle collision. Discussed recommendation for SNF, and patient stated that he would like to talk to somebody more regarding the recommendation. He is not against going to a SNF. Patient is very worried about the cost of his hospitalization, stating that it scares him to have large debt to pay. Patient was agreeable to speaking to social work. He denied any further concerns at this time. No HI/AH/VH or delusional thought content elicited. Fish Cheung's review of systems today is positive for problems with depression. All other systems were reviewed and are negative. OBJECTIVE Appearance: disheveled Attention: distractable Orientation: Grossly oriented Interview Behavior: cooperative Attire: In hospital gown Grooming: suboptimal Eye Contact: suboptimal Mood: okay Affect: flat Motor Activity: Bilateral hand tremors. Otherwise, no tremors, muscle weakness, muscle rigidity/stiffness/abnormal tone, clonus, abnormal involuntary muscle movements or seizure activity were noted. Speech: slowed Thought Process/Associations: grossly organized Suicidal Ideation: denied by patient Homicidal Ideation:denied by patient Delusions: none Hallucination: none Memory: poor recent and poor remote Insight/Judgment: limited Impulse Control: limited Fund of Knowledge: impaired Language/Vocabulary: fluent Zambian Cognition: impaired Vital Signs: Blood pressure 119/69, pulse 91, temperature 97.5 F (36.4 C), temperature source Oral, resp. rate 18, height 1.829 m (6'), weight 121.2 kg (267 lb 3.2 oz), SpO2 93%. Scheduled Medications: Enoxaparin Sodium (LOVENOX) injection 40 mg, 40 mg, Q24H Folic acid (FOLVITE) tablet 1 mg, 1 mg, Daily Or Folic acid (FOLVITE) tablet 1 mg, 1 mg, Daily Or Folic acid injection 1 mg, 1 mg, Daily LORazepam (ATIVAN) tablet 1 mg, 1 mg, TID Multi-Vitamins tablet 1 tablet, 1 tablet, Daily Or Multi-Vitamins tablet 1 tablet, 1 tablet, Daily OLANZapine (zyPREXA) tablet 2.5 mg, 2.5 mg, QHS Sertraline (ZOLOFT) tablet 50 mg, 50 mg, Daily Tamsulosin HCl (FLOMAX) capsule 0.4 mg, 0.4 mg, Daily Thiamine tablet 100 mg, 100 mg, Daily PRN Medications: Acetaminophen, 650 mg, Q6H PRN alum/mag hydrox.-simethicone, 30 mL, Q6H PRN guaiFENesin, 400 mg, Q6H PRN Ibuprofen, 600 mg, Q6H PRN Melatonin, 6 mg, QHS PRN Nicotine, 4 mg, As directed PRN Polyethylene glycol, 17 g, Daily PRN Sodium chloride 0.9%, 250 mL, PRN Labs/Diagostic Studies: Recent Results (from the past 24 hour(s)) PLATELET COUNT Collection Time: 12/13/23 2:24 AM Result Value Ref Range Platelet Count 217 146 - 337 K/uL Mean Platelet Volume 9.7 8.7 - 12.3 fL NAT Cheung is a 53 y.o. male with past medical history of depression, hypertension, and alcohol use disorder who was transferred from [facility] to [facility] for abnormal labs and failure to thrive. Patient was admitted to [facility] for intentional ingestion of rat poison and psychosis. Psychiatry was consulted due to psychosis with SI/HI. During assessment, patient had bizarre presentation with confabulation and loose associations. He showed several symptoms concerning for catatonia. Patient was unable to provide a linear timeline of events leading to his admission to [facility]. He also was unable to provide his past psychiatric or medical history. Further investigation in patient's medical and psychiatric history would be needed to help make decisions. Additionally, Board of Developmental Disorders should be contacted to see if patient has been linked or has history of intellectual disability. On physical exam on 12/07, the patient catatonia him has seemingly improved. The patient is moving spontaneously and is no longer in a fixed position. He no longer is staring without blinking. He blinks spontaneously. Mild rigidity and waxy flexibility is noted in upper extremities and mild bilateral hand tremors noted. On exam 12/09 and 12/12, patient continues to have improvement in symptoms including rigidity in his arms. Waxy flexibility was not appreciated on exam, though patient continues to have mild bilateral hand tremors. Collateral contact provided additional information regarding patient cognition, noting that patient's cognition has declined since June 2023. She noted that patient may have started drinking alcohol again after being sober for years. Additionally, patient had been having more falls and needing assistance going to the bathroom, when he usually doesn't require any assistance to handle his ADL's. Differential Diagnoses: Catatonia Mild Cognitive Impairment R/O Wernicke Encephalopathy R/O Intellectual Disability R/O Cognitive Impairment Alcohol Use Disorder Depression Suicidal Ideation Cocaine Use Disorder RECOMMENDATIONS Safety: SAFE-T Suicide Risk Assessment 1) Fish Cheung has risk factors for suicide including mood disorder (current or past) and impulsivity. Actively modifiable risk factors include mood disorder (current or past) and impulsivity. 2) He does not have known protective factors at this time, though patient is noted to be a poor historian 3) He is currently expressing Ideation (frequency, intensity, duration--In last 48 hours, past month, and worst ever): of ending his life by withholding food . 4) After considering the intensity and nature of suicidal thoughts and behaviors from this clinical interview, including his pertinent static and dynamic/modifiable suicide risk factors, as well as the impact of current protective factors, based on clinical judgment it appears that Fish Cheung is currently at moderate risk for suicide. Based upon this assessment, would proceed with the following to mitigate suicide risk: Moderate risk: Sitter for Sitter Indication: suicide risk, wandering / elopement risk, and unintentional self-harming behaviors is indicated. Order Emotional Support Precautions (IP MODERATE SUICIDE RISK - EMOTIONAL SUPPORT PRECAUTIONS) Continue to assess the patient for changes in suicidal thoughts, plans, behavior, and intent during daily rounding or with any significant change in circumstances. Please notify the psychiatry consult team if further safety concerns arise. Suicide risk can be further mitigated by medication management. Additional treatment planning steps to reduce suicide risk including medication changes, inpatient psychiatric admission, engaging in safety planning, and lethal means reduction (medication access, firearms). Assist the patient with the development of a safety plan for discharge Diagnostic Workup: Neuroleptic monitoring includes EKG for QTc monitoring, hold antipsychotics if QTc > 500 ms or baseline increases by > 25%. Avoid additional QTc prolonging medications as possible, and maintain K > 4 and Mg > 2. Please monitor for EPS. Agree with multivitamin and folate for alcohol use disorder Appreciate results of MRI Brain with Neuroquant for assessment of cognitive impairment Appreciate negative Heavy Metals Lab testing Agree with discontinuation of CIWA, considering improvement in patient's symptoms. Medications: Decrease Ativan to 1 mg BID from Ativan 1 mg TID with goal of discontinuing, if patient doesn't reoccurrence of catatonia. Continue Thiamine 500 mg IV TID for three day for alcohol use disorder with concern for confabulation. Recommend increasing Zyprexa to 5 mg at bedtime for delirium prophylaxis and mood stabilization. Recommend continuing Zyprexa 50 mg daily for depression and suicidal ideation. Non-pharmacological: Patient is at high-risk for delirium: - The best treatment for delirium is to treat the underlying medical problems. - Ensure proper hydration/nutrition - Repeated reorientation - Promotion of good sleep hygiene - Keep blinds open during daylight hours. - Early mobilization - Removal of unnecessary attachments (bansal catheter, peripheral IV's, NG tubes or other sources of infection) - Regarding pharmacology, avoid anticholinergic drugs and benzodiazepines to the extent possible. Opiates can cause and worsen delirium, but untreated pain can as well. Low dose antipsychotics can help. Please bear in mind that antipsychotics can lower seizure threshold and prolong QTc. - We recommend identifying a surrogate decision maker who can assist when needed Capacity was evaluated on 12/12 by Stephanie Tucker DO, and is as below: At this time, Fish Cheung has been given adequate information regarding the nature and purpose of the recommended plan of care (initiation of psychotropic medications), as well as the risks, benefits, and alternatives to psychotropic medications, including no treatment. Based on the current assessment, (compared to 12/07/23) Mr. Cheung has better ability to: understand the proposed plan of care, 2. appreciate his situation, 3. And weigh the information and use reason to make a decision in line with his values. HOWEVER, he continues to have some difficulty understanding all aspects of his care. Would continue to engage him in planning, however, would encourage including patient's sister in conversations. Catatonia, psychosis, and cognitive impairment appears to be impairing Fish's capacity to provide full informed consent, though this has been improving. At this time, would invoke a surrogate decision maker based on the legally defined hierarchy. Social work and or legal services can assist in identifying a surrogate decision maker. A patient's ability to provide informed consent (capacity to make medical decisions) is both temporal and situational. Evaluation of capacity should occur in the context of a specific health care decision. Capacity can liner roll changer time. Some patients lack capacity for specific periods of time, such as when critically ill, but not permanently. Those with limited capacity may be able to make some treatment decisions (less risky decisions) but not others. Any licensed physician--not just a psychiatrist--can make a determination of incapacity but we remain happy to assist by providing a second opinion on Fish Cheung's capacity to make this medical decision. Medical capacity for informed consent differs from legal competency. Legal competency is determined by a physical chemist after an application is submitted to the court for guardianship. Capacity and competency overlap but are distinct concepts. Consultations/Referrals/Follow-Up: Referral for Social Work to assist with collateral contact regarding psychiatric/neurological history, safety assessment, legal next-of-kin. Appreciate Neurology Consultation and recommendations. Appreciate results of OT assessment. Please consider referral to social work as patient has questions regarding insurance coverage and payments. Additionally, patient is requesting more information regarding SNF, which he is currently open to. Patient has improved mental status, which may him better able to engage in conversations with social work. Please do not discharge patient, before first reaching out to psychiatry. Patient likely will need psychiatric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 arise. Suicide risk can be further mitigated by medication management. Additional treatment planning steps to reduce suicide risk including medication changes, inpatient psychiatric admission, engaging in safety planning, and lethal means reduction (medication access, firearms). Assist the patient with the development of a safety plan for discharge Diagnostic Workup: Neuroleptic monitoring includes EKG for QTc monitoring, hold antipsychotics if QTc > 500 ms or baseline increases by > 25%. Avoid additional QTc prolonging medications as possible, and maintain K > 4 and Mg > 2. Please monitor for EPS. Agree with multivitamin and folate for alcohol use disorder Continue high-dose thiamine 500 mg IV TID for 3 days Recommend MRI Brain with Neuroquant for assessment of cognitive impairment - Ordered Medications: Continue Ativan 1 mg TID for catatonia Continue Thiamine 500 mg IV TID for three day for alcohol use disorder with concern for confabulation. Non-pharmacological: Patient is at high-risk for delirium: - The best treatment for delirium is to treat the underlying medical problems. - Ensure proper hydration/nutrition - Repeated reorientation - Promotion of good sleep hygiene - Keep blinds open during daylight hours. - Early mobilization - Removal of unnecessary attachments (bansal catheter, peripheral IV's, NG tubes or other sources of infection) - Regarding pharmacology, avoid anticholinergic drugs and benzodiazepines to the extent possible. Opiates can cause and worsen delirium, but untreated pain can as well. Low dose antipsychotics can help. Please bear in mind that antipsychotics can lower seizure threshold and prolong QTc. - We recommend identifying a surrogate decision maker who can assist when needed Capacity was evaluated on 12/06 by Stephanie Tucker DO, and is as below: At this time, Fish Cheung has been given adequate information regarding the nature and purpose of the recommended plan of care (initiation of psychotropic medications), as well as the risks, benefits, and alternatives to psychotropic medications, including no treatment. Based on the current assessment Mr. Cheung lacks the ability to: understand the proposed plan of care, 2. appreciate his situation, 3. And weigh the information and use reason to make a decision in line with his values. Catatonia, psychosis, and cognitive impairment appears to be impairing Frandys capacity to provide informed consent, which may improve in the short term. At this time, would invoke a surrogate decision maker based on the legally defined hierarchy. Social work and or legal services can assist in identifying a surrogate decision maker. A patient's ability to provide informed consent (capacity to make medical decisions) is both temporal and situational. Evaluation of capacity should occur in the context of a specific health care decision. Capacity can liner roll changer time. Some patients lack capacity for specific periods of time, such as when critically ill, but not permanently. Those with limited capacity may be able to make some treatment decisions (less risky decisions) but not others. Any licensed physician--not just a psychiatrist--can make a determination of incapacity but we remain happy to assist by providing a second opinion on Edward Rickey's capacity to make this medical decision. Medical capacity for informed consent differs from legal competency. Legal competency is determined by a physical chemist after an application is submitted to the court for guardianship. Capacity and competency overlap but are distinct concepts. Consultations/Referrals/Follow-Up: Referral for Social Work to assist with collateral contact regarding psychiatric/neurological history, safety assessment, legal next-of-kin. Additionally requesting information if patient is linked to Board of Developmental Disabilities in [place]. Please do not discharge patient, before first reaching out to psychiatry. Patient likely will need psychiatric hospitalization. Thank you for the opportunity to participate in the care of this patient. The psychiatry consult team is available for questions and concerns M-F 8-5, please page [phone]. Outside of these hours, the craft demonstrator residential carpenter is available for urgent concerns at the same number, [phone]. This case was seen and staffed with attending psychiatrist Dr. Saul. Signed, Patricia Trotter DO Psychiatry PGY1 Department of Psychiatry and Behavioral Health Please note that portions of this note may have been dictated with a voice recognition software. Efforts were made to edit the dictations but occasionally words are mis-transcribed. ATTENDING ATTESTATION I saw and examined the patient on 12/08/[address] Trotter. I discussed the findings and therapeutic plan with the resident/fellow physician and I agree with the history, examination, and medical decision making as documented. Available electronic and outside paper records pertinent to today's encounter were personally reviewed, as well as available clinical data related to today's encounter, including but not limited to laboratory studies, radiology images and reports, and EKGs. Romeo Saul D.O. Department of Psychiatry and Behavioral Health Process Analystyarn bleaching machine operator documented in this encounter [facility] 12-18-2023 Consult note Formatting of th is note might be different from the original. PSYCHIATRY CONSULT FOLLOW-UP NOTE 12/18/2023 Fish Cheung : 1970 SUBJECTIVE Patient chart reviewed. Patient ahderent to all medications. No PRNs for agitation or anxiety given. BP increased to 178/106 On approach, pt was able to engage well and was linear and goal-oriented. Patient noted that his goal after discharge was to regain his strength and attend social activities. Patient indicated his understanding that [employer] is located in his [place]. He noted that he will also be seeking alcohol use treatment. He indicated that he has noticed an improvement in his mentation, though he still feels like a toddler. He is hopeful that he will continue to improve. Reviewed psychiatric medications that he will be taking after discharge. Discussed discharge planning with patient's sister, Salud Ma, yesterday. She indicated her understanding that [employer] information will be located in his AVS. She indicated that she will be encouraging him to leave the house and attend AA meetings. Indicated her understanding that he will remain on Ativan 0.5 mg and Zyprexa 5 mg after discharge. Also encouraged taking multivitamin, folate, and thiamine. She denied any further questions at this time. Fish Cheung's review of systems today is positive for problems with tremor. All other systems were reviewed and are negative. OBJECTIVE Appearance: disheveled Attention: improved concentration Orientation: Grossly oriented Interview Behavior: cooperative Attire: In hospital gown Grooming: fair Eye Contact: fair Mood: good Affect: blunted Motor Activity: Bilateral hand tremors. Otherwise, no tremors, muscle weakness, muscle rigidity/stiffness/abnormal tone, clonus, abnormal involuntary muscle movements or seizure activity were noted. Speech: slowed Thought Process/Associations: grossly organized Suicidal Ideation: denied by patient Homicidal Ideation:denied by patient Delusions: none Hallucination: none Memory: impaired recent and fair remote Insight/Judgment: limited Impulse Control: limited Fund of Knowledge: Appropriate for age Language/Vocabulary: fluent Zambian Cognition: impaired, but improving Lu-Woo Catatonia Scale: Excitement (extreme hyperactivity which appears non-purposeful): 0 Immobility/Stupor (extreme hypoactivity, immobile, minimally responsive to stimuli): 0 Mutism (verbally unresponsive or minimally responsive): 0 Staring (little or no visual scanning of environment, decreased blinking): 0 Posturing/Catalepsy (spontaneous maintenance of posture): 0 Grimacing (maintenance of odd facial expressions): 0 Echopraxia/Echolalia (mimicking of examiner's movements/speech): 0 Stereotypy (repetitive, abnormally frequent, hiz-gjmd-hixbkceh movements - abnormality not inherent in act but in frequency): 0 Mannerism (odd, circumstantial caricature of normal actions): 0 Verbigeration (repetition of phrases or sentences): 0 Rigidity (maintenance of rigid position despite efforts to be moved): 0 Negativism (resistance to instructions or attempts to move/examine patient, may do opposite of what is requested): 0 Waxy flexibility (during repositioning of patient, patient offers initial resistance before allowing himself to be repositioned): 0 Withdrawal (refusal to eat, drink, and/or make eye contact): 0 Impulsivity (patient suddenly engages in inappropriate behavior without provocation): 0 Automatic obedience (exaggerated cooperation with examiner's request or spontaneous continuation of movement requested): 0 Mitgehen (arm raising in response to light pressure of finger, despite instruction to contrary): 0 Gegenhalten (resistance to passive movement which is proportional to strength of stimulus, appears automatic rather than willful): 0 Ambitendency (patient appears motorically stuck in indecisive, hesitant position): 0 Grasp reflex: 0 Perseveration (repeatedly returns to same topic or persists with movement): 0 Combativeness (usually in an undirected manner, with no, or only a facile explanation afterwards): 0 Autonomic abnormality (temperature, BP, pulse, respiratory rate, diaphoresis): 1 TOTAL: 1 Vital Signs: Blood pressure 128/79, pulse 85, temperature 97.9 F (36.6 C), temperature source Oral, resp. rate 20, height 1.829 m (6'), weight 121.2 kg (267 lb 3.2 oz), SpO2 93%. Scheduled Medications: [START ON 12/19/2023] amLODIPine (NORVASC) tablet 5 mg, 5 mg, Daily carveDILOL (COREG) tablet 12.5 mg, 12.5 mg, Q12H Enoxaparin Sodium (LOVENOX) injection 40 mg, 40 mg, Q24H Folic acid (FOLVITE) tablet 1 mg, 1 mg, Daily Or Folic acid (FOLVITE) tablet 1 mg, 1 mg, Daily Or Folic acid injection 1 mg, 1 mg, Daily LORazepam (ATIVAN) tablet 0.5 mg, 0.5 mg, Daily Multi-Vitamins tablet 1 tablet, 1 tablet, Daily Or Multi-Vitamins tablet 1 tablet, 1 tablet, Daily OLANZapine (zyPREXA) tablet 5 mg, 5 mg, QHS Sertraline (ZOLOFT) tablet 50 mg, 50 mg, Daily Tamsulosin HCl (FLOMAX) capsule 0.4 mg, 0.4 mg, Daily Thiamine tablet 100 mg, 100 mg, Daily PRN Medications: Acetaminophen, 650 mg, Q6H PRN alum/mag hydrox.-simethicone, 30 mL, Q6H PRN guaiFENesin, 400 mg, Q6H PRN Ibuprofen, 600 mg, Q6H PRN Melatonin, 6 mg, QHS PRN Nicotine, 4 mg, As directed PRN Polyethylene glycol, 17 g, Daily PRN Sodium chloride 0.9%, 250 mL, PRN Labs/Diagostic Studies: No results found for this or any previous visit (from the past 24 hour(s)). NAT Cheung is a 53 y.o. male with past medical history of depression, hypertension, and alcohol use disorder who was transferred from [facility] to [facility] for abnormal labs and failure to thrive. Patient was admitted to [facility] for intentional ingestion of rat poison and psychosis. Psychiatry was consulted due to psychosis with SI/HI. During assessment, patient had bizarre presentation with confabulation and loose associations. He showed several symptoms concerning for catatonia. Patient was unable to provide a linear timeline of events leading to his admission to [facility]. He also was unable to provide his past psychiatric or medical history. Further investigation in patient's medical and psychiatric history would be needed to help make decisions. Additionally, Board of Developmental Disorders should be contacted to see if patient has been linked or has history of intellectual disability. On physical exam on 12/07, the patient catatonia him has seemingly improved. The patient is moving spontaneously and is no longer in a fixed position. He no longer is staring without blinking. He blinks spontaneously. Mild rigidity and waxy flexibility is noted in upper extremities and mild bilateral hand tremors noted. On exam 12/09 and 12/12, patient continues to have improvement in symptoms including rigidity in his arms. Waxy flexibility was not appreciated on exam, though patient continues to have mild bilateral hand tremors. Collateral contact provided additional information regarding patient cognition, noting that patient's cognition has declined since June 2023. She noted that patient may have started drinking alcohol again after being sober for years. Additionally, patient had been having more falls and needing assistance going to the bathroom, when he usually doesn't require any assistance to handle his ADL's. On evaluation on 12/17, Mr. Cheung's catatonia and encephalopathy are improving significantly. He would benefit from continued sobriety and post-hospital substance use disorder treatment. Diagnoses: Catatonia Acute metabolic encephalopathy - suspect Wernicke's encephalopathy Physical deconditioning Alcohol Use Disorder, severe, dependence Mood disorder Suicidal Ideation, resolving Cocaine Use Disorder RECOMMENDATIONS Safety: SAFE-T Suicide Risk Assessment 1) Fish Cheung has risk factors for suicide including mood disorder (current or past) and impulsivity. Actively modifiable risk factors include mood disorder (current or past) and impulsivity. 2) He does not have known protective factors at this time, though patient is noted to be a poor historian 3) He is currently expressing Ideation (frequency, intensity, duration--In last 48 hours, past month, and worst ever): of ending his life by withholding food . 4) After considering the intensity and nature of suicidal thoughts and behaviors from this clinical interview, including his pertinent static and dynamic/modifiable suicide risk factors, as well as the impact of current protective factors, based on clinical judgment it appears that Fish Cheung is currently at moderate risk for suicide. Based upon this assessment, would proceed with the following to mitigate suicide risk: Moderate risk: Agree with video sitter due to risk of accidental injury in setting of delirium. Order Emotional Support Precautions (IP MODERATE SUICIDE RISK - EMOTIONAL SUPPORT PRECAUTIONS) Continue to assess the patient for changes in suicidal thoughts, plans, behavior, and intent during daily rounding or with any significant change in circumstances. Please notify the psychiatry consult team if further safety concerns arise. Suicide risk can be further mitigated by medication management. Additional treatment planning steps to reduce suicide risk including medication changes, inpatient psychiatric admission, engaging in safety planning, and lethal means reduction (medication access, firearms). Assist the patient with the development of a safety plan for discharge Medications: Recommend continuing Ativan 0.5 mg daily. Continue Thiamine 500 mg IV TID for three day for alcohol use disorder with concern for confabulation. Continue Zyprexa 5 mg at bedtime for delirium prophylaxis and mood stabilization. Recommend continuing Zyprexa 50 mg daily for depression and suicidal ideation. Medication Recommendations for Discharge: Ativan 0.5 mg daily for 5 days Zyprexa 5 mg at bedtime for 30 days Thiamine 100 mg daily Multivitamin Folic Acid 1 mg daily Non-pharmacological: Continue to encourage sobriety and follow-up with substance use disorder treatment. Consultations/Referrals/Follow-Up: Referral for Social Work to assist with collateral contact regarding psychiatric/neurological history, safety assessment, legal next-of-kin. Appreciate Neurology Consultation and recommendations. Appreciate results of OT assessment. Appreciate assistance from social work regarding patient's questions about insurance coverage and payments. Recommend referral information to [facility] associated with [facility]. Patient currently not a candidate for [facility] through [facility] as patient will be moving near [place]. Thank you for the opportunity to participate in the care of this patient. The psychiatry consult team is available for questions and concerns M-F 8-5, please page [phone]. Outside of these hours, the craft demonstrator residential carpenter is available for urgent concerns at the same number, [phone]. This case was seen and staffed with attending psychiatrist Dr. Chavira Signed, Stephanie Tucker DO [facility] Primary Special Educator PGY-2 ATTENDING ATTESTATION I independently saw and examined Fish Cheung on 12/18/2023. I discussed the findings and therapeutic plan with Dr. Stephanie Tucker DO. I agree with the history, examination, and medical decision making as documented with the following additions: Fish Cheung's mental status continues to improve. No sign of worsening catatonia. I counseled Mr. Cheung on the importance of sobriety and adherence to outpatient mental health and substance use disorder treatment. Reviewed plan to follow-up with [facility] at [facility] for additional medication management. Continue Ativan for 5 days after discharge and then stop. Continue Zyprexa until follow-up with [facility] at [facility]. Pernell Chavira MD Process Analyst Consultation-Liaison Psychiatry PSYCHIATRY CONSULT FOLLOW-UP NOTE 12/17/2023 Fish Cheung : 1970 SUBJECTIVE Patient chart reviewed. Patient ahderent to all medications. No PRNs for agitation or anxiety given. BP increased to 178/106 On approach, pt was able to engage well and was linear and goal-oriented. He was able to identify his location, date, and situation. Patient had some difficulty listing the months backwards, but was able to list the days of the week backward. He was able to recall 3/4 items, and then recalled the last item with a hint. Patient noted improvement in stiffness, though felt that he was overall still stiff. Discussed substance use treatment, and patient indicated that he would be seeing options when he goes to his sister's home near [place]. Discussed naltrexone as medication, but currently declining due to cost and wanting to avoid polypharmacy. Otherwise denies SI, HI, AVH. Fish Cheung's review of systems today is positive for problems with depression, tremor. All other systems were reviewed and are negative. OBJECTIVE Appearance: disheveled Attention: distractable Orientation: Grossly oriented Interview Behavior: cooperative Attire: In hospital gown Grooming: suboptimal Eye Contact: suboptimal Mood: okay Affect: flat Motor Activity: Bilateral hand tremors. Otherwise, no tremors, muscle weakness, muscle rigidity/stiffness/abnormal tone, clonus, abnormal involuntary muscle movements or seizure activity were noted. Speech: slowed Thought Process/Associations: grossly organized Suicidal Ideation: denied by patient Homicidal Ideation:denied by patient Delusions: none Hallucination: none Memory: poor recent and poor remote Insight/Judgment: limited Impulse Control: limited Fund of Knowledge: impaired Language/Vocabulary: fluent Zambian Cognition: impaired Lu-Woo Catatonia Scale: Excitement (extreme hyperactivity which appears non-purposeful): 0 Immobility/Stupor (extreme hypoactivity, immobile, minimally responsive to stimuli): 0 Mutism (verbally unresponsive or minimally responsive): 0 Staring (little or no visual scanning of environment, decreased blinking): 0 Posturing/Catalepsy (spontaneous maintenance of posture): 0 Grimacing (maintenance of odd facial expressions): 0 Echopraxia/Echolalia (mimicking of examiner's movements/speech): 0 Stereotypy (repetitive, abnormally frequent, uqs-cyxv-rhprepto movements - abnormality not inherent in act but in frequency): 0 Mannerism (odd, circumstantial caricature of normal actions): 0 Verbigeration (repetition of phrases or sentences): 0 Rigidity (maintenance of rigid position despite efforts to be moved): 0 Negativism (resistance to instructions or attempts to move/examine patient, may do opposite of what is requested): 0 Waxy flexibility (during repositioning of patient, patient offers initial resistance before allowing himself to be repositioned): 0 Withdrawal (refusal to eat, drink, and/or make eye contact): 0 Impulsivity (patient suddenly engages in inappropriate behavior without provocation): 0 Automatic obedience (exaggerated cooperation with examiner's request or spontaneous continuation of movement requested): 0 Mitgehen (arm raising in response to light pressure of finger, despite instruction to contrary): 0 Gegenhalten (resistance to passive movement which is proportional to strength of stimulus, appears automatic rather than willful): 0 Ambitendency (patient appears motorically stuck in indecisive, hesitant position): 0 Grasp reflex: 0 Perseveration (repeatedly returns to same topic or persists with movement): 0 Combativeness (usually in an undirected manner, with no, or only a facile explanation afterwards): 0 Autonomic abnormality (temperature, BP, pulse, respiratory rate, diaphoresis): 1 TOTAL: 1 Vital Signs: Blood pressure (!) (P) 178/106, pulse 81, temperature 98.2 F (36.8 C), temperature source Oral, resp. rate 18, height 1.829 m (6'), weight 121.2 kg (267 lb 3.2 oz), SpO2 94%. Scheduled Medications: amLODIPine (NORVASC) tablet 10 mg, 10 mg, Daily Enoxaparin Sodium (LOVENOX) injection 40 mg, 40 mg, Q24H Folic acid (FOLVITE) tablet 1 mg, 1 mg, Daily Or Folic acid (FOLVITE) tablet 1 mg, 1 mg, Daily Or Folic acid injection 1 mg, 1 mg, Daily hydroCHLOROthiazide (MICROZIDE) capsule 12.5 mg, 12.5 mg, Daily [START ON 12/18/2023] LORazepam (ATIVAN) tablet 1 mg, 1 mg, Daily Multi-Vitamins tablet 1 tablet, 1 tablet, Daily Or Multi-Vitamins tablet 1 tablet, 1 tablet, Daily OLANZapine (zyPREXA) tablet 5 mg, 5 mg, QHS Sertraline (ZOLOFT) tablet 50 mg, 50 mg, Daily Tamsulosin HCl (FLOMAX) capsule 0.4 mg, 0.4 mg, Daily Thiamine tablet 100 mg, 100 mg, Daily PRN Medications: Acetaminophen, 650 mg, Q6H PRN alum/mag hydrox.-simethicone, 30 mL, Q6H PRN guaiFENesin, 400 mg, Q6H PRN Ibuprofen, 600 mg, Q6H PRN Melatonin, 6 mg, QHS PRN Nicotine, 4 mg, As directed PRN Polyethylene glycol, 17 g, Daily PRN Sodium chloride 0.9%, 250 mL, PRN Labs/Diagostic Studies: No results found for this or any previous visit (from the past 24 hour(s)). NAT Cheung is a 53 y.o. male with past medical history of depression, hypertension, and alcohol use disorder who was transferred from [facility] to [facility] for abnormal labs and failure to thrive. Patient was admitted to [facility] for intentional ingestion of rat poison and psychosis. Psychiatry was consulted due to psychosis with SI/HI. During assessment, patient had bizarre presentation with confabulation and loose associations. He showed several symptoms concerning for catatonia. Patient was unable to provide a linear timeline of events leading to his admission to [facility]. He also was unable to provide his past psychiatric or medical history. Further investigation in patient's medical and psychiatric history would be needed to help make decisions. Additionally, Board of Developmental Disorders should be contacted to see if patient has been linked or has history of intellectual disability. On physical exam on 12/07, the patient catatonia him has seemingly improved. The patient is moving spontaneously and is no longer in a fixed position. He no longer is staring without blinking. He blinks spontaneously. Mild rigidity and waxy flexibility is noted in upper extremities and mild bilateral hand tremors noted. On exam 12/09 and 12/12, patient continues to have improvement in symptoms including rigidity in his arms. Waxy flexibility was not appreciated on exam, though patient continues to have mild bilateral hand tremors. Collateral contact provided additional information regarding patient cognition, noting that patient's cognition has declined since June 2023. She noted that patient may have started drinking alcohol again after being sober for years. Additionally, patient had been having more falls and needing assistance going to the bathroom, when he usually doesn't require any assistance to handle his ADL's. On evaluation on 12/16, Mr. Cheung's catatonia and encephalopathy are improving significantly. He would benefit from continued sobriety and post-hospital substance use disorder treatment. Diagnoses: Catatonia Acute metabolic encephalopathy - suspect Wernicke's encephalopathy Physical deconditioning Alcohol Use Disorder, severe, dependence Mood disorder Suicidal Ideation, resolving Cocaine Use Disorder RECOMMENDATIONS Safety: SAFE-T Suicide Risk Assessment 1) Fish Cheung has risk factors for suicide including mood disorder (current or past) and impulsivity. Actively modifiable risk factors include mood disorder (current or past) and impulsivity. 2) He does not have known protective factors at this time, though patient is noted to be a poor historian 3) He is currently expressing Ideation (frequency, intensity, duration--In last 48 hours, past month, and worst ever): of ending his life by withholding food . 4) After considering the intensity and nature of suicidal thoughts and behaviors from this clinical interview, including his pertinent static and dynamic/modifiable suicide risk factors, as well as the impact of current protective factors, based on clinical judgment it appears that Fish Cheung is currently at moderate risk for suicide. Based upon this assessment, would proceed with the following to mitigate suicide risk: Moderate risk: Agree with video sitter due to risk of accidental injury in setting of delirium. Order Emotional Support Precautions (IP MODERATE SUICIDE RISK - EMOTIONAL SUPPORT PRECAUTIONS) Continue to assess the patient for changes in suicidal thoughts, plans, behavior, and intent during daily rounding or with any significant change in circumstances. Please notify the psychiatry consult team if further safety concerns arise. Suicide risk can be further mitigated by medication management. Additional treatment planning steps to reduce suicide risk including medication changes, inpatient psychiatric admission, engaging in safety planning, and lethal means reduction (medication access, firearms). Assist the patient with the development of a safety plan for discharge Medications: Recommend decreasing Ativan to 1 mg daily with goal of decreasing Ativan to 0.5 mg daily. Will recommend discharging patient with Ativan 0.5 mg daily. Continue Thiamine 500 mg IV TID for three day for alcohol use disorder with concern for confabulation. Continue Zyprexa 5 mg at bedtime for delirium prophylaxis and mood stabilization. Recommend continuing Zyprexa 50 mg daily for depression and suicidal ideation. Non-pharmacological: Continue to encourage sobriety and follow-up with substance use disorder treatment. Consultations/Referrals/Follow-Up: Referral for Social Work to assist with collateral contact regarding psychiatric/neurological history, safety assessment, legal next-of-kin. Appreciate Neurology Consultation and recommendations. Appreciate results of OT assessment. Appreciate assistance from social work regarding patient's questions about insurance coverage and payments. Recommend referral information to [facility] associated with [facility]. Patient currently not a candidate for [facility] through [facility] as patient will be moving near [place]. Thank you for the opportunity to participate in the care of this patient. The psychiatry consult team is available for questions and concerns M-F 8-5, please page [phone]. Outside of these hours, the craft demonstrator residential carpenter is available for urgent concerns at the same number, [phone]. This case was seen and staffed with attending psychiatrist Dr. Chavira Signed, Stephanie Tucker DO [facility] Primary Special Educator PGY-2 Associated attestation - Pernell Chavira MD - 12/17/2023 8:02 PM EDT ATTENDING ATTESTATION I saw and examined Fish Cheung on 12/17/[address] Stephanie Tucker DO. I discussed the findings and therapeutic plan with Dr. Tucker. I agree with the history, examination, and medical decision making as documented with the following additions: Fish Cheung was alert, oriented, but still exhibiting some mild deficits in attention on evaluation today. He was insightful regarding his recent cognitive impairments. He described being in a dream-like state prior to admission in setting of extended substance use and malnourishment. He engaged in motivational interviewing and voiced understanding that his alcohol use contributed to his acute cognitive impairment and debility. He stated that he wants to try to stay sober from alcohol but is concerned about social isolation. He was agreeable with recommendation to pursue outpatient substance use disorder treatment and psychiatry follow-up. He declined MAT like naltrexone due to concern about cost of medications. He also expressed interest in smoking cessation, and we reviewed benefits of nicotine replacement therapy. Mr. Cheung's altered mental status and catatonia were likely due to acute encephalopathy from substance use, malnutrition (suspect Wernicke's encephalopathy). There may also be an element of chronic neurocognitive impairment due to chronic alcohol use disorder and microvascular disease. Fortunately, his mentation is improving, and he is accepting of recommendation for substance use disorder treatment. He does not require inpatient psychiatric hospitalization. We recommend gradually weaning his Ativan and linkage to post-hospital substance use disorder treatment and psychiatric follow-up for further management. He reported that he plans to stay with his sister in [facility]. Decrease Ativan as noted by Dr. Tucker. Monitor for rebound of catatonic symptoms. I personally reviewed data including but not limited to the following: Imaging - MRI Brain from 12/09/2023 showed chronic microvascular disease and severe volume loss but no acute intracranial abnormalities. . I independently reviewed the images. Labs - Chemistries normal on 12/10. LFTs reviewed. Total time I spent was 35 minutes, with greater than 50% of total time spent at the bedside counseling the patient, discussing plan of care and treatment options, as well as in the coordination of care. Pernell Chavira MD Process Analyst Consultation-Liaison Psychiatry PSYCHIATRY CONSULT FOLLOW-UP NOTE 12/16/2023 Fish Cheung : 1970 SUBJECTIVE Patient chart reviewed. Patient ahderent to all medications. No PRNs for agitation or anxiety given. Platelets WNL, BP 158/98 On approach, pt was calmly talking with nursing and requesting a walk. He was in good spirits and cooperative with assessment. Noted good mood and was able to drink ensure for breakfast. Denies SI, HI, AVH. Fish Cheung's review of systems today is positive for problems with depression, tremor. All other systems were reviewed and are negative. OBJECTIVE Appearance: disheveled Attention: distractable Orientation: Grossly oriented Interview Behavior: cooperative Attire: In hospital gown Grooming: suboptimal Eye Contact: suboptimal Mood: okay Affect: flat Motor Activity: Bilateral hand tremors. Otherwise, no tremors, muscle weakness, muscle rigidity/stiffness/abnormal tone, clonus, abnormal involuntary muscle movements or seizure activity were noted. Speech: slowed Thought Process/Associations: grossly organized Suicidal Ideation: denied by patient Homicidal Ideation:denied by patient Delusions: none Hallucination: none Memory: poor recent and poor remote Insight/Judgment: limited Impulse Control: limited Fund of Knowledge: impaired Language/Vocabulary: fluent Zambian Cognition: impaired Lu-Woo Catatonia Scale: Excitement (extreme hyperactivity which appears non-purposeful): 0 Immobility/Stupor (extreme hypoactivity, immobile, minimally responsive to stimuli): 0 Mutism (verbally unresponsive or minimally responsive): 0 Staring (little or no visual scanning of environment, decreased blinking): 0 Posturing/Catalepsy (spontaneous maintenance of posture): 0 Grimacing (maintenance of odd facial expressions): 0 Echopraxia/Echolalia (mimicking of examiner's movements/speech): 0 Stereotypy (repetitive, abnormally frequent, [id number]-[id number]-[id number] movements - abnormality not inherent in act but in frequency): 0 Mannerism (odd, circumstantial caricature of normal actions): 0 Verbigeration (repetition of phrases or sentences): 0 Rigidity (maintenance of rigid position despite efforts to be moved): 0 Negativism (resistance to instructions or attempts to move/examine patient, may do opposite of what is requested): 0 Waxy flexibility (during repositioning of patient, patient offers initial resistance before allowing himself to be repositioned): 0 Withdrawal (refusal to eat, drink, and/or make eye contact): 0 Impulsivity (patient suddenly engages in inappropriate behavior without provocation): 0 Automatic obedience (exaggerated cooperation with examiner's request or spontaneous continuation of movement requested): 0 Mitgehen (arm raising in response to light pressure of finger, despite instruction to contrary): 0 Gegenhalten (resistance to passive movement which is proportional to strength of stimulus, appears automatic rather than willful): 0 Ambitendency (patient appears motorically stuck in indecisive, hesitant position): 0 Grasp reflex: 0 Perseveration (repeatedly returns to same topic or persists with movement): 0 Combativeness (usually in an undirected manner, with no, or only a facile explanation afterwards): 0 Autonomic abnormality (temperature, BP, pulse, respiratory rate, diaphoresis): 1 TOTAL: 1 Vital Signs: Blood pressure (!) 158/98, pulse 83, temperature 98.3 F (36.8 C), temperature source Oral, resp. rate 18, height 1.829 m (6'), weight 121.2 kg (267 lb 3.2 oz), SpO2 92%. Scheduled Medications: Enoxaparin Sodium (LOVENOX) injection 40 mg, 40 mg, Q24H Folic acid (FOLVITE) tablet 1 mg, 1 mg, Daily Or Folic acid (FOLVITE) tablet 1 mg, 1 mg, Daily Or Folic acid injection 1 mg, 1 mg, Daily LORazepam (ATIVAN) tablet 1 mg, 1 mg, BID Multi-Vitamins tablet 1 tablet, 1 tablet, Daily Or Multi-Vitamins tablet 1 tablet, 1 tablet, Daily OLANZapine (zyPREXA) tablet 5 mg, 5 mg, QHS Sertraline (ZOLOFT) tablet 50 mg, 50 mg, Daily Tamsulosin HCl (FLOMAX) capsule 0.4 mg, 0.4 mg, Daily Thiamine tablet 100 mg, 100 mg, Daily PRN Medications: Acetaminophen, 650 mg, Q6H PRN alum/mag hydrox.-simethicone, 30 mL, Q6H PRN guaiFENesin, 400 mg, Q6H PRN Ibuprofen, 600 mg, Q6H PRN Melatonin, 6 mg, QHS PRN Nicotine, 4 mg, As directed PRN Polyethylene glycol, 17 g, Daily PRN Sodium chloride 0.9%, 250 mL, PRN Labs/Diagostic Studies: Recent Results (from the past 24 hour(s)) PLATELET COUNT Collection Time: 12/16/23 3:41 AM Result Value Ref Range Platelet Count 270 146 - 337 K/uL Mean Platelet Volume 9.9 8.7 - 12.3 fL NAT Cheung is a 53 y.o. male with past medical history of depression, hypertension, and alcohol use disorder who was transferred from [facility] to [facility] for abnormal labs and failure to thrive. Patient was admitted to [facility] for intentional ingestion of rat poison and psychosis. Psychiatry was consulted due to psychosis with SI/HI. During assessment, patient had bizarre presentation with confabulation and loose associations. He showed several symptoms concerning for catatonia. Patient was unable to provide a linear timeline of events leading to his admission to [facility]. He also was unable to provide his past psychiatric or medical history. Further investigation in patient's medical and psychiatric history would be needed to help make decisions. Additionally, Board of Developmental Disorders should be contacted to see if patient has been linked or has history of intellectual disability. On physical exam on 12/07, the patient catatonia him has seemingly improved. The patient is moving spontaneously and is no longer in a fixed position. He no longer is staring without blinking. He blinks spontaneously. Mild rigidity and waxy flexibility is noted in upper extremities and mild bilateral hand tremors noted. On exam 12/09 and 12/12, patient continues to have improvement in symptoms including rigidity in his arms. Waxy flexibility was not appreciated on exam, though patient continues to have mild bilateral hand tremors. Collateral contact provided additional information regarding patient cognition, noting that patient's cognition has declined since June 2023. She noted that patient may have started drinking alcohol again after being sober for years. Additionally, patient had been having more falls and needing assistance going to the bathroom, when he usually doesn't require any assistance to handle his ADL's. Diagnoses: Catatonia Intellectual Disability Neurocognitive deficits Psychological factors affecting medical condition Physical deconditioning Alcohol Use Disorder, severe, dependence Mood disorder Suicidal Ideation, resolving Cocaine Use Disorder RECOMMENDATIONS Safety: SAFE-T Suicide Risk Assessment 1) Fish Cheung has risk factors for suicide including mood disorder (current or past) and impulsivity. Actively modifiable risk factors include mood disorder (current or past) and impulsivity. 2) He does not have known protective factors at this time, though patient is noted to be a poor historian 3) He is currently expressing Ideation (frequency, intensity, duration--In last 48 hours, past month, and worst ever): of ending his life by withholding food . 4) After considering the intensity and nature of suicidal thoughts and behaviors from this clinical interview, including his pertinent static and dynamic/modifiable suicide risk factors, as well as the impact of current protective factors, based on clinical judgment it appears that Fish Cheung is currently at moderate risk for suicide. Based upon this assessment, would proceed with the following to mitigate suicide risk: Moderate risk: Sitter for Sitter Indication: suicide risk, wandering / elopement risk, and unintentional self-harming behaviors is indicated. Order Emotional Support Precautions (IP MODERATE SUICIDE RISK - EMOTIONAL SUPPORT PRECAUTIONS) Continue to assess the patient for changes in suicidal thoughts, plans, behavior, and intent during daily rounding or with any significant change in circumstances. Please notify the psychiatry consult team if further safety concerns arise. Suicide risk can be further mitigated by medication management. Additional treatment planning steps to reduce suicide risk including medication changes, inpatient psychiatric admission, engaging in safety planning, and lethal means reduction (medication access, firearms). Assist the patient with the development of a safety plan for discharge Diagnostic Workup: Neuroleptic monitoring includes EKG for QTc monitoring, hold antipsychotics if QTc > 500 ms or baseline increases by > 25%. Avoid additional QTc prolonging medications as possible, and maintain K > 4 and Mg > 2. Please monitor for EPS. Agree with multivitamin and folate for alcohol use disorder Appreciate results of MRI Brain with Neuroquant for assessment of cognitive impairment Appreciate negative Heavy Metals Lab testing Agree with discontinuation of CIWA, considering improvement in patient's symptoms. Medications: Continue Ativan 1 mg BID from Ativan 1 mg TID with goal of discontinuing, if patient doesn't reoccurrence of catatonia. Continue Thiamine 500 mg IV TID for three day for alcohol use disorder with concern for confabulation. Continue Zyprexa to 5 mg at bedtime for delirium prophylaxis and mood stabilization. Recommend continuing Zyprexa 50 mg daily for depression and suicidal ideation. Non-pharmacological: Patient is at high-risk for delirium: - The best treatment for delirium is to treat the underlying medical problems. - Ensure proper hydration/nutrition - Repeated reorientation - Promotion of good sleep hygiene - Keep blinds open during daylight hours. - Early mobilization - Removal of unnecessary attachments (bansal catheter, peripheral IV's, NG tubes or other sources of infection) - Regarding pharmacology, avoid anticholinergic drugs and benzodiazepines to the extent possible. Opiates can cause and worsen delirium, but untreated pain can as well. Low dose antipsychotics can help. Please bear in mind that antipsychotics can lower seizure threshold and prolong QTc. - We recommend identifying a surrogate decision maker who can assist when needed Capacity was evaluated on 12/12 by Stephanie Tucker DO, and is as below: At this time, Fish Cheung has been given adequate information regarding the nature and purpose of the recommended plan of care (initiation of psychotropic medications), as well as the risks, benefits, and alternatives to psychotropic medications, including no treatment. Based on the current assessment, (compared to 12/07/23) Mr. Cheung has better ability to: understand the proposed plan of care, 2. appreciate his situation, 3. And weigh the information and use reason to make a decision in line with his values. HOWEVER, he continues to have some difficulty understanding all aspects of his care. Would continue to engage him in planning, however, would encourage including patient's sister in conversations. Catatonia, psychosis, and cognitive impairment appears to be impairing Fish's capacity to provide full informed consent, though this has been improving. At this time, would invoke a surrogate decision maker based on the legally defined hierarchy. Social work and or legal services can assist in identifying a surrogate decision maker. A patient's ability to provide informed consent (capacity to make medical decisions) is both temporal and situational. Evaluation of capacity should occur in the context of a specific health care decision. Capacity can liner roll changer time. Some patients lack capacity for specific periods of time, such as when critically ill, but not permanently. Those with limited capacity may be able to make some treatment decisions (less risky decisions) but not others. Any licensed physician--not just a psychiatrist--can make a determination of incapacity but we remain happy to assist by providing a second opinion on Fish Cheung's capacity to make this medical decision. Medical capacity for informed consent differs from legal competency. Legal competency is determined by a physical chemist after an application is submitted to the court for guardianship. Capacity and competency overlap but are distinct concepts. Consultations/Referrals/Follow-Up: Referral for Social Work to assist with collateral contact regarding psychiatric/neurological history, safety assessment, legal next-of-kin. Appreciate Neurology Consultation and recommendations. Appreciate results of OT assessment. Please consider referral to social work as patient has questions regarding insurance coverage and payments. Additionally, patient is requesting more information regarding SNF, which he is currently open to. Patient has improved mental status, which may him better able to engage in conversations with social work. Please do not discharge patient, before first reaching out to psychiatry. Patient likely will need psychiatric hospitalization. Thank you for the opportunity to participate in the care of this patient. The psychiatry consult team is available for questions and concerns M-F 8-5, please page [phone]. Outside of these hours, the craft demonstrator residential carpenter is available for urgent concerns at the same number, [phone]. This case was seen and staffed with attending psychiatrist Dr. Saul. Signed, Werner Peña MD Psychiatry, PGY-4 ATTENDING ATTESTATION I saw and examined the patient on 12/16/[address] Peña. I discussed the findings and therapeutic plan with the resident/fellow physician and I agree with the history, examination, and medical decision making as documented. Available electronic and outside paper records pertinent to today's encounter were personally reviewed, as well as available clinical data related to today's encounter, including but not limited to laboratory studies, radiology images and reports, and EKGs. Romeo Saul D.O. Department of Psychiatry and Behavioral Health Process Analystyarn bleaching machine operator PSYCHIATRY CONSULT FOLLOW-UP NOTE 12/13/2023 Fish Cheung : 1970 SUBJECTIVE Patient chart reviewed. VSS. Patient ahderent to all medications. No PRNs for agitation or anxiety given. Heavy Metals Screen negative. On approach, patient is observed sitting comfortably in chair besides bed. During conversation, patient had episodes of tearfulness when discussing traumatic events and passing of his best friend. He noted that he continues to have a sad mood, but he denied suicidal ideation, intent, or plan. Patient stated that he doesn't have intent to poison himself or to starve himself. Patient noted that he does have a gun in his house that he keeps in a safe. He noted that he is okay with his sister removing the gun and safe from his home. He indicated that he may consider selling the gun. Discussed patient's MRI Brain with him, and he noted his understanding regarding the results. Encouraged continued alcohol cessation to prevent further volume loss of the brain. He noted that he would be agreeable with medication changes to target his mood. Patient noted that he feels less confused than he was previously, and that his thoughts were less erratic. He indicated that he hadn't used any alcohol in awhile, and he denied any alcohol use immediately before psychiatric admission. Patient stated that he would never drink and drive because his best friend as a result of a motor vehicle collision. Discussed recommendation for SNF, and patient stated that he would like to talk to somebody more regarding the recommendation. He is not against going to a SNF. Patient is very worried about the cost of his hospitalization, stating that it scares him to have large debt to pay. Patient was agreeable to speaking to social work. He denied any further concerns at this time. No HI/AH/VH or delusional thought content elicited. Fish Cheung's review of systems today is positive for problems with depression. All other systems were reviewed and are negative. OBJECTIVE Appearance: disheveled Attention: distractable Orientation: Grossly oriented Interview Behavior: cooperative Attire: In hospital gown Grooming: suboptimal Eye Contact: suboptimal Mood: okay Affect: flat Motor Activity: Bilateral hand tremors. Otherwise, no tremors, muscle weakness, muscle rigidity/stiffness/abnormal tone, clonus, abnormal involuntary muscle movements or seizure activity were noted. Speech: slowed Thought Process/Associations: grossly organized Suicidal Ideation: denied by patient Homicidal Ideation:denied by patient Delusions: none Hallucination: none Memory: poor recent and poor remote Insight/Judgment: limited Impulse Control: limited Fund of Knowledge: impaired Language/Vocabulary: fluent Zambian Cognition: impaired Vital Signs: Blood pressure 119/69, pulse 91, temperature 97.5 F (36.4 C), temperature source Oral, resp. rate 18, height 1.829 m (6'), weight 121.2 kg (267 lb 3.2 oz), SpO2 93%. Scheduled Medications: Enoxaparin Sodium (LOVENOX) injection 40 mg, 40 mg, Q24H Folic acid (FOLVITE) tablet 1 mg, 1 mg, Daily Or Folic acid (FOLVITE) tablet 1 mg, 1 mg, Daily Or Folic acid injection 1 mg, 1 mg, Daily LORazepam (ATIVAN) tablet 1 mg, 1 mg, TID Multi-Vitamins tablet 1 tablet, 1 tablet, Daily Or Multi-Vitamins tablet 1 tablet, 1 tablet, Daily OLANZapine (zyPREXA) tablet 2.5 mg, 2.5 mg, QHS Sertraline (ZOLOFT) tablet 50 mg, 50 mg, Daily Tamsulosin HCl (FLOMAX) capsule 0.4 mg, 0.4 mg, Daily Thiamine tablet 100 mg, 100 mg, Daily PRN Medications: Acetaminophen, 650 mg, Q6H PRN alum/mag hydrox.-simethicone, 30 mL, Q6H PRN guaiFENesin, 400 mg, Q6H PRN Ibuprofen, 600 mg, Q6H PRN Melatonin, 6 mg, QHS PRN Nicotine, 4 mg, As directed PRN Polyethylene glycol, 17 g, Daily PRN Sodium chloride 0.9%, 250 mL, PRN Labs/Diagostic Studies: Recent Results (from the past 24 hour(s)) PLATELET COUNT Collection Time: 12/13/23 2:24 AM Result Value Ref Range Platelet Count 217 146 - 337 K/uL Mean Platelet Volume 9.7 8.7 - 12.3 fL IMPRESSION Fish Cheung is a 53 y.o. male with past medical history of depression, hypertension, and alcohol use disorder who was transferred from [facility] to [facility] for abnormal labs and failure to thrive. Patient was admitted to [facility] for intentional ingestion of rat poison and psychosis. Psychiatry was consulted due to psychosis with SI/HI. During assessment, patient had bizarre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 decisions (less risky decisions) but not others. Any licensed physician--not just a psychiatrist--can make a determination of incapacity but we remain happy to assist by providing a second opinion on Fish Cheung's capacity to make this medical decision. Medical capacity for informed consent differs from legal competency. Legal competency is determined by a physical chemist after an application is submitted to the court for guardianship. Capacity and competency overlap but are distinct concepts. Consultations/Referrals/Follow-Up: Referral for Social Work to assist with collateral contact regarding psychiatric/neurological history, safety assessment, legal next-of-kin. Additionally requesting information if patient is linked to Board of Developmental Disabilities in [place]. Please do not discharge patient, before first reaching out to psychiatry. Patient likely will need psychiatric hospitalization. Thank you for the opportunity to participate in the care of this patient. The psychiatry consult team is available for questions and concerns M-F 8-5, please page [phone]. Outside of these hours, the craft demonstrator residential carpenter is available for urgent concerns at the same number, [phone]. Romeo Saul D.O. Process Analystyarn bleaching machine operator Department of Psychiatry and Behavioral Health [facility] PSYCHIATRY CONSULT FOLLOW-UP NOTE 12/08/2023 Fish Cheung : 1970 SUBJECTIVE Patient chart reviewed. Patient received Ativan 1 mg on 12/06 at 2249 for CIWA. Patient was placed on 1-2L NC overnight due to desaturation while sleeping. Even while on oxygen he dropped to an oxygen saturation of 55%, his saturation returns to normal very quickly as soon as he is awakened. On approach, patient is sitting in a recliner chair next to his bed and is agreeable to meet. The patient reports he is doing well. he reports feeling better since being in the hospital. He denies suicidal ideations homicidal ideations and auditory and visual hallucinations. He reports that he feels a little weak. When asked about what the patient had to eat, the patient reports locking. However his took reports that he ate about 20% of his breakfast which included sausage, potatoes, and eggs. He did drink 100% of ensure plus. The patient reports that he thought was yesterday not today. On physical exam, the patient catatonia him has seemingly improved. The patient is moving spontaneously and is no longer in a fixed position. He no longer is staring without blinking. He blinks spontaneously. Mild rigidity and waxy flexibility is noted in upper extremities and mild bilateral hand tremors noted. Fish Cheung's review of systems today is positive for problems with catatonia, confabulation, depression . All other systems were reviewed and are negative. OBJECTIVE Appearance: disheveled Attention: distractable Orientation: Grossly oriented Interview Behavior: cooperative Attire: In hospital gown Grooming: suboptimal Eye Contact: satisfactory Mood: doing well Affect: flat Motor Activity: Mild rigidity noted in upper extremities and bilateral hand tremors. Otherwise, no tremors, muscle weakness, muscle rigidity/stiffness/abnormal tone, clonus, abnormal involuntary muscle movements or seizure activity were noted. Speech: slowed Thought Process/Associations: grossly organized Suicidal Ideation: denied by patient Homicidal Ideation:denied by patient Delusions: none Hallucination: none Memory: poor recent and poor remote Insight/Judgment: limited Impulse Control: limited Fund of Knowledge: impaired Language/Vocabulary: fluent Zambian Cognition: impaired Vital Signs: Blood pressure 157/82, pulse 78, temperature 98.6 F (37 C), temperature source Oral, resp. rate 16, height 1.829 m (6'), weight 117.1 kg (258 lb 1.6 oz), SpO2 94%. Scheduled Medications: Enoxaparin Sodium (LOVENOX) injection 40 mg, 40 mg, Q24H Folic acid (FOLVITE) tablet 1 mg, 1 mg, Daily Or Folic acid (FOLVITE) tablet 1 mg, 1 mg, Daily Or Folic acid injection 1 mg, 1 mg, Daily Multi-Vitamins tablet 1 tablet, 1 tablet, Daily Or Multi-Vitamins tablet 1 tablet, 1 tablet, Daily thiamine (B-1) 500 mg in Sodium chloride 0.9%, with overfill 65 mL (total volume) IVPB, 500 mg, Daily Thiamine tablet 100 mg, 100 mg, Q8H Or Thiamine tablet 100 mg, 100 mg, Q8H Or Thiamine (Vitamin B-1) injection 100 mg, 100 mg, Q8H [START ON 12/11/2023] Thiamine tablet 100 mg, 100 mg, Daily PRN Medications: Acetaminophen, 650 mg, Q6H PRN alum/mag hydrox.-simethicone, 30 mL, Q6H PRN guaiFENesin, 400 mg, Q6H PRN Ibuprofen, 600 mg, Q6H PRN LORazepam, 1 mg, Q30 MIN PRN Or LORazepam, 2 mg, Q30 MIN PRN LORazepam, 1-4 mg, Q1H PRN Or LORazepam, 1-4 mg, Q1H PRN Or LORazepam, 1-4 mg, Q1H PRN LORazepam, 1 mg, Q30 MIN PRN Or LORazepam, 2 mg, Q30 MIN PRN LORazepam, 1 mg, Q30 MIN PRN Or LORazepam, 2 mg, Q30 MIN PRN Melatonin, 6 mg, QHS PRN Nicotine, 4 mg, As directed PRN Polyethylene glycol, 17 g, Daily PRN Sodium chloride 0.9%, 250 mL, PRN Labs/Diagostic Studies: No results found for this or any previous visit (from the past 24 hour(s)). NAT Cheung is a 53 y.o. male with past medical history of depression, hypertension, and alcohol use disorder who was transferred from [facility] to [facility] for abnormal labs and failure to thrive. Patient was admitted to [facility] for intentional ingestion of rat poison and psychosis. Psychiatry was consulted due to psychosis with SI/HI. During assessment, patient had bizarre presentation with confabulation and loose associations. He showed several symptoms concerning for catatonia. Patient was unable to provide a linear timeline of events leading to his admission to [facility]. He also was unable to provide his past psychiatric or medical history. Further investigation in patient's medical and psychiatric history would be needed to help make decisions. Additionally, Board of Developmental Disorders should be contacted to see if patient has been linked or has history of intellectual disability. On physical exam on 12/07, the patient catatonia him has seemingly improved. The patient is moving spontaneously and is no longer in a fixed position. He no longer is staring without blinking. He blinks spontaneously. Mild rigidity and waxy flexibility is noted in upper extremities and mild bilateral hand tremors noted. Diagnoses: Catatonia Intellectual Disability Neurocognitive deficits Psychological factors affecting medical condition Physical deconditioning Alcohol Use Disorder, severe, dependence Mood disorder Suicidal Ideation, resolving Cocaine Use Disorder RECOMMENDATIONS Safety: SAFE-T Suicide Risk Assessment 1) Edward Rickey has risk factors for suicide including mood disorder (current or past) and impulsivity. Actively modifiable risk factors include mood disorder (current or past) and impulsivity. 2) He does not have known protective factors at this time, though patient is noted to be a poor historian 3) He is currently expressing Ideation (frequency, intensity, duration--In last 48 hours, past month, and worst ever): of ending his life by withholding food . 4) After considering the intensity and nature of suicidal thoughts and behaviors from this clinical interview, including his pertinent static and dynamic/modifiable suicide risk factors, as well as the impact of current protective factors, based on clinical judgment it appears that Fish Cheung is currently at moderate risk for suicide. Based upon this assessment, would proceed with the following to mitigate suicide risk: Moderate risk: Sitter for Sitter Indication: suicide risk, wandering / elopement risk, and unintentional self-harming behaviors is indicated. Order Emotional Support Precautions (IP MODERATE SUICIDE RISK - EMOTIONAL SUPPORT PRECAUTIONS) Continue to assess the patient for changes in suicidal thoughts, plans, behavior, and intent during daily rounding or with any significant change in circumstances. Please notify the psychiatry consult team if further safety concerns arise. Suicide risk can be further mitigated by medication management. Additional treatment planning steps to reduce suicide risk including medication changes, inpatient psychiatric admission, engaging in safety planning, and lethal means reduction (medication access, firearms). Assist the patient with the development of a safety plan for discharge Diagnostic Workup: Neuroleptic monitoring includes EKG for QTc monitoring, hold antipsychotics if QTc > 500 ms or baseline increases by > 25%. Avoid additional QTc prolonging medications as possible, and maintain K > 4 and Mg > 2. Please monitor for EPS. Agree with multivitamin and folate for alcohol use disorder Continue high-dose thiamine 500 mg IV TID for 3 days Recommend MRI Brain with Neuroquant for assessment of cognitive impairment - Ordered Medications: Continue Ativan 1 mg TID for catatonia Continue Thiamine 500 mg IV TID for three day for alcohol use disorder with concern for confabulation. Non-pharmacological: Patient is at high-risk for delirium: - The best treatment for delirium is to treat the underlying medical problems. - Ensure proper hydration/nutrition - Repeated reorientation - Promotion of good sleep hygiene - Keep blinds open during daylight hours. - Early mobilization - Removal of unnecessary attachments (bansal catheter, peripheral IV's, NG tubes or other sources of infection) - Regarding pharmacology, avoid anticholinergic drugs and benzodiazepines to the extent possible. Opiates can cause and worsen delirium, but untreated pain can as well. Low dose antipsychotics can help. Please bear in mind that antipsychotics can lower seizure threshold and prolong QTc. - We recommend identifying a surrogate decision maker who can assist when needed Capacity was evaluated on 12/06 by Stephanie Tucker DO, and is as below: At this time, Fish Cheung has been given adequate information regarding the nature and purpose of the recommended plan of care (initiation of psychotropic medications), as well as the risks, benefits, and alternatives to psychotropic medications, including no treatment. Based on the current assessment Mr. Cheung lacks the ability to: understand the proposed plan of care, 2. appreciate his situation, 3. And weigh the information and use reason to make a decision in line with his values. Catatonia, psychosis, and cognitive impairment appears to be impairing Frandys capacity to provide informed consent, which may improve in the short term. At this time, would invoke a surrogate decision maker based on the legally defined hierarchy. Social work and or legal services can assist in identifying a surrogate decision maker. A patient's ability to provide informed consent (capacity to make medical decisions) is both temporal and situational. Evaluation of capacity should occur in the context of a specific health care decision. Capacity can liner roll changer time. Some patients lack capacity for specific periods of time, such as when critically ill, but not permanently. Those with limited capacity may be able to make some treatment decisions (less risky decisions) but not others. Any licensed physician--not just a psychiatrist--can make a determination of incapacity but we remain happy to assist by providing a second opinion on Fish Cheung's capacity to make this medical decision. Medical capacity for informed consent differs from legal competency. Legal competency is determined by a physical chemist after an application is submitted to the court for guardianship. Capacity and competency overlap but are distinct concepts. Consultations/Referrals/Follow-Up: Referral for Social Work to assist with collateral contact regarding psychiatric/neurological history, safety assessment, legal next-of-kin. Additionally requesting information if patient is linked to Board of Developmental Disabilities in [place]. Please do not discharge patient, before first reaching out to psychiatry. Patient likely will need psychiatric hospitalization. Thank you for the opportunity to participate in the care of this patient. The psychiatry consult team is available for questions and concerns M-F 8-5, please page [phone]. Outside of these hours, the craft demonstrator residential carpenter is available for urgent concerns at the same number, [phone]. This case was seen and staffed with attending psychiatrist Dr. Saul. Signed, Patricia Trotter DO Psychiatry PGY1 Department of Psychiatry and Behavioral Health Please note that portions of this note may have been dictated with a voice recognition software. Efforts were made to edit the dictations but occasionally words are mis-transcribed. ATTENDING ATTESTATION I saw and examined the patient on 12/08/[address] Trotter. I discussed the findings and therapeutic plan with the resident/fellow physician and I agree with the history, examination, and medical decision making as documented. Available electronic and outside paper records pertinent to today's encounter were personally reviewed, as well as available clinical data related to today's encounter, including but not limited to laboratory studies, radiology images and reports, and EKGs. Romeo Saul D.O. Department of Psychiatry and Behavioral Health Process Analystyarn bleaching machine operator documented in this encounter [facility] 12-18-2023 Plan of care note Problem: OT - ADLs Goal: Bathing - Patient will perform full body bathing routine with modified independence for improved ability to complete self-care activities Outcome: Progressing Problem: OT - Balance Goal: Balance - Standing - Patient will perform 10 minutes of functional task in standing with modified independence and good balance to promote safety and improved balance required for self-care activities. Outcome: Progressing Problem: OT - Endurance Goal: Endurance Functional Mobility - Patient will complete distance needed for common household mobility with modified independence for improved tolerance to safely complete I/ADL's Outcome: Progressing Problem: OT - Cognition Goal: Safety - Patient will demonstrate good safety awareness during ADL routine with min or less cues for accuracy. Outcome: Progressing Problem: OT - Cognition Goal: Cognition Simple ADL - Patient will demonstrate improved cognition, completing simple ADL task for 10 minutes with no greater than min cues required to maintain attention. Outcome: Met [facility] 12-18-2023 Plan of care note Problem: PT - General Goals Goal: Pt will perform bed mobility within precautions at independence in order to improve functional mobility and safety. Outcome: Progressing Goal: Pt will perform transfers within precautions with independence with without an assistive device in order to improve functional mobility and safety. Outcome: Progressing Goal: Pt will ambulate 100 feet within precautions with least restrictive device at independence to improve ability to navigate home environment. Outcome: Progressing [facility] 12-17-2023 Consult note Formatting of th is note might be different from the original. PSYCHIATRY CONSULT FOLLOW-UP NOTE 12/17/2023 Fish Cheung : 1970 SUBJECTIVE Patient chart reviewed. Patient ahderent to all medications. No PRNs for agitation or anxiety given. BP increased to 178/106 On approach, pt was able to engage well and was linear and goal-oriented. He was able to identify his location, date, and situation. Patient had some difficulty listing the months backwards, but was able to list the days of the week backward. He was able to recall 3/4 items, and then recalled the last item with a hint. Patient noted improvement in stiffness, though felt that he was overall still stiff. Discussed substance use treatment, and patient indicated that he would be seeing options when he goes to his sister's home near [place]. Discussed naltrexone as medication, but currently declining due to cost and wanting to avoid polypharmacy. Otherwise denies SI, HI, AVH. Fish Cheung's review of systems today is positive for problems with depression, tremor. All other systems were reviewed and are negative. OBJECTIVE Appearance: disheveled Attention: distractable Orientation: Grossly oriented Interview Behavior: cooperative Attire: In hospital gown Grooming: suboptimal Eye Contact: suboptimal Mood: okay Affect: flat Motor Activity: Bilateral hand tremors. Otherwise, no tremors, muscle weakness, muscle rigidity/stiffness/abnormal tone, clonus, abnormal involuntary muscle movements or seizure activity were noted. Speech: slowed Thought Process/Associations: grossly organized Suicidal Ideation: denied by patient Homicidal Ideation:denied by patient Delusions: none Hallucination: none Memory: poor recent and poor remote Insight/Judgment: limited Impulse Control: limited Fund of Knowledge: impaired Language/Vocabulary: fluent [place]ambian Cognition: impaired Lu-Woo Catatonia Scale: Excitement (extreme hyperactivity which appears non-purposeful): 0 Immobility/Stupor (extreme hypoactivity, immobile, minimally responsive to stimuli): 0 Mutism (verbally unresponsive or minimally responsive): 0 Staring (little or no visual scanning of environment, decreased blinking): 0 Posturing/Catalepsy (spontaneous maintenance of posture): 0 Grimacing (maintenance of odd facial expressions): 0 Echopraxia/Echolalia (mimicking of examiner's movements/speech): 0 Stereotypy (repetitive, abnormally frequent, opg-[id number]-erucohcy movements - abnormality not inherent in act but in frequency): 0 Mannerism (odd, circumstantial caricature of normal actions): 0 Verbigeration (repetition of phrases or sentences): 0 Rigidity (maintenance of rigid position despite efforts to be moved): 0 Negativism (resistance to instructions or attempts to move/examine patient, may do opposite of what is requested): 0 Waxy flexibility (during repositioning of patient, patient offers initial resistance before allowing himself to be repositioned): 0 Withdrawal (refusal to eat, drink, and/or make eye contact): 0 Impulsivity (patient suddenly engages in inappropriate behavior without provocation): 0 Automatic obedience (exaggerated cooperation with examiner's request or spontaneous continuation of movement requested): 0 [place] (arm raising in response to light pressure of finger, despite instruction to contrary): 0 Gegenhalten (resistance to passive movement which is proportional to strength of stimulus, appears automatic rather than willful): 0 Ambitendency (patient appears motorically stuck in indecisive, hesitant position): 0 Grasp reflex: 0 Perseveration (repeatedly returns to same topic or persists with movement): 0 Combativeness (usually in an undirected manner, with no, or only a facile explanation afterwards): 0 Autonomic abnormality (temperature, BP, pulse, respiratory rate, diaphoresis): 1 TOTAL: 1 Vital Signs: Blood pressure (!) (P) 178/106, pulse 81, temperature 98.2 F (36.8 C), temperature source Oral, resp. rate 18, height 1.829 m (6'), weight 121.2 kg (267 lb 3.2 oz), SpO2 94%. Scheduled Medications: amLODIPine (NORVASC) tablet 10 mg, 10 mg, Daily Enoxaparin Sodium (LOVENOX) injection 40 mg, 40 mg, Q24H Folic acid (FOLVITE) tablet 1 mg, 1 mg, Daily Or Folic acid (FOLVITE) tablet 1 mg, 1 mg, Daily Or Folic acid injection 1 mg, 1 mg, Daily hydroCHLOROthiazide (MICROZIDE) capsule 12.5 mg, 12.5 mg, Daily [START ON 12/18/2023] LORazepam (ATIVAN) tablet 1 mg, 1 mg, Daily Multi-Vitamins tablet 1 tablet, 1 tablet, Daily Or Multi-Vitamins tablet 1 tablet, 1 tablet, Daily OLANZapine (zyPREXA) tablet 5 mg, 5 mg, QHS Sertraline (ZOLOFT) tablet 50 mg, 50 mg, Daily Tamsulosin HCl (FLOMAX) capsule 0.4 mg, 0.4 mg, Daily Thiamine tablet 100 mg, 100 mg, Daily PRN Medications: Acetaminophen, 650 mg, Q6H PRN alum/mag hydrox.-simethicone, 30 mL, Q6H PRN guaiFENesin, 400 mg, Q6H PRN Ibuprofen, 600 mg, Q6H PRN Melatonin, 6 mg, QHS PRN Nicotine, 4 mg, As directed PRN Polyethylene glycol, 17 g, Daily PRN Sodium chloride 0.9%, 250 mL, PRN Labs/Diagostic Studies: No results found for this or any previous visit (from the past 24 hour(s)). NAT Cheung is a 53 y.o. male with past medical history of depression, hypertension, and alcohol use disorder who [facility] [facility] for abnormal labs and failure to thrive. Patient was admitted to [facility] for intentional ingestion of rat poison and psychosis. Psychiatry was consulted due to psychosis with SI/HI. During assessment, patient had bizarre presentation with confabulation and loose associations. He showed several symptoms concerning for catatonia. Patient was unable to provide a linear timeline of events leading to his admission to [facility]. He also was unable to provide his past psychiatric or medical history. Further investigation in patient's medical and psychiatric history would be needed to help make decisions. Additionally, Board of Developmental Disorders should be contacted to see if patient has been linked or has history of intellectual disability. On physical exam on 12/07, the patient catatonia him has seemingly improved. The patient is moving spontaneously and is no longer in a fixed position. He no longer is staring without blinking. He blinks spontaneously. Mild rigidity and waxy flexibility is noted in upper extremities and mild bilateral hand tremors noted. On exam 12/09 and 12/12, patient continues to have improvement in symptoms including rigidity in his arms. Waxy flexibility was not appreciated on exam, though patient continues to have mild bilateral hand tremors. Collateral contact provided additional information regarding patient cognition, noting that patient's cognition has declined since June 2023. She noted that patient may have started drinking alcohol again after being sober for years. Additionally, patient had been having more falls and needing assistance going to the bathroom, when he usually doesn't require any assistance to handle his ADL's. On evaluation on 12/16, Mr. Cheung's catatonia and encephalopathy are improving significantly. He would benefit from continued sobriety and post-hospital substance use disorder treatment. Diagnoses: Catatonia Acute metabolic encephalopathy - suspect Wernicke's encephalopathy Physical deconditioning Alcohol Use Disorder, severe, dependence Mood disorder Suicidal Ideation, resolving Cocaine Use Disorder RECOMMENDATIONS Safety: SAFE-T Suicide Risk Assessment 1) Fish Cheung has risk factors for suicide including mood disorder (current or past) and impulsivity. Actively modifiable risk factors include mood disorder (current or past) and impulsivity. 2) He does not have known protective factors at this time, though patient is noted to be a poor historian 3) He is currently expressing Ideation (frequency, intensity, duration--In last 48 hours, past month, and worst ever): of ending his life by withholding food . 4) After considering the intensity and nature of suicidal thoughts and behaviors from this clinical interview, including his pertinent static and dynamic/modifiable suicide risk factors, as well as the impact of current protective factors, based on clinical judgment it appears that Fish Cheung is currently at moderate risk for suicide. Based upon this assessment, would proceed with the following to mitigate suicide risk: Moderate risk: Agree with video sitter due to risk of accidental injury in setting of delirium. Order Emotional Support Precautions (IP MODERATE SUICIDE RISK - EMOTIONAL SUPPORT PRECAUTIONS) Continue to assess the patient for changes in suicidal thoughts, plans, behavior, and intent during daily rounding or with any significant change in circumstances. Please notify the psychiatry consult team if further safety concerns arise. Suicide risk can be further mitigated by medication management. Additional treatment planning steps to reduce suicide risk including medication changes, inpatient psychiatric admission, engaging in safety planning, and lethal means reduction (medication access, firearms). Assist the patient with the development of a safety plan for discharge Medications: Recommend decreasing Ativan to 1 mg daily with goal of decreasing Ativan to 0.5 mg daily. Will recommend discharging patient with Ativan 0.5 mg daily. Continue Thiamine 500 mg IV TID for three day for alcohol use disorder with concern for confabulation. Continue Zyprexa 5 mg at bedtime for delirium prophylaxis and mood stabilization. Recommend continuing Zyprexa 50 mg daily for depression and suicidal ideation. Non-pharmacological: Continue to encourage sobriety and follow-up with substance use disorder treatment. Consultations/Referrals/Follow-Up: Referral for Social Work to assist with collateral contact regarding psychiatric/neurological history, safety assessment, legal next-of-kin. Appreciate Neurology Consultation and recommendations. Appreciate results of OT assessment. Appreciate assistance from social work regarding patient's questions about insurance coverage and payments. Recommend referral information to IC associated with [facility]. Patient currently not a candidate for [facility] through [facility] as patient will be moving near [place]. Thank you for the opportunity to participate in the care of this patient. The psychiatry consult team is available for questions and concerns M-F 8-5, please page [phone]. Outside of these hours, the craft demonstrator residential carpenter is available for urgent concerns at the same number, [phone]. This case was seen and staffed with attending psychiatrist Dr. Chavira Signed, Stephanie Tucker DO [facility] Primary Special Educator PGY-2 Associated attestation - Pernell Chavira MD - 12/17/2023 8:02 PM EDT ATTENDING ATTESTATION I saw and examined Fish Cheung on 12/17/[address] Stephanie Tucker DO. I discussed the findings and therapeutic plan with Dr. Tucker. I agree with the history, examination, and medical decision making as documented with the following additions: Fish Cheung was alert, oriented, but still exhibiting some mild deficits in attention on evaluation today. He was insightful regarding his recent cognitive impairments. He described being in a dream-like state prior to admission in setting of extended substance use and malnourishment. He engaged in motivational interviewing and voiced understanding that his alcohol use contributed to his acute cognitive impairment and debility. He stated that he wants to try to stay sober from alcohol but is concerned about social isolation. He was agreeable with recommendation to pursue outpatient substance use disorder treatment and psychiatry follow-up. He declined MAT like naltrexone due to concern about cost of medications. He also expressed interest in smoking cessation, and we reviewed benefits of nicotine replacement therapy. Mr. Cheung's altered mental status and catatonia were likely due to acute encephalopathy from substance use, malnutrition (suspect Wernicke's encephalopathy). There may also be an element of chronic neurocognitive impairment due to chronic alcohol use disorder and microvascular disease. Fortunately, his mentation is improving, and he is accepting of recommendation for substance use disorder treatment. He does not require inpatient psychiatric hospitalization. We recommend gradually weaning his Ativan and linkage to post-hospital substance use disorder treatment and psychiatric follow-up for further management. He reported that he plans to stay with his sister in [facility]. Decrease Ativan as noted by Dr. Tucker. Monitor for rebound of catatonic symptoms. I personally reviewed data including but not limited to the following: Imaging - MRI Brain from 12/09/2023 showed chronic microvascular disease and severe volume loss but no acute intracranial abnormalities. . I independently reviewed the images. Labs - Chemistries normal on 12/10. LFTs reviewed. Total time I spent was 35 minutes, with greater than 50% of total time spent at the bedside counseling the patient, discussing plan of care and treatment options, as well as in the coordination of care. Pernell Chavira MD Process Analyst Consultation-Liaison Psychiatry [facility] 12-17-2023 Nurse Note Patient blood pressure 190/[address] Chayito Valles notified. IV labetalol order. 1557: Patient blood pressure 193/108 MAP 144, HR 89 after IV labetalol given Dr. Chayito Valles notified. [facility] 12-17-2023 Plan of care note Problem: OT - ADLs Goal: Toileting - Patient will complete toileting task with modified independence and adaptive equipment as needed for improved ability to safely complete self-care activities. Outcome: Progressing Goal: Bathing - Patient will perform full body bathing routine with modified independence for improved ability to complete self-care activities Outcome: Progressing Problem: OT - Balance Goal: Balance - Standing - Patient will perform 10 minutes of functional task in standing with modified independence and good balance to promote safety and improved balance required for self-care activities. Outcome: Progressing Problem: OT - Endurance Goal: Endurance Functional Mobility - Patient will complete distance needed for common household mobility with modified independence for improved tolerance to safely complete I/ADL's Outcome: Progressing Problem: OT - Cognition Goal: Cognition Simple ADL - Patient will demonstrate improved cognition, completing simple ADL task for 10 minutes with no greater than min cues required to maintain attention. Outcome: Progressing Goal: Safety - Patient will demonstrate good safety awareness during ADL routine with min or less cues for accuracy. Outcome: Progressing [facility] 12-17-2023 Nurse Note 12/17/23 [id number] Patient Choice for Post-Acute Providers Resumption of care? No Establishing care? Yes Level of care for choice DME (2 Wheeled Walker) Preferred geographic region Discussed and honored ([facility]) Source of list Aidin List was provided to Patient Method of delivery In Person Is the provider part of a joint venture or have a financial relationship with discharging hospital? Yes Was the patient notified of financial relationship? Yes 1430: 2 wheeled walker delivered to patient at bedside by [employer]. 1440: CM received message from medical team to link patient to [facility] with [employer] close to his sister's residence. CM called [facility] to schedule an appointment, but they need patient and family to make that initial appointment. CM provided information to schedule the appointment in patient's AVS. Osman MOSHER (Ed) RN Clinical Sharples Machine Operator [facility] 12-17-2023 Plan of care note Problem: PT - General Goals Goal: Pt will perform bed mobility within precautions at independence in order to improve functional mobility and safety. Outcome: Ongoing Goal: Pt will perform transfers within precautions with independence with without an assistive device in order to improve functional mobility and safety. Outcome: Ongoing Goal: Pt will ambulate 100 feet within precautions with least restrictive device at independence to improve ability to navigate home environment. Outcome: Ongoing [facility] 12-16-2023 Consult note Formatting of th is note is different from the original. PSYCHIATRY CONSULT FOLLOW-UP NOTE 12/16/2023 Fish Cheung : 1970 SUBJECTIVE Patient chart reviewed. Patient ahderent to all medications. No PRNs for agitation or anxiety given. Platelets WNL, BP 158/98 On approach, pt was calmly talking with nursing and requesting a walk. He was in good spirits and cooperative with assessment. Noted good mood and was able to drink ensure for breakfast. Denies SI, HI, AVH. Fish Chenug's review of systems today is positive for problems with depression, tremor. All other systems were reviewed and are negative. OBJECTIVE Appearance: disheveled Attention: distractable Orientation: Grossly oriented Interview Behavior: cooperative Attire: In hospital gown Grooming: suboptimal Eye Contact: suboptimal Mood: okay Affect: flat Motor Activity: Bilateral hand tremors. Otherwise, no tremors, muscle weakness, muscle rigidity/stiffness/abnormal tone, clonus, abnormal involuntary muscle movements or seizure activity were noted. Speech: slowed Thought Process/Associations: grossly organized Suicidal Ideation: denied by patient Homicidal Ideation:denied by patient Delusions: none Hallucination: none Memory: poor recent and poor remote Insight/Judgment: limited Impulse Control: limited Fund of Knowledge: impaired Language/Vocabulary: fluent Zambian Cognition: impaired Lu-Woo Catatonia Scale: Excitement (extreme hyperactivity which appears non-purposeful): 0 Immobility/Stupor (extreme hypoactivity, immobile, minimally responsive to stimuli): 0 Mutism (verbally unresponsive or minimally responsive): 0 Staring (little or no visual scanning of environment, decreased blinking): 0 Posturing/Catalepsy (spontaneous maintenance of posture): 0 Grimacing (maintenance of odd facial expressions): 0 Echopraxia/Echolalia (mimicking of examiner's movements/speech): 0 Stereotypy (repetitive, abnormally frequent, [id number] movements - abnormality not inherent in act but in frequency): 0 Mannerism (odd, circumstantial caricature of normal actions): 0 Verbigeration (repetition of phrases or sentences): 0 Rigidity (maintenance of rigid position despite efforts to be moved): 0 Negativism (resistance to instructions or attempts to move/examine patient, may do opposite of what is requested): 0 Waxy flexibility (during repositioning of patient, patient offers initial resistance before allowing himself to be repositioned): 0 Withdrawal (refusal to eat, drink, and/or make eye contact): 0 Impulsivity (patient suddenly engages in inappropriate behavior without provocation): 0 Automatic obedience (exaggerated cooperation with examiner's request or spontaneous continuation of movement requested): 0 [place]hen (arm raising in response to light pressure of finger, despite instruction to contrary): 0 Gegenhalten (resistance to passive movement which is proportional to strength of stimulus, appears automatic rather than willful): 0 Ambitendency (patient appears motorically stuck in indecisive, hesitant position): 0 Grasp reflex: 0 Perseveration (repeatedly returns to same topic or persists with movement): 0 Combativeness (usually in an undirected manner, with no, or only a facile explanation afterwards): 0 Autonomic abnormality (temperature, BP, pulse, respiratory rate, diaphoresis): 1 TOTAL: 1 Vital Signs: Blood pressure (!) 158/98, pulse 83, temperature 98.3 F (36.8 C), temperature source Oral, resp. rate 18, height 1.829 m (6'), weight 121.2 kg (267 lb 3.2 oz), SpO2 92%. Scheduled Medications: Enoxaparin Sodium (LOVENOX) injection 40 mg, 40 mg, Q24H Folic acid (FOLVITE) tablet 1 mg, 1 mg, Daily Or Folic acid (FOLVITE) tablet 1 mg, 1 mg, Daily Or Folic acid injection 1 mg, 1 mg, Daily LORazepam (ATIVAN) tablet 1 mg, 1 mg, BID Multi-Vitamins tablet 1 tablet, 1 tablet, Daily Or Multi-Vitamins tablet 1 tablet, 1 tablet, Daily OLANZapine (zyPREXA) tablet 5 mg, 5 mg, QHS Sertraline (ZOLOFT) tablet 50 mg, 50 mg, Daily Tamsulosin HCl (FLOMAX) capsule 0.4 mg, 0.4 mg, Daily Thiamine tablet 100 mg, 100 mg, Daily PRN Medications: Acetaminophen, 650 mg, Q6H PRN alum/mag hydrox.-simethicone, 30 mL, Q6H PRN guaiFENesin, 400 mg, Q6H PRN Ibuprofen, 600 mg, Q6H PRN Melatonin, 6 mg, QHS PRN Nicotine, 4 mg, As directed PRN Polyethylene glycol, 17 g, Daily PRN Sodium chloride 0.9%, 250 mL, PRN Labs/Diagostic Studies: Recent Results (from the past 24 hour(s)) PLATELET COUNT Collection Time: 12/16/23 3:41 AM Result Value Ref Range Platelet Count 270 146 - 337 K/uL Mean Platelet Volume 9.9 8.7 - 12.3 fL IMPRESSION Fish Cheung is a 53 y.o. male with past medical history of depression, hypertension, and alcohol use disorder who was transferred from [facility] to [facility] for abnormal labs and failure to thrive. Patient was admitted to [facility] for intentional ingestion of rat poison and psychosis. Psychiatry was consulted due to psychosis with SI/HI. During assessment, patient had bizarre presentation with confabulation and loose associations. He showed several symptoms concerning for catatonia. Patient was unable to provide a linear timeline of events leading to his admission to [facility]. He also was unable to provide his past psychiatric or medical history. Further investigation in patient's medical and psychiatric history would be needed to help make decisions. Additionally, Board of Developmental Disorders should be contacted to see if patient has been linked or has history of intellectual disability. On physical exam on 12/07, the patient catatonia him has seemingly improved. The patient is moving spontaneously and is no longer in a fixed position. He no longer is staring without blinking. He blinks spontaneously. Mild rigidity and waxy flexibility is noted in upper extremities and mild bilateral hand tremors noted. On exam 12/09 and 12/12, patient continues to have improvement in symptoms including rigidity in his arms. Waxy flexibility was not appreciated on exam, though patient continues to have mild bilateral hand tremors. Collateral contact provided additional information regarding patient cognition, noting that patient's cognition has declined since June 2023. She noted that patient may have started drinking alcohol again after being sober for years. Additionally, patient had been having more falls and needing assistance going to the bathroom, when he usually doesn't require any assistance to handle his ADL's. Diagnoses: Catatonia Intellectual Disability Neurocognitive deficits Psychological factors affecting medical condition Physical deconditioning Alcohol Use Disorder, severe, dependence Mood disorder Suicidal Ideation, resolving Cocaine Use Disorder RECOMMENDATIONS Safety: SAFE-T Suicide Risk Assessment 1) Fish Cheung has risk factors for suicide including mood disorder (current or past) and impulsivity. Actively modifiable risk factors include mood disorder (current or past) and impulsivity. 2) He does not have known protective factors at this time, though patient is noted to be a poor historian 3) He is currently expressing Ideation (frequency, intensity, duration--In last 48 hours, past month, and worst ever): of ending his life by withholding food . 4) After considering the intensity and nature of suicidal thoughts and behaviors from this clinical interview, including his pertinent static and dynamic/modifiable suicide risk factors, as well as the impact of current protective factors, based on clinical judgment it appears that Fish Cheung is currently at moderate risk for suicide. Based upon this assessment, would proceed with the following to mitigate suicide risk: Moderate risk: Sitter for Sitter Indication: suicide risk, wandering / elopement risk, and unintentional self-harming behaviors is indicated. Order Emotional Support Precautions (IP MODERATE SUICIDE RISK - EMOTIONAL SUPPORT PRECAUTIONS) Continue to assess the patient for changes in suicidal thoughts, plans, behavior, and intent during daily rounding or with any significant change in circumstances. Please notify the psychiatry consult team if further safety concerns arise. Suicide risk can be further mitigated by medication management. Additional treatment planning steps to reduce suicide risk including medication changes, inpatient psychiatric admission, engaging in safety planning, and lethal means reduction (medication access, firearms). Assist the patient with the development of a safety plan for discharge Diagnostic Workup: Neuroleptic monitoring includes EKG for QTc monitoring, hold antipsychotics if QTc > 500 ms or baseline increases by > 25%. Avoid additional QTc prolonging medications as possible, and maintain K > 4 and Mg > 2. Please monitor for EPS. Agree with multivitamin and folate for alcohol use disorder Appreciate results of MRI Brain with Neuroquant for assessment of cognitive impairment Appreciate negative [employer]als Lab testing Agree with discontinuation of CIWA, considering improvement in patient's symptoms. Medications: Continue Ativan 1 mg BID from Ativan 1 mg TID with goal of discontinuing, if patient doesn't reoccurrence of catatonia. Continue Thiamine 500 mg IV TID for three day for alcohol use disorder with concern for confabulation. Continue Zyprexa to 5 mg at bedtime for delirium prophylaxis and mood stabilization. Recommend continuing Zyprexa 50 mg daily for depression and suicidal ideation. Non-pharmacological: Patient is at high-risk for delirium: - The best treatment for delirium is to treat the underlying medical problems. - Ensure proper hydration/nutrition - Repeated reorientation - Promotion of good sleep hygiene - Keep blinds open during daylight hours. - Early mobilization - Removal of unnecessary attachments (bansal catheter, peripheral IV's, NG tubes or other sources of infection) - Regarding pharmacology, avoid anticholinergic drugs and benzodiazepines to the extent possible. Opiates can cause and worsen delirium, but untreated pain can as well. Low dose antipsychotics can help. Please bear in mind that antipsychotics can lower seizure threshold and prolong QTc. - We recommend identifying a surrogate decision maker who can assist when needed Capacity was evaluated on 12/12 by Stephanie Tucker DO, and is as below: At this time, Fish Cheung has been given adequate information regarding the nature and purpose of the recommended plan of care (initiation of psychotropic medications), as well as the risks, benefits, and alternatives to psychotropic medications, including no treatment. Based on the current assessment, (compared to 12/07/23) Mr. Cheung has better ability to: understand the proposed plan of care, 2. appreciate his situation, 3. And weigh the information and use reason to make a decision in line with his values. HOWEVER, he continues to have some difficulty understanding all aspects of his care. Would continue to engage him in planning, however, would encourage including patient's sister in conversations. Catatonia, psychosis, and cognitive impairment appears to be impairing Fish's capacity to provide full informed consent, though this has been improving. At this time, would invoke a surrogate decision maker based on the legally defined hierarchy. Social work and or legal services can assist in identifying a surrogate decision maker. A patient's ability to provide informed consent (capacity to make medical decisions) is both temporal and situational. Evaluation of capacity should occur in the context of a specific health care decision. Capacity can liner roll changer time. Some patients lack capacity for specific periods of time, such as when critically ill, but not permanently. Those with limited capacity may be able to make some treatment decisions (less risky decisions) but not others. Any licensed physician--not just a psychiatrist--can make a determination of incapacity but we remain happy to assist by providing a second opinion on Fish Cheung's capacity to make this medical decision. Medical capacity for informed consent differs from legal competency. Legal competency is determined by a physical chemist after an application is submitted to the court for guardianship. Capacity and competency overlap but are distinct concepts. Consultations/Referrals/Follow-Up: Referral for Social Work to assist with collateral contact regarding psychiatric/neurological history, safety assessment, legal next-of-kin. Appreciate Neurology Consultation and recommendations. Appreciate results of OT assessment. Please consider referral to social work as patient has questions regarding insurance coverage and payments. Additionally, patient is requesting more information regarding SNF, which he is currently open to. Patient has improved mental status, which may him better able to engage in conversations with social work. Please do not discharge patient, before first reaching out to psychiatry. Patient likely will need psychiatric hospitalization. Thank you for the opportunity to participate in the care of this patient. The psychiatry consult team is available for questions and concerns M-F 8-5, please page [phone]. Outside of these hours, the craft demonstrator residential carpenter is available for urgent concerns at the same number, [phone]. This case was seen and staffed with attending psychiatrist Dr. Saul. Signed, Werner Peña MD Psychiatry, PGY-4 ATTENDING ATTESTATION I saw and examined the patient on 12/16/[address] Peña. I discussed the findings and therapeutic plan with the resident/fellow physician and I agree with the history, examination, and medical decision making as documented. Available electronic and outside paper records pertinent to today's encounter were personally reviewed, as well as available clinical data related to today's encounter, including but not limited to laboratory studies, radiology images and reports, and EKGs. Romeo Saul D.O. Department of Psychiatry and Behavioral Health Process Analystyarn bleaching machine operator [facility] Work Phone: 12-16-2023 Plan of care note Problem: Adult Inpatient Plan of Care Goal: Plan of Care Review Outcome: Progressing Goal: Patient-Specific Goal (Individualized) Outcome: Progressing Goal: Absence of Hospital-Acquired Illness or Injury Outcome: Progressing Goal: Optimal Comfort and Wellbeing Outcome: Progressing Goal: Readiness for Transition of Care Outcome: Progressing [facility] 12-15-2023 Plan of care note Problem: Adult Inpatient Plan of Care Goal: Plan of Care Review Outcome: Progressing Goal: Patient-Specific Goal (Individualized) Outcome: Progressing Goal: Absence of Hospital-Acquired Illness or Injury Outcome: Progressing Goal: Optimal Comfort and Wellbeing Outcome: Progressing [facility] 12-14-2023 Nurse Note Spoke with patient's sister over the phone. She is requesting a call from case management as she is confused to why he is discharge planning is a residential facility. She states if it is because he is unable to live by himself, she has space at her house for him [facility] 12-14-2023 Plan of care note Problem: PT - General Goals Goal: Pt will perform bed mobility within precautions at independence in order to improve functional mobility and safety. Outcome: Progressing Goal: Pt will perform transfers within precautions with independence with without an assistive device in order to improve functional mobility and safety. Outcome: Progressing Goal: Pt will ambulate 100 feet within precautions with least restrictive device at independence to improve ability to navigate home environment. Outcome: Progressing [facility] 12-13-2023 Consult note Formatting of th is note is different from the original. PSYCHIATRY CONSULT FOLLOW-UP NOTE 12/13/2023 Fish Cheung : 1970 SUBJECTIVE Patient chart reviewed. VSS. Patient ahderent to all medications. No PRNs for agitation or anxiety given. Heavy Metals Screen negative. On approach, patient is observed sitting comfortably in chair besides bed. During conversation, patient had episodes of tearfulness when discussing traumatic events and passing of his best friend. He noted that he continues to have a sad mood, but he denied suicidal ideation, intent, or plan. Patient stated that he doesn't have intent to poison himself or to starve himself. Patient noted that he does have a gun in his house that he keeps in a safe. He noted that he is okay with his sister removing the gun and safe from his home. He indicated that he may consider selling the gun. Discussed patient's MRI Brain with him, and he noted his understanding regarding the results. Encouraged continued alcohol cessation to prevent further volume loss of the brain. He noted that he would be agreeable with medication changes to target his mood. Patient noted that he feels less confused than he was previously, and that his thoughts were less erratic. He indicated that he hadn't used any alcohol in awhile, and he denied any alcohol use immediately before psychiatric admission. Patient stated that he would never drink and drive because his best friend as a result of a motor vehicle collision. Discussed recommendation for SNF, and patient stated that he would like to talk to somebody more regarding the recommendation. He is not against going to a SNF. Patient is very worried about the cost of his hospitalization, stating that it scares him to have large debt to pay. Patient was agreeable to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 [id number] Pending Review Auto-Generat ed Referral 12/31/2023 01/29/2025 1 1 * MRI/CT (Urgent) - Authorized Specialty Diagnoses / Procedures Referred By Jose adair Referred To Contact CT IMAGING Diagnoses SOB (shortness of breath) Procedures CT CHEST W IVCON PE CT CHEST W IVCON PE DIAGNOSTIC COMPUTED TOMOGRAPHY THORAX W/CONTRAST Kush Lopez DO [address] [place] [address] Ct Imaging [facility] Referral ID Status Reason Start Date Expiration Date Visits Requested Visits Authorized [id number] Authorized Auto-Generat ed Referral 12/31/2023 01/29/2025 1 1 [facility] Advance Directives No Advanced Directives Records Found Date Activated Date Inactivated Comments 12/07/2023 4:12 AM Summary Purpose Family History No Family History Records FoundNo Family History Records FoundNo Family History Records Found Reason for Referral Specialty Diagnoses / Procedures Referred By Contbrendon t Referred To Contact CT IMAGING Diagnoses SOB (shortness of breath) Procedures CT CHEST W IVCON PE CT CHEST W IVCON PE DIAGNOSTIC COMPUTED TOMOGRAPHY THORAX W/CONTRAST Kush Lopez, DO [address] [place] [address] [place] [address] Referral ID Status Reason Start Date Expiration Date V isits Requested Visits Authorized [id number] Closed Auto-Generate d Referral 12/31/2023 01/29/2025 1 1 Additional Source Comments Source Comments (unrecognize d section and content) In the event this informatio n is protected by the Federal Confidentiality of Alcohol and Drug Abuse Patient Records regulations: The Federal rules restrict any use of the information to criminally investigate or prosecute any alcohol or drug abuse patient.[facility] the event this information is protected by the Federal Confidentiality of Alcohol and Drug Abuse Patient Records regulations: The Federal rules restrict any use of the information to criminally investigate or prosecute any alcohol or drug abuse patient.[facility] the event this information is protected by the Federal Confidentiality of Alcohol and Drug Abuse Patient Records regulations: The Federal rules restrict any use of the information to criminally investigate or prosecute any alcohol or drug abuse patient.[facility] the event this information is protected by the Federal Confidentiality of Alcohol and Drug Abuse Patient Records regulations: The Federal rules restrict any use of the information to criminally investigate or prosecute any alcohol or drug abuse patient.[facility] Reason for Visit (unrecogniz ed section and content) Reason Onset Date Comments Appointment 09/14/2021 Reason Comments Mental Health Problems Critical Lab Values Specialty Diagnoses / Procedures Referred By Jose adair Referred To Contact Diagnoses Psychosis Jose Rivers MD [address] [place] [address] [address] [place] [address] [facility] [address] [place] [address] Referral ID Status Reason Start Date Expiration Date Visits Re quested Visits Authorized [id number] 1 1 Reason Comments Mental Health Problems Critical Lab Values Reason Comments Shortness of Breath X 2 weeks Reason Comments Radiology CT Specialty Diagnoses / Procedures Referred By Jose adair Referred To Contact CT IMAGING Diagnoses SOB (shortness of breath) Procedures CT CHEST W IVCON PE CT CHEST W IVCON PE DIAGNOSTIC COMPUTED TOMOGRAPHY THORAX W/CONTRAST Kush Lopez, [address] [place] [address] [place] [address] Referral ID Status Reason Start Date Expiration Date V isits Requested Visits Authorized [id number] Closed Auto-Generate d Referral 12/31/2023 01/29/2025 1 1 Care Teams (unrecognized sec tion and content) Family Psychologist Relationship Specialty Start Date End Date Cruzito Kirk MD [address] [place], [place] [id number] PCP - General Family Practice 04/13/16 Family Psychologist Relationship Specialty Start Date End Date Self, Self PCP - General Other 12/07/23 Family Psychologist Relationship Specialty Start Date End Date Self, Self PCP - General Other 12/07/23 Family Psychologist Relationship Specialty Start Date End Date Cruzito Kirk MD [address] [place], [place] [phone] PCP - General Family Medicine 04/13/16 Family Psychologist Relationship Specialty Start Date End Date Cruzito Kirk MD [address] [place], [place] [id number] PCP - General Family Medicine 04/13/16 Family Psychologist Relationship Specialty Start Date End Date Cruzito Kirk MD [address] [place], [place] [id number] PCP - General Family Medicine 04/13/16 Scheduled Active and Recently Administ ered Medications (unrecognized section and content) Medication Order 12/17/2023 12/18/2023 12/19/2023 amLODIPine (NORVASC) tablet 10 mg (CANCELED) 10 mg, Oral, DAILY, First dose on Sun12/17/23 at 1230, Until Discontinued 1218 (Given - Provider: Lorrie Christina RN) 08 (Given - Provider: Lorrie Christina RN) amLODIPine (NORVASC) tablet 5 mg 5 mg, Oral, DAILY, First dose (after last modification) on Sun12/19/23 at 0900, Until Discontinued 08 (Given - Provider: Lorrie Christina RN) carveDILOL (COREG) tablet 12.5 mg 12.5 mg, Oral, EVERY 12 HOURS, First dose (after last modification) on Sun12/17/23 at 1900, Until Discontinued 2026 (Given - Provider: Elicia Banegas RN) 08 (Given - Provider: Lorrie Christina RN)2056 (Given - Provider: Diandra Brandon RN) 0812 (Given - Provider: Lorrie Christina RN)2100 (Due) Enoxaparin Sodium (LOVENOX) injection 40 mg 40 mg, Subcutaneous, EVERY 24 HOURS, First dose on Sun12/07/23 at 0800, Until Discontinued, For SUBCUTANEOUS route ONLY: alternate injection sites between left and right abdominal wall, pinching location and avoiding area around navel. If unable to use abdominal sites, may use the front or side of thighs., Indications: DVT/PE prophylaxis 0809 (Given - Provider: Lorrie Christina RN) 0821 (Given - Provider: Lorrie Christina RN) 0812 (Given - Provider: Lorrie Christina RN) Folic acid (FOLVITE) tablet 1 mg(Linked Group 1) 1 mg, Oral, DAILY, First dose on Sun12/07/23 at 0900, Until Discontinued 0808 (Given - Provider: Lorrie Christina RN) 0821 (Given - Provider: Lorrie Christina RN) 0812 (Given - Provider: Lorrie Christina RN) Folic acid (FOLVITE) tablet 1 mg(Linked Group 1) 1 mg, Per NG tube, DAILY, First dose on Sun12/07/23 at 0900, Until Discontinued 0808 (See Alternative - Provider: Lorrie Christina RN) 0821 (See Alternative - Provider: Lorrie Christina RN) 0812 (See Alternative - Provider: Lorrie Christina RN) Folic acid injection 1 mg(Linked Group 1) 1 mg, Intravenous, Administer over 3 Minutes, DAILY, First dose on Sun12/07/23 at 0900, Until Discontinued, If unable to tolerate PO/NG. 0808 (See Alternative - Provider: Lorrie Christina RN) 0821 (See Alternative - Provider: Lorrie Christina RN) 0812 (See Alternative - Provider: Lorrie Christina RN) hydroCHLOROthiazide (MICROZIDE) capsule 12.5 mg (CANCELED) 12.5 mg, Oral, DAILY, First dose on Sun12/17/23 at 1515, Until Discontinued 1530 (Given - Provider: Lorrie Christina RN) 0821 (Given - Provider: Lorrie Christina RN) Labetalol (NORMODYNE) injection 10 mg (COMPLETED) 10 mg, Intravenous, ONCE, 1 dose, On Sun12/17/23 at 1545, Administration duration: up to 20 mg over 2 minutes. Telemetry required except for FUNDRAISING MANAGER patients on [address] Floors 6 and 7. For vials: labetalol should be treated as a SINGLE USE VIAL. Discard remaining contents after one use. 1541 (Given - Provider: Lorrie Christina RN) Labetalol (NORMODYNE) injection 20 mg (COMPLETED) 20 mg, Intravenous, ONCE, 1 dose, On Sun12/17/23 at 1645, Administration duration: up to 20 mg over 2 minutes. Telemetry required except for FUNDRAISING MANAGER patients on [address] Floors 6 and 7. For vials: labetalol should be treated as a SINGLE USE VIAL. Discard remaining contents after one use. 1626 (Given - Provider: Lorrie Christina RN) LORazepam (ATIVAN) tablet 0.5 mg 0.5 mg, Oral, DAILY, First dose (after last modification) on Sun12/18/23 at 0900, Until Discontinued 08 (Given - Provider: Lorrie Christina RN) 08 (Given - Provider: Lorrie Christina RN) LORazepam (ATIVAN) tablet 1 mg (CANCELED) 1 mg, Oral, 2 TIMES DAILY, First dose (after last modification) on Sun12/14/23 at 1700, Until Discontinued 0808 (Given - Provider: Lorrie Christina RN) Multi-Vitamins tablet 1 tablet(Linked Group 2) 1 tablet, Per NG tube, DAILY, First dose on Sun12/07/23 at 0900, Until Discontinued, Crush for NG tube administration. 0808 (See Alternative - Provider: Lorrie Christina RN) 08 (See Alternative - Provider: Lorrie Christina RN) 0812 (See Alternative - Provider: Lorrie Christina RN) Multi-Vitamins tablet 1 tablet(Linked Group 2) 1 tablet, Oral, DAILY, First dose on Sun12/07/23 at 0900, Until Discontinued, Use PO route if patient tolerating PO. 0808 (Given - Provider: Lorrie Christina RN) 0821 (Given - Provider: Lorrie Christina RN) 0812 (Given - Provider: Lorrie Christina RN) OLANZapine (zyPREXA) tablet 5 mg 5 mg, Oral, DAILY AT BEDTIME, First dose (after last modification) on Sun12/14/23 at 2100, Until Discontinued 2026 (Given - Provider: Elicia Banegas, NAVNEET) 2056 (Given - Provider: Diandra Brandon RN) 2100 (Due) Sertraline (ZOLOFT) tablet 50 mg 50 mg, Oral, DAILY, First dose on Sun12/13/23 at 0900, Until Discontinued 08 (Given - Provider: Lorrie Christina RN) 0821 (Given - Provider: Lorrie Christina RN) 0815 (Given - Provider: Lorrie Christina RN) Tamsulosin HCl (FLOMAX) capsule 0.4 mg 0.4 mg, Oral, DAILY, First dose on Sun12/09/23 at 1115, Until Discontinued, Slow release product. Do not chew or crush 0808 (Given - Provider: Lorrie Christina RN) 0821 (Given - Provider: Lorrie Christina RN) 0812 (Given - Provider: Lorrie Christina RN) Thiamine tablet 100 mg 100 mg, Oral, DAILY, First dose on Sun12/11/23 at 0900, Until Discontinued 08 (Given - Provider: Lorrie Christina RN) 0821 (Given - Provider: Lorrie Christina RN) 0812 (Given - Provider: Lorrie Christina RN) PRN Medication Order 12/17/2023 12/18/2023 12/19/2023 Acetaminophen (TYLENOL) tablet 650 mg 650 mg, Oral, EVERY 6 HOURS NEEDED, Starting on Sun12/07/23 at 0412, Until Discontinued, Mild Pain, Oral temp > 100.4 F, Maximum dose of acetaminophen is 4000 mg from all sources in 24 hours. alum/mag hydrox.-simethicone oral suspension 30 mL 30 mL, Oral, EVERY 6 HOURS NEEDED, Starting on Sun12/07/23 at 0412, Until Discontinued, Indigestion, Per 5 mL is equivalent to: (Alum-Mag Hydroxide 200-225 mg and Simethicone 20 mg) and (Alum-Mag Hydroxide 200-200 mg and Simethicone 20 mg) guaiFENesin (ROBITUSSIN) oral solution 400 mg 400 mg, Oral, EVERY 6 HOURS NEEDED, Starting on Sun12/07/23 at 0412, Until Discontinued, Cough, Congestion Ibuprofen (MOTRIN) tablet 600 mg 600 mg, Oral, EVERY 6 HOURS NEEDED, Starting on Sun12/06/23 at 1539, Until Discontinued, Moderate Pain, Give with food Melatonin tablet 6 mg 6 mg, Oral, DAILY AT BEDTIME NEEDED, Starting on Sun12/07/23 at 0412, Until Discontinued, Insomnia 2032 (Given - Provider: Elicia Banegas, RN) Nicotine (NICORETTE) gum 4 mg 4 mg, Oral, ADMINISTER DIRECTED, Starting on Sun12/06/23 at 1539, Until Discontinued, Smoking cessation, May have 1 piece of gum every 1-2 hours with maximum of 24 pieces in 24 hours. Patient may self-administer. Polyethylene glycol (MIRALAX) packet 17 g 17 g, Oral, DAILY NEEDED, Starting on Sun12/07/23 at 041, Until Discontinued, Constipation 1st Line Sodium chloride 0.9% IV solution 250 mL Intravenous, at 20 mL/hr, NEEDED, Starting on Sun12/07/23 at 041, Until Discontinued, Carrier Fluid - See Admin. Inst, 250mL 0.9NS to be used as carrier fluid for intermittent small volume or piggyback medication administration as needed. Infusion rate of the carrier fluid should be set at 20 mL/hr unless the rate as the intermittent medication is less than 20 mL/hr. For intermittent medications with a rate less than 20 mL/hr set the carrier fluid at that rate of the intermittent or piggy back medication. Linked Groups Order Group 1: Folic acid (FOLVITE) tablet 1 mgJump to med 1 mg, Oral, DAILY, First dose on Sun12/07/23 at 0900, Until Discontinued Or Folic acid (FOLVITE) tablet 1 mgJump to med 1 mg, Per NG tube, DAILY, First dose on Sun12/07/23 at 0900, Until Discontinued Or Folic acid injection 1 mgJump to med 1 mg, Intravenous, Administer over 3 Minutes, DAILY, First dose on Sun12/07/23 at 0900, Until Discontinued, If unable to tolerate PO/NG. Group 2: Multi-Vitamins tablet 1 tabletJump to med 1 tablet, Per NG tube, DAILY, First dose on Sun12/07/23 at 0900, Until Discontinued, Crush for NG tube administration. Or Multi-Vitamins tablet 1 tabletJump to med 1 tablet, Oral, DAILY, First dose on Sun12/07/23 at 0900, Until Discontinued, Use PO route if patient tolerating PO. Scheduled Medication Order 12/17/2023 12/18/2023 12/19/2023 amLODIPine (NORVASC) tablet 10 mg (CANCELED) 10 mg, Oral, DAILY, First dose on Sun12/17/23 at 1230, Until Discontinued 121 (Given - Provider: Lorrie Christina RN) 820 (Given - Provider: Lorrie Christina RN) amLODIPine (NORVASC) tablet 5 mg 5 mg, Oral, DAILY, First dose (after last modification) on Sun12/19/23 at 0900, Until Discontinued 811 (Given - Provider: Lorrie Christina RN) carveDILOL (COREG) tablet 12.5 mg 12.5 mg, Oral, EVERY 12 HOURS, First dose (after last modification) on Sun12/17/23 at 1900, Until Discontinued 2026 (Given - Provider: Elicia Banegas RN) 820 (Given - Provider: Lorrie Christina RN)2056 (Given - Provider: Diandra Brandon RN) 811 (Given - Provider: Lorrie Christina RN) Enoxaparin Sodium (LOVENOX) injection 40 mg 40 mg, Subcutaneous, EVERY 24 HOURS, First dose on Sun12/07/23 at 0800, Until Discontinued, For SUBCUTANEOUS route ONLY: alternate injection sites between left and right abdominal wall, pinching location and avoiding area around navel. If unable to use abdominal sites, may use the front or side of thighs., Indications: DVT/PE prophylaxis 808 (Given - Provider: Lorrie Christina RN) 820 (Given - Provider: Lorrie Christina RN) 811 (Given - Provider: Lorrie Christina RN) Folic acid (FOLVITE) tablet 1 mg(Linked Group 1) 1 mg, Oral, DAILY, First dose on Sun12/07/23 at 0900, Until Discontinued 807 (Given - Provider: Lorrie Christina RN) 820 (Given - Provider: Lorrie Christina RN) 811 (Given - Provider: Lorrie Christina RN) Folic acid (FOLVITE) tablet 1 mg(Linked Group 1) 1 mg, Per NG tube, DAILY, First dose on Sun12/07/23 at 0900, Until Discontinued 0808 (See Alternative - Provider: Lorrie Christina RN) 0821 (See Alternative - Provider: Lorrie Christina RN) 0812 (See Alternative - Provider: Lorrie Christina RN) Folic acid injection 1 mg(Linked Group 1) 1 mg, Intravenous, Administer over 3 Minutes, DAILY, First dose on Sun12/07/23 at 0900, Until Discontinued, If unable to tolerate PO/NG. 0808 (See Alternative - Provider: Lorrie Christina RN) 0821 (See Alternative - Provider: Lorrie Christina RN) 0812 (See Alternative - Provider: Lorrie Christina RN) hydroCHLOROthiazide (MICROZIDE) capsule 12.5 mg (CANCELED) 12.5 mg, Oral, DAILY, First dose on Sun12/17/23 at 1515, Until Discontinued 1530 (Given - Provider: Lorrie Christina RN) 0821 (Given - Provider: Lorrie Christina RN) Labetalol (NORMODYNE) injection 10 mg (COMPLETED) 10 mg, Intravenous, ONCE, 1 dose, On Sun12/17/23 at 1545, Administration duration: up to 20 mg over 2 minutes. Telemetry required except for FUNDRAISING MANAGER patients on [address] Floors 6 and 7. For vials: labetalol should be treated as a SINGLE USE VIAL. Discard remaining contents after one use. 1541 (Given - Provider: Lorrie Christina RN) Labetalol (NORMODYNE) injection 20 mg (COMPLETED) 20 mg, Intravenous, ONCE, 1 dose, On Sun12/17/23 at 1645, Administration duration: up to 20 mg over 2 minutes. Telemetry required except for FUNDRAISING MANAGER patients on [address] Floors 6 and 7. For vials: labetalol should be treated as a SINGLE USE VIAL. Discard remaining contents after one use. 1626 (Given - Provider: Lorrie Christina RN) LORazepam (ATIVAN) tablet 0.5 mg 0.5 mg, Oral, DAILY, First dose (after last modification) on Sun12/18/23 at 0900, Until Discontinued 0821 (Given - Provider: Lorrie Christina RN) 0812 (Given - Provider: Lorrie Christina RN) LORazepam (ATIVAN) tablet 1 mg (CANCELED) 1 mg, Oral, 2 TIMES DAILY, First dose (after last modification) on Sun12/14/23 at 1700, Until Discontinued 0808 (Given - Provider: Lorrie Christina RN) Multi-Vitamins tablet 1 tablet(Linked Group 2) 1 tablet, Per NG tube, DAILY, First dose on Sun12/07/23 at 0900, Until Discontinued, Crush for NG tube administration. 0808 (See Alternative - Provider: Lorrie Christina RN) 08 (See Alternative - Provider: Lorrie Christina RN) 0812 (See Alternative - Provider: Lorrie Christina RN) Multi-Vitamins tablet 1 tablet(Linked Group 2) 1 tablet, Oral, DAILY, First dose on Sun12/07/23 at 0900, Until Discontinued, Use PO route if patient tolerating PO. 0808 (Given - Provider: Lorrie Christina RN) 08 (Given - Provider: Lorrie Christina RN) 08 (Given - Provider: Lorrie Christina RN) OLANZapine (zyPREXA) tablet 5 mg 5 mg, Oral, DAILY AT BEDTIME, First dose (after last modification) on Sun12/14/23 at 2100, Until Discontinued 2026 (Given - Provider: Elicia Banegas RN) 2056 (Given - Provider: Diandra Brandon, NAVNEET) Sertraline (ZOLOFT) tablet 50 mg 50 mg, Oral, DAILY, First dose on Sun12/13/23 at 0900, Until Discontinued 08 (Given - Provider: Lorrie Christina RN) 08 (Given - Provider: Lorrie Christina RN) 0815 (Given - Provider: Lorrie Christina RN) Tamsulosin HCl (FLOMAX) capsule 0.4 mg 0.4 mg, Oral, DAILY, First dose on Sun12/09/23 at 1115, Until Discontinued, Slow release product. Do not chew or crush 0808 (Given - Provider: Lorrie Christina RN) 08 (Given - Provider: Lorrie Christina RN) 0812 (Given - Provider: Lorrie Christina RN) Thiamine tablet 100 mg 100 mg, Oral, DAILY, First dose on Sun12/11/23 at 0900, Until Discontinued 0808 (Given - Provider: Lorrie Christina RN) 08 (Given - Provider: Lorrie Christina RN) 0812 (Given - Provider: Lorrie Christina RN) PRN Medication Order 12/17/2023 12/18/2023 12/19/2023 Acetaminophen (TYLENOL) tablet 650 mg 650 mg, Oral, EVERY 6 HOURS NEEDED, Starting on Sun12/07/23 at 0412, Until Sun12/19/23 at 1543, Mild Pain, Oral temp > 100.4 F, Maximum dose of acetaminophen is 4000 mg from all sources in 24 hours. alum/mag hydrox.-simethicone oral suspension 30 mL 30 mL, Oral, EVERY 6 HOURS NEEDED, Starting on Sun12/07/23 at 0412, Until Sun12/19/23 at 1543, Indigestion, Per 5 mL is equivalent to: (Alum-Mag Hydroxide 200-225 mg and Simethicone 20 mg) and (Alum-Mag Hydroxide 200-200 mg and Simethicone 20 mg) guaiFENesin (ROBITUSSIN) oral solution 400 mg 400 mg, Oral, EVERY 6 HOURS NEEDED, Starting on Sun12/07/23 at 0412, Until Sun12/19/23 at 1543, Cough, Congestion Ibuprofen (MOTRIN) tablet 600 mg 600 mg, Oral, EVERY 6 HOURS NEEDED, Starting on Marlena 12/06/23 at 1539, Until Sun12/19/23 at 1543, Moderate Pain, Give with food Melatonin tablet 6 mg 6 mg, Oral, DAILY AT BEDTIME NEEDED, Starting on Sun12/07/23 at 0412, Until Sun12/19/23 at 1543, Insomnia 2032 (Given - Provider: Elicia Banegas RN) Nicotine (NICORETTE) gum 4 mg 4 mg, Oral, ADMINISTER DIRECTED, Starting on Marlena 12/06/23 at 1539, Until Sun12/19/23 at 1543, Smoking cessation, May have 1 piece of gum every 1-2 hours with maximum of 24 pieces in 24 hours. Patient may self-administer. Polyethylene glycol (MIRALAX) packet 17 g 17 g, Oral, DAILY NEEDED, Starting on Sun12/07/23 at 0412, Until Sun12/19/23 at 1543, Constipation 1st Line Sodium chloride 0.9% IV solution 250 mL Intravenous, at 20 mL/hr, NEEDED, Starting on Sun12/07/23 at 0412, Until Sun12/19/23 at 1543, Carrier Fluid - See Admin. Inst, 250mL 0.9NS to be used as carrier fluid for intermittent small volume or piggyback medication administration as needed. Infusion rate of the carrier fluid should be set at 20 mL/hr unless the rate as the intermittent medication is less than 20 mL/hr. For intermittent medications with a rate less than 20 mL/hr set the carrier fluid at that rate of the intermittent or piggy back medication. Linked Groups Order Group 1: Folic acid (FOLVITE) tablet 1 mgJump to med 1 mg, Oral, DAILY, First dose on Sun12/07/23 at 0900, Until Discontinued Or Folic acid (FOLVITE) tablet 1 mgJump to med 1 mg, Per NG tube, DAILY, First dose on Sun12/07/23 at 0900, Until Discontinued Or Folic acid injection 1 mgJump to med 1 mg, Intravenous, Administer over 3 Minutes, DAILY, First dose on Sun12/07/23 at 0900, Until Discontinued, If unable to tolerate PO/NG. Group 2: Multi-Vitamins tablet 1 tabletJump to med 1 tablet, Per NG tube, DAILY, First dose on Sun12/07/23 at 0900, Until Discontinued, Crush for NG tube administration. Or Multi-Vitamins tablet 1 tabletJump to med 1 tablet, Oral, DAILY, First dose on Sun12/07/23 at 0900, Until Discontinued, Use PO route if patient tolerating PO. (unrecognized sect ion and content) No Status Records FoundNo Status Records FoundNo Status Records Found INFORMATION SOURCE (unrecogn ized section and content) DATE CREATED AUTHOR 12/22/2023 [facility] DATE CREATED AUTHOR AUTHOR'S ORGANIZ ATION 12/29/2023 [facility] DATE CREATED AUTHOR AUTHOR'S ORGANIZ ATION 01/15/2024 [facility] FOR RECORDS PERTAINING TO PATIENTS WHO ARE OR HAVE BEEN ENROLLED IN A CHEMICAL DEPENDENCY/SUBSTANCEABUSE PROGRAM, SOME INFORMATION MAY BE OMITTED. This clinical summary was aggregated from multiple sources. Caution should be exercised in using it in the provision of clinical care. This summary normalizes information from multiple sources, and as a consequence, information in this document may materially change the coding, format and clinical context of patient data. In addition, data may be omitted in some cases. CLINICAL DECISIONS SHOULD BE BASED ON THE PRIMARY CLINICAL RECORDS. [facility] [employer] [facility]. provides no warranty or guarantee of the accuracy or completeness of information in this document.
[2025-06-24 12:59] LABS: Partial Thromboplast Time 28.7 Seconds (24.1-36.2); Prothrombin Time (Protime)PT. 13.4 SECONDS (11.7-14.9)
[2025-06-24 13:07] LABS: AST(SGOT) 18 U/L (<=37); Alanine Aminotransfer ALT/SGPT 20 U/L (<=46); Albumin, Serum 4.2 g/dL (3.5-5.0); Alkaline Phosphatase 57 U/L (40-129); Anion Gap 12 (7-18); BUN 11 mg/dL (4-19); BUN/Creat Ratio 14.1 RATIO (10-20); Bilirubin, Direct 0.22 mg/dL (0.00-0.30); Calcium,Total 9.1 mg/dL (7.6-11.0); Carbon Dioxide 24.9 mmol/L (20.0-29.0); Chloride 97 mmol/L (96-106); Estimated Creatinine Clearance 135.15 ml/min (50-250); Globulin 3.1 g/dL (2.2-4.2); Glucose 231 mg/dL (70-99); Potassium 4.5 mmol/L (3.5-5.1)
[2025-06-24 13:50] VITALS: BP 130/70; PULSE 70; RESP 16
[2025-06-24 15:08] LABS: Hematocrit 46.7 % (40-54); Hemoglobin 16.7 g/dL (13.0-16.5)
[2025-06-24 15:50] VITALS: BP 120/92; PULSE 78; RESP 16; O2SAT 100
[2025-06-24] MEDS: TRANEXAMIC ACID 2,000 MG in 0.9% Normal Saline (100mL Bag) 100 ML 280 MG IV (16:02)
[2025-06-24 16:42] VITALS: BP 128/78; PULSE 78; RESP 16; TEMP 36.8; O2SAT 100
== END 2025-06-24 16:42 | disposition home or self-care (01) ==
PROVIDERS: Emergency Provider Emergency Medicine; PCP Family Medicine; Visit Provider Emergency Medicine
DX: K92.2 Gastrointestinal hemorrhage, unspecified (principal); F17.290 Nicotine dependence, other tobacco product, uncomplicated; Z87.19 Personal history of other diseases of the digestive system
CPT/HCPCS: 80048; 80076; 85014; 85018; 85025; 85610; 85730; 96365; 99285; A4216